=== PATIENT | female | born 1950 | race Caucasian/White ===

== ENCOUNTER 2016-03-09 13:44 | Inpatient (IN) ==
[2016-03-09] MEDS ORDERED: 0.9 % Sodium Chloride 1,000 ML IVC ONE (14:07)
[2016-03-09 14:22] LABS: Basophils # 0.1 K/mcL (0.0-0.2); Basophils % 0.3 %; Eosinophils # 0.2 K/mcL (0.0-0.6); Eosinophils % 1.2 %; Hematocrit 38.4 % (35.3-44.9); Hemoglobin 12.5 g/dL (11.5-15.4); Immature Granulocytes % 0.3 % (0-4); Lymphocytes # 0.8 K/mcL (0.6-4.6); Lymphocytes % 5.7 %; Mean Corpuscular HGB Conc 32.6 g/dL (31.6-35.5); Mean Corpuscular Hemoglobin 29.4 pg (28.0-33.3); Mean Corpuscular Volume 90.4 fL (83.0-100.0); Mean Platelet Volume 9.5 fL (9.4-12.4); Monocytes # 1.1 K/mcL (0.0-1.3); Monocytes % 7.5 %; Neutrophils # 12.3 K/mcL (1.6-8.9); Platelet Count 292 K/mcL (140-400); Red Blood Count 4.25 M/mcL (3.82-4.97); Red Cell Distribution Width 13.5 % (11.5-14.5)
[2016-03-09 14:39] LABS: Alanine Aminotransferase 10 Units/L (0-55); Albumin 3.5 g/dL (3.5-5.0); Alkaline Phosphatase 102 Units/L (38-126); Aspartate Amino Transferase 17 Units/L (5-34); BUN/Creatinine Ratio 7 (6-26); Bilirubin,Direct 0.2 mg/dL (0.0-0.5); Bilirubin,Indirect 0.2 mg/dL (0.0-1.2); Bilirubin,Total 0.4 mg/dL (0.2-1.2); Blood Urea Nitrogen 6 mg/dL (7-20); Carbon Dioxide 25 mEq/L (19-29); Chloride 101 mEq/L (98-109); Globulin 3.6 g/dL (2.4-3.5); Glucose 141 mg/dL (70-99); Osmolality,Calculated 284 (280-300); Potassium 3.7 mEq/L (3.5-4.5); Sodium 137 mEq/L (136-145); Total Protein 7.1 g/dL (6.0-8.3); eGFR For African Americans > 60 (> 60); eGFR For Non-African Americans > 60 (> 60)
[2016-03-09] MEDS ORDERED: Azithromycin 500 MG in D5% in Water 250 ML IVPB STA (15:37)
[2016-03-09] MEDS ORDERED: Cefepime HCl 2,000 MG in D5% in Water (Mini-Bag+) 100 ML IVPB STA (15:37)
[2016-03-09] MEDS ORDERED: Ibuprofen 600 MG TABLET PO ONE (15:38)
[2016-03-09] MEDS ORDERED: Acetaminophen 325 MG TABLET PO ONE (15:38)
--- NOTE | 2016-03-09 15:42 | Emergency Department Note ---
Disposition Clinical Impression: Tachycardia, HCAP (healthcare-associated pneumonia) Disposition: Admitted As Inpatient Condition: Good Time of Disposition: 15:38 SOB HPI - General Chief Complaint: ED Shortness of Breath/Dyspnea Stated Complaint: SOB Time Seen by Provider: 03/09/16 14:07 Source: patient Mode of arrival: EMS Limitations: no limitations Nursing Notes Reviewed: Yes Vital Signs Reviewed: Yes - History of Present Illness 65-year-old female brought in by EMS for concerns of shortness of breath and possible pneumonia. Patient states she has a history of multidrug resistant pneumonia which has been followed by her gaming department head with multiple courses of antibiotics. Patient states that she feels short of breath and fatigued and weak. She is febrile upon arrival to the emergency department. - Related Data Home Medications Medication Instructions Recorded Confirmed Albuterol Sulfate [Proair Hfa] 2 puff IH Q4H PRN 07/14/15 02/01/16 Allopurinol [Zyloprim 300 MG] 300 mg PO DAILY 07/14/15 02/01/16 Atenolol 100 mg PO DAILY 07/14/15 02/01/16 Celecoxib [Celebrex] 200 mg PO BID 07/14/15 02/01/16 Citalopram Hydrobromide [Celexa] 40 mg PO DAILY 07/14/15 02/01/16 Cyclobenzaprine [Flexeril] 10 mg PO TID 07/14/15 02/01/16 Hydroxychloroquine [Plaquenuil] 400 mg PO DAILY 07/14/15 02/01/16 Levothyroxine [Synthroid] 50 mcg PO DAILY 07/14/15 02/01/16 Lidocaine Patch [Lidoderm 5% patch] 1 patch TP DAILY 07/14/15 02/01/16 Metaxalone [Skelaxin] 800 mg PO BID 07/14/15 02/01/16 NIFEdipine XL (24 HR) [Procardia 30 mg PO DAILY 07/14/15 02/01/16 XL] Oxycodone HCl 10 mg PO Q6H PRN 07/14/15 02/01/16 Pregabalin [Lyrica] 100 mg PO TID PRN 07/14/15 02/01/16 Aspirin 325 mg PO DAILY 11/04/15 02/01/16 Furosemide [Lasix] 20 mg PO DAILY 01/05/16 02/01/16 Multivitamin [Multi-Day Vitamins] 1 tab PO DAILY 01/05/16 02/01/16 Oxygen 2 l .ROUTE AD 01/05/16 02/01/16 Allergies Allergy/AdvReac Type Severity Reaction Status Date / Time No Known Allergies Allergy Verified 08/23/15 12:05 All systems ED: reviewed and negative except as stated. Constitutional: Reports: fever, chills, weakness Cardiovascular: Reports: chest pain, dyspnea on exertion. Denies: palpitations Respiratory: Reports: cough, dyspnea. Denies: wheezes, hemoptysis Gastrointestinal: Denies: abdominal pain, nausea, vomiting, diarrhea Genitourinary: Denies: urgency, dysuria, frequency Musculoskeletal: Denies: back pain, neck pain, joint swelling Past Medical History - Past Medical History Attestation: Yes The following information was validated with the patient. Source: patient Medical history: Reports: arthritis, asthma, COPD, coronary artery disease, fibromyalgia, GERD, hyperlipidemia, hypertension, kidney stones, osteoporosis, RA, thyroid disease, other Surgical history: Reports: appendectomy, breast surgery, cholecystectomy, herniorrhaphy, hip replacement, hysterectomy, other Psychiatric history: Reports: anxiety, depression, panic disorder, other ATOMIC PHYSICS TEACHER history: Reports: no ATOMIC PHYSICS TEACHER history - Social History Smoking Status: Never smoker Smokeless Tobacco Status: No Alcohol use: Reports: none Drug use: Reports: none Physical Exam General: Alert and in no acute distress Skin: Warm, dry, intact Head: Normocephalic and atraumatic Neck: Supple, trachea midline and no tenderness Cardiovascular: Tachycardia, no murmur, normal perfusion Respiratory: Mild wheezing and posterior lung price bilaterally Musculoskeletal: Normal strength, no tenderness, swelling or deformity GI: Soft, nontender, nondistended. Bowel sounds present Neuro: A&O to person, place, time and situation. No focal deficits noted on exam Psychiatric: cooperative and appropriate mood and affect. - General Limitations: no limitations General appearance: alert Course Vital Signs Temperature 102.9 F H 03/09/16 13:45 Pulse Rate 117 03/09/16 13:45 Respiratory Rate 24 03/09/16 13:45 Blood Pressure 145/91 03/09/16 13:45 O2 Sat by Pulse Oximetry 88 L 03/09/16 13:45 Temperature 98.2 F 03/09/16 23:41 Pulse Rate 80 03/09/16 23:41 Respiratory Rate 16 03/09/16 23:41 Blood Pressure 108/69 03/09/16 23:41 O2 Sat by Pulse Oximetry 98 03/09/16 23:41 Oxygen Delivery Oxygen Delivery Nasal Cannula Shortness of Breath/Dyspnea - Medical Records Medical records reviewed: Yes I reviewed the patient's medical records. - Lab Data Lab results reviewed: Yes I reviewed the patient's lab results. Result diagrams: 03/09/16 14:10 03/09/16 14:10 Lab Results 03/09/16 03/09/16 03/09/16 Range/Units 14:10 14:10 14:10 WBC 14.5 H (4.3-11.1) K/mcL RBC 4.25 (3.82-4.97) M/mcL Hgb 12.5 (11.5-15.4) g/dL Hct 38.4 (35.3-44.9) % MCV 90.4 (83.0-100.0) fL MCH 29.4 (28.0-33.3) pg MCHC 32.6 (31.6-35.5) g/dL RDW 13.5 (11.5-14.5) % Plt Count 292 (140-400) K/mcL MPV 9.5 (9.4-12.4) fL Immature Gran % 0.3 (0-4) % Seg Neutrophils % 85.0 % Lymphocytes % 5.7 % Monocytes % 7.5 % Eosinophils % 1.2 % Basophils % 0.3 % Neutrophils # 12.3 H (1.6-8.9) K/mcL Lymphocytes # 0.8 (0.6-4.6) K/mcL Monocytes # 1.1 (0.0-1.3) K/mcL Eosinophils # 0.2 (0.0-0.6) K/mcL Basophils # 0.1 (0.0-0.2) K/mcL Sodium 137 (136-145) mEq/L Potassium 3.7 (3.5-4.5) mEq/L Chloride 101 (98-109) mEq/L Carbon Dioxide 25 (19-29) mEq/L BUN 6 L (7-20) mg/dL Creatinine 0.86 (0.57-1.11) mg/dL Est GFR ( Amer) > 60 (> 60) Est GFR (Non-Af Amer) > 60 (> 60) BUN/Creatinine Ratio 7 (6-26) Glucose 141 H (70-99) mg/dL Calculated Osmolality 284 (280-300) Lactic Acid 2.7 H (0.5-2.2) mmol/L Calcium 9.0 (8.6-10.8) mg/dL Total Bilirubin 0.4 (0.2-1.2) mg/dL Direct Bilirubin 0.2 (0.0-0.5) mg/dL Indirect Bilirubin 0.2 (0.0-1.2) mg/dL AST 17 (5-34) Units/L ALT 10 (0-55) Units/L Alkaline Phosphatase 102 (38-126) Units/L Troponin I (0-0.03) ng/mL Serum Total Protein 7.1 (6.0-8.3) g/dL Albumin 3.5 (3.5-5.0) g/dL Globulin 3.6 H (2.4-3.5) g/dL Albumin/Globulin Ratio 1.0 L (1.1-2.2) Urine Color (Yellow) Urine Clarity (Clear) Urine pH (5.0-8.0) pH Units Ur Specific [place] (1.010-1.025) Urine Protein (Neg-Trace) mg/dL Urine Glucose (UA) (Normal) mg/dL Urine Ketones (Negative) mg/dL Urine Blood (Negative) Urine Nitrite (Negative) Urine Bilirubin (Negative) Urine Urobilinogen (Normal) mg/dL Ur Leukocyte Esterase (Negative) Urine Microscopic RBC (0-3) per hpf Urine Microscopic WBC (0-3) per hpf Ur Squamous Epith Cells (None-Few) per lpf Urine Bacteria (None-Few) per hpf Hyaline Casts (None-Few) per lpf Ur Culture Indicated? (NO) MRSA Surveillance Scrn (Negative) 03/09/16 03/09/16 03/09/16 Range/Units 14:10 15:51 19:30 WBC (4.3-11.1) K/mcL RBC (3.82-4.97) M/mcL Hgb (11.5-15.4) g/dL Hct (35.3-44.9) % MCV (83.0-100.0) fL MCH (28.0-33.3) pg MCHC (31.6-35.5) g/dL RDW (11.5-14.5) % Plt Count (140-400) K/mcL MPV (9.4-12.4) fL Immature Gran % (0-4) % Seg Neutrophils % % Lymphocytes % % Monocytes % % Eosinophils % % Basophils % % Neutrophils # (1.6-8.9) K/mcL Lymphocytes # (0.6-4.6) K/mcL Monocytes # (0.0-1.3) K/mcL Eosinophils # (0.0-0.6) K/mcL Basophils # (0.0-0.2) K/mcL Sodium (136-145) mEq/L Potassium (3.5-4.5) mEq/L Chloride (98-109) mEq/L Carbon Dioxide (19-29) mEq/L BUN (7-20) mg/dL Creatinine (0.57-1.11) mg/dL Est GFR ( Amer) (> 60) Est GFR (Non-Af Amer) (> 60) BUN/Creatinine Ratio (6-26) Glucose (70-99) mg/dL Calculated Osmolality (280-300) Lactic Acid (0.5-2.2) mmol/L Calcium (8.6-10.8) mg/dL Total Bilirubin (0.2-1.2) mg/dL Direct Bilirubin (0.0-0.5) mg/dL Indirect Bilirubin (0.0-1.2) mg/dL AST (5-34) Units/L ALT (0-55) Units/L Alkaline Phosphatase (38-126) Units/L Troponin I 0.01 (0-0.03) ng/mL Serum Total Protein (6.0-8.3) g/dL Albumin (3.5-5.0) g/dL Globulin (2.4-3.5) g/dL Albumin/Globulin Ratio (1.1-2.2) Urine Color Dark Yellow (Yellow) Urine Clarity Clear (Clear) Urine pH 5.5 (5.0-8.0) pH Units Ur Specific [place] 1.016 (1.010-1.025) Urine Protein Negative (Neg-Trace) mg/dL Urine Glucose (UA) Normal (Normal) mg/dL Urine Ketones Negative (Negative) mg/dL Urine Blood Negative (Negative) Urine Nitrite Positive A (Negative) Urine Bilirubin Negative (Negative) Urine Urobilinogen Normal (Normal) mg/dL Ur Leukocyte Esterase Negative (Negative) Urine Microscopic RBC 0-3 (0-3) per hpf Urine Microscopic WBC 0-3 (0-3) per hpf Ur Squamous Epith Cells Moderate H (None-Few) per lpf Urine Bacteria None Seen (None-Few) per hpf Hyaline Casts None Seen (None-Few) per lpf Ur Culture Indicated? YES A (NO) MRSA Surveillance Scrn Positive A (Negative) - Radiology Data Radiology results reviewed: Yes I reviewed the patient's radiology results. - EKG Data EKG attestation: Yes I reviewed and interpreted this EKG. EKG results narrative: ECG - interpreted by ED physician. Rate 110 sinus tachycardia, no STEMI, IN, QT intervals, and QRS within normal limits
[2016-03-09 15:58] LABS: Bilirubin,Urine Negative (Negative); Blood,Urine Negative (Negative); Clarity,Urine Clear (Clear); Color,Urine Dark Yellow (Yellow); Glucose,Urine (UA) Normal (Normal); Ketones,Urine Negative (Negative); Leukocyte Esterase,Urine Negative (Negative); Nitrite,Urine Positive (Negative); PH,Urine 5.5 pH Units (5.0-8.0); Protein,Urine Negative (Neg-Trace); Specific Gravity,Urine 1.016 (1.010-1.025); Urobilinogen,Urine Normal (Normal)
[2016-03-09 16:00] LABS: Bacteria,Urine None Seen per hpf (None-Few); Hyaline Casts,Urine None Seen per lpf (None-Few); RBC,Urine 0-3 per hpf (0-3); Squamous Epithelial Cell,Urine Moderate per lpf (None-Few); WBC,Urine 0-3 per hpf (0-3)
[2016-03-09] MEDS ORDERED: Vancomycin 1,500 MG in D5% in Water 250 ML IVPB ONE (16:00)
[2016-03-09] MEDS ORDERED: MOM Conc 10 ML UD.LIQ PO PRN (17:19)
[2016-03-09] MEDS ORDERED: Acetaminophen 325 MG TABLET PO PRN (17:19)
[2016-03-09] MEDS ORDERED: Ondansetron 4 MG/2 ML VIAL IVP PRN (17:19)
[2016-03-09] MEDS ORDERED: Naloxone 0.4 MG/ML INJ IVP PRN (17:19)
[2016-03-09] MEDS ORDERED: Ibuprofen 400 MG TABLET PO PRN (17:19)
[2016-03-09] MEDS ORDERED: Pregabalin 50 MG CAPSULE PO PRN (17:25)
[2016-03-09] MEDS ORDERED: *HR* OxyCODONE Immed Rel 5 MG TABLET PO PRN (17:25)
--- NOTE | 2016-03-09 17:36 | Internal Med History&Physical ---
<Jeana Langley - Last Filed: 03/09/16 18:01> Date of Encounter: 03/09/16 Time of Encounter: 16:20 Assessment and Plan (1) Sepsis Current visit: Yes Status: Acute Sepsis from HCAP. Pt has not been hypotensive since arrival. Pulse 91, resps 20 , 133/82, 91% 4L during exam. IVF Monitor for hypotension VS q 4 hours IV ATB as above for HCAP Monitor labs Qualifiers: Sepsis type: sepsis due to unspecified organism Qualified Code(s): A41.9 - Sepsis, unspecified organism (2) Pneumonia Current visit: Yes Status: Acute Pt presents with 2 day history of dry,hacking cough, 1 month history of intermittent fever. Pt admitted with pneumonia approx 1 month ago. Chest xray shows shereen perihilar infiltrates, WBC 14.5. Pt 91% on 4L 02/NC. Pt has been using her home 02 more frequently throughout the day and has increased her use of albuterol nebulizers at home over the last week. Titrate 02 to maintain 02 sat >92% Continuous pulse ox Continuous cardiac monitoring Levaquin 750mg IV daily Zosyn 3.375g IV q8h Vancomycin 15mg/kg IV [id number] to dose Monitor labs HCAP Qualifiers: Pneumonia type: due to unspecified organism Laterality: bilateral Lung location: unspecified part of lung Qualified Code(s): J18.9 - Pneumonia, unspecified organism (3) Acute respiratory failure with hypoxia Current visit: Yes Status: Acute Pt with room air 02 sats 88% on arrival to ED. Pt with history of same in the past. Titrate 02 to maintain sats >92% Continous pulse oximetry Continuous cardiac monitoring Internal Medicine - H&P: HPI Admitted From: Home Plans for Post Hospital Care: Home History of present illness: Ms. Mayes is a 65 year old female with history of hyperglobulinemia, COPD, hypoxic respiratory failure,and recurrent pneumonia. Pt presents today with intermittent fevers for 1 month, dry hacking, non-productive cough x 2 days. Pt wears 02 at night, however has been wearing it througout some of the day and has had increasing use of her nebulizers over the last week. Pt did get a flu shot 7 days ago. Past Med Surg Social Fam HX - Past Medical History Medical history: arthritis, asthma, COPD, coronary artery disease, fibromyalgia , GERD, hyperlipidemia, hypertension, kidney stones, osteoporosis, RA, thyroid disease, other Psychiatric history: anxiety, depression, panic disorder, other - Past Surgical History Surgical History: appendectomy, breast surgery, cholecystectomy, herniorrhaphy, hip replacement, hysterectomy, other - Social History Smoking Status: Never smoker Smokeless Tobacco Status: No Alcohol use: none Drug use: none - Family History Mother Adopted: No Family Member Ethnicity: Non- Living Status: Hx Family Cardiac Disorders: (unknown) Internal Medicine - H&P: Meds Albuterol Sulfate [Proair Hfa] 2 puff IH Q4H PRN 07/14/15 [History] Allopurinol [Zyloprim 300 MG] 300 mg PO DAILY 07/14/15 [History] Atenolol 100 mg PO DAILY 07/14/15 [History] Celecoxib [Celebrex] 200 mg PO BID 07/14/15 [History] Citalopram Hydrobromide [Celexa] 40 mg PO DAILY 07/14/15 [History] Cyclobenzaprine [Flexeril] 10 mg PO TID 07/14/15 [History] Hydroxychloroquine [Plaquenuil] 400 mg PO DAILY 07/14/15 [History] Levothyroxine [Synthroid] 50 mcg PO DAILY 07/14/15 [History] Lidocaine Patch [Lidoderm 5% patch] 1 patch TP DAILY 07/14/15 [History] Metaxalone [Skelaxin] 800 mg PO BID 07/14/15 [History] NIFEdipine XL (24 HR) [Procardia XL] 30 mg PO DAILY 07/14/15 [History] Oxycodone HCl 10 mg PO Q6H PRN 07/14/15 [History] Pregabalin [Lyrica] 100 mg PO TID PRN 07/14/15 [History] Aspirin 325 mg PO DAILY 11/04/15 [History] Furosemide [Lasix] 20 mg PO DAILY 01/05/16 [History] Multivitamin [Multi-Day Vitamins] 1 tab PO DAILY 01/05/16 [History] Oxygen 2 l .ROUTE AD 01/05/16 [History] Allergies No Known Allergies Allergy (Verified 08/23/15 12:05) All Systems PM: A 10-system review of systems was performed and is negative for pertinent findings except as documented above in the HPI. - Constitutional Constitutional: chills, fever(s), no night sweats - EENT Ears: no ear discharge, no ear pain Nose, mouth and throat: no hoarseness, no nasal congestion, no nasal discharge, no post-nasal drip - Cardiovascular Cardiovascular ROS IM: no chest pain, no dyspnea, no edema, no paroxysmal nocturnal dyspnea - Respiratory Respiratory: cough, no wheezing, no pain on inspiration, no chest congestion, no pain with cough - Gastrointestinal Gastrointestinal: no diarrhea, no nausea, no vomiting - Integumentary Integumentary IM: no rash - Hematologic/Lymphatic Hematologic/Lymphatic: as per HPI - Constitutional Vitals: Temp Pulse Resp BP Pulse Ox 102.9 F H 88 20 151/100 95 03/09/16 13:45 03/09/16 15:55 03/09/16 15:55 03/09/16 15:55 03/09/16 15:55 General appearance: Present: A&O X 3, pleasant, no acute distress - Head Head exam: Present: normal inspection - Eye Eye exam: Present: normal appearance, conjuntiva pink - ENT ENT exam: Present: mucous membranes moist, normal external ear exam, normal oropharynx - Neck Neck exam general surgery: Absent: lymphadenopathy - Respiratory Respiratory exam: Present: wheezes. Absent: accessory muscle use, chest wall tenderness, tachypnea - Cardiovascular Cardiovascular exam: Present: RRR, +S1, +S2. Absent: JVD - GI/Abdominal GI/Abdominal exam: Present: hyperactive bowel sounds, soft. Absent: tenderness - Extremities Exam Extremities exam: Present: warm, radial pulses palpable and symetrical. Absent : pedal edema - Neurological Exam Neurological exam: Present: alert, oriented X3, strengths equal and symetr throughout Internal Med - H&P Results - Labs CBC & Chem 7: 03/09/16 14:10 03/09/16 14:10 <Chiki Darby - Last Filed: 03/09/16 18:48> Date of Encounter: 03/09/16 Internal Medicine - H&P: HPI History of present illness: Ms. Mayes is a 65 year old female All Systems PM: A 10-system review of systems was performed and is negative for pertinent findings except as documented above in the HPI. - Constitutional Vitals: Temp Pulse Resp BP Pulse Ox 100.8 F H 94 18 108/64 97 03/09/16 18:10 03/09/16 18:02 03/09/16 18:10 03/09/16 18:10 03/09/16 18:02 Internal Med - H&P Results - Labs CBC & Chem 7: 03/09/16 14:10 03/09/16 14:10 - Attending Attestation I have independently seen and examined this patient. I have reviewed her EMR and discussed plan of care with SWIMMING POOL SERVICER, patient and her . 65 Y/O F with Chronic hypogammaglobulinema with recurrent pneumonias including hx of MRSA pneumonia recently. Additional PMH of COPD, Fibromyalgia, GERD, HLD, HTN, Thyroid Seen at bedside with . Presents with cough productive of sputum, fever and chills associated with SOB. Denies sick contacts, received her flu shot Physical exam in ER significant for fever with T/max of 102.9, tachycardia and hypoxia. Resolved at time of review. Speaks full sentences, not in respiratory distress, coughing occasionally. [place] with right basal rhonchi, diffuse scattered wheezing bilaterally. Heart sounds S1, S2 only, no m/g/r. Abdomen is soft, not tender, no pedal edema. Labs and Imaging reviewed: CXR showed bilateral ander-hilar infiltrates, CBC leukocytosis with left shift, Chem WNL, lactic acidosis. Assessment/Plan: Sepsis with Acute hypoxemic respiratory failure secondary to HCAP. Lactic acidosis. Continue Vancomycin, Zosyn and Levaquin. Follow blood cultures, repeat lactate, check respiratory panel ad sputum culture, supplemental oxygen. IVF hydration. Other chronic conditions are stable, resume home meds Rest of details as in CRISTI Rowe's documentation
[2016-03-09] MEDS: 0.9 % Sodium Chloride 1,000 ML IVC SCH (18:57)
[2016-03-09] MEDS: Levofloxacin 750 MG/150 ML 750 MG/150 ML BAG IVPB SCH (19:22)
[2016-03-09] MEDS ORDERED: Celecoxib 200 MG CAPSULE PO SCH (21:00)
[2016-03-09] MEDS: *HR* OxyCODONE Immed Rel 5 MG TABLET PO PRN (22:23)
[2016-03-10] MEDS ORDERED: Piperacillin/Tazobactam 3.375 GM in D5% in Water (Mini-Bag+) 100 ML IVPB SCH
[2016-03-10 01:50] LABS: Basophils # 0.1 K/mcL (0.0-0.2); Basophils % 0.3 %; Eosinophils # 0.2 K/mcL (0.0-0.6); Eosinophils % 1.2 %; Hematocrit 32.2 % (35.3-44.9); Immature Granulocytes % 0.4 % (0-4); Immature Platelets 2.6 % (1.1-6.1); Lymphocytes # 1.7 K/mcL (0.6-4.6); Lymphocytes % 9.7 %; Mean Corpuscular HGB Conc 32.3 g/dL (31.6-35.5); Mean Corpuscular Hemoglobin 29.5 pg (28.0-33.3); Mean Corpuscular Volume 91.5 fL (83.0-100.0); Mean Platelet Volume 10.1 fL (9.4-12.4); Monocytes # 1.8 K/mcL (0.0-1.3); Monocytes % 10.2 %; Platelet Count 261 K/mcL (140-400); Red Blood Count 3.52 M/mcL (3.82-4.97); Red Cell Distribution Width 13.6 % (11.5-14.5); Segmented Neutrophils % 78.2 %
[2016-03-10 01:55] LABS: Hemoglobin 10.4 g/dL (11.5-15.4)
[2016-03-10 01:57] LABS: INR 1.5; Prothrombin Time 15.8 Seconds (9.4-12.1)
[2016-03-10 01:59] LABS: Activated Partial Thrombo Time 25.8 Seconds (26.0-36.0)
[2016-03-10 02:04] LABS: BUN/Creatinine Ratio 12 (6-26); Blood Urea Nitrogen 8 mg/dL (7-20); Calcium 8.3 mg/dL (8.6-10.8); Carbon Dioxide 24 mEq/L (19-29); Chloride 106 mEq/L (98-109); Glucose 97 mg/dL (70-99); Osmolality,Calculated 284 (280-300); Potassium 3.7 mEq/L (3.5-4.5); Sodium 138 mEq/L (136-145); eGFR For African Americans > 60 (> 60); eGFR For Non-African Americans > 60 (> 60)
[2016-03-10] MEDS ORDERED: Vancomycin (wt based) 1,000 MG VIAL IVPB SCH (04:00)
[2016-03-10] MEDS: *HR* OxyCODONE Immed Rel 5 MG TABLET PO PRN ×3 (07:42→21:35)
[2016-03-10] MEDS: Furosemide 20 MG TABLET PO SCH (09:24)
[2016-03-10] MEDS: Aspirin 325 MG TABLET PO SCH (09:24)
[2016-03-10] MEDS: Multivit/Ca/Min/Fe/FA 1 TAB TABLET PO SCH (09:24)
[2016-03-10] MEDS: Levofloxacin 750 MG/150 ML 750 MG/150 ML BAG IVPB SCH (09:25)
[2016-03-10] MEDS: NIFEdipine XL (24 HR) 30 MG TAB.ER.24 PO SCH (09:25)
[2016-03-10] MEDS: 0.9 % Sodium Chloride 1,000 ML IVC SCH (09:26)
--- NOTE | 2016-03-10 10:57 | Internal Med Progress Note ---
Date of Encounter: 03/10/16 Time of Encounter: 10:54 - Assessment and plan (1) HCAP (healthcare-associated pneumonia) Current Visit: Yes Status: Acute Assessment and plan: Noted to have multiple episodes of recurrent pneumonia likely due to underlying immunosuppression. Improved fever and dyspnea and lactic acidosis but worsening leukocytosis. Continue broad-spectrum IV antibiotics-vancomycin, Zosyn and Levaquin at this time. Noted to have MRSA on BAL on 2 occasions but this could be due to colonization. Follow blood cultures and send sputum culture if possible. Continue to monitor closely. (2) Sepsis Current Visit: Yes Status: Acute Assessment and plan: Due to pneumonia. IV hydration, antibiotics and supportive care as above. Qualifiers: Sepsis type: sepsis due to unspecified organism Qualified Code(s): A41.9 - Sepsis, unspecified organism (3) Acute on chronic respiratory failure with hypoxemia Current Visit: Yes Status: Acute Assessment and plan: Likely related to pneumonia. Continue supplemental oxygen and wean down FiO2 as tolerated. When necessary bronchodilators. (4) Essential hypertension Current Visit: Yes Status: Chronic Assessment and plan: Blood pressure noted to be well controlled. Continue home medications. (5) Coronary artery disease Current Visit: Yes Status: Chronic Assessment and plan: Continue aspirin, beta sivan and statin. Qualifiers: Coronary Disease-Associated Artery/Lesion type: [place] artery [place] vs. transplanted heart: [place] heart Associated angina: without angina Qualified Code(s): I25.10 - Atherosclerotic heart disease of [place] coronary artery without angina pectoris (6) Anxiety Current Visit: Yes Status: Chronic (7) Hypogammaglobulinemia Current Visit: Yes Status: Chronic Assessment and plan: Continue weekly injections of immunoglobulins, subcutaneous per home regimen. (8) Hypothyroidism Current Visit: Yes Status: Chronic Assessment and plan: Resume levothyroxine. Qualifiers: Hypothyroidism type: acquired Qualified Code(s): E03.9 - Hypothyroidism, unspecified (9) Lupus (systemic lupus erythematosus) Current Visit: Yes Status: Chronic Assessment and plan: Continue hydroxychloroquine. Qualifiers: Systemic lupus erythematosus type: unspecified Systemic lupus erythematosus organ involvement: unspecified Qualified Code(s): M32.9 - Systemic lupus erythematosus, unspecified (10) Pain syndrome, chronic Current Visit: Yes Status: Chronic Assessment and plan: Continue home regimen of when necessary Flexeril, lidocaine patch along with pregabalin and when necessary oxycodone. - Subjective Interval history: Reports feeling better. Continues to have persistent cough, intermittently productive but improved shortness of breath and chest discomfort. No nausea, vomiting, fever or chills overnight. She does take weekly subcutaneous injections of immunoglobulins at home. - Constitutional Vitals: Temp Pulse Resp BP Pulse Ox 98 F 87 16 113/85 95 03/10/16 07:29 03/10/16 07:29 03/10/16 07:29 03/10/16 07:29 03/10/16 07:29 General appearance: Present: A&O X 3, answers questions appropriately - Head Head exam: Present: atraumatic, normocephalic - Neck Neck exam general surgery: Present: supple, trachea midline. Absent: lymphadenopathy - Respiratory Respiratory exam: Present: rales (Left basal crackles). Absent: accessory muscle use, rhonchi, wheezes - Cardiovascular Cardiovascular exam: Present: RRR, +S1, +S2. Absent: diastolic murmur, gallop, rubs, systolic murmur - GI/Abdominal GI/Abdominal exam: Present: normal bowel sounds, soft, no peritoneal signs. Absent: distended, tenderness - Extremities Exam Extremities exam: Present: full ROM, warm, radial pulses palpable and symetrical. Absent: calf tenderness, cyanotic, pedal edema - Neurological Exam Neurological exam: Present: CN II-XII intact, oriented X3, no focal deficits. Absent: pronater drift, facial droop, speech deficit - Skin Skin exam: Present: dry, intact Internal Medicine: Result - Labs CBC & Chem 7: 03/10/16 01:13 03/10/16 01:13 Labs: Short CBC 03/10/16 Range/Units 01:13 WBC 17.9 H (4.3-11.1) K/mcL Hgb 10.4 L D (11.5-15.4) g/dL Hct 32.2 L (35.3-44.9) % Plt Count 261 (140-400) K/mcL Neutrophils # 14.0 H (1.6-8.9) K/mcL BMP 03/10/16 01:13 Sodium 138 Potassium 3.7 Chloride 106 Carbon Dioxide 24 BUN 8 Creatinine 0.68 Glucose 97 Calcium 8.3 L - ABG Interpretation ABG results: PT/INR, D-dimer PT 15.8 Seconds (9.4-12.1) H 03/10/16 01:13 - VTE Documentation of Mechanical Device: Graduated compression elastic hosiery Consult Discharge Plan - Plan Referrals: Joseph Johns DO [Primary Care Provider] - 03/16/16 9:30 am ( )
[2016-03-10] MEDS: Vancomycin 1,000 MG in D5% in Water 250 ML IVPB SCH (11:01)
--- NOTE | 2016-03-10 11:57 | Electrocardiograph Report ---
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
[2016-03-10] MEDS: Piperacillin/Tazobactam 3.375 GM in D5% in Water (Mini-Bag+) 100 ML IVPB SCH ×2 (12:40→21:34)
[2016-03-10] MEDS: Pregabalin 50 MG CAPSULE PO SCH ×2 (14:33→21:35)
[2016-03-10] MEDS ORDERED: Vancomycin 1,000 MG in D5% in Water 250 ML IVPB SCH (17:00)
[2016-03-11] MEDS ORDERED: Temazepam 15 MG CAPSULE PO ONE (00:39)
[2016-03-11] MEDS: Vancomycin 1,000 MG in D5% in Water 250 ML IVPB SCH (01:04)
[2016-03-11 06:06] LABS: Basophils # 0.1 K/mcL (0.0-0.2); Basophils % 0.4 %; Eosinophils # 0.3 K/mcL (0.0-0.6); Eosinophils % 2.3 %; Hematocrit 34.3 % (35.3-44.9); Hemoglobin 11.3 g/dL (11.5-15.4); Immature Granulocytes % 0.4 % (0-4); Lymphocytes # 1.9 K/mcL (0.6-4.6); Lymphocytes % 14.3 %; Mean Corpuscular HGB Conc 32.9 g/dL (31.6-35.5); Mean Corpuscular Hemoglobin 29.6 pg (28.0-33.3); Mean Corpuscular Volume 89.8 fL (83.0-100.0); Mean Platelet Volume 9.6 fL (9.4-12.4); Monocytes # 1.3 K/mcL (0.0-1.3); Monocytes % 9.6 %; Neutrophils # 9.6 K/mcL (1.6-8.9); Platelet Count 292 K/mcL (140-400); Red Blood Count 3.82 M/mcL (3.82-4.97); Red Cell Distribution Width 13.9 % (11.5-14.5)
[2016-03-11] MEDS: Piperacillin/Tazobactam 3.375 GM in D5% in Water (Mini-Bag+) 100 ML IVPB SCH (06:50)
[2016-03-11] MEDS: *HR* Enoxaparin 40 MG/0.4 ML SYRINGE SQ SCH (06:52)
[2016-03-11] MEDS: Pregabalin 50 MG CAPSULE PO SCH ×3 (08:50→20:14)
[2016-03-11] MEDS: Aspirin 325 MG TABLET PO SCH (08:51)
[2016-03-11] MEDS: NIFEdipine XL (24 HR) 30 MG TAB.ER.24 PO SCH (08:52)
[2016-03-11] MEDS: Multivit/Ca/Min/Fe/FA 1 TAB TABLET PO SCH (08:52)
[2016-03-11] MEDS: Furosemide 20 MG TABLET PO SCH (08:52)
[2016-03-11] MEDS: *HR* OxyCODONE Immed Rel 5 MG TABLET PO PRN (08:52)
[2016-03-11] MEDS: Levofloxacin 750 MG/150 ML 750 MG/150 ML BAG IVPB SCH (08:53)
[2016-03-11] MEDS ORDERED: IVIG (wt based) 5 GM/50 ML INFUS..BTL IVC ONE (09:00)
[2016-03-11] MEDS ORDERED: IVIG MC SCH (09:00)
[2016-03-11] MEDS: Vancomycin 1,250 MG in D5% in Water 250 ML IVPB SCH (10:57)
[2016-03-11] MEDS: *HR* HYDROmorphone 2 MG/ML SYRINGE IVP PRN ×2 (12:58→20:55)
[2016-03-11] MEDS ORDERED: Benzonatate 100 MG CAPSULE PO PRN (13:00)
--- NOTE | 2016-03-11 16:26 | Internal Med Progress Note ---
Date of Encounter: 03/11/16 Time of Encounter: 11:45 - Assessment and plan (1) HCAP (healthcare-associated pneumonia) Current Visit: Yes Status: Acute Assessment and plan: Noted to have multiple episodes of recurrent pneumonia likely due to underlying immunosuppression. Discontinue IV hydration. When necessary benzonatate for cough. Improving leukocytosis. Continue broad-spectrum IV antibiotics- vancomycin, Levaquin and hold Zosyn at this time. Blood cultures remain negative so far. Sputum culture shows insufficient sample. Urine culture grows 10,000 colonies of MRSA, may not be clinically significant, follow up final report. Continue to monitor closely. (2) Sepsis Current Visit: Yes Status: Acute Assessment and plan: Due to pneumonia. IV antibiotics and supportive care as above. Qualifiers: Sepsis type: sepsis due to unspecified organism Qualified Code(s): A41.9 - Sepsis, unspecified organism (3) Acute on chronic respiratory failure with hypoxemia Current Visit: Yes Status: Acute Assessment and plan: Likely related to pneumonia. Continue supplemental oxygen and wean down FiO2 as tolerated. When necessary bronchodilators. (4) Essential hypertension Current Visit: Yes Status: Chronic Assessment and plan: Blood pressure noted to be well controlled. Continue home medications. (5) Coronary artery disease Current Visit: Yes Status: Chronic Assessment and plan: Continue aspirin, beta sivan and statin. Qualifiers: Coronary Disease-Associated Artery/Lesion type: [place] artery [place] vs. transplanted heart: [place] heart Associated angina: without angina Qualified Code(s): I25.10 - Atherosclerotic heart disease of [place] coronary artery without angina pectoris (6) Anxiety Current Visit: Yes Status: Chronic (7) Hypogammaglobulinemia Current Visit: Yes Status: Chronic (8) Hypothyroidism Current Visit: Yes Status: Chronic Assessment and plan: Resume levothyroxine. Qualifiers: Hypothyroidism type: acquired Qualified Code(s): E03.9 - Hypothyroidism, unspecified (9) Lupus (systemic lupus erythematosus) Current Visit: Yes Status: Chronic Qualifiers: Systemic lupus erythematosus type: unspecified Systemic lupus erythematosus organ involvement: unspecified Qualified Code(s): M32.9 - Systemic lupus erythematosus, unspecified (10) Pain syndrome, chronic Current Visit: Yes Status: Chronic Assessment and plan: Continue home regimen of when necessary Flexeril, lidocaine patch along with pregabalin and when necessary oxycodone. Start low-dose IV Dilaudid when necessary for severe pain including headache. - Subjective Interval history: Feels better today noted to have persistent cough with no shortness of breath, fever, chills, orthopnea. Reports acute on chronic headache that has been going on for about a year and requests for stronger pain medications, preferably intravenous. - Constitutional Vitals: Temp Pulse Resp BP Pulse Ox 98.9 F 73 16 106/69 95 03/11/16 16:08 03/11/16 16:08 03/11/16 16:08 03/11/16 16:08 03/11/16 16:08 General appearance: Present: A&O X 3, answers questions appropriately - Respiratory Respiratory exam: Present: rales (Bibasal crackles). Absent: accessory muscle use, rhonchi, wheezes - Cardiovascular Cardiovascular exam: Present: RRR, +S1, +S2. Absent: diastolic murmur, gallop, rubs, systolic murmur - GI/Abdominal GI/Abdominal exam: Present: normal bowel sounds, soft, no peritoneal signs. Absent: distended, tenderness - Extremities Exam Extremities exam: Present: warm, radial pulses palpable and symetrical. Absent : calf tenderness, cyanotic, pedal edema - Neurological Exam Neurological exam: Present: CN II-XII intact, oriented X3, no focal deficits. Absent: pronater drift, facial droop, speech deficit - Skin Skin exam: Present: dry, intact Internal Medicine: Result - Labs CBC & Chem 7: 03/11/16 05:47 03/10/16 01:13 Labs: Short CBC 03/11/16 Range/Units 05:47 WBC 13.1 H (4.3-11.1) K/mcL Hgb 11.3 L (11.5-15.4) g/dL Hct 34.3 L (35.3-44.9) % Plt Count 292 (140-400) K/mcL Neutrophils # 9.6 H (1.6-8.9) K/mcL - ABG Interpretation ABG results: PT/INR, D-dimer PT 15.8 Seconds (9.4-12.1) H 03/10/16 01:13 - VTE Documentation of Mechanical Device: Graduated compression elastic hosiery Consult Discharge Plan - Plan Referrals: Joseph Johns DO [Primary Care Provider] - 03/16/16 9:30 am ( )
[2016-03-11] MEDS: Acyclovir 200 MG CAPSULE PO SCH ×2 (16:36→20:54)
[2016-03-12] MEDS: Vancomycin 1,250 MG in D5% in Water 250 ML IVPB SCH ×2 (00:12→11:07)
[2016-03-12] MEDS: Acyclovir 200 MG CAPSULE PO SCH ×3 (00:21→12:00)
[2016-03-12] MEDS: *HR* OxyCODONE Immed Rel 5 MG TABLET PO PRN ×2 (00:21→11:07)
[2016-03-12] MEDS: *HR* HYDROmorphone 2 MG/ML SYRINGE IVP PRN ×2 (03:12→13:43)
[2016-03-12] MEDS: *HR* Enoxaparin 40 MG/0.4 ML SYRINGE SQ SCH (06:26)
[2016-03-12] MEDS: Multivit/Ca/Min/Fe/FA 1 TAB TABLET PO SCH (09:18)
[2016-03-12] MEDS: NIFEdipine XL (24 HR) 30 MG TAB.ER.24 PO SCH (09:18)
[2016-03-12] MEDS: Pregabalin 50 MG CAPSULE PO SCH (09:18)
[2016-03-12] MEDS: Furosemide 20 MG TABLET PO SCH (09:18)
[2016-03-12] MEDS: Levofloxacin 750 MG/150 ML 750 MG/150 ML BAG IVPB SCH (09:18)
[2016-03-12] MEDS: Aspirin 325 MG TABLET PO SCH (09:18)
[2016-03-12 10:41] VITALS: BP 124/85
--- NOTE | 2016-03-12 12:55 | Discharge Summary ---
Date of Encounter: 03/12/16 Time of Encounter: 12:46 - Discharge Diagnosis (1) HCAP (healthcare-associated pneumonia) Priority: Primary Status: Acute (2) Sepsis Priority: Primary Status: Resolved Qualifiers: Sepsis type: methicillin resistant Staphylococcus aureus Qualified Code(s) : A41.02 - Sepsis due to Methicillin resistant Staphylococcus aureus (3) Acute on chronic respiratory failure with hypoxemia Priority: Primary Status: Resolved (4) Essential hypertension Priority: Secondary Status: Chronic (5) Coronary artery disease Priority: Secondary Status: Chronic Qualifiers: Coronary Disease-Associated Artery/Lesion type: [place] artery [place] vs. transplanted heart: [place] heart Associated angina: without angina Qualified Code(s): I25.10 - Atherosclerotic heart disease of [place] coronary artery without angina pectoris (6) Anxiety Priority: Secondary Status: Chronic (7) Hypogammaglobulinemia Priority: Secondary Status: Chronic (8) Hypothyroidism Priority: Secondary Status: Chronic Qualifiers: Hypothyroidism type: acquired Qualified Code(s): E03.9 - Hypothyroidism, unspecified (9) Lupus (systemic lupus erythematosus) Priority: Secondary Status: Chronic Qualifiers: Systemic lupus erythematosus type: unspecified Systemic lupus erythematosus organ involvement: unspecified Qualified Code(s): M32.9 - Systemic lupus erythematosus, unspecified (10) Pain syndrome, chronic Priority: Secondary Status: Chronic - Discharge Medications Prescriptions: Levofloxacin [Levaquin] 500 mg PO DAILY #11 tablet Sulfamethoxazole/Trimeth DS [Bactrim DS] 1 each PO BID #22 tablet Home Medications: Albuterol Sulfate [Proair Hfa] 2 puff IH Q4H PRN 07/14/15 [History] Allopurinol [Zyloprim 300 MG] 300 mg PO DAILY 07/14/15 [History] Atenolol 100 mg PO DAILY 07/14/15 [History] Celecoxib [Celebrex] 200 mg PO BID 07/14/15 [History] Citalopram Hydrobromide [Celexa] 40 mg PO DAILY 07/14/15 [History] Cyclobenzaprine [Flexeril] 10 mg PO TID PRN 07/14/15 [History] Hydroxychloroquine [Plaquenuil] 400 mg PO DAILY 07/14/15 [History] Levothyroxine [Synthroid] 50 mcg PO DAILY 07/14/15 [History] Lidocaine Patch [Lidoderm 5% patch] 1 patch TP DAILY PRN 07/14/15 [History] Metaxalone [Skelaxin] 800 mg PO BID 07/14/15 [History] NIFEdipine XL (24 HR) [Procardia XL] 30 mg PO DAILY 07/14/15 [History] Oxycodone HCl 10 mg PO Q6H PRN 07/14/15 [History] Pregabalin [Lyrica] 100 mg PO TID 07/14/15 [History] Aspirin 325 mg PO DAILY 11/04/15 [History] Furosemide [Lasix] 20 mg PO DAILY 01/05/16 [History] Multivitamin [Multi-Day Vitamins] 1 tab PO DAILY 01/05/16 [History] Levofloxacin [Levaquin] 500 mg PO DAILY #11 tablet 03/12/16 [Rx] Sulfamethoxazole/Trimeth DS [Bactrim DS] 1 each PO BID #22 tablet 03/12/16 [Rx] Allergies/Adverse Reactions: Allergies No Known Allergies Allergy (Verified 08/23/15 12:05) Date of admission: 03/09/16 17:19 Primary care physician: Joseph Johns, Consults: 03/09/16 18:26 Consult to PICC team [Consult to Invasive Line Access Team] [CONS] Routine Reason for Consult: limited venous access Line Type: PICC PICC line indications: Limited vascular access Time Notified: 18:28 Call Completed: No 03/11/16 14:59 Consult to Invasive Line Access Team [CONS] Routine Reason for Consult: Possible need for penitentiary IV atb Line Type: EPIV 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 Office will call with appointment. ) Additional Instructions: F/up with with [facility] as scheduled - Diet and Activity Activity: resume usual activities as tolerated Diet: low fat, low cholesterol, low salt diet Hospital course: Ms. Mayes is a 65 year old female with the above medical problems who was admitted with worsening cough and shortness of breath. She is noted to have sepsis from pneumonia and was started on broad-spectrum IV antibiotics due to her underlying immunosuppression due to hypogammaglobulinemia. She was started on IV hydration, IV antibiotics and supplemental oxygen. She gradually improved on this regimen and her oxygen requirements came down to her baseline of 2 L/m. Blood cultures remained negative but urine culture grew MRSA, sensitive to Bactrim. She is medically stable for discharge on oral antibiotics. Patient is noted to require multiple pain medications including IV Dilaudid while in hospital, for acute on chronic pain issues including headache, generalized myalgia and body aches along with muscle relaxants and Lyrica. Patient is reluctant to be discharged today as she feels as if she has not gotten over her infection but is unable to voice any specific complaints. It has been explained to her that her vital signs and labs are not suggestive of ongoing infection or sepsis, which has also been discussed with her at bedside, and she is agreeable at this time for discharge. - Time Spent with Patient Total time spent providing and/or coordinating discharge services: Greater than 30 minutes (45 min) - Constitutional Vitals: Temp Pulse Resp BP Pulse Ox 99.1 F 86 18 124/85 95 03/12/16 10:35 03/12/16 10:35 03/12/16 10:35 03/12/16 10:35 03/12/16 10:35 General appearance: Present: A&O X 3, answers questions appropriately - Head Head exam: Present: atraumatic, normocephalic - Neck Neck exam general surgery: Present: supple, trachea midline. Absent: lymphadenopathy - Respiratory Respiratory exam: Present: rales (bibasal inspiratory crackles+). Absent: accessory muscle use, rhonchi, wheezes - VTE Documentation of Mechanical Device: Graduated compression elastic hosiery
--- NOTE | 2016-03-12 13:01 | Physician Discharge Referral ---
Home Health/Hosp Referral Info Transfer to: Home Health Attending Provider: Mary Monroe Provider in Charge Post Discharge: PCP - Diagnosis (1) HCAP (healthcare-associated pneumonia) Priority: Primary Status: Acute (2) Sepsis Priority: Primary Status: Resolved (3) Acute on chronic respiratory failure with hypoxemia Priority: Primary Status: Resolved (4) Essential hypertension Priority: Secondary Status: Chronic (5) Coronary artery disease Priority: Secondary Status: Chronic (6) Anxiety Priority: Secondary Status: Chronic (7) Hypogammaglobulinemia Priority: Secondary Status: Chronic (8) Hypothyroidism Priority: Secondary Status: Chronic (9) Lupus (systemic lupus erythematosus) Priority: Secondary Status: Chronic (10) Pain syndrome, chronic Priority: Secondary Status: Chronic - Respiratory Orders Oxygen / L per min (2L/min via [place]) Smoking Cessation: Smoking cessation has been advised. For more information, call the [place] Tobacco Quit Line at 8-917-YZZL-NOW. - Diet/Nutrition Diet/Nutrition Orders: No Added Salt ([place]), Cardiac - Activity Activity Orders: Ambulate - Services Needed Following services are medically necessary services: Nursing - Transfer Medications Prescriptions: Levofloxacin [Levaquin] 500 mg PO DAILY #11 tablet Sulfamethoxazole/Trimeth DS [Bactrim DS] 1 each PO BID #22 tablet Home Medications: Albuterol Sulfate [Proair Hfa] 2 puff IH Q4H PRN 07/14/15 [History] Allopurinol [Zyloprim 300 MG] 300 mg PO DAILY 07/14/15 [History] Atenolol 100 mg PO DAILY 07/14/15 [History] Celecoxib [Celebrex] 200 mg PO BID 07/14/15 [History] Citalopram Hydrobromide [Celexa] 40 mg PO DAILY 07/14/15 [History] Cyclobenzaprine [Flexeril] 10 mg PO TID PRN 07/14/15 [History] Hydroxychloroquine [Plaquenuil] 400 mg PO DAILY 07/14/15 [History] Levothyroxine [Synthroid] 50 mcg PO DAILY 07/14/15 [History] Lidocaine Patch [Lidoderm 5% patch] 1 patch TP DAILY PRN 07/14/15 [History] Metaxalone [Skelaxin] 800 mg PO BID 07/14/15 [History] NIFEdipine XL (24 HR) [Procardia XL] 30 mg PO DAILY 07/14/15 [History] Oxycodone HCl 10 mg PO Q6H PRN 07/14/15 [History] Pregabalin [Lyrica] 100 mg PO TID 07/14/15 [History] Aspirin 325 mg PO DAILY 11/04/15 [History] Furosemide [Lasix] 20 mg PO DAILY 01/05/16 [History] Multivitamin [Multi-Day Vitamins] 1 tab PO DAILY 01/05/16 [History] Levofloxacin [Levaquin] 500 mg PO DAILY #11 tablet 03/12/16 [Rx] Sulfamethoxazole/Trimeth DS [Bactrim DS] 1 each PO BID #22 tablet 03/12/16 [Rx] Allergies/Adverse Reactions: Allergies No Known Allergies Allergy (Verified 08/23/15 12:05) Certification: Further, I certify that my clinical findings support that this patient is homebound (i.e. absences from home require considerable and taxing effort and are for medical reasons or congregational services or infrequently or short duration when for other reasons) because: Homebound Reason: Patient requires assistance of a person or device to safely leave home, Leaving home requires considerable and taxing effort due to condition Attestation: My signature below is to certify that this patient is under my care and that I, or nurse practitioner, or a physician's admissions assistant working with me, has a face-to -face encounter with this patient.
[2016-03-12 13:41] LABS: BUN/Creatinine Ratio 7 (6-26); Blood Urea Nitrogen 6 mg/dL (7-20); eGFR For African Americans > 60 (> 60); eGFR For Non-African Americans > 60 (> 60)
[2016-03-12] MEDS ORDERED: Aminoglycoside Consult 1 EACH MC ONE (13:55)
== END 2016-03-12 13:56 | disposition home or self-care (01) | DRG 871 ==
LOC: EMEROO 13:44 → 2ANU 13:44
PROVIDERS: ADMIT Internal Medicine; ATTEND Internal Medicine

== ENCOUNTER 2016-12-31 00:08 | Observation (INO) ==
[2016-12-31 00:57] LABS: INR 1.1; Prothrombin Time 11.5 Seconds (9.4-12.1)
[2016-12-31 01:05] LABS: Activated Partial Thrombo Time 19.9 Seconds (26.0-36.0)
[2016-12-31 01:06] LABS: BUN/Creatinine Ratio 12 (6-26); Blood Urea Nitrogen 10 mg/dL (7-20); Calcium 9.3 mg/dL (8.6-10.8); Carbon Dioxide 25 mEq/L (19-29); Chloride 100 mEq/L (98-109); Glucose 97 mg/dL (70-99); Osmolality,Calculated 289 (280-300); Sodium 140 mEq/L (136-145); eGFR For African Americans > 60 (> 60); eGFR For Non-African Americans > 60 (> 60)
[2016-12-31 01:11] LABS: Basophils % 0.5 %; Eosinophils # 0.2 K/mcL (0.0-0.6); Eosinophils % 2.3 %; Hematocrit 43.1 % (35.3-44.9); Hemoglobin 14.3 g/dL (11.5-15.4); Immature Granulocytes % 0.4 % (0-4); Lymphocytes # 2.7 K/mcL (0.6-4.6); Lymphocytes % 36.6 %; Mean Corpuscular HGB Conc 33.2 g/dL (31.6-35.5); Mean Corpuscular Hemoglobin 29.9 pg (28.0-33.3); Mean Platelet Volume 9.9 fL (9.4-12.4); Monocytes % 13.2 %; Neutrophils # 3.5 K/mcL (1.6-8.9); Platelet Count 353 K/mcL (140-400); Red Blood Count 4.79 M/mcL (3.82-4.97); Red Cell Distribution Width 14.5 % (11.5-14.5)
--- NOTE | 2016-12-31 01:33 | Emergency Department Note ---
Disposition Clinical Impression: Transient cerebral ischemia Qualifiers: Transient cerebral ischemia type: unspecified Qualified Code(s): G45.9 - Transient cerebral ischemic attack, unspecified Disposition: Admitted As Inpatient Condition: Fair Time of Disposition: 03:12 Neuro HPI - General Chief Complaint: ED Neuro Symptoms/Deficit Stated Complaint: R side weakness,high bp Time Seen by Provider: 12/31/16 00:15 Source: patient, family Limitations: no limitations Nursing Notes Reviewed: Yes Vital Signs Reviewed: Yes - History of Present Illness HPI Narrative: Patient is a 66-year-old female who presents to [facility] ED with a chief complaint of right-sided facial droop and slurred speech. States her symptoms started around 11:30 at night. She noticed some when she went upstairs and then mentioned it to her and he noticed as well. Denies any extremity weakness. Patient has been on antibiotics for MRSA pneumonia. Patient was recently discharged from another hospital and is still being treated with IV antibiotics through PICC line. Onset of Symptoms Date: 12/30/16 Onset of Symptoms Time: 23:30 Symptom Onset Unknown: Yes Timing confirmed by: spouse Location: right face, dysarthria History of same: No Severity: mild Symptoms Improving: Yes Improves with: none Worsens with: none - Related Data Home Medications: Home Medications Medication Instructions Recorded Confirmed Albuterol Sulfate [Proair Hfa] 2 puff IH Q4H PRN 07/14/15 12/31/16 Allopurinol [Zyloprim 300 MG] 300 mg PO DAILY 07/14/15 12/31/16 Citalopram Hydrobromide [Celexa] 40 mg PO DAILY 07/14/15 12/31/16 Cyclobenzaprine [Flexeril] 10 mg PO TID PRN 07/14/15 12/31/16 Hydroxychloroquine [Plaquenuil] 400 mg PO DAILY 07/14/15 12/31/16 Levothyroxine [Synthroid] 50 mcg PO DAILY 07/14/15 12/31/16 Lidocaine Patch [Lidoderm 5% patch] 1 patch TP DAILY PRN 07/14/15 12/31/16 Metaxalone [Skelaxin] 800 mg PO BID 07/14/15 12/31/16 Oxycodone HCl 10 mg PO Q6H PRN 07/14/15 12/31/16 Pregabalin [Lyrica] 100 mg PO TID 07/14/15 12/31/16 Aspirin 325 mg PO DAILY 11/04/15 12/31/16 Multivitamin [Multi-Day Vitamins] 1 tab PO DAILY 01/05/16 12/31/16 Metoprolol Tartrate [Lopressor] 100 mg PO DAILY 11/15/16 12/31/16 NIFEdipine [Nifedipine] 10 mg PO DAILY 11/15/16 12/31/16 Sertraline [Zoloft] 50 mg PO DAILY 11/15/16 12/31/16 Allergies/Adverse Reactions: Allergies Allergy/AdvReac Type Severity Reaction Status Date / Time No Known Allergies Allergy Verified 11/15/16 08:55 All systems ED: reviewed and negative except as stated. Past Medical History - Past Medical History Attestation: Yes The following information was validated with the patient. Source: patient Medical history: Reports: arthritis, asthma, COPD, coronary artery disease, fibromyalgia, GERD, hyperlipidemia, hypertension, kidney stones, osteoporosis, RA, thyroid disease, other Surgical history: Reports: appendectomy, breast surgery, cholecystectomy, herniorrhaphy, hip replacement, hysterectomy, other Psychiatric history: Reports: anxiety, depression, panic disorder, other DRAMATIC READER history: Reports: no DRAMATIC READER history - Social History Smoking Status: Never smoker Smokeless Tobacco Status: No Alcohol use: Reports: none Drug use: Reports: none Physical Exam CONSTITUTIONAL: Alert and oriented X3, well-nourished, well appearing, in no apparent distress HEAD: Normocephalic; atraumatic. EYES: EOMI, no scleral icterus. NOSE: The nose is normal in appearance without rhinorrhea RESP: Normal chest excursion with respiration; breath sounds clear and equal bilaterally; no wheezes, rhonchi, or rales CARD: Regular rhythm, without murmurs, rub or gallop ABD: Non-distended; non-tender, soft,without rigidity, rebound or guarding SKIN: Normal for age and race; warm and dry; no apparent lesions NEUROLOGICAL: Patient is alert and oriented times three. Cranial nerves III- XII are intact. motor functions are intact. Strength is 5/5 for flexion and extension in all 4 extremities. Patient has mild ataxia with the left upper extremity finger to nose. Mildly decreased sensation in the right lower extremity. NIH score of 2. However, when she first arrived, she did have a prominent right-sided facial droop in which her NIH score would be 3. - General Limitations: no limitations General appearance: alert Course Course Narrative: Patient seen and examined. NIH score of 2 upon my exam. 3 when she first came in. Complaining of right-sided facial droop as well as slurred speech. These seemed to be rapidly improving. Stroke alert was called by the attending physician when patient first came into the room. When patient returned from CT scan, evaluated the patient. I spoke with the radiologist who states there are no acute findings on the CAT scan. Patient also mentions history of intracranial neoplasm on the brainstem which is not appreciated on the CT today. I discussed with [facility] neurologist who states patient does not meet criteria for TPA. Recommends admission for TIA workup. Stroke alert was canceled at 1:10 AM. - Reevaluation(s) Reevaluation #1: Discussed with hospitalist Dr. Gutierrez who has accepted patient for admission. Time: 03:11 Vital Signs Temperature 99.6 F 12/31/16 00:18 Pulse Rate 103 12/31/16 00:18 Respiratory Rate 18 12/31/16 00:18 Blood Pressure 149/98 12/31/16 00:18 O2 Sat by Pulse Oximetry 95 12/31/16 00:18 Temperature 98.1 F 12/31/16 03:54 Pulse Rate 80 12/31/16 03:54 Respiratory Rate 14 12/31/16 03:54 Blood Pressure 127/78 12/31/16 03:54 O2 Sat by Pulse Oximetry 94 12/31/16 03:54 Oxygen Delivery Oxygen Delivery Nasal Cannula Neuro Symptoms/Deficit - Medical Records Medical records reviewed: Yes I reviewed the patient's medical records. - Lab Data Lab results reviewed: Yes I reviewed the patient's lab results. Result diagrams: 12/31/16 01:02 12/31/16 00:48 Lab Results 12/31/16 12/31/16 12/31/16 Range/Units 00:48 00:48 00:48 WBC (4.3-11.1) K/mcL RBC (3.82-4.97) M/mcL Hgb (11.5-15.4) g/dL Hct (35.3-44.9) % MCV (83.0-100.0) fL MCH (28.0-33.3) pg MCHC (31.6-35.5) g/dL RDW (11.5-14.5) % Plt Count (140-400) K/mcL MPV (9.4-12.4) fL Immature Gran % (0-4) % Seg Neutrophils % % Lymphocytes % % Monocytes % % Eosinophils % % Basophils % % Neutrophils # (1.6-8.9) K/mcL Lymphocytes # (0.6-4.6) K/mcL Monocytes # (0.0-1.3) K/mcL Eosinophils # (0.0-0.6) K/mcL Basophils # (0.0-0.2) K/mcL PT 11.5 (9.4-12.1) Seconds INR 1.1 APTT 19.9 L (26.0-36.0) Seconds Sodium 140 (136-145) mEq/L Potassium 3.0 L (3.5-4.5) mEq/L Chloride 100 (98-109) mEq/L Carbon Dioxide 25 (19-29) mEq/L BUN 10 (7-20) mg/dL Creatinine 0.84 (0.57-1.11) mg/dL Est GFR ( Amer) > 60 (> 60) Est GFR (Non-Af Amer) > 60 (> 60) BUN/Creatinine Ratio 12 (6-26) Glucose 97 (70-99) mg/dL Calculated Osmolality 289 (280-300) Calcium 9.3 (8.6-10.8) mg/dL Troponin I 0.01 (0-0.03) ng/mL 12/31/16 Range/Units 01:02 WBC 7.4 (4.3-11.1) K/mcL RBC 4.79 (3.82-4.97) M/mcL Hgb 14.3 (11.5-15.4) g/dL Hct 43.1 (35.3-44.9) % MCV 90.0 (83.0-100.0) fL MCH 29.9 (28.0-33.3) pg MCHC 33.2 (31.6-35.5) g/dL RDW 14.5 (11.5-14.5) % Plt Count 353 (140-400) K/mcL MPV 9.9 (9.4-12.4) fL Immature Gran % 0.4 (0-4) % Seg Neutrophils % 47.0 % Lymphocytes % 36.6 % Monocytes % 13.2 % Eosinophils % 2.3 % Basophils % 0.5 % Neutrophils # 3.5 (1.6-8.9) K/mcL Lymphocytes # 2.7 (0.6-4.6) K/mcL Monocytes # 1.0 (0.0-1.3) K/mcL Eosinophils # 0.2 (0.0-0.6) K/mcL Basophils # 0.0 (0.0-0.2) K/mcL PT (9.4-12.1) Seconds INR APTT (26.0-36.0) Seconds Sodium (136-145) mEq/L Potassium (3.5-4.5) mEq/L Chloride (98-109) mEq/L Carbon Dioxide (19-29) mEq/L BUN (7-20) mg/dL Creatinine (0.57-1.11) mg/dL Est GFR ( Amer) (> 60) Est GFR (Non-Af Amer) (> 60) BUN/Creatinine Ratio (6-26) Glucose (70-99) mg/dL Calculated Osmolality (280-300) Calcium (8.6-10.8) mg/dL Troponin I (0-0.03) ng/mL - Radiology Data Radiology results reviewed: Yes I reviewed the patient's radiology results. Head CT 12/31/16 00:25 IMPRESSION: No acute intracranial abnormality. Findings were discussed with Diandra Kearney at 12:51 am on 12/31/2016. D/ / Arturo Gutierres MD / Arturo Gutierres MD Interpreting Provider: Arturo Gutierres MD NIH Stroke Scale - Level of Consciousness LOC: Alert - LOC Questions LOC Questions: Answers both correctly - LOC Commands LOC Commands: Performs both correctly - Best Gaze Best Gaze: Normal - Visual Visual: No visual loss - Facial Palsy Facial Palsy: Minor asymmetry on smiling, flattened nasolabial fold - Motor Arms Motor Arm-Left: No drift for 10 seconds Motor Arm-Right: No drift for 10 seconds - Motor Legs Motor Leg-Left: No drift for 5 seconds Motor Leg-Right: No drift for 5 seconds - Limb Ataxia Limb Ataxia: Present in ONE limb - Sensory Sensory: Mild to moderate loss, "not as sharp" - Best Language Best Language: No aphasia - Dysarthria Dysarthria: Normal - Extinction and Inattention Extinction and Inattention: Normal - NIHSS Total Score NIHSS Total Score: 3 Critical Care Time Critical Care Time: Yes Total Critical Care Time: 35 Attestation: Critical care performed: Time is exclusive of separately billable procedures. Time includes: direct patient care, patient reassessment, coordination of patient care, interpretation of data (laboratory data, radiology data, and respiratory data), review of patient's medical records, medical consultation and documentation of patient care. Procedures included in critical care time: Procedures excluded from critical care time: Attestation Statement - Attestation Attestation: I, Jero Sargent MD, personally evaluated this patient and discussed their management with the resident physician. I reviewed the resident's note and agree with the documented findings, medical decision making, and plan of care. 66-year-old female presents to the emergency department with a complaint of right sided facial drooping and some slurred speech which started approximately 11:30 PM this evening. The slurred speech has resolved but on arrival she still has some mild right facial drooping. She denies headache. She does state that her blood pressure has been running high for the last several days. She states her right side feels a little weak and numb. No dizziness or syncope. No blurred vision or double vision. No chest pain or shortness of breath. On examination patient is a well-developed well-nourished female in no acute distress. She is alert and oriented 3. There is no cyanosis or diaphoresis. Speech is clear. There is mild right facial drooping. There is good peat shredder tender strength bilaterally. Normal motor strength in upper and lower extremities bilaterally. EOMs intact. Neck is supple and nontender with no meningismus. Chest is nontender to palpation. Breath sounds are clear and equal bilaterally. Heart regular rate and rhythm. Abdomen soft and nontender with normal bowel sounds. Labs reviewed. Head CT negative. No acute changes on EKG. A stroke alert was called. Dr. Kearney discussed the case with the [facility] neurologist who felt the patient was not a candidate for TPA and the stroke alert was canceled. The hospitalist, Dr. Gutierrez, was consulted and accepted admission of the patient.
--- NOTE | 2016-12-31 09:33 | Internal Med History&Physical ---
Date of Encounter: 12/31/16 Time of Encounter: 09:32 Assessment and Plan (1) Transient cerebral ischemia Current visit: Yes Status: Acute 66/female As a multiple medical problems. Admitted with right-sided drooping of angle of mouth/slurred speech. CT head in the emergency room was negative Admitted for observation of TIA/CVA. plan: Admitted as an observation Nothing by mouth Physical therapy/occupational therapy/speech therapy evaluation. Aspirin/Lipitor MRI brain. Ultrasound carotid. Patient had a echo done less than a year ago and that shows ejection fraction more than 50% and no valvular abnormality. If any of the TIA workup is positive then please call neurology for further evaluation Qualifiers: Transient cerebral ischemia type: unspecified Qualified Code(s): G45.9 - Transient cerebral ischemic attack, unspecified (2) Meningioma Current visit: No Status: Acute Patient has a meningioma which is slightly increasing over a period of couple of years. . An MRI of the brain for this admission. (3) Essential hypertension Current visit: No Status: Chronic Stable hypertension. We will resume home medication (4) Recurrent pneumonia Current visit: No Status: Acute Known to have a MRSA pneumonia. Patient is on vancomycin. We need to get more information regarding vancomycin dosing and according to that we need to place the vancomycin (5) Coronary artery disease Current visit: No Status: Chronic Stable Qualifiers: Coronary Disease-Associated Artery/Lesion type: zuni artery [place] vs. transplanted heart: zuni heart Associated angina: without angina Qualified Code(s): I25.10 - Atherosclerotic heart disease of zuni coronary artery without angina pectoris (6) Hypothyroidism Current visit: No Status: Chronic Stable Qualifiers: Hypothyroidism type: acquired Qualified Code(s): E03.9 - Hypothyroidism, unspecified (7) Lupus (systemic lupus erythematosus) Current visit: No Status: Chronic On Plaquenil Qualifiers: Systemic lupus erythematosus type: unspecified Systemic lupus erythematosus organ involvement: unspecified Qualified Code(s): M32.9 - Systemic lupus erythematosus, unspecified (8) DVT prophylaxis Current visit: No Status: Acute SCDs Medical decision making: This patient is in moderate to severe risk of worsening in spite of presently on appropriate medication to underlying multiple comorbid conditions. Internal Medicine - H&P: HPI History of present illness: PCP: Dr. [facility] ( [facility]) Pulmonology: Dr Guevara. ID : From [facility] Brief PMH: Hypertension, hyperlipidemia, osteoporosis, rheumatoid arthritis, coronary artery disease, COPD, had a previous MRSA pneumonia and she is still on medication for the same. Patient also has hypogammaglobulinemia and she takes intravenous immunoglobulin. Patient has a thyroid disease. History of present illness: Patient was getting evaluated in the pain medicine yesterday morning. She was rejected from the pain medicine as she has a underlying MRSA. Patient was very upset and frustrated and she went home along with her . She threatened her that she is going to get rid of all her medication and she is not willing to see anymore any physicians at all. Patient and her had a long argument and in that her realized that she had slurring of speech and deviation of the right side of the angle of her mouth. Patient says that she is going to pass out. Patient's was concerned about this episode and he called squad and they were in the hospital for further evaluation. Patient denies chest pain, shortness of breath, nausea , vomiting, abdominal pain dizziness and diarrhea. Workup in the emergency room: Patient was evaluated in the emergency room. A basic labs were drawn. CT scan of the head was done. CT scan of the head did not show any acute event. Reason for admission: TIA to rule out CVA Family history: Noncontributory Past Med Surg Social Fam HX - Past Medical History Medical history: arthritis, asthma, COPD, coronary artery disease, fibromyalgia , GERD, hyperlipidemia, hypertension, kidney stones, osteoporosis, RA, thyroid disease, other Psychiatric history: anxiety, depression, panic disorder, other - Past Surgical History Surgical History: appendectomy, breast surgery, cholecystectomy, herniorrhaphy, hip replacement, hysterectomy, other - Social History Smoking Status: Never smoker Smokeless Tobacco Status: No Alcohol use: none Drug use: none - Family History Mother Adopted: No Family Member Ethnicity: Non- Living Status: Hx Family Cardiac Disorders: (unknown) Internal Medicine - H&P: Meds Albuterol Sulfate [Proair Hfa] 2 puff IH Q4H PRN 07/14/15 [History] Allopurinol [Zyloprim 300 MG] 300 mg PO DAILY 07/14/15 [History] Citalopram Hydrobromide [Celexa] 40 mg PO DAILY 07/14/15 [History] Cyclobenzaprine [Flexeril] 10 mg PO TID PRN 07/14/15 [History] Hydroxychloroquine [Plaquenuil] 400 mg PO DAILY 07/14/15 [History] Levothyroxine [Synthroid] 50 mcg PO DAILY 07/14/15 [History] Lidocaine Patch [Lidoderm 5% patch] 1 patch TP DAILY PRN 07/14/15 [History] Metaxalone [Skelaxin] 800 mg PO BID 07/14/15 [History] Oxycodone HCl 10 mg PO Q6H PRN 07/14/15 [History] Pregabalin [Lyrica] 100 mg PO TID 07/14/15 [History] Aspirin 325 mg PO DAILY 11/04/15 [History] Multivitamin [Multi-Day Vitamins] 1 tab PO DAILY 01/05/16 [History] Metoprolol Tartrate [Lopressor] 100 mg PO DAILY 11/15/16 [History] NIFEdipine [Nifedipine] 10 mg PO DAILY 11/15/16 [History] Sertraline [Zoloft] 50 mg PO DAILY 11/15/16 [History] 3 Allergy/AdvReac Type Severity Reaction Status Date / Time No Known Allergies Allergy Verified 11/15/16 08:55 All Systems PM: A 10-system review of systems was performed and is negative for pertinent findings except as documented above in the HPI. - Constitutional Constitutional: no chills, no fever(s), no night sweats - EENT Eyes: no change in vision, no discharge, no pain, no photophobia Ears: no ear discharge, no ear pain, no tinnitus Nose, mouth and throat: no dysphagia, no nasal discharge, no neck pain, no sore throat - Cardiovascular Cardiovascular ROS IM: no chest pain, no diaphoresis, no dyspnea, no lightheadedness, no palpitations, no syncope - Respiratory Respiratory: no cough, no dyspnea, no wheezing, no excessive phlegm production - Gastrointestinal Gastrointestinal: no abdominal pain, no diarrhea, no hematemesis, no hematochezia, no melena, no nausea, no vomiting - Genitourinary Genitourinary: no change in urinary stream, no dysuria, no flank pain, no hematuria - Musculoskeletal Musculoskeletal ROS IM: no numbness, no tingling - Integumentary Integumentary IM: no rash, no unusual bruising - Neurological Neurological ROS: no confusion, no convulsions, no focal weakness, no numbness, no tingling, no tremor(s) - Hematologic/Lymphatic Hematologic/Lymphatic: no easy bruising - Constitutional Vitals: Temp Pulse Resp BP Pulse Ox 97.9 F 98 16 134/83 97 12/31/16 07:05 12/31/16 07:05 12/31/16 07:05 12/31/16 07:05 12/31/16 07:05 General appearance: Present: A&O X 3, pleasant, no acute distress, answers questions appropriately - Head Head exam: Present: atraumatic, normocephalic - Eye Eye exam: Present: PERRL, conjuntiva pink, sclera anicteric Pupils: Present: PERRL - Neck Neck exam general surgery: Present: supple, trachea midline. Absent: lymphadenopathy - Respiratory Respiratory exam: Present: CTAB. Absent: accessory muscle use, rales, rhonchi, wheezes - Cardiovascular Cardiovascular exam: Present: RRR, +S1, +S2. Absent: diastolic murmur, gallop, rubs, systolic murmur - GI/Abdominal GI/Abdominal exam: Present: normal bowel sounds, soft, no peritoneal signs. Absent: distended, tenderness - Extremities Exam Extremities exam: Present: warm, radial pulses palpable and symmetrical. Absent : calf tenderness, cyanotic, pedal edema - Neurological Exam Neurological exam: Present: CN II-XII intact, oriented X3, no focal deficits. Absent: pronater drift, facial droop, speech deficit - Skin Skin exam: Present: dry, intact Internal Med - H&P Results - Labs CBC & Chem 7: 12/31/16 01:02 12/31/16 00:48
[2016-12-31] MEDS ORDERED: Naloxone 0.4 MG/ML INJ IVP PRN (09:49)
[2016-12-31] MEDS: 0.9 % Sodium Chloride 1,000 ML IVC SCH (11:06)
[2016-12-31] MEDS: *HR* OxyCODONE Immed Rel 5 MG TABLET PO PRN ×2 (11:06→18:27)
[2016-12-31] MEDS: Pregabalin 50 MG CAPSULE PO SCH ×2 (16:02→21:04)
[2016-12-31] MEDS ORDERED: Vancomycin 1,000 MG in D5% in Water 250 ML IVPB SCH (18:00)
[2017-01-01] MEDS: *HR* OxyCODONE Immed Rel 5 MG TABLET PO PRN ×4 (02:26→21:17)
[2017-01-01 04:11] LABS: Basophils # 0.1 K/mcL (0.0-0.2); Basophils % 0.8 %; Eosinophils # 0.2 K/mcL (0.0-0.6); Hematocrit 38.2 % (35.3-44.9); Immature Granulocytes % 0.2 % (0-4); Lymphocytes # 2.3 K/mcL (0.6-4.6); Lymphocytes % 37.2 %; Mean Corpuscular HGB Conc 33.2 g/dL (31.6-35.5); Mean Corpuscular Volume 90.3 fL (83.0-100.0); Mean Platelet Volume 10.3 fL (9.4-12.4); Monocytes # 0.7 K/mcL (0.0-1.3); Monocytes % 11.1 %; Platelet Count 315 K/mcL (140-400); Red Blood Count 4.23 M/mcL (3.82-4.97); Red Cell Distribution Width 14.6 % (11.5-14.5); Segmented Neutrophils % 47.7 %
[2017-01-01 04:14] LABS: Hemoglobin 12.7 g/dL (11.5-15.4)
[2017-01-01 04:20] LABS: INR 1.2; Prothrombin Time 12.5 Seconds (9.4-12.1)
[2017-01-01 04:22] LABS: Activated Partial Thrombo Time 26.4 Seconds (26.0-36.0)
[2017-01-01 04:30] LABS: Alanine Aminotransferase 8 Units/L (0-55); Albumin 3.3 g/dL (3.5-5.0); Alkaline Phosphatase 93 Units/L (38-126); Aspartate Amino Transferase 24 Units/L (5-34); BUN/Creatinine Ratio 7 (6-26); Bilirubin,Total 0.6 mg/dL (0.2-1.2); Calcium 9.2 mg/dL (8.6-10.8); Carbon Dioxide 31 mEq/L (19-29); Chloride 102 mEq/L (98-109); Chol/HDL Ratio 4.3 (0-4.9); Cholesterol 164 mg/dL (< 200); Globulin 3.4 g/dL (2.4-3.5); Glucose 124 mg/dL (70-99); HDL Cholesterol 38 mg/dL (40-59); LDL Cholesterol,Calculated 108 mg/dL (0-99); Magnesium 1.8 mg/dL (1.6-2.6); Osmolality,Calculated 291 (280-300); Phosphorous 3.1 mg/dL (2.3-4.7); Sodium 141 mEq/L (136-145); Total Protein 6.7 g/dL (6.0-8.3); Triglycerides 88 mg/dL (< 150); eGFR For African Americans > 60 (> 60); eGFR For Non-African Americans > 60 (> 60)
[2017-01-01 04:40] LABS: Blood Urea Nitrogen 5 mg/dL (7-20)
[2017-01-01 04:42] LABS: Potassium 2.4 mEq/L (3.5-4.5)
[2017-01-01] MEDS ORDERED: Potassium Chloride 40 MEQ, Lidocaine 1% 2 ML in D5% in Water 500 ML IVPB ONE (05:49)
[2017-01-01] MEDS ORDERED: Magnesium Sulfate 1 GM in 0.9 % Sodium Chloride 50 ML IVPB ONE (05:50)
[2017-01-01] MEDS ORDERED: Vancomycin 2,000 MG in D5% in Water 500 ML IVPB SCH ×2 (09:00→13:00)
[2017-01-01] MEDS: 0.9 % Sodium Chloride 1,000 ML IVC SCH ×3 (09:23→21:23)
[2017-01-01] MEDS: Pregabalin 50 MG CAPSULE PO SCH ×3 (09:23→21:17)
[2017-01-01] MEDS: Aspirin 325 MG TABLET PO SCH (09:23)
[2017-01-01] MEDS: NIFEdipine 10 MG CAPSULE PO SCH (09:23)
[2017-01-01] MEDS ORDERED: Aminoglycoside Consult 1 EACH MC ONE (11:15)
[2017-01-01 12:31] LABS: Magnesium 2.2 mg/dL (1.6-2.6); Potassium 3.5 mEq/L (3.5-4.5)
--- NOTE | 2017-01-01 13:24 | Internal Med Progress Note ---
Date of Encounter: 01/01/17 Time of Encounter: 11:00 - Assessment and plan (1) MRSA pneumonia Current Visit: Yes Status: Acute Assessment and plan: She had been receiving treatment with vancomycin at home. Yesterday's random level was 21, currently [place] 11. Continue with vancomycin 2 g IV daily for 2 more doses. Qualifiers: Laterality: unspecified laterality Lung location: unspecified part of lung Qualified Code(s): J15.212 - Pneumonia due to Methicillin resistant Staphylococcus aureus (2) Meningioma Current Visit: No Status: Acute Assessment and plan: MRI reveals no acute changes. (3) Generalized anxiety disorder Current Visit: No Status: Chronic Assessment and plan: Continue with Zoloft and Celexa. (4) Essential hypertension Current Visit: No Status: Chronic (5) Transient cerebral ischemia Current Visit: Yes Status: Acute Assessment and plan: Slings[place] H and facial droop have resolved. MR negative for acute infarct. Carotid Dopplers pending. Recent echocardiogram with normal ejection fraction no evidence of embolic source. Continue to monitor neurological status 4 hours. Qualifiers: Transient cerebral ischemia type: unspecified Qualified Code(s): G45.9 - Transient cerebral ischemic attack, unspecified (6) Hypokalemia Current Visit: Yes Status: Acute Assessment and plan: This is severe and worsening with potassium dropping from 3.1-2.4. We will treat this with IV potassium chloride. Replete magnesium as well. - Subjective Interval history: She presented to the hospital yesterday for aphasia and facial droop. Currently she reports that her symptoms have completely resolved and denies any associated focal weakness headache or vision changes - Constitutional Vitals: Temp Pulse Resp BP Pulse Ox 98.3 F 89 16 102/67 94 01/01/17 07:00 01/01/17 07:00 01/01/17 07:00 01/01/17 07:00 01/01/17 07:00 General appearance: Present: A&O X 3, pleasant, no acute distress, answers questions appropriately - Respiratory Respiratory exam: Present: CTAB. Absent: accessory muscle use, rales, rhonchi, wheezes - Cardiovascular Cardiovascular exam: Present: RRR, +S1, +S2. Absent: diastolic murmur, gallop, rubs, systolic murmur - GI/Abdominal GI/Abdominal exam: Present: normal bowel sounds, soft, no peritoneal signs. Absent: distended, tenderness - Extremities Exam Extremities exam: Present: warm, radial pulses palpable and symmetrical. Absent : calf tenderness, cyanotic, pedal edema - Skin Skin exam: Present: dry, intact Internal Medicine: Result - Labs CBC & Chem 7: 01/01/17 03:12 01/01/17 12:04 Labs: Short CBC 01/01/17 Range/Units 03:12 WBC 6.2 (4.3-11.1) K/mcL Hgb 12.7 D (11.5-15.4) g/dL Hct 38.2 (35.3-44.9) % Plt Count 315 (140-400) K/mcL Neutrophils # 3.0 (1.6-8.9) K/mcL BMP 01/01/17 01/01/17 03:12 12:04 Sodium 141 Potassium 2.4 L* 3.5 D Chloride 102 Carbon Dioxide 31 H BUN 5 L Creatinine 0.73 Glucose 124 H Calcium 9.2 Cardiac Enzymes 12/31/16 12/31/16 Range/Units 15:59 21:38 Troponin I 0.00 0.00 (0-0.03) ng/mL Liver Function 01/01/17 Range/Units 03:12 Total Bilirubin 0.6 (0.2-1.2) mg/dL AST 24 (5-34) Units/L ALT 8 (0-55) Units/L Alkaline Phosphatase 93 (38-126) Units/L Albumin 3.3 L (3.5-5.0) g/dL - ABG Interpretation ABG results: PT/INR, D-dimer PT 12.5 Seconds (9.4-12.1) H 01/01/17 03:12 - Impressions Impressions Brain MRI 12/31/16 09:56 IMPRESSION: No acute intracranial abnormality. Mild cerebral atrophy. Minimal chronic small vessel ischemic changes. Stable planum sphenoid meningioma. D/ /31/2016 13:59:25 Rachael Montoya MD / geovany Interpreting Provider: Rachael Montoya MD - VTE Documentation of Mechanical Device: Intermittent pneumatic compression device Consult Discharge Plan - Plan Referrals: Joseph Johns DO [Primary Care Provider] -
[2017-01-02] MEDS: *HR* OxyCODONE Immed Rel 5 MG TABLET PO PRN (04:26)
[2017-01-02 06:40] LABS: Basophils # 0.1 K/mcL (0.0-0.2); Basophils % 0.9 %; Eosinophils # 0.2 K/mcL (0.0-0.6); Eosinophils % 3.9 %; Hematocrit 37.8 % (35.3-44.9); Hemoglobin 12.2 g/dL (11.5-15.4); Immature Granulocytes % 0.2 % (0-4); Lymphocytes # 2.3 K/mcL (0.6-4.6); Lymphocytes % 42.8 %; Mean Corpuscular HGB Conc 32.3 g/dL (31.6-35.5); Mean Corpuscular Hemoglobin 29.6 pg (28.0-33.3); Mean Corpuscular Volume 91.7 fL (83.0-100.0); Mean Platelet Volume 10.8 fL (9.4-12.4); Monocytes # 0.6 K/mcL (0.0-1.3); Monocytes % 11.5 %; Neutrophils # 2.2 K/mcL (1.6-8.9); Platelet Count 266 K/mcL (140-400); Red Blood Count 4.12 M/mcL (3.82-4.97); Red Cell Distribution Width 14.5 % (11.5-14.5); Segmented Neutrophils % 40.7 %
[2017-01-02 06:46] LABS: BUN/Creatinine Ratio 9 (6-26); Blood Urea Nitrogen 7 mg/dL (7-20); Calcium 8.9 mg/dL (8.6-10.8); Carbon Dioxide 29 mEq/L (19-29); Chloride 104 mEq/L (98-109); Glucose 94 mg/dL (70-99); Osmolality,Calculated 288 (280-300); Potassium 3.8 mEq/L (3.5-4.5); Sodium 140 mEq/L (136-145); eGFR For African Americans > 60 (> 60); eGFR For Non-African Americans > 60 (> 60)
[2017-01-02 07:43] VITALS: BP 120/81
[2017-01-02] MEDS ORDERED: 0.9 % Sodium Chloride 500 ML IVC ONE (08:26)
[2017-01-02] MEDS: Pregabalin 50 MG CAPSULE PO SCH (09:28)
[2017-01-02] MEDS: Aspirin 325 MG TABLET PO SCH (09:28)
[2017-01-02] MEDS: NIFEdipine 10 MG CAPSULE PO SCH (09:28)
--- NOTE | 2017-01-02 10:37 | Discharge Summary ---
Date of Encounter: 01/02/17 Time of Encounter: 10:34 - Discharge Diagnosis (1) MRSA pneumonia Priority: Secondary Status: Acute Qualifiers: Laterality: unspecified laterality Lung location: unspecified part of lung Qualified Code(s): J15.212 - Pneumonia due to Methicillin resistant Staphylococcus aureus (2) Meningioma Priority: Secondary Status: Acute (3) Generalized anxiety disorder Priority: Secondary Status: Chronic (4) Essential hypertension Priority: Secondary Status: Chronic (5) Transient cerebral ischemia Priority: Primary Status: Acute Qualifiers: Transient cerebral ischemia type: unspecified Qualified Code(s): G45.9 - Transient cerebral ischemic attack, unspecified (6) Hypokalemia Priority: Secondary Status: Acute - Discharge Medications Home Medications: Albuterol Sulfate [Proair Hfa] 2 puff IH Q4H PRN 07/14/15 [History] Allopurinol [Zyloprim 300 MG] 300 mg PO DAILY 07/14/15 [History] Cyclobenzaprine [Flexeril] 10 mg PO TID PRN 07/14/15 [History] Hydroxychloroquine [Plaquenuil] 400 mg PO DAILY 07/14/15 [History] Levothyroxine [Synthroid] 50 mcg PO DAILY 07/14/15 [History] Lidocaine Patch [Lidoderm 5% patch] 1 patch TP DAILY PRN 07/14/15 [History] Metaxalone [Skelaxin] 800 mg PO BID 07/14/15 [History] Oxycodone HCl 10 mg PO Q6H PRN 07/14/15 [History] Aspirin 325 mg PO DAILY 11/04/15 [History] Multivitamin [Multi-Day Vitamins] 1 tab PO DAILY 01/05/16 [History] Metoprolol Tartrate [Lopressor] 100 mg PO DAILY 11/15/16 [History] Furosemide [Lasix] 20 mg PO DAILY 12/31/16 [History] Venlafaxine XR (24 HR) [Effexor Xr] 37.5 mg PO DAILY 12/31/16 [History] Allergies/Adverse Reactions: 3 Allergy/AdvReac Type Severity Reaction Status Date / Time No Known Allergies Allergy Verified 11/15/16 08:55 Procedures/tests Complete & Pending: Procedures Performed prior 72 hours Category Date Time Status MR head/brain wo con [MR] Routine MRI 12/31/16 09:56 Draft EV carotid duplex imaging BI Routine Y 01/01/17 09:58 Completed Date of admission: 12/31/16 01:37 Primary care physician: Joseph Johns, Consults: 12/31/16 10:00 Consult to Occupational Therapy [CONS] Routine Comment: Evaluate, develop and implement POC Reason for Consult: TIA/CVA Consult to Physical Therapy [CONS] Routine Comment: Evaluate, develop and implement POC Reason for Consult: TIA/CVA Consult to Speech Therapy [CONS] Routine Comment: Evaluate, develop and implement POC Reason for Consult: TIA/CVA Call Completed: No - Patient Status Disposition: Home Health Service Condition: Fair Functional capacity at discharge: independent ambulation Overall status at discharge: patient is back to baseline - Discharge Instructions Follow Up With: Joseph Johns DO [Primary Care Provider] - Additional Instructions: Follow-up with primary care physician within one week of discharge. - Diet and Activity Activity: increase activity as tolerated Diet: low salt diet Hospital course: Ms. Mayes is a 66 year old female with past medical history significant for hypertension, hyperlipidemia, osteoporosis, rheumatoid arthritis, coronary artery disease, COPD, had a previous MRSA pneumonia currently undergoing treatment with IV vancomycin at home who presented to the hospital for evaluation of sudden onset of slurred speech and deviation of the right side of her mouth. Upon initial evaluation a CT scan of the head was negative. Her symptoms resolved while in the emergency department. She was admitted to the medical service for workup of transient cerebral ischemia. She remained neurologically intact throughout this hospitalization. An MRI of the brain was done and showed the presence of a known meningioma in no acute findings. Carotid Dopplers were done and found bilateral non-obstructive plaques, report is currently preliminary, final report is pending. Of note her potassium dropped to 2.4 on day 2 of hospitalization and she required IV potassium supplementation. Currently her potassium is 3.8 and magnesium is within normal range. She is back to baseline and will be discharged home. She is to complete 2 more days of IV vancomycin per home dose. - Time Spent with Patient Total time spent providing and/or coordinating discharge services: - Constitutional Vitals: Temp Pulse Resp BP Pulse Ox 99.0 F 89 16 120/81 92 01/02/17 07:43 01/02/17 07:43 01/02/17 07:43 01/02/17 07:43 01/02/17 07:43 General appearance: Present: A&O X 3, pleasant, no acute distress, answers questions appropriately - Respiratory Respiratory exam: Present: CTAB. Absent: accessory muscle use, rales, rhonchi, wheezes - Cardiovascular Cardiovascular exam: Present: RRR, +S1, +S2. Absent: diastolic murmur, gallop, rubs, systolic murmur - Extremities Exam Extremities exam: Present: warm, radial pulses palpable and symmetrical. Absent : calf tenderness, cyanotic, pedal edema - VTE Documentation of Mechanical Device: Intermittent pneumatic compression device
--- NOTE | 2017-01-02 10:42 | Physician Discharge Referral ---
Home Health/Hosp Referral Info Transfer to: Home Health Provider in Charge Post Discharge: PCP - Diagnosis (1) MRSA pneumonia Status: Acute (2) Meningioma Status: Acute (3) Generalized anxiety disorder Status: Chronic (4) Essential hypertension Status: Chronic (5) Transient cerebral ischemia Status: Acute (6) Hypokalemia Status: Acute - Respiratory Orders Smoking Cessation: Smoking cessation has been advised. For more information, call the [place] Tobacco Quit Line at 4-574-DNOT-NOW. - Diet/Nutrition Diet/Nutrition Orders: Cardiac - Activity Activity Orders: Ambulate - Services Needed Following services are medically necessary services: Nursing (For IV antibiotic therapy.), Home Health Aide - Transfer Medications Home Medications: Albuterol Sulfate [Proair Hfa] 2 puff IH Q4H PRN 07/14/15 [History] Allopurinol [Zyloprim 300 MG] 300 mg PO DAILY 07/14/15 [History] Cyclobenzaprine [Flexeril] 10 mg PO TID PRN 07/14/15 [History] Hydroxychloroquine [Plaquenuil] 400 mg PO DAILY 07/14/15 [History] Levothyroxine [Synthroid] 50 mcg PO DAILY 07/14/15 [History] Lidocaine Patch [Lidoderm 5% patch] 1 patch TP DAILY PRN 07/14/15 [History] Metaxalone [Skelaxin] 800 mg PO BID 07/14/15 [History] Oxycodone HCl 10 mg PO Q6H PRN 07/14/15 [History] Aspirin 325 mg PO DAILY 11/04/15 [History] Multivitamin [Multi-Day Vitamins] 1 tab PO DAILY 01/05/16 [History] Metoprolol Tartrate [Lopressor] 100 mg PO DAILY 11/15/16 [History] Furosemide [Lasix] 20 mg PO DAILY 12/31/16 [History] Venlafaxine XR (24 HR) [Effexor Xr] 37.5 mg PO DAILY 12/31/16 [History] Allergies/Adverse Reactions: 3 Allergy/AdvReac Type Severity Reaction Status Date / Time No Known Allergies Allergy Verified 11/15/16 08:55 Certification: Further, I certify that my clinical findings support that this patient is homebound (i.e. absences from home require considerable and taxing effort and are for medical reasons or congregation services or infrequently or short duration when for other reasons) because: Homebound Reason: Patient requires assistance of a person or device to safely leave home, Leaving home requires considerable and taxing effort due to condition Attestation: My signature below is to certify that this patient is under my care and that I, or nurse practitioner, or a physician's assistant director of public works working with me, has a face-to -face encounter with this patient.
== END 2017-01-02 11:16 | disposition home health service (06) ==
LOC: 3BNU 00:08 → EMEROO 00:08 → SUATTDRO 01:37 → 3BNU 02:20
PROVIDERS: ADMIT Internal Medicine; ATTEND Internal Medicine

== ENCOUNTER 2017-05-09 18:40 | Inpatient (IN) ==
--- NOTE | 2017-05-09 19:07 | Emergency Department Note ---
Disposition Clinical Impression: Cellulitis of right breast, Breast mass, right, Tachycardia Disposition: Admitted As Inpatient Condition: Good Referrals: Joseph Johns DO [Primary Care Provider] - Forms: ED Satisfaction Letter Time of Disposition: 22:07 General Adult HPI - General Chief complaint: ED Shortness of Breath/Dyspnea Stated complaint: Infection in R Breast,MRSA Time Seen by Provider: 05/09/17 19:04 Source: patient, family Mode of arrival: ambulatory Limitations: no limitations Nursing Notes Reviewed: Yes Vital Signs Reviewed: Yes - History of Present Illness HPI Narrative: Patient is a 66-year-old female with past medical history of chronic MRSA pneumonia, multiple reported episodes of sepsis secondary to MRSA pneumonia one of which required home IV antibiotics. She also has COPD. She chronically wears 3 L nasal cannula at home. She presents today due to right breast pain. She states that in the past, she has had a lump removed in her left breast in the past and it reportedly came back benign. Over the past 3 days, she has developed redness, mass, and pain just superior and surrounding the right nipple. She also noticed some discharge from the right nipple. Denies any other lymphadenopathy, known fevers. She does admit to some nausea and vomiting over the past 3 days. Denies any abdominal pain, diarrhea, any other chest pain or shortness of breath. She does note that her pulse ox has been lower recently at home. Pain Scale: 8 - Related Data Home Medications Medication Instructions Recorded Confirmed Albuterol Sulfate [Proair Hfa] 2 puff IH Q4H PRN 07/14/15 12/31/16 Allopurinol [Zyloprim 300 MG] 300 mg PO DAILY 07/14/15 12/31/16 Cyclobenzaprine [Flexeril] 10 mg PO TID PRN 07/14/15 12/31/16 Hydroxychloroquine [Plaquenuil] 400 mg PO DAILY 07/14/15 12/31/16 Levothyroxine [Synthroid] 50 mcg PO DAILY 07/14/15 12/31/16 Lidocaine Patch [Lidoderm 5% patch] 1 patch TP DAILY PRN 07/14/15 12/31/16 Metaxalone [Skelaxin] 800 mg PO BID 07/14/15 12/31/16 OxyCODONE Immed Rel [Roxicodone 10 10 mg PO Q6H PRN 07/14/15 12/31/16 MG] Aspirin 325 mg PO DAILY 11/04/15 12/31/16 Multivitamin [Multi-Day Vitamins] 1 tab PO DAILY 01/05/16 12/31/16 Metoprolol Tartrate [Lopressor] 100 mg PO DAILY 11/15/16 12/31/16 Furosemide [Lasix] 20 mg PO DAILY 12/31/16 12/31/16 Venlafaxine XR (24 HR) [Effexor Xr] 37.5 mg PO DAILY 12/31/16 12/31/16 Allergies Allergy/AdvReac Type Severity Reaction Status Date / Time No Known Allergies Allergy Verified 05/09/17 18:48 All systems ED: reviewed and negative except as stated. Constitutional: Denies: fever Cardiovascular: Denies: chest pain, palpitations Respiratory: Denies: cough, dyspnea, wheezes Gastrointestinal: Reports: nausea, vomiting. Denies: abdominal pain, diarrhea, constipation, hematemesis Genitourinary: Denies: urgency, dysuria Integumentary: Reports: breast mass, nipple discharge, other Neurological: Denies: headache, weakness, numbness Past Medical History - Past Medical History Attestation: Yes The following information was validated with the patient. Source: patient Medical history: Reports: arthritis, asthma, COPD, coronary artery disease, fibromyalgia, GERD, hyperlipidemia, hypertension, kidney stones, osteoporosis, RA, thyroid disease, TIA, other Surgical history: Reports: appendectomy, breast surgery, cholecystectomy, herniorrhaphy, hip replacement, hysterectomy, other Psychiatric history: Reports: anxiety, bipolar, depression, panic disorder, other MANAGER PEDIATRIC history: Reports: no MANAGER PEDIATRIC history - Social History Smoking Status: Never smoker Smokeless Tobacco Status: No Alcohol use: Reports: none Drug use: Reports: none Physical Exam - General Limitations: no limitations General appearance: alert, in no apparent distress - Head Head exam: atraumatic, normocephalic, normal inspection - Eye Eye exam: Present: normal appearance, PERRL, EOMI - ENT ENT exam: normal exam, normal oropharynx, mucous membranes moist - Neck Neck exam: Present: normal inspection, full ROM, trachea midline - Chest Chest inspection: Present: symmetric chest wall rise, other (Right breast exam shows a 2 cm x 1 cm dense firm mass just superior to the nipple, overlying erythema measuring approximately 3 x 5 cm. No pus drainage or discharge from the nipple at this time. No other noted axillary or supraclavicular lymphadenopathy.) - Respiratory Respiratory exam: Present: normal lung sounds bilaterally - Cardiovascular Cardiovascular exam: Present: normal rhythm, tachycardia, normal heart sounds - Abdominal Exam Abdominal exam: Present: soft, Non-Tender. Absent: tenderness, distention, guarding, rebound, rigidity - Extremities Exam Extremities exam: Present: normal inspection, full ROM. Absent: tenderness, pedal edema - Neurological Exam Neurological exam: Present: alert, oriented X3 - Psychiatric Psychiatric exam: Present: normal affect, normal mood - Skin Skin exam: Present: warm, dry, intact, normal color Course Course Narrative: Patient is tachycardic, she was also 88% on room air. Placed her on 3 liter nasal cannula oxygen and she is now at 91%. The rest of her vitals are within normal limits at this time. Physical exam shows: Right breast exam shows a 2 cm x 1 cm dense firm mass just superior to the nipple, overlying erythema measuring approximately 3 x 5 cm. No pus drainage or discharge from the nipple at this time. No other noted axillary or supraclavicular lymphadenopathy. She does have some mildly coarse breath sounds throughout. Otherwise, the rest of the physical exam was fairly benign. Bedside ultrasound was performed and showed dense area of tissue with some small pockets of possible pus flush fluid. There is no large collection that can be drained with needle or incision. There is concern that this could be abscess versus fibrocystic change versus breast cancer. This was discussed with the patient. Patient is also tachycardic, history of MRSA pneumonia. Chest x-ray is pending. There is concern that this could be a sepsis presentation. Also the patient on vancomycin empirically. Blood cultures obtained and drawn. We will draw basic blood work as well including a troponin. EKG shows sinus tachycardia with no acute ST elevation or depression. T-wave inversions in V2, V3. 22:06 Chest x-ray was negative. We will start fluids on the patient, vancomycin is running. Patient has been admitted for right breast cellulitis/ mass and tachycardia. Chest X-Ray 05/09/17 19:34 IMPRESSION: No acute process. D/ / Gucci Alcala MD / Gucci Alcala MD Interpreting Provider: Gucci Alcala MD Vital Signs Temperature 98.9 F 05/09/17 18:43 Pulse Rate 119 05/09/17 18:43 Respiratory Rate 20 05/09/17 18:43 Blood Pressure 125/84 05/09/17 18:43 O2 Sat by Pulse Oximetry 97 05/09/17 18:43 Temperature 98.9 F 05/09/17 18:43 Pulse Rate 91 05/09/17 21:49 Respiratory Rate 18 05/09/17 21:49 Blood Pressure 114/83 05/09/17 21:49 O2 Sat by Pulse Oximetry 98 05/09/17 21:49 Oxygen Delivery Oxygen Delivery Nasal Cannula Medical Decision Making - MDM Narrative Medical decision making narrative: Patient is tachycardic, she was also 88% on room air. Placed her on 3 liter nasal cannula oxygen and she is now at 91%. The rest of her vitals are within normal limits at this time. Physical exam shows: Right breast exam shows a 2 cm x 1 cm dense firm mass just superior to the nipple, overlying erythema measuring approximately 3 x 5 cm. No pus drainage or discharge from the nipple at this time. No other noted axillary or supraclavicular lymphadenopathy. She does have some mildly coarse breath sounds throughout. Otherwise, the rest of the physical exam was fairly benign. Bedside ultrasound was performed and showed dense area of tissue with some small pockets of possible pus flush fluid. There is no large collection that can be drained with needle or incision. There is concern that this could be abscess versus fibrocystic change versus breast cancer. This was discussed with the patient. Patient is also tachycardic, history of MRSA pneumonia. Chest x-ray is pending. There is concern that this could be a sepsis presentation. Also the patient on vancomycin empirically. Blood cultures obtained and drawn. We will draw basic blood work as well including a troponin. EKG shows sinus tachycardia with no acute ST elevation or depression. T-wave inversions in V2, V3. 22:06 Chest x-ray was negative. We will start fluids on the patient, vancomycin is running. Patient has been admitted for right breast cellulitis/ mass and tachycardia. This documentation is done with the assistance of Dragon dictation. Despite efforts made to ensure accuracy, there may be inaccuracies in climatology teacher or spelling and typographical errors. I examined this patient and my medical decision-making was reviewed with the Resident Physician. I agree with the documented findings, disposition and treatment plan as described except to the extent set forth below. Patient seen and evaluated by Dr. Horton and myself, I agree with his evaluation management plan, supervise care the patient's stay. Patient's a history of pneumonia. She has been concerned because her last 48 hours said redness to the right breast no drainage. No lymph node involvement. Is tender to touch. Physical might be a small mass in the breast itself no history of breast cancer on the right side but she has had multiple benign lumps in the left. Anna bedside ultrasound to see if this is cystic or solid. Laboratory work most likely IV antibiotics and probable admission. She is in agreement with this plan. Chest X-Ray 05/09/17 19:34 IMPRESSION: No acute process. D/ / Gucci Alcala MD / Gucci Alcala MD Interpreting Provider: Gucci Alcala MD 2130 hrs.: Chest x-rays negative for talk to her about admission for IV antibiotics and then possible assessment of this breast mass by surgery. - Medical Records Medical records reviewed: Yes I reviewed the patient's medical records. - Lab Data Lab results reviewed: Yes I reviewed the patient's lab results. Result diagrams: 05/09/17 20:28 05/09/17 20:28 Lab Results 05/09/17 05/09/17 05/09/17 Range/Units 20:28 20:28 20:28 WBC 8.2 (4.3-11.1) K/mcL RBC 4.81 (3.82-4.97) M/mcL Hgb 14.2 (11.5-15.4) g/dL Hct 42.6 (35.3-44.9) % MCV 88.6 (83.0-100.0) fL MCH 29.5 (28.0-33.3) pg MCHC 33.3 (31.6-35.5) g/dL RDW 14.2 (11.5-14.5) % Plt Count 277 (140-400) K/mcL MPV 10.4 (9.4-12.4) fL Immature Gran % 0.2 (0-4) % Seg Neutrophils % 53.4 % Lymphocytes % 34.5 % Monocytes % 9.7 % Eosinophils % 1.6 % Basophils % 0.6 % Neutrophils # 4.4 (1.6-8.9) K/mcL Lymphocytes # 2.8 (0.6-4.6) K/mcL Monocytes # 0.8 (0.0-1.3) K/mcL Eosinophils # 0.1 (0.0-0.6) K/mcL Basophils # 0.1 (0.0-0.2) K/mcL Sodium 137 (136-145) mEq/L Potassium 3.4 L (3.5-5.1) mEq/L Chloride 98 (98-107) mEq/L Carbon Dioxide 32 H (23-29) mEq/L BUN 10 (8-23) mg/dL Creatinine 0.65 (0.60-1.20) mg/dL Est GFR ( Amer) > 60 (> 60) Est GFR (Non-Af Amer) > 60 (> 60) BUN/Creatinine Ratio 15 (6-26) Glucose 113 H (70-105) mg/dL Calculated Osmolality 284 (280-300) Lactic Acid 0.9 (0.5-2.2) mmol/L Calcium 9.4 (8.6-10.3) mg/dL Troponin I < 0.03 (< 0.04) ng/mL B-Natriuretic Peptide (Less than 100) pg/mL 05/09/17 Range/Units 20:28 WBC (4.3-11.1) K/mcL RBC (3.82-4.97) M/mcL Hgb (11.5-15.4) g/dL Hct (35.3-44.9) % MCV (83.0-100.0) fL MCH (28.0-33.3) pg MCHC (31.6-35.5) g/dL RDW (11.5-14.5) % Plt Count (140-400) K/mcL MPV (9.4-12.4) fL Immature Gran % (0-4) % Seg Neutrophils % % Lymphocytes % % Monocytes % % Eosinophils % % Basophils % % Neutrophils # (1.6-8.9) K/mcL Lymphocytes # (0.6-4.6) K/mcL Monocytes # (0.0-1.3) K/mcL Eosinophils # (0.0-0.6) K/mcL Basophils # (0.0-0.2) K/mcL Sodium (136-145) mEq/L Potassium (3.5-5.1) mEq/L Chloride (98-107) mEq/L Carbon Dioxide (23-29) mEq/L BUN (8-23) mg/dL Creatinine (0.60-1.20) mg/dL Est GFR ( Amer) (> 60) Est GFR (Non-Af Amer) (> 60) BUN/Creatinine Ratio (6-26) Glucose (70-105) mg/dL Calculated Osmolality (280-300) Lactic Acid (0.5-2.2) mmol/L Calcium (8.6-10.3) mg/dL Troponin I (< 0.04) ng/mL B-Natriuretic Peptide 10 (Less than 100) pg/mL - Radiology Data Radiology results reviewed: Yes I reviewed the patient's radiology results. Chest X-Ray 05/09/17 19:34 IMPRESSION: No acute process. D/ / Gucci Alcala MD / Gucci Alcala MD Interpreting Provider: Gucci Alcala MD - EKG Data EKG #1 EKG attestation: Yes I reviewed and interpreted this EKG. EKG results narrative: 05/09/2017 18:53. Sinus tachycardia. Rate 118. TX 108. QRS 95. QTC 398. Left axis deviation. No acute ST elevation or depression. There are T-wave inversions in V1, V2, V3. S.B.A.R. - S.B.A.R. Situation: Demographics, MOA Background: Presenting Complaint, Relevant PMH, Meds, & Allergies Assessment: Vital Signs, Course and respsone to treatment, Exam Concerns, Patient/Family Expectation, Pertinant Lab Results, Outstanding Labs Recommendation: Barrier(s) to disposition, Recommendation based on pending studies, treatments, or consults Garry Report Given to: Dr. Jerome Castañeda Repor Time: 22:08
[2017-05-09] MEDS ORDERED: *HR* FentaNYL (PF) 100 MCG/2 ML VIAL IVP ONE (19:35)
[2017-05-09] MEDS ORDERED: Ketorolac 15 MG/ML VIAL IM ONE (19:35)
[2017-05-09] MEDS ORDERED: *HR* HYDROmorphone 2 MG TABLET PO ONE ×2 (20:05→21:53)
[2017-05-09 20:41] LABS: Basophils # 0.1 K/mcL (0.0-0.2); Basophils % 0.6 %; Eosinophils # 0.1 K/mcL (0.0-0.6); Eosinophils % 1.6 %; Hematocrit 42.6 % (35.3-44.9); Hemoglobin 14.2 g/dL (11.5-15.4); Immature Granulocytes % 0.2 % (0-4); Lymphocytes # 2.8 K/mcL (0.6-4.6); Lymphocytes % 34.5 %; Mean Corpuscular HGB Conc 33.3 g/dL (31.6-35.5); Mean Corpuscular Hemoglobin 29.5 pg (28.0-33.3); Mean Corpuscular Volume 88.6 fL (83.0-100.0); Mean Platelet Volume 10.4 fL (9.4-12.4); Monocytes # 0.8 K/mcL (0.0-1.3); Monocytes % 9.7 %; Neutrophils # 4.4 K/mcL (1.6-8.9); Platelet Count 277 K/mcL (140-400); Red Blood Count 4.81 M/mcL (3.82-4.97); Red Cell Distribution Width 14.2 % (11.5-14.5); Segmented Neutrophils % 53.4 %
[2017-05-09 21:01] LABS: BUN/Creatinine Ratio 15 (6-26); Blood Urea Nitrogen 10 mg/dL (8-23); Calcium 9.4 mg/dL (8.6-10.3); Carbon Dioxide 32 mEq/L (23-29); Chloride 98 mEq/L (98-107); Glucose 113 mg/dL (70-105); Osmolality,Calculated 284 (280-300); Potassium 3.4 mEq/L (3.5-5.1); Sodium 137 mEq/L (136-145); eGFR For African Americans > 60 (> 60); eGFR For Non-African Americans > 60 (> 60)
[2017-05-09 21:02] LABS: Troponin I < 0.03 ng/mL (< 0.04)
[2017-05-09] MEDS ORDERED: Ipratropium/Albuterol Neb 3 ML IH PRN (22:50)
[2017-05-09] MEDS ORDERED: Pregabalin 50 MG CAPSULE PO PRN (22:50)
[2017-05-09] MEDS ORDERED: *HR* OxyCODONE Immed Rel 5 MG TABLET PO PRN (22:50)
[2017-05-09] MEDS ORDERED: Naloxone 0.4 MG/ML INJ IVP PRN (22:51)
--- NOTE | 2017-05-09 22:57 | Internal Med History&Physical ---
Date of Encounter: 05/09/17 Time of Encounter: 22:56 Assessment and Plan (1) Breast mass, right Current visit: Yes Status: Acute Possible mass versus pocket of collection underlying cellulitis - as confirmed by bedside ultrasound point of care in the ER Continue IV antibiotics Consult surgery in the morning for further evaluation (2) Cellulitis of right breast Current visit: Yes Status: Acute IV clindamycin (3) H/O Prinzmetal angina Current visit: No Status: Chronic Takes when necessary Procardia (4) Hypogammaglobulinemia Current visit: No Status: Chronic On subcutaneous IVIG managed by kitchenwhere maker Dr. fernandez (5) Hypothyroidism Current visit: No Status: Chronic Continue Synthroid Qualifiers: Hypothyroidism type: acquired Qualified Code(s): E03.9 - Hypothyroidism, unspecified (6) Lupus (systemic lupus erythematosus) Current visit: No Status: Chronic On plaquenuil Qualifiers: Systemic lupus erythematosus type: unspecified Systemic lupus erythematosus organ involvement: other Qualified Code(s): M32.19 - Other organ or system involvement in systemic lupus erythematosus (7) Chronic pain Current visit: Yes Status: Acute Into chronic pain medicine. Requested for strong IV pain medicine - we will try fentanyl IV for now Qualifiers: Chronic pain type: chronic pain syndrome Qualified Code(s): G89.4 - Chronic pain syndrome (8) COPD (chronic obstructive pulmonary disease) Current visit: Yes Status: Acute Chronic uses oxygen baseline Qualifiers: COPD type: chronic bronchitis Chronic bronchitis type: simple Qualified Code(s): J41.0 - Simple chronic bronchitis Internal Medicine - H&P: HPI Chief complaint: Right breast pain, swelling History of present illness: Ms. Mayes is a 66 year old female who is admitted for right breast pain and swelling found to have overlying cellulitis, possible underlying collection versus mass. She has a history of COPD on chronic oxygen, history of Prinzmetal angina and uses Procardia as per needed, MRSA pneumonia with multiple sepsis syndrome prior , hysterectomy at age 25 for endometriosis, multiple ovarian cysts needing oophorectomy, history of multiple peritoneal cyst, lupus on subcutaneous IVIG maintenance. She also had a left-sided breast lump almost 10 years ago status post lumpectomy. She presents for painful right nipple area since Monday, rate 10 out of 10, severe with no improvement. In the last 24 hours developed low-grade temperature of 99 Fahrenheit. She presented to her PCP today was evaluated and was advised to present to the ER for treatment. On review she reports a milky nipple discharge on Monday XR/XR chest 1V portable IMPRESSION: No acute process. Past Med Surg Social Fam HX - Past Medical History Medical history: arthritis, asthma, COPD, coronary artery disease, fibromyalgia , GERD, hyperlipidemia, hypertension, kidney stones, osteoporosis, RA, thyroid disease, TIA, other Psychiatric history: anxiety, bipolar, depression, panic disorder, other - Past Surgical History Surgical History: appendectomy, breast surgery, cholecystectomy, herniorrhaphy, hip replacement, hysterectomy, other - Social History Smoking Status: Never smoker Smokeless Tobacco Status: No Alcohol use: none Drug use: none - Family History Mother Adopted: No Family Member Ethnicity: Non- Living Status: Hx Family Cardiac Disorders: (unknown) Internal Medicine - H&P: Meds Albuterol Sulfate [Proair Hfa] 2 puff IH Q4H PRN 07/14/15 [History] Allopurinol [Zyloprim 300 MG] 300 mg PO DAILY 07/14/15 [History] Cyclobenzaprine [Flexeril] 10 mg PO TID 07/14/15 [History] Hydroxychloroquine [Plaquenuil] 400 mg PO DAILY 07/14/15 [History] Levothyroxine [Synthroid] 50 mcg PO QAM 07/14/15 [History] Lidocaine Patch [Lidoderm 5% patch] 1 patch TP DAILY PRN 07/14/15 [History] Metaxalone [Skelaxin] 800 mg PO BID 07/14/15 [History] OxyCODONE Immed Rel [Roxicodone 10 MG] 10 mg PO Q6H PRN 07/14/15 [History] Aspirin 325 mg PO DAILY 11/04/15 [History] Multivitamin [Multi-Day Vitamins] 1 tab PO DAILY 01/05/16 [History] Furosemide [Lasix] 20 mg PO DAILY PRN 12/31/16 [History] Immune Globulin, Gamma(IGG) [Gammagard 10% 10 GM/100 mL] 0 gm IVC WE 05/09/17 [ History] Ipratropium/Albuterol Neb [Duoneb] 3 ml IH Q6H PRN 05/09/17 [History] Metoprolol Tartrate [Metoprolol Tartrate] 100 mg PO DAILY 05/09/17 [History] NIFEdipine [Procardia] 10 mg PO DAILY PRN 05/09/17 [History] Pregabalin [Lyrica] 100 mg PO TID PRN 05/09/17 [History] 3 Allergy/AdvReac Type Severity Reaction Status Date / Time No Known Allergies Allergy Verified 05/09/17 18:48 All Systems PM: A 10-system review of systems was performed and is negative for pertinent findings except as documented above in the HPI. Review of systems: ROS 14 point review of systems reviewed as best as possible given presentation. Pertinent positive or negative as per HPI or otherwise reviewed as negative - Constitutional Vitals: Temp Pulse Resp BP Pulse Ox 98.9 F 102 18 129/93 94 05/09/17 18:43 05/09/17 22:34 05/09/17 22:34 05/09/17 22:34 05/09/17 22:34 Exam: General - AAO x 3 Psych - Appropriate affect/speech. No agitation Eyes - ZULLY. Eye lids intact. No scleral icterus Neuro - No gross peripheral or central neuro deficits on inspection Heart - Sinus. RRR. S1 and S2 present. No added HS/murmurs appreciated. No elevated JVD appreciated. Lung - Adequate air entry b/l, No crackles/wheezes appreciated GI - Soft, non-tender. No hepatosplenomegaly/ascites. BS+ - No CVA/suprapubic tenderness or palpable bladder distension Skin - right breast erythema, warm, swelling around the nipple area no discharge seen Internal Med - H&P Results - Labs CBC & Chem 7: 05/09/17 20:28 05/09/17 20:28
[2017-05-10] MEDS ORDERED: Melatonin 3 MG TABLET PO PRN (00:33)
[2017-05-10] MEDS ORDERED: Vancomycin 0 MG in 0.9 % Sodium Chloride 250 ML IVPB SCH (01:00)
[2017-05-10] MEDS: *HR* FentaNYL (PF) 100 MCG/2 ML VIAL IVP PRN ×4 (03:33→21:53)
[2017-05-10 04:39] LABS: Basophils # 0.1 K/mcL (0.0-0.2); Basophils % 0.9 %; Eosinophils # 0.2 K/mcL (0.0-0.6); Eosinophils % 2.7 %; Hematocrit 39.2 % (35.3-44.9); Immature Granulocytes % 0.1 % (0-4); Lymphocytes # 2.6 K/mcL (0.6-4.6); Lymphocytes % 37.4 %; Mean Corpuscular HGB Conc 33.2 g/dL (31.6-35.5); Mean Corpuscular Hemoglobin 29.5 pg (28.0-33.3); Mean Corpuscular Volume 88.9 fL (83.0-100.0); Mean Platelet Volume 10.6 fL (9.4-12.4); Monocytes # 0.8 K/mcL (0.0-1.3); Monocytes % 11.1 %; Neutrophils # 3.4 K/mcL (1.6-8.9); Platelet Count 265 K/mcL (140-400); Red Blood Count 4.41 M/mcL (3.82-4.97); Red Cell Distribution Width 14.1 % (11.5-14.5); Segmented Neutrophils % 47.8 %
[2017-05-10 04:42] LABS: INR 1.1; Prothrombin Time 11.9 Seconds (9.4-12.1)
[2017-05-10 04:45] LABS: Activated Partial Thrombo Time 26.6 Seconds (26.0-36.0)
[2017-05-10 04:53] LABS: BUN/Creatinine Ratio 18 (6-26); Blood Urea Nitrogen 11 mg/dL (8-23); Calcium 9.1 mg/dL (8.6-10.3); Carbon Dioxide 29 mEq/L (23-29); Chloride 101 mEq/L (98-107); Glucose 107 mg/dL (70-105); Osmolality,Calculated 286 (280-300); Potassium 3.3 mEq/L (3.5-5.1); Sodium 138 mEq/L (136-145); eGFR For African Americans > 60 (> 60); eGFR For Non-African Americans > 60 (> 60)
[2017-05-10] MEDS: *HR* Enoxaparin 40 MG/0.4 ML SYRINGE SQ SCH (05:20)
[2017-05-10] MEDS ORDERED: Clindamycin 600 MG/50 ML 600 MG/50 ML IV.SOLN IVPB SCH (06:00)
[2017-05-10] MEDS: Metoprolol 100 MG TABLET PO SCH (08:49)
[2017-05-10] MEDS: Aspirin 325 MG TABLET PO SCH (08:49)
[2017-05-10] MEDS: ALPRAZolam 0.25 MG TABLET PO PRN ×2 (10:37→23:40)
[2017-05-10] MEDS ORDERED: *HR* OxyCODONE Immed Rel 5 MG TABLET PO PRN (10:50)
[2017-05-10] MEDS ORDERED: *HR* HYDROmorphone 2 MG TABLET PO PRN (10:50)
--- NOTE | 2017-05-10 10:54 | Internal Med Progress Note ---
Date of Encounter: 05/10/17 Time of Encounter: 10:52 - Assessment and plan (1) Cellulitis of right breast Current Visit: Yes Status: Acute Assessment and plan: Continue vancomycin IV day #2 Has history of MRSA in urine and bacteremia Order an ultrasound of the right breast to distinguish between mass vs possible abscess Surgery has been consulted (2) Breast mass, right Current Visit: Yes Status: Acute (3) COPD (chronic obstructive pulmonary disease) Current Visit: Yes Status: Acute Qualifiers: COPD type: chronic bronchitis Chronic bronchitis type: simple Qualified Code(s): J41.0 - Simple chronic bronchitis (4) Debility Current Visit: No Status: Chronic (5) H/O Prinzmetal angina Current Visit: No Status: Chronic Assessment and plan: Uses Procardia as needed (6) Hypogammaglobulinemia Current Visit: No Status: Chronic Assessment and plan: Regular IVIG (7) Lupus (systemic lupus erythematosus) Current Visit: No Status: Chronic Assessment and plan: On Plaquenil Qualifiers: Systemic lupus erythematosus type: unspecified Systemic lupus erythematosus organ involvement: other Qualified Code(s): M32.19 - Other organ or system involvement in systemic lupus erythematosus (8) Chronic respiratory failure Current Visit: Yes Status: Acute Assessment and plan: On chronic home oxygen Qualifiers: Respiratory failure complication: hypoxia Qualified Code(s): J96.11 - Chronic respiratory failure with hypoxia - Subjective Interval history: Complains of chest pain, right breast tenderness, no fevers overnight, no shortness of breath, feels weak, no abdominal pain, no diarrhea or dysuria, has been constipated - Constitutional Vitals: Temp Pulse Resp BP Pulse Ox 98.5 F 95 16 119/82 96 05/10/17 07:18 05/10/17 07:18 05/10/17 07:18 05/10/17 10:38 05/10/17 09:00 General appearance: Present: A&O X 3 - Head Head exam: Present: atraumatic, normocephalic - Eye Eye exam: Present: PERRL, conjuntiva pink, sclera anicteric Pupils: Present: PERRL - Neck Neck exam general surgery: Present: supple, trachea midline. Absent: lymphadenopathy - Respiratory Respiratory exam: Present: CTAB. Absent: accessory muscle use, rales, rhonchi, wheezes - Cardiovascular Cardiovascular exam: Present: RRR, +S1, +S2. Absent: diastolic murmur, gallop, rubs, systolic murmur Additional comments: Right breast erythema and tenderness around the nipple There is a 2 cm induration/mass underneath the erythema - GI/Abdominal GI/Abdominal exam: Present: normal bowel sounds, soft, no peritoneal signs. Absent: distended, tenderness - Extremities Exam Extremities exam: Present: warm, radial pulses palpable and symmetrical. Absent : calf tenderness, cyanotic, pedal edema - Neurological Exam Neurological exam: Present: CN II-XII intact, oriented X3, no focal deficits. Absent: pronater drift, facial droop, speech deficit - Skin Skin exam: Present: dry, intact Internal Medicine: Result - Labs CBC & Chem 7: 05/10/17 03:53 05/10/17 03:53 Labs: Short CBC 05/10/17 Range/Units 03:53 WBC 7.1 (4.3-11.1) K/mcL Hgb 13.0 (11.5-15.4) g/dL Hct 39.2 (35.3-44.9) % Plt Count 265 (140-400) K/mcL Neutrophils # 3.4 (1.6-8.9) K/mcL BMP 05/10/17 03:53 Sodium 138 Potassium 3.3 L Chloride 101 Carbon Dioxide 29 BUN 11 Creatinine 0.62 Glucose 107 H Calcium 9.1 - ABG Interpretation ABG results: PT/INR, D-dimer PT 11.9 Seconds (9.4-12.1) 05/10/17 03:53 Consult Discharge Plan - Plan Referrals: Joseph Johns DO [Primary Care Provider] -
--- NOTE | 2017-05-10 11:24 | General Surgery Consult Note ---
<Edie Valente A - Last Filed: 05/10/17 11:48> Date of Encounter: 05/10/17 Time of Encounter: 11:20 Assessment and Plan (1) Cellulitis of right breast Current Visit: Yes Status: Acute Await ultrasound results IV antibiotics Supportive care Surgery will continue to follow for recommendations (2) Epigastric abdominal pain Current Visit: Yes Status: Acute Recommend follow-up as outpatient for evaluation and possible EGD History of Present Illness Consult date: 05/10/17 Reason for consult: other (Right breast cellulitis) Requesting physician: Noman Cano History of present illness: Mrs. Mayes is a very pleasant 66-year-old female who states that she has had a lump in her right breast which she noticed approximately 1 month ago. She denies any pain at that time. She states that over the last 4 days she has developed redness to the area around her right nipple and areola. She states that there is significant tenderness associated with this redness. She does report no eat nipple discharge when she first noticed the mass proximally one month ago. She denies any current discharge. She states she has never had anything like this in the past. She does report low-grade fevers. She was seen and evaluated by her home care provider and recommendation was for her to proceed to the emergency department for further workup. Surgery has been asked to see and evaluate the patient for further recommendations. The patient also reports complaints of epigastric discomfort and ongoing constipation. She states that her epigastric pain has progressed over the last few weeks. She states that she sometimes goes 10 days without having a bowel movement. Denies any rectal bleeding. Denies any unexplained weight loss. She did have a colonoscopy complete with Dr. Barron in October 2016 in which she had polyps removed. She was recommended to have a repeat colonoscopy in 5 years. She states that her last upper endoscopy was completed by Dr. Drew Lala several years ago and she cannot recall what he found at that time. Past Med Surg Social Fam HX - Past Medical History Source: patient, old records reviewed Medical history: arthritis, asthma, COPD, coronary artery disease, fibromyalgia , GERD, hyperlipidemia, hypertension, kidney stones, osteoporosis, RA, thyroid disease (hypothyroidism), TIA, other (fibromyalgia, TMJ, Gout, Raynaud's disease , Lupus, Recurring MRSA pneumonia, Angina, Pericarditis) Psychiatric history: anxiety, bipolar, depression, panic disorder, other - Past Surgical History Surgical History: appendectomy, breast surgery (Bilateral breast reduction 1996 , left breast excision (benign)), cholecystectomy, herniorrhaphy, hip replacement (right hip replacement and revision in 2013), hysterectomy, JAYSON/BSO , other (osteonomy jaw implant 1983, dental surgery multiple, brochoscopy X 2, EGD (last with Dr. Lala and unsure of date), Colonoscopy last [address] Barron) - Social History Smoking Status: Never smoker Smokeless Tobacco Status: No Alcohol use: none Drug use: none - Family History Father Age at : 90 Cause of : colon ca and bladder/kidney ca Hx Family Cardiac Disorders: No Hx Family Respiratory Disorders: No Hx Family Cancer: Yes (colon, kidney, bladder) Hx Family GI Disorders: No Hx Family Genitourinary Disorders: No Hx Family Endocrine Disorder: No Hx Family Musculoskeletal Disorders: No Hx Family Neuromuscular Disorders: No Hx Family Neurologic Disorders: No Hx Family HEENT Disorders: No Hx Family Autoimmune Disorders: No Hx Family Reproductive Disorders: No Hx Family Psychosocial Disorders: No Hx Family Medical Disorders: No Mother Adopted: No Family Member Ethnicity: Non- Living Status: Age at : 72 Cause of : Ca Hx Family Cardiac Disorders: No Hx Family Respiratory Disorders: No Hx Family Cancer: Yes Hx Family GI Disorders: No Hx Family Genitourinary Disorders: No Hx Family Endocrine Disorder: No Hx Family Musculoskeletal Disorders: No Hx Family Neuromuscular Disorders: No Hx Family Neurologic Disorders: No Hx Family HEENT Disorders: No Hx Family Autoimmune Disorders: Yes (ra) Hx Family Reproductive Disorders: No Hx Family Psychosocial Disorders: No Hx Family Medical Disorders: No Medications and Allergies Albuterol Sulfate [Proair Hfa] 2 puff IH Q4H PRN 07/14/15 [History] Allopurinol [Zyloprim 300 MG] 300 mg PO DAILY 07/14/15 [History] Cyclobenzaprine [Flexeril] 10 mg PO TID 07/14/15 [History] Hydroxychloroquine [Plaquenuil] 400 mg PO DAILY 07/14/15 [History] Levothyroxine [Synthroid] 50 mcg PO QAM 07/14/15 [History] Lidocaine Patch [Lidoderm 5% patch] 1 patch TP DAILY PRN 07/14/15 [History] Metaxalone [Skelaxin] 800 mg PO BID 07/14/15 [History] OxyCODONE Immed Rel [Roxicodone 10 MG] 10 mg PO Q6H PRN 07/14/15 [History] Aspirin 325 mg PO DAILY 11/04/15 [History] Multivitamin [Multi-Day Vitamins] 1 tab PO DAILY 01/05/16 [History] Furosemide [Lasix] 20 mg PO DAILY PRN 12/31/16 [History] Immune Globulin, Gamma(IGG) [Gammagard 10% 10 GM/100 mL] 0 gm IVC WE 05/09/17 [ History] Ipratropium/Albuterol Neb [Duoneb] 3 ml IH Q6H PRN 05/09/17 [History] Metoprolol Tartrate [Metoprolol Tartrate] 100 mg PO DAILY 05/09/17 [History] NIFEdipine [Procardia] 10 mg PO DAILY PRN 05/09/17 [History] Pregabalin [Lyrica] 100 mg PO TID PRN 05/09/17 [History] 3 Allergy/AdvReac Type Severity Reaction Status Date / Time No Known Allergies Allergy Verified 05/09/17 18:48 Review of Systems All systems PM: reviewed and no additional remarkable complaints except as stated (in the HPI) All systems PM: The remainder of the systems were reviewed and are negative General Surgery Exam Initial Vital Signs Temp Pulse Resp BP Pulse Ox 98.9 F 119 20 125/84 97 05/09/17 18:43 05/09/17 18:43 05/09/17 18:43 05/09/17 18:43 05/09/17 18:43 - General physical appearance well developed, well nourished, moderate pain - Eyes normal ocular movement - ENT normal mucosa, atraumatic, normocephalic - Neck trachea midline - Respiratory normal respiratory effort, clear to auscultation - Cardiovascular Cardiovascular exam: Present: RRR - Abdomen Abdomen general surgery: Present: bowel sounds present, soft, non tender - Integumentary Integumentary general surgery: Present: warm and dry, other (right breast with erythema noted around superior and lateral portion of areola complex, no fluctuance appreciated on exam, tenderness to examination, minimal induration appreciated) - Neurologic Present: CN 2-12 grossly intact - Psychiatric Psychiatric general surgery: Present: appropriate, oriented to person, oriented to place, oriented to time, speech is normal, memory intact Exam Initial Vital Signs Temp Pulse Resp BP Pulse Ox 98.9 F 119 20 125/84 97 05/09/17 18:43 05/09/17 18:43 05/09/17 18:43 05/09/17 18:43 05/09/17 18:43 Results - Labs 05/10/17 03:53 05/10/17 03:53 Abnormal lab results Potassium 3.3 mEq/L (3.5-5.1) L 05/10/17 03:53 Glucose 107 mg/dL (70-105) H 05/10/17 03:53 POC Glucose 141 (58-89) H 05/10/17 00:10 Diabetes panel 05/10/17 Range/Units 03:53 Sodium 138 (136-145) mEq/L Potassium 3.3 L (3.5-5.1) mEq/L Chloride 101 (98-107) mEq/L Carbon Dioxide 29 (23-29) mEq/L BUN 11 (8-23) mg/dL Creatinine 0.62 (0.60-1.20) mg/dL Glucose 107 H (70-105) mg/dL Calcium 9.1 (8.6-10.3) mg/dL Calcium panel 05/10/17 Range/Units 03:53 Calcium 9.1 (8.6-10.3) mg/dL Pituitary panel 05/10/17 Range/Units 03:53 Sodium 138 (136-145) mEq/L Potassium 3.3 L (3.5-5.1) mEq/L Chloride 101 (98-107) mEq/L Carbon Dioxide 29 (23-29) mEq/L BUN 11 (8-23) mg/dL Creatinine 0.62 (0.60-1.20) mg/dL Glucose 107 H (70-105) mg/dL Calcium 9.1 (8.6-10.3) mg/dL Adrenal panel 05/10/17 Range/Units 03:53 Sodium 138 (136-145) mEq/L Potassium 3.3 L (3.5-5.1) mEq/L Chloride 101 (98-107) mEq/L Carbon Dioxide 29 (23-29) mEq/L BUN 11 (8-23) mg/dL Creatinine 0.62 (0.60-1.20) mg/dL Glucose 107 H (70-105) mg/dL Calcium 9.1 (8.6-10.3) mg/dL All other labs normal. - Imaging Additional studies: Chest X-Ray 05/09/17 19:34 IMPRESSION: No acute process. D/ / Gucci Alcala MD / Gucci Alcala MD Interpreting Provider: Gucci Alcala MD Consult Discharge Plan - Plan Referrals: Joseph Johns DO [Primary Care Provider] - - Attending Attestation For this encounter, I have reviewed the JINGLE WRITER or PA documentation, treatment plan, and medical decision making; and I have had face to face time with this patient. <MajoGino T - Last Filed: 05/12/17 08:43> Date of Encounter: 05/10/17 Review of Systems All systems PM: The remainder of the systems were reviewed and are negative General Surgery Exam Initial Vital Signs Temp Pulse Resp BP Pulse Ox 98.9 F 119 20 125/84 97 05/09/17 18:43 05/09/17 18:43 05/09/17 18:43 05/09/17 18:43 05/09/17 18:43 Exam Initial Vital Signs Temp Pulse Resp BP Pulse Ox 98.9 F 119 20 125/84 97 05/09/17 18:43 05/09/17 18:43 05/09/17 18:43 05/09/17 18:43 05/09/17 18:43 Results - Labs 05/10/17 03:53 05/11/17 10:28 Abnormal lab results Potassium 3.3 mEq/L (3.5-5.1) L 05/10/17 03:53 Glucose 107 mg/dL (70-105) H 05/10/17 03:53 POC Glucose 141 (58-89) H 05/10/17 00:10 Diabetes panel 05/10/17 Range/Units 03:53 Sodium 138 (136-145) mEq/L Potassium 3.3 L (3.5-5.1) mEq/L Chloride 101 (98-107) mEq/L Carbon Dioxide 29 (23-29) mEq/L BUN 11 (8-23) mg/dL Creatinine 0.62 (0.60-1.20) mg/dL Glucose 107 H (70-105) mg/dL Calcium 9.1 (8.6-10.3) mg/dL Calcium panel 05/10/17 Range/Units 03:53 Calcium 9.1 (8.6-10.3) mg/dL Pituitary panel 05/10/17 Range/Units 03:53 Sodium 138 (136-145) mEq/L Potassium 3.3 L (3.5-5.1) mEq/L Chloride 101 (98-107) mEq/L Carbon Dioxide 29 (23-29) mEq/L BUN 11 (8-23) mg/dL Creatinine 0.62 (0.60-1.20) mg/dL Glucose 107 H (70-105) mg/dL Calcium 9.1 (8.6-10.3) mg/dL Adrenal panel 05/10/17 Range/Units 03:53 Sodium 138 (136-145) mEq/L Potassium 3.3 L (3.5-5.1) mEq/L Chloride 101 (98-107) mEq/L Carbon Dioxide 29 (23-29) mEq/L BUN 11 (8-23) mg/dL Creatinine 0.62 (0.60-1.20) mg/dL Glucose 107 H (70-105) mg/dL Calcium 9.1 (8.6-10.3) mg/dL All other labs normal. - Attending Attestation The patient is seen and evaluated. She has a very tender breast. We have ordered ultrasound of the breast to rule out abscess. We are awaiting radiologic evaluation for further operative planning and management. Continue antibiotics. We will follow with you. Gino Kasper MD FACS
--- NOTE | 2017-05-10 20:03 | Electrocardiograph Report ---
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
[2017-05-10] MEDS: NIFEdipine 10 MG CAPSULE PO PRN (23:40)
[2017-05-11] MEDS: *HR* Enoxaparin 40 MG/0.4 ML SYRINGE SQ SCH (05:45)
[2017-05-11] MEDS ORDERED: Aminoglycoside Consult 1 EACH MC ONE (08:41)
[2017-05-11] MEDS: Aspirin 325 MG TABLET PO SCH (09:14)
[2017-05-11] MEDS: Metoprolol 100 MG TABLET PO SCH (09:14)
[2017-05-11] MEDS: *HR* FentaNYL (PF) 100 MCG/2 ML VIAL IVP PRN ×3 (09:15→20:13)
--- NOTE | 2017-05-11 10:45 | General Surgery Progress Note ---
<Johanna Mccord-Annette - Last Filed: 05/11/17 10:36> Date of Encounter: 05/11/17 Time of Encounter: 08:15 - Assessment and Plan (1) Cellulitis of right breast Current Visit: Yes Status: Acute Breast ultrasound on 05/10/2017 report shows a 1 cm fluid collection which could represent a dilated sinus or possible abscess in the immediate subareolar region. Radiologist attempted right subareolar hypoechoic aspiration with inability to aspirate fluid on 05/10/2017. Plan: -continue antibiotics per primary team. -No surgical intervention at this time. -Radiologist recommends a follow-up right breast ultrasound in approximately 1- 2 months to re-evaluate the area of interest. -Surgery will sign off at this time. Thank you for allowing surgery to participate in this patient's care. (2) Epigastric abdominal pain Current Visit: Yes Status: Acute Recommend follow-up as outpatient for evaluation and possible EGD. Subjective Patient reports: no bowel movement, afebrile Narrative: The patient was seen and evaluated at bedside this morning. The patient was awake, alert, afebrile, and appears in no acute distress. Patient states that she does not feel well since 1 hour ago. She states "I just started feeling pain in my right breast. The nurses can't get any blood from me and they keep sticking me." The patient states she is frustrated and then later apologize to me stating "I am sorry I am dumping all of this on you. I know you're not my main doctor." The patient describes her right breast pain as intermittent, sharp, and radiating across her chest. She denies any nipple discharge at this time. She states the makes it better or nothing makes it worse. She states that she has a history of MRSA, and does not understand why the staff has taken down the precautions. The patient also complains of epigastric discomfort and ongoing constipation. She states that she has not had a bowel movement for over 10 days. She denies any fever, headaches, vision changes, near syncope, chest pain, shortness of breath, difficulty breathing, diarrhea, blood in her stool, urinary symptoms, nausea vomiting, and any weaknesses. The patient has no other concerns at this time. Objective Vital Signs - Last 8 Hours Temp Pulse Resp BP Pulse Ox 05/11/17 07:40 97.9 F 89 15 116/80 93 05/11/17 04:22 98.7 F 51 16 135/82 98 05/11/17 04:18 98.4 F 122 18 117/80 93 Intake and Output 05/10/17 05/11/17 05/11/17 23:59 07:59 15:59 Intake Total 0 / 0 Output Total 0 / 0 0 / 0 Balance 0 / 0 0 / 0 Intake: Oral 0 / 0 Output: Urine 0 / 0 0 / 0 Other: Blood Glucose* 87 - General physical appearance well developed, well nourished, no distress - Eyes PERRL, normal ocular movement - ENT normal mucosa - Neck Neck exam: trachea midline - Respiratory normal expansion, normal respiratory effort, clear to auscultation, other ( Right breast with mild erythema noted around superior and lateral portion of areola complex. No fluctuance appreciated on exam, tenderness to palpation, minimal induration appreciated) - Cardiovascular Cardiovascular exam: Present: RRR, no murmurs/rubs/gallops - Abdomen Abdomen: Present: bowel sounds present, soft, non tender. Absent: distended, guarding, rebound, rigid - Neurologic CN 2-12 grossly intact - Psychiatric oriented to time, oriented to person, oriented to place - Labs 05/10/17 03:53 05/10/17 03:53 Consult Discharge Plan - Plan Referrals: Joseph Johns DO [Primary Care Provider] - <Gino Kasper - Last Filed: 05/12/17 08:53> Date of Encounter: 05/11/17 Objective Vital Signs - Last 8 Hours Temp Pulse Resp BP Pulse Ox 05/12/17 07:45 98.3 F 78 16 143/92 93 05/12/17 03:47 98.5 F 75 16 124/83 94 Intake and Output 05/11/17 05/12/17 05/12/17 23:59 07:59 15:59 Intake Total 100 / 100 240 / 240 Output Total 400 / 400 Balance 100 / 100 -160 / -160 Intake: IV Fluids 100 / 100 Doxycycline 100 MG In 0.9 % 100 / 100 Sodium Chloride (Mini-Bag +) 100 ML @ 100 mls/hr IVPB Q12H [facility] Rx#:[id number] Oral 240 / 240 Output: Urine 400 / 400 Other: # Voids 1 1 # Bowel Movements 1 1 Weight 69.4 kg Blood Glucose* 104 Patient Weight 05/12/17 23:59 Weight 69.4 kg - Labs 05/10/17 03:53 05/11/17 10:28 Diabetes panel 05/11/17 Range/Units 10:28 Sodium 140 (136-145) mEq/L Potassium 3.6 (3.5-5.1) mEq/L Chloride 105 (98-107) mEq/L Carbon Dioxide 26 (23-29) mEq/L BUN 8 (8-23) mg/dL Creatinine 0.66 (0.60-1.20) mg/dL Glucose 130 H (70-105) mg/dL Calcium 9.2 (8.6-10.3) mg/dL AST 20 (13-39) Units/L ALT 11 (7-52) Units/L Alkaline Phosphatase 82 (34-104) Units/L Albumin 4.0 (3.5-5.7) g/dL Calcium panel 05/11/17 Range/Units 10:28 Calcium 9.2 (8.6-10.3) mg/dL Albumin 4.0 (3.5-5.7) g/dL Pituitary panel 05/11/17 Range/Units 10:28 Sodium 140 (136-145) mEq/L Potassium 3.6 (3.5-5.1) mEq/L Chloride 105 (98-107) mEq/L Carbon Dioxide 26 (23-29) mEq/L BUN 8 (8-23) mg/dL Creatinine 0.66 (0.60-1.20) mg/dL Glucose 130 H (70-105) mg/dL Calcium 9.2 (8.6-10.3) mg/dL Adrenal panel 05/11/17 Range/Units 10:28 Sodium 140 (136-145) mEq/L Potassium 3.6 (3.5-5.1) mEq/L Chloride 105 (98-107) mEq/L Carbon Dioxide 26 (23-29) mEq/L BUN 8 (8-23) mg/dL Creatinine 0.66 (0.60-1.20) mg/dL Glucose 130 H (70-105) mg/dL Calcium 9.2 (8.6-10.3) mg/dL Total Bilirubin 0.4 (0.3-1.0) mg/dL AST 20 (13-39) Units/L ALT 11 (7-52) Units/L Alkaline Phosphatase 82 (34-104) Units/L Albumin 4.0 (3.5-5.7) g/dL - Attending Attestation I examined this patient and my medical decision-making was reviewed with the Resident Physician. I agree with the documented findings, disposition and treatment plan as described except to the extent set forth below. The patient is seen and evaluated with rest on morning rounds. I personally discussed her case and reviewed images with the radiologist Dr. Garcia. He performed a needle aspiration and failed to find any evidence of abscess. Our plan is to follow her with ultrasound and mammogram in 4 weeks. We do need to avoid retroareolar duct excision because of her previous breast reduction surgery. This could result in areolar ischemia. We will be glad to follow her as an outpatient. Gino Kasper MD FACS
[2017-05-11 11:23] LABS: Alanine Aminotransferase 11 Units/L (7-52); Albumin/Globulin Ratio 1.5 (1.1-2.2); Alkaline Phosphatase 82 Units/L (34-104); Aspartate Amino Transferase 20 Units/L (13-39); BUN/Creatinine Ratio 12 (6-26); Bilirubin,Total 0.4 mg/dL (0.3-1.0); Blood Urea Nitrogen 8 mg/dL (8-23); Calcium 9.2 mg/dL (8.6-10.3); Carbon Dioxide 26 mEq/L (23-29); Chloride 105 mEq/L (98-107); Globulin 2.6 g/dL (2.4-3.5); Glucose 130 mg/dL (70-105); Osmolality,Calculated 290 (280-300); Potassium 3.6 mEq/L (3.5-5.1); Sodium 140 mEq/L (136-145); Total Protein 6.6 g/dL (6.4-8.9); eGFR For African Americans > 60 (> 60); eGFR For Non-African Americans > 60 (> 60)
[2017-05-11] MEDS: ALPRAZolam 0.25 MG TABLET PO PRN (11:36)
[2017-05-11] MEDS ORDERED: Lactulose Oral Soln 20 GM/30 ML UDC PO ONE (14:16)
--- NOTE | 2017-05-11 14:19 | Internal Med Progress Note ---
Date of Encounter: 05/11/17 Time of Encounter: 14:16 - Assessment and plan (1) Cellulitis of right breast Current Visit: Yes Status: Acute Assessment and plan: Stop vancomycin IV day #3 Start IV doxycyline Has history of MRSA in urine and bacteremia ultrasound of the right breast demonstrated a possible small collection that was unsuccessfully attempted to be drained by IR A follow-up right breast ultrasound was recommended in approximately 1-2 months to re-evaluate the area of interest. Surgery following the case (2) COPD (chronic obstructive pulmonary disease) Current Visit: Yes Status: Acute Qualifiers: COPD type: chronic bronchitis Chronic bronchitis type: simple Qualified Code(s): J41.0 - Simple chronic bronchitis (3) Debility Current Visit: No Status: Chronic (4) H/O Prinzmetal angina Current Visit: No Status: Chronic Assessment and plan: Uses Procardia as needed (5) Hypogammaglobulinemia Current Visit: No Status: Chronic Assessment and plan: Regular IVIG (6) Lupus (systemic lupus erythematosus) Current Visit: No Status: Chronic Assessment and plan: On Plaquenil Qualifiers: Systemic lupus erythematosus type: unspecified Systemic lupus erythematosus organ involvement: other Qualified Code(s): M32.19 - Other organ or system involvement in systemic lupus erythematosus (7) Chronic respiratory failure Current Visit: Yes Status: Acute Assessment and plan: On chronic home oxygen Qualifiers: Respiratory failure complication: hypoxia Qualified Code(s): J96.11 - Chronic respiratory failure with hypoxia - Subjective Interval history: Complains of a chronic cough. Right breast tenderness has improved, no fevers overnight, no shortness of breath, feels weak, no abdominal pain, no diarrhea or dysuria, has been constipated - Constitutional Vitals: Temp Pulse Resp BP Pulse Ox 98.5 F 77 16 123/85 95 05/11/17 10:56 05/11/17 10:56 05/11/17 10:56 05/11/17 10:56 05/11/17 10:56 General appearance: Present: A&O X 3 Exam: - Head Head exam: Present: atraumatic, normocephalic - Eye Eye exam: Present: PERRL, conjuntiva pink, sclera anicteric Pupils: Present: PERRL - Neck Neck exam general surgery: Present: supple, trachea midline. Absent: lymphadenopathy - Respiratory Respiratory exam: Present: CTAB. Absent: accessory muscle use, rales, rhonchi, wheezes - Cardiovascular Cardiovascular exam: Present: RRR, +S1, +S2. Absent: diastolic murmur, gallop, rubs, systolic murmur Additional comments: Right breast erythema and tenderness around the nipple have improved induration underneath the erythema - GI/Abdominal GI/Abdominal exam: Present: normal bowel sounds, soft, no peritoneal signs. Absent: distended, tenderness - Extremities Exam Extremities exam: Present: warm, radial pulses palpable and symmetrical. Absent : calf tenderness, cyanotic, pedal edema - Neurological Exam Neurological exam: Present: CN II-XII intact, oriented X3, no focal deficits. Absent: pronater drift, facial droop, speech deficit - Skin Skin exam: Present: dry, intact Internal Medicine: Result - Labs CBC & Chem 7: 05/10/17 03:53 05/11/17 10:28 Labs: BMP 05/11/17 10:28 Sodium 140 Potassium 3.6 Chloride 105 Carbon Dioxide 26 BUN 8 Creatinine 0.66 Glucose 130 H Calcium 9.2 Liver Function 05/11/17 Range/Units 10:28 Total Bilirubin 0.4 (0.3-1.0) mg/dL AST 20 (13-39) Units/L ALT 11 (7-52) Units/L Alkaline Phosphatase 82 (34-104) Units/L Albumin 4.0 (3.5-5.7) g/dL - ABG Interpretation ABG results: PT/INR, D-dimer PT 11.9 Seconds (9.4-12.1) 05/10/17 03:53 - Impressions Impressions Breast Ultrasound 05/10/17 10:51 IMPRESSION: In the immediate subareolar region there is a 1 cm fluid collection which could represent a dilated sinus or possible abscess. Mild subareolar ductal ectasia. The findings were discussed with Dr. Kasper and attempted ultrasound-guided aspiration of fluid for possible culture will be performed. BIRADS: BIRADS - CATEGORY 3 Findings are probably benign. A short interval follow-up is recommended in 6 months. OVERALL ASSESSMENT - PROBABLY BENIGN. A letter of notification will be sent to the patient regarding the results. D/ / 05/10/2017 15:23:37 Angus Garcia MD / mae Interpreting Provider: Angus Garcia MD Needle Aspiration US 05/10/17 15:24 IMPRESSION: Attempted right subareolar hypoechoic aspiration with inability to aspirate fluid. The area of interest appears to represent subareolar phlegmon. The patient states that the right periareolar erythema and pain have significantly improved since the prior Monday. A follow-up right breast ultrasound is recommended in approximately 1-2 months to re-evaluate the area of interest. BIRADS: BIRADS - CATEGORY 3 Findings are probably benign. A short interval follow-up is recommended in 1-2 months. OVERALL ASSESSMENT - PROBABLY BENIGN. A letter of notification will be sent to the patient regarding the results. D/ / 05/10/2017 16:38:30 Angus Garcia MD / bob Interpreting Provider: Angus Garcia MD Consult Discharge Plan - Plan Referrals: Joseph Johns DO [Primary Care Provider] -
[2017-05-11] MEDS: Doxycycline 100 MG in 0.9 % Sodium Chloride Mini Bag 100 ML IVPB SCH (15:13)
[2017-05-12] MEDS: *HR* FentaNYL (PF) 100 MCG/2 ML VIAL IVP PRN (00:11)
[2017-05-12] MEDS: ALPRAZolam 0.25 MG TABLET PO PRN ×2 (00:18→11:25)
[2017-05-12] MEDS: *HR* Enoxaparin 40 MG/0.4 ML SYRINGE SQ SCH (04:28)
[2017-05-12] MEDS: Doxycycline 100 MG in 0.9 % Sodium Chloride Mini Bag 100 ML IVPB SCH (04:28)
[2017-05-12 07:46] VITALS: BP 143/92
[2017-05-12] MEDS: Aspirin 325 MG TABLET PO SCH (09:12)
[2017-05-12] MEDS: Metoprolol 100 MG TABLET PO SCH (09:13)
--- NOTE | 2017-05-12 09:19 | Discharge Summary ---
- NOTES TO OUTPATIENT PROVIDER Notes to Outpatient Provider: COmplete 7 days of doxycycline Orders not resulted at time of discharge: Pending orders 05/10/17 16:09 Culture,Anaerobic [RM] Routine 05/10/17 16:14 Culture,Wound [RM] Routine Date of Encounter: 05/12/17 Time of Encounter: 09:18 - Discharge Diagnosis (1) Cellulitis of right breast Priority: Primary Status: Acute (2) COPD (chronic obstructive pulmonary disease) Priority: Secondary Status: Acute Qualifiers: COPD type: chronic bronchitis Chronic bronchitis type: simple Qualified Code(s): J41.0 - Simple chronic bronchitis (3) Debility Priority: Secondary Status: Chronic (4) H/O Prinzmetal angina Priority: Secondary Status: Chronic Comments: Uses Procardia as needed (5) Hypogammaglobulinemia Priority: Secondary Status: Chronic Comments: Regular IVIG (6) Lupus (systemic lupus erythematosus) Priority: Secondary Status: Chronic Qualifiers: Systemic lupus erythematosus type: unspecified Systemic lupus erythematosus organ involvement: other Qualified Code(s): M32.19 - Other organ or system involvement in systemic lupus erythematosus (7) Chronic respiratory failure Priority: Secondary Status: Acute Qualifiers: Respiratory failure complication: hypoxia Qualified Code(s): J96.11 - Chronic respiratory failure with hypoxia Hospital course: Ms. Mayes is a 66 year old female with a past medical history of arthritis, asthma, COPD on home oxygen,, coronary artery disease, fibromyalgia, GERD, hyperlipidemia, hypertension, kidney stones, osteoporosis, RA, thyroid disease, TIA, history of Prinzmetal angina and uses Procardia as per needed, MRSA pneumonia with multiple sepsis syndrome prior, hysterectomy at age 25 for endometriosis, Has history of MRSA in urine and bacteremia, multiple ovarian cysts needing oophorectomy, history of multiple peritoneal cyst, lupus on subcutaneous IVIG maintenance due to hypogammaglobulinemia. She also had a left -sided breast lump almost 10 years ago status post lumpectomy. She presented for painful right nipple area since Monday, rate 10 out of 10, severe with no improvement. In the last 24 hours developed low-grade temperature of 99 Fahrenheit. She presented to her PCP today was evaluated and was advised to go to the ER for treatment. On review she reported a milky nipple discharge on Monday Was started on IV vancomycin. Was evaluated by the surgical service, and ultrasound of the right breast was ordered. IR Attempted right subareolar hypoechoic aspiration with inability to aspirate fluid. The area of interest appears to represent subareolar phlegmon. NO masses were evidenced. Stopped vancomycin IV at day #3, Was started on IV doxycyline, continued to improve. ultrasound of the right breast demonstrated a possible small collection that was unsuccessfully attempted to be drained. A follow-up right breast ultrasound was recommended in approximately 1-2 months to re-evaluate the area of interest. - Time Spent with Patient Total time spent providing and/or coordinating discharge services: Greater than 30 minutes (40 min) - Discharge Medications Prescriptions: ALPRAZolam [Xanax 0.25 MG Tablet] 0.25 mg PO TID PRN 5 Days #15 tablet PRN Reason: Anxiety Doxycycline 100 mg PO BID #14 capsule Home Medications: Albuterol Sulfate [Proair Hfa] 2 puff IH Q4H PRN 07/14/15 [History] Allopurinol [Zyloprim 300 MG] 300 mg PO DAILY 07/14/15 [History] Cyclobenzaprine [Flexeril] 10 mg PO TID 07/14/15 [History] Hydroxychloroquine [Plaquenuil] 400 mg PO DAILY 07/14/15 [History] Levothyroxine [Synthroid] 50 mcg PO QAM 07/14/15 [History] Lidocaine Patch [Lidoderm 5% patch] 1 patch TP DAILY PRN 07/14/15 [History] Metaxalone [Skelaxin] 800 mg PO BID 07/14/15 [History] OxyCODONE Immed Rel [Roxicodone 10 MG] 10 mg PO Q6H PRN 07/14/15 [History] Aspirin 325 mg PO DAILY 11/04/15 [History] Multivitamin [Multi-Day Vitamins] 1 tab PO DAILY 01/05/16 [History] Furosemide [Lasix] 20 mg PO DAILY PRN 12/31/16 [History] Immune Globulin, Gamma(IGG) [Gammagard 10% 10 GM/100 mL] 0 gm IVC WE 05/09/17 [ History] Ipratropium/Albuterol Neb [Duoneb] 3 ml IH Q6H PRN 05/09/17 [History] Metoprolol Tartrate 100 mg PO DAILY 05/09/17 [History] NIFEdipine [Procardia] 10 mg PO DAILY PRN 05/09/17 [History] Pregabalin [Lyrica] 100 mg PO TID PRN 05/09/17 [History] ALPRAZolam [Xanax 0.25 MG Tablet] 0.25 mg PO TID PRN 5 Days #15 tablet 05/12/17 [Rx] Doxycycline 100 mg PO BID #14 capsule 05/12/17 [Rx] Allergies/Adverse Reactions: 3 Allergy/AdvReac Type Severity Reaction Status Date / Time No Known Allergies Allergy Verified 05/09/17 18:48 Date of admission: 05/09/17 22:51 Primary care physician: Joseph Johns, Consults: 05/09/17 22:53 Consult to Surgery [CONS] Routine Consulting Provider: [facility] Reason for Consult: right breast cellulitis, discharge, concern for mass ? Call Completed: No - Constitutional Vitals: Temp Pulse Resp BP Pulse Ox 98.3 F 78 16 143/92 93 05/12/17 07:45 05/12/17 07:45 05/12/17 07:45 05/12/17 07:45 05/12/17 07:45 General appearance: Present: A&O X 3 Exam: - Head Head exam: Present: atraumatic, normocephalic - Eye Eye exam: Present: PERRL, conjuntiva pink, sclera anicteric Pupils: Present: PERRL - Neck Neck exam general surgery: Present: supple, trachea midline. Absent: lymphadenopathy - Respiratory Respiratory exam: Present: CTAB. Absent: accessory muscle use, rales, rhonchi, wheezes - Cardiovascular Cardiovascular exam: Present: RRR, +S1, +S2. Absent: diastolic murmur, gallop, rubs, systolic murmur Additional comments: Right breast erythema and tenderness around the nipple have improved less induration underneath the erythema - GI/Abdominal GI/Abdominal exam: Present: normal bowel sounds, soft, no peritoneal signs. Absent: distended, tenderness - Extremities Exam Extremities exam: Present: warm, radial pulses palpable and symmetrical. Absent : calf tenderness, cyanotic, pedal edema - Neurological Exam Neurological exam: Present: CN II-XII intact, oriented X3, no focal deficits. Absent: pronater drift, facial droop, speech deficit - Skin Skin exam: Present: dry, intact - Patient Status Disposition: Home, Self-Care Condition: Good Overall status at discharge: patient is progressing back to baseline - Discharge Instructions Follow Up With: Joseph Johns DO [Primary Care Provider] - Additional Instructions: FOllow up with primary care physician in 7 days. Continue doxycyline for 7 days. - Diet and Activity Activity: increase activity as tolerated Diet: low fat, low cholesterol
[2017-05-12] MEDS: NIFEdipine 10 MG CAPSULE PO PRN (09:25)
== END 2017-05-12 11:30 | disposition home or self-care (01) | DRG 600 ==
LOC: EMEROO 18:40 → 3BNU 18:40
PROVIDERS: ADMIT Internal Medicine; ATTEND Registered Nurse

== ENCOUNTER 2017-06-23 10:40 | Inpatient (IN) ==
[2017-06-23 11:30] LABS: Basophils # 0.1 K/mcL (0.0-0.2); Basophils % 1.2 %; Eosinophils # 0.3 K/mcL (0.0-0.6); Eosinophils % 4.3 %; Hematocrit 41.9 % (35.3-44.9); Hemoglobin 13.8 g/dL (11.5-15.4); Immature Granulocytes % 0.3 % (0-4); Lymphocytes # 2.7 K/mcL (0.6-4.6); Lymphocytes % 44.2 %; Mean Corpuscular HGB Conc 32.9 g/dL (31.6-35.5); Mean Corpuscular Hemoglobin 29.7 pg (28.0-33.3); Mean Corpuscular Volume 90.1 fL (83.0-100.0); Mean Platelet Volume 9.9 fL (9.4-12.4); Monocytes # 0.7 K/mcL (0.0-1.3); Monocytes % 12.1 %; Neutrophils # 2.3 K/mcL (1.6-8.9); Platelet Count 356 K/mcL (140-400); Red Blood Count 4.65 M/mcL (3.82-4.97); Red Cell Distribution Width 14.6 % (11.5-14.5); Segmented Neutrophils % 37.9 %
[2017-06-23 11:31] LABS: INR 1.1; Prothrombin Time 12.2 Seconds (9.4-12.1)
[2017-06-23 11:34] LABS: Activated Partial Thrombo Time 28.4 Seconds (26.0-36.0)
--- NOTE | 2017-06-23 11:49 | Emergency Department Note ---
Disposition Clinical Impression: HCAP (healthcare-associated pneumonia) Dyspnea Qualifiers: Dyspnea type: unspecified Qualified Code(s): R06.00 - Dyspnea, unspecified Disposition: Admitted As Inpatient Condition: Fair General Adult HPI - General Chief complaint: ED Chest Pain Stated complaint: CP Time Seen by Provider: 06/23/17 10:54 Source: patient, family Limitations: no limitations - History of Present Illness Pain Scale: 9 - Related Data Home Medications Medication Instructions Recorded Confirmed Albuterol Sulfate [Proair Hfa] 2 puff IH Q4H PRN 07/14/15 06/23/17 Allopurinol [Zyloprim 300 MG] 300 mg PO DAILY 07/14/15 06/23/17 Cyclobenzaprine [Flexeril] 10 mg PO TID 07/14/15 06/23/17 Hydroxychloroquine [Plaquenuil] 400 mg PO DAILY 07/14/15 06/23/17 Levothyroxine [Synthroid] 50 mcg PO QAM 07/14/15 06/23/17 Metaxalone [Skelaxin] 800 mg PO BID 07/14/15 06/23/17 OxyCODONE Immed Rel [Roxicodone 10 10 mg PO Q6H PRN 07/14/15 06/23/17 MG] Multivitamin [Multi-Day Vitamins] 1 tab PO DAILY 01/05/16 06/23/17 Furosemide [Lasix] 20 mg PO DAILY PRN 12/31/16 06/23/17 Immune Globulin, Gamma(IGG) 0 gm IVC KNOTT 05/09/17 06/23/17 [Gammagard 10% 10 GM/100 mL] Ipratropium/Albuterol Neb [Duoneb] 3 ml IH Q6H PRN 05/09/17 06/23/17 Metoprolol Tartrate 100 mg PO DAILY 05/09/17 06/23/17 NIFEdipine [Procardia] 10 mg PO DAILY PRN 05/09/17 06/23/17 Pregabalin [Lyrica] 100 mg PO TID PRN 05/09/17 06/23/17 Albuterol Sulfate [Proair Hfa] 1 puff IH 06/23/17 06/23/17 Lactobacillus Acidophilus 1 mg PO DAILY 06/23/17 06/23/17 [Acidophilus Probiotic] Silver Hydosol 1 spr NS QID 06/23/17 Silver Hydrsol 1 spr MC QID 06/23/17 Allergies Allergy/AdvReac Type Severity Reaction Status Date / Time No Known Allergies Allergy Verified 06/23/17 14:24 Past Medical History - Past Medical History Medical history: Reports: arthritis, asthma, COPD, coronary artery disease, fibromyalgia, GERD, hyperlipidemia, hypertension, kidney stones, osteoporosis, RA, thyroid disease, TIA, other Surgical history: Reports: appendectomy, breast surgery (Bilateral breast reduction 1996, left breast excision (benign)), cholecystectomy, herniorrhaphy, hip replacement (right hip replacement and revision in 2013), hysterectomy, JAYSON/ BSO, other (osteonomy jaw implant 1983, dental surgery multiple, brochoscopy X 2 , EGD (last with Dr. Lala and unsure of date), Colonoscopy last [address] Barron) Psychiatric history: Reports: anxiety, bipolar, depression, panic disorder, other LEARNING DISABILITIES SPECIALIST history: Reports: no LEARNING DISABILITIES SPECIALIST history - Social History Smoking Status: Never smoker Smokeless Tobacco Status: No Alcohol use: Reports: none Drug use: Reports: none Physical Exam - General Limitations: no limitations General appearance: alert, in no apparent distress Course Vital Signs Temperature 98.2 F 06/23/17 10:42 Pulse Rate 93 06/23/17 10:42 Respiratory Rate 18 06/23/17 10:42 Blood Pressure 123/90 06/23/17 10:42 O2 Sat by Pulse Oximetry 94 06/23/17 10:42 Temperature 98.5 F 06/23/17 15:33 Pulse Rate 88 06/23/17 15:33 Respiratory Rate 14 06/23/17 15:33 Blood Pressure 136/92 06/23/17 15:33 O2 Sat by Pulse Oximetry 95 06/23/17 15:33 Oxygen Delivery Oxygen Delivery Room Air Medical Decision Making - Lab Data Result diagrams: 06/23/17 10:54 06/23/17 10:54 Lab Results 06/23/17 06/23/17 06/23/17 Range/Units 10:54 10:54 10:54 WBC 6.0 (4.3-11.1) K/mcL RBC 4.65 (3.82-4.97) M/mcL Hgb 13.8 (11.5-15.4) g/dL Hct 41.9 (35.3-44.9) % MCV 90.1 (83.0-100.0) fL MCH 29.7 (28.0-33.3) pg MCHC 32.9 (31.6-35.5) g/dL RDW 14.6 H (11.5-14.5) % Plt Count 356 (140-400) K/mcL MPV 9.9 (9.4-12.4) fL Immature Gran % 0.3 (0-4) % Seg Neutrophils % 37.9 % Lymphocytes % 44.2 % Monocytes % 12.1 % Eosinophils % 4.3 % Basophils % 1.2 % Neutrophils # 2.3 (1.6-8.9) K/mcL Lymphocytes # 2.7 (0.6-4.6) K/mcL Monocytes # 0.7 (0.0-1.3) K/mcL Eosinophils # 0.3 (0.0-0.6) K/mcL Basophils # 0.1 (0.0-0.2) K/mcL PT 12.2 H (9.4-12.1) Seconds INR 1.1 APTT 28.4 (26.0-36.0) Seconds Sodium 140 (136-145) mEq/L Potassium 3.2 L (3.5-5.1) mEq/L Chloride 100 (98-107) mEq/L Carbon Dioxide 30 H (23-29) mEq/L BUN 10 (8-23) mg/dL Creatinine 0.88 (0.60-1.20) mg/dL Est GFR ( Amer) > 60 (> 60) Est GFR (Non-Af Amer) > 60 (> 60) BUN/Creatinine Ratio 11 (6-26) Glucose 106 H (70-105) mg/dL Calculated Osmolality 289 (280-300) Lactic Acid (0.5-2.2) mmol/L Calcium 9.5 (8.6-10.3) mg/dL Troponin I < 0.03 (< 0.04) ng/mL Urine Color (Yellow) Urine Clarity (Clear) Urine pH (5.0-8.0) pH Units Ur Specific [place] (1.010-1.025) Urine Protein (Neg-Trace) mg/dL Urine Glucose (UA) (Normal) mg/dL Urine Ketones (Negative) mg/dL Urine Blood (Negative) Urine Nitrite (Negative) Urine Bilirubin (Negative) Urine Urobilinogen (Normal) mg/dL Ur Leukocyte Esterase (Negative) Urine Microscopic WBC (0-3) per hpf Ur Squamous Epith Cells (None-Few) per lpf Ur Renal Epithelial Cell (None-Few) per hpf Calcium Oxalate Crystal Urine Bacteria (None-Few) per hpf Ur Culture Indicated? (NO) 06/23/17 06/23/17 Range/Units 11:24 11:55 WBC (4.3-11.1) K/mcL RBC (3.82-4.97) M/mcL Hgb (11.5-15.4) g/dL Hct (35.3-44.9) % MCV (83.0-100.0) fL MCH (28.0-33.3) pg MCHC (31.6-35.5) g/dL RDW (11.5-14.5) % Plt Count (140-400) K/mcL MPV (9.4-12.4) fL Immature Gran % (0-4) % Seg Neutrophils % % Lymphocytes % % Monocytes % % Eosinophils % % Basophils % % Neutrophils # (1.6-8.9) K/mcL Lymphocytes # (0.6-4.6) K/mcL Monocytes # (0.0-1.3) K/mcL Eosinophils # (0.0-0.6) K/mcL Basophils # (0.0-0.2) K/mcL PT (9.4-12.1) Seconds INR APTT (26.0-36.0) Seconds Sodium (136-145) mEq/L Potassium (3.5-5.1) mEq/L Chloride (98-107) mEq/L Carbon Dioxide (23-29) mEq/L BUN (8-23) mg/dL Creatinine (0.60-1.20) mg/dL Est GFR ( Amer) (> 60) Est GFR (Non-Af Amer) (> 60) BUN/Creatinine Ratio (6-26) Glucose (70-105) mg/dL Calculated Osmolality (280-300) Lactic Acid 1.6 (0.5-2.2) mmol/L Calcium (8.6-10.3) mg/dL Troponin I (< 0.04) ng/mL Urine Color Yellow (Yellow) Urine Clarity Cloudy A (Clear) Urine pH 5.0 (5.0-8.0) pH Units Ur Specific Wendel > 1.030 H (1.010-1.025) Urine Protein Trace (Neg-Trace) mg/dL Urine Glucose (UA) Normal (Normal) mg/dL Urine Ketones Negative (Negative) mg/dL Urine Blood Negative (Negative) Urine Nitrite Negative (Negative) Urine Bilirubin Negative (Negative) Urine Urobilinogen Normal (Normal) mg/dL Ur Leukocyte Esterase Negative (Negative) Urine Microscopic WBC 3-5 H (0-3) per hpf Ur Squamous Epith Cells Many H (None-Few) per lpf Ur Renal Epithelial Cell Few (None-Few) per hpf Calcium Oxalate Crystal Present Urine Bacteria None Seen (None-Few) per hpf Ur Culture Indicated? NO (NO) Attestation Statement - Attestation Attestation: I examined this patient and my medical decision-making was reviewed with the REGULATED PROGRAM MANAGER/PA/Advanced Practice Nurse/Resident Physician. I agree with the documented findings, disposition and treatment plan as described except to the extent set forth below. Patient presents with infectious symptoms including a cough, temperature up to 102 and 103 degrees earlier in the week she did just complete a 5 day course of Levaquin from her primary care physician. 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 She also has what she describes as lung pain. I did review her EKG which shows normal sinus rhythm with a rate of 84 and without acute ischemic change. I did compare this to previous EKG which was done in April. Patient does have a workup in progress including lactate level and blood cultures. Results pending. Initial chest x- rays negative 1149 CT scan does show that the patient does have a new infiltrate in the patient does have a history of MRSA pneumonia will be started on Zosyn and vancomycin and this will be communicated to the nurse on the floor as well as the hospitalist physician [id number]
[2017-06-23 11:53] LABS: Troponin I < 0.03 ng/mL (< 0.04)
[2017-06-23 12:03] LABS: BUN/Creatinine Ratio 11 (6-26); Blood Urea Nitrogen 10 mg/dL (8-23); Calcium 9.5 mg/dL (8.6-10.3); Carbon Dioxide 30 mEq/L (23-29); Chloride 100 mEq/L (98-107); Glucose 106 mg/dL (70-105); Osmolality,Calculated 289 (280-300); Potassium 3.2 mEq/L (3.5-5.1); Sodium 140 mEq/L (136-145); eGFR For African Americans > 60 (> 60); eGFR For Non-African Americans > 60 (> 60)
--- NOTE | 2017-06-23 12:19 | Emergency Department Note ---
Disposition Clinical Impression: HCAP (healthcare-associated pneumonia) Dyspnea Qualifiers: Dyspnea type: unspecified Qualified Code(s): R06.00 - Dyspnea, unspecified Disposition: Admitted As Inpatient Condition: Fair Time of Disposition: 14:24 General Adult HPI - General Chief complaint: ED Chest Pain Stated complaint: CP Time Seen by Provider: 06/23/17 10:54 Source: patient, family Limitations: no limitations Nursing Notes Reviewed: Yes Vital Signs Reviewed: Yes - History of Present Illness HPI Narrative: Mrs. Mayes, 66-year-old female, presents from home for evaluation of chest pain with dyspnea and cough. Chest pain described as dull, midsternal, radiating to the back. Worse with cough and with by mouth intake. Associated with, "lung pain." She also notes a temperature 102-103F earlier this week, for Tylenol. She has completed a course of Levaquin from her primary care physician for reasons unknown to her. She does have a history of MRSA pneumonia throughout the last 5 years which she completed IV vancomycin 1 month ago. PMH: Lupus, hypogammaglobulinemia on IgG. History of MRSA pneumonia. Prinzmetal angina, hiatal hernia. Pain Scale: 9 - Related Data Home Medications Medication Instructions Recorded Confirmed Albuterol Sulfate [Proair Hfa] 2 puff IH Q4H PRN 07/14/15 06/23/17 Allopurinol [Zyloprim 300 MG] 300 mg PO DAILY 07/14/15 06/23/17 Cyclobenzaprine [Flexeril] 10 mg PO TID 07/14/15 06/23/17 Hydroxychloroquine [Plaquenuil] 400 mg PO DAILY 07/14/15 06/23/17 Levothyroxine [Synthroid] 50 mcg PO QAM 07/14/15 06/23/17 Metaxalone [Skelaxin] 800 mg PO BID 07/14/15 06/23/17 OxyCODONE Immed Rel [Roxicodone 10 10 mg PO Q6H PRN 07/14/15 06/23/17 MG] Multivitamin [Multi-Day Vitamins] 1 tab PO DAILY 01/05/16 06/23/17 Furosemide [Lasix] 20 mg PO DAILY PRN 12/31/16 06/23/17 Immune Globulin, Gamma(IGG) 0 gm IVC KNOTT 05/09/17 06/23/17 [Gammagard 10% 10 GM/100 mL] Ipratropium/Albuterol Neb [Duoneb] 3 ml IH Q6H PRN 05/09/17 06/23/17 Metoprolol Tartrate 100 mg PO DAILY 05/09/17 06/23/17 NIFEdipine [Procardia] 10 mg PO DAILY PRN 05/09/17 06/23/17 Pregabalin [Lyrica] 100 mg PO TID PRN 05/09/17 06/23/17 Albuterol Sulfate [Proair Hfa] 1 puff IH 06/23/17 06/23/17 Lactobacillus Acidophilus 1 mg PO DAILY 06/23/17 06/23/17 [Acidophilus Probiotic] Silver Hydosol 1 spr NS QID 06/23/17 Silver Hydrsol 1 spr MC QID 06/23/17 Allergies Allergy/AdvReac Type Severity Reaction Status Date / Time No Known Allergies Allergy Verified 06/23/17 14:24 All systems ED: reviewed and negative except as stated. Review of Systems: As Per HPI Past Medical History - Past Medical History Medical history: Reports: arthritis, asthma, COPD, coronary artery disease, fibromyalgia, GERD, hyperlipidemia, hypertension, kidney stones, osteoporosis, RA, thyroid disease, TIA, other Surgical history: Reports: appendectomy, breast surgery (Bilateral breast reduction 1996, left breast excision (benign)), cholecystectomy, herniorrhaphy, hip replacement (right hip replacement and revision in 2013), hysterectomy, JAYSON/ BSO, other (osteonomy jaw implant 1983, dental surgery multiple, brochoscopy X 2 , EGD (last with Dr. Lala and unsure of date), Colonoscopy last [address] Barron) Psychiatric history: Reports: anxiety, bipolar, depression, panic disorder, other PAPER PRODUCTS INSPECTOR history: Reports: no PAPER PRODUCTS INSPECTOR history - Social History Smoking Status: Never smoker Smokeless Tobacco Status: No Alcohol use: Reports: none Drug use: Reports: none Physical Exam Vital Signs Reviewed General: Patient is alert, oriented. She appears frail, older than stated age, with a wet sounding cough. Head: atraumatic, normocephalic Eye: normal appearance, no scleral icterus, no conjunctival injection ENT: mucous membranes moist, normal external ear exam Neck: normal inspection, trachea midline, full ROM Chest: normal inspection, symmetric chest rise Respiratory: Poor respiratory effort. Prolonged expiratory phase. Bilateral breath sounds have diffuse crackles with scattered wheeze. Cardiovascular: Regular rate and rhythm. No clicks, rubs, gallops, or murmors. Normal heart sounds. Abdomen: Bowel sounds present normoactive x-4 quadrants. Abdomen is soft, nondistended, and nontender. No guarding or rebound. No organomegaly noted. Musculoskeletal: Spontaneously moving all extremities. Skin: warm, dry, intact. Neuro: Alert and oriented x4. Sensation light touch intact. Psych: Patient's affect is appropriate for situation. - General Limitations: no limitations General appearance: alert, in no apparent distress Course Course Narrative: She appears ill and frail. The chest x-ray did not show any acute pulmonary process, physical exam is concerning for pneumonia. CT chest without contrast is concerning for left lower lobe pneumonia. I deferred CT with contrast given her age and desire to protect his knees as well as low clinical suspicion for PE. Will begin empiric vancomycin and Zosyn against HCAP as patient was discharged from this facility in the last 90 days. Serum hematology is unremarkable; specifically no leukocytosis or leukocytopenia. Serum chemistry unremarkable; specifically troponin less than 0.03, no elevation lactic acid. Urinalysis is not concerning for UTI. Blood cultures collected and pending. EKG dated 23 Jun 2017 at 10:54 troponin as sinus rhythm with rate of 84. Normal intervals. Left axis. Nonspecific ST-T changes. Compared to previous dated 05/09/2017 showing no acute ischemic changes or comparison. Chest X-Ray 06/23/17 10:45 IMPRESSION: No acute cardiopulmonary process. D/ / 06/23/2017 11:10:51 Tico Palma MD / [facility] Interpreting Provider: Tico Palma MD Chest CT 06/23/17 12:56 IMPRESSION: There is an area of mild consolidation noted posteromedially to the left lower lobe. This is in the same region as an area of consolidation on prior remote exam 01/21/2016 but appears improved from that exam. This same region appeared relatively clear on a prior CT of the abdomen and pelvis 10/04/2016. Findings are concerning for redevelopment of pneumonia in this region. Suggest continued follow-up. Trace pericardial effusion, new from prior exam. D/ / 06/23/2017 14:14:42 [facility] MD / [facility] Interpreting Provider: Viktor Colbert MD Vital Signs Temperature 98.2 F 06/23/17 10:42 Pulse Rate 93 06/23/17 10:42 Respiratory Rate 18 06/23/17 10:42 Blood Pressure 123/90 06/23/17 10:42 O2 Sat by Pulse Oximetry 94 06/23/17 10:42 Temperature 98.4 F 06/23/17 18:47 Pulse Rate 94 06/23/17 18:47 Respiratory Rate 16 06/23/17 18:47 Blood Pressure 118/75 06/23/17 18:47 O2 Sat by Pulse Oximetry 90 06/23/17 18:47 Oxygen Delivery Oxygen Delivery Room Air Medical Decision Making - Lab Data Result diagrams: 06/23/17 10:54 06/23/17 10:54 Lab Results 06/23/17 06/23/17 06/23/17 Range/Units 10:54 10:54 10:54 WBC 6.0 (4.3-11.1) K/mcL RBC 4.65 (3.82-4.97) M/mcL Hgb 13.8 (11.5-15.4) g/dL Hct 41.9 (35.3-44.9) % MCV 90.1 (83.0-100.0) fL MCH 29.7 (28.0-33.3) pg MCHC 32.9 (31.6-35.5) g/dL RDW 14.6 H (11.5-14.5) % Plt Count 356 (140-400) K/mcL MPV 9.9 (9.4-12.4) fL Immature Gran % 0.3 (0-4) % Seg Neutrophils % 37.9 % Lymphocytes % 44.2 % Monocytes % 12.1 % Eosinophils % 4.3 % Basophils % 1.2 % Neutrophils # 2.3 (1.6-8.9) K/mcL Lymphocytes # 2.7 (0.6-4.6) K/mcL Monocytes # 0.7 (0.0-1.3) K/mcL Eosinophils # 0.3 (0.0-0.6) K/mcL Basophils # 0.1 (0.0-0.2) K/mcL PT 12.2 H (9.4-12.1) Seconds INR 1.1 APTT 28.4 (26.0-36.0) Seconds Sodium 140 (136-145) mEq/L Potassium 3.2 L (3.5-5.1) mEq/L Chloride 100 (98-107) mEq/L Carbon Dioxide 30 H (23-29) mEq/L BUN 10 (8-23) mg/dL Creatinine 0.88 (0.60-1.20) mg/dL Est GFR ( Amer) > 60 (> 60) Est GFR (Non-Af Amer) > 60 (> 60) BUN/Creatinine Ratio 11 (6-26) Glucose 106 H (70-105) mg/dL Calculated Osmolality 289 (280-300) Lactic Acid (0.5-2.2) mmol/L Calcium 9.5 (8.6-10.3) mg/dL Troponin I < 0.03 (< 0.04) ng/mL Urine Color (Yellow) Urine Clarity (Clear) Urine pH (5.0-8.0) pH Units Ur Specific [place] (1.010-1.025) Urine Protein (Neg-Trace) mg/dL Urine Glucose (UA) (Normal) mg/dL Urine Ketones (Negative) mg/dL Urine Blood (Negative) Urine Nitrite (Negative) Urine Bilirubin (Negative) Urine Urobilinogen (Normal) mg/dL Ur Leukocyte Esterase (Negative) Urine Microscopic WBC (0-3) per hpf Ur Squamous Epith Cells (None-Few) per lpf Ur Renal Epithelial Cell (None-Few) per hpf Calcium Oxalate Crystal Urine Bacteria (None-Few) per hpf Ur Culture Indicated? (NO) 06/23/17 06/23/17 Range/Units 11:24 11:55 WBC (4.3-11.1) K/mcL RBC (3.82-4.97) M/mcL Hgb (11.5-15.4) g/dL Hct (35.3-44.9) % MCV (83.0-100.0) fL MCH (28.0-33.3) pg MCHC (31.6-35.5) g/dL RDW (11.5-14.5) % Plt Count (140-400) K/mcL MPV (9.4-12.4) fL Immature Gran % (0-4) % Seg Neutrophils % % Lymphocytes % % Monocytes % % Eosinophils % % Basophils % % Neutrophils # (1.6-8.9) K/mcL Lymphocytes # (0.6-4.6) K/mcL Monocytes # (0.0-1.3) K/mcL Eosinophils # (0.0-0.6) K/mcL Basophils # (0.0-0.2) K/mcL PT (9.4-12.1) Seconds INR APTT (26.0-36.0) Seconds Sodium (136-145) mEq/L Potassium (3.5-5.1) mEq/L Chloride (98-107) mEq/L Carbon Dioxide (23-29) mEq/L BUN (8-23) mg/dL Creatinine (0.60-1.20) mg/dL Est GFR ( Amer) (> 60) Est GFR (Non-Af Amer) (> 60) BUN/Creatinine Ratio (6-26) Glucose (70-105) mg/dL Calculated Osmolality (280-300) Lactic Acid 1.6 (0.5-2.2) mmol/L Calcium (8.6-10.3) mg/dL Troponin I (< 0.04) ng/mL Urine Color Yellow (Yellow) Urine Clarity Cloudy A (Clear) Urine pH 5.0 (5.0-8.0) pH Units Ur Specific [place]ett > 1.030 H (1.010-1.025) Urine Protein Trace (Neg-Trace) mg/dL Urine Glucose (UA) Normal (Normal) mg/dL Urine Ketones Negative (Negative) mg/dL Urine Blood Negative (Negative) Urine Nitrite Negative (Negative) Urine Bilirubin Negative (Negative) Urine Urobilinogen Normal (Normal) mg/dL Ur Leukocyte Esterase Negative (Negative) Urine Microscopic WBC 3-5 H (0-3) per hpf Ur Squamous Epith Cells Many H (None-Few) per lpf Ur Renal Epithelial Cell Few (None-Few) per hpf Calcium Oxalate Crystal Present Urine Bacteria None Seen (None-Few) per hpf Ur Culture Indicated? NO (NO)
[2017-06-23] MEDS ORDERED: *HR* FentaNYL (PF) 100 MCG/2 ML VIAL IVP ONE (12:20)
[2017-06-23] MEDS ORDERED: Naloxone 0.4 MG/ML INJ IVP PRN (12:51)
[2017-06-23 12:53] LABS: Bilirubin,Urine Negative (Negative); Blood,Urine Negative (Negative); Clarity,Urine Cloudy (Clear); Color,Urine Yellow (Yellow); Glucose,Urine (UA) Normal (Normal); Ketones,Urine Negative (Negative); Leukocyte Esterase,Urine Negative (Negative); Nitrite,Urine Negative (Negative); Protein,Urine Trace mg/dL (Neg-Trace); Specific Gravity,Urine > 1.030 (1.010-1.025); Urobilinogen,Urine Normal (Normal)
[2017-06-23 12:57] LABS: Bacteria,Urine None Seen per hpf (None-Few); Squamous Epithelial Cell,Urine Many per lpf (None-Few)
--- NOTE | 2017-06-23 13:07 | Internal Med History&Physical ---
<Lanie Naranjo - Last Filed: 06/23/17 13:04> Date of Encounter: 06/23/17 Time of Encounter: 13:04 Internal Medicine - H&P: HPI Chief complaint: Chest pain Admitted From: Home Plans for Post Hospital Care: Home History of present illness: Ms. Mayes is a 66 year old female who presented with worsening chest and lung pain. She indicated that she saw her PCP on Monday and was placed on Levaquin for 5 days for lung pain, cough, fever and congestion. 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 . She indicated that she receives IVIG weekly, at which she administers it herself. The patient reports that when she was having the chest pain today she was unsure if it was heart related so she decided to come in. The trop was <0.04, CXR showed no acute pulmonary disease. A UA is pending. Subjective fevers up to 103 @ home. Lactatic was 1.6 today, elevated CRP. She also reported pain to her right breast. When assessed the area was noted to be wnl, no erythema, bruising and it was intact. She indicated it had been erythematous in the past. Hypokalemia present, was replaced in the ED. Cardiac monitoring was placed. 12 lead EKG indicated SR with a rate of 84. Left axis deviation was noted. She continued to express breast pain during my assessment. Fentanyl was given in the ED with relief. Will continue IVF, Ct of the chest to performed, blood cultures sent, serial cardiac trops, cardiac monitoring, and pain control. Patient also has a plethora of other past medical history, including COPD, CAD, asthma, GERD, htn, hld, and Arthritis. The patient indicate she has hx of gout, will continue home allupurinol Past Med Surg Social Fam HX - Past Medical History Medical history: arthritis, asthma, COPD, coronary artery disease, fibromyalgia , GERD, hyperlipidemia, hypertension, kidney stones, osteoporosis, RA, thyroid disease, TIA, other Psychiatric history: anxiety, bipolar, depression, panic disorder, other - Past Surgical History Surgical History: appendectomy, breast surgery (Bilateral breast reduction 1996 , left breast excision (benign)), cholecystectomy, herniorrhaphy, hip replacement (right hip replacement and revision in 2013), hysterectomy, JAYSON/BSO , other (osteonomy jaw implant 1983, dental surgery multiple, brochoscopy X 2, EGD (last with Dr. Lala and unsure of date), Colonoscopy last [address] Barron) - Social History Smoking Status: Never smoker Smokeless Tobacco Status: No Alcohol use: none Drug use: none - Family History Father Hx Family Cardiac Disorders: No Hx Family Respiratory Disorders: No Hx Family Cancer: Yes (colon, kidney, bladder) Hx Family GI Disorders: No Hx Family Endocrine Disorder: No Hx Family Neuromuscular Disorders: No Hx Family Neurologic Disorders: No Hx Family HEENT Disorders: No Hx Family Autoimmune Disorders: No Mother Adopted: No Family Member Ethnicity: Non- Living Status: Hx Family Cardiac Disorders: No Hx Family Respiratory Disorders: No Hx Family Cancer: Yes Hx Family GI Disorders: No Hx Family Endocrine Disorder: No Hx Family Neuromuscular Disorders: No Hx Family Neurologic Disorders: No Hx Family HEENT Disorders: No Hx Family Autoimmune Disorders: Yes (ra) Internal Medicine - H&P: Meds Albuterol Sulfate [Proair Hfa] 2 puff IH Q4H PRN 07/14/15 [History] Allopurinol [Zyloprim 300 MG] 300 mg PO DAILY 07/14/15 [History] Cyclobenzaprine [Flexeril] 10 mg PO TID 07/14/15 [History] Hydroxychloroquine [Plaquenuil] 400 mg PO DAILY 07/14/15 [History] Levothyroxine [Synthroid] 50 mcg PO QAM 07/14/15 [History] Metaxalone [Skelaxin] 800 mg PO BID 07/14/15 [History] OxyCODONE Immed Rel [Roxicodone 10 MG] 10 mg PO Q6H PRN 07/14/15 [History] Multivitamin [Multi-Day Vitamins] 1 tab PO DAILY 01/05/16 [History] Furosemide [Lasix] 20 mg PO DAILY PRN 12/31/16 [History] Immune Globulin, Gamma(IGG) [Gammagard 10% 10 GM/100 mL] 0 gm IVC KNOTT 05/09/17 [ History] Ipratropium/Albuterol Neb [Duoneb] 3 ml IH Q6H PRN 05/09/17 [History] Metoprolol Tartrate 100 mg PO DAILY 05/09/17 [History] NIFEdipine [Procardia] 10 mg PO DAILY PRN 05/09/17 [History] Pregabalin [Lyrica] 100 mg PO TID PRN 05/09/17 [History] Albuterol Sulfate [Proair Hfa] 1 puff IH 06/23/17 [History] Lactobacillus Acidophilus [Acidophilus Probiotic] 1 mg PO DAILY 06/23/17 [ History] Silver Hydosol 1 spr NS QID 06/23/17 [History] Silver Hydrsol 1 spr MC QID 06/23/17 [History] 3 Allergy/AdvReac Type Severity Reaction Status Date / Time No Known Allergies Allergy Verified 06/23/17 14:24 All Systems PM: A 10-system review of systems was performed and is negative for pertinent findings except as documented above in the HPI. - Constitutional Constitutional: fever(s), no chills, no night sweats - EENT Eyes: no change in vision, no discharge, no pain, no photophobia Ears: no ear discharge, no ear pain, no tinnitus Nose, mouth and throat: no dysphagia, no nasal discharge, no neck pain, no sore throat - Breasts Breasts: pain (right breast), no change in shape, no nipple discharge, no skin changes, no swelling - Cardiovascular Cardiovascular ROS IM: chest pain, dyspnea, no diaphoresis, no lightheadedness, no palpitations, no syncope - Respiratory Respiratory: cough, dyspnea, chest congestion, no wheezing, no excessive phlegm production - Gastrointestinal Gastrointestinal: no abdominal pain, no diarrhea, no hematemesis, no hematochezia, no melena, no nausea, no vomiting - Genitourinary Genitourinary: no change in urinary stream, no dysuria, no flank pain, no hematuria - Musculoskeletal Musculoskeletal ROS IM: no numbness, no tingling - Integumentary Integumentary IM: no rash, no unusual bruising - Neurological Neurological ROS: no confusion, no convulsions, no focal weakness, no numbness, no tingling, no tremor(s) - Hematologic/Lymphatic Hematologic/Lymphatic: no easy bruising - Constitutional Vitals: Temp Pulse Resp BP Pulse Ox 98.2 F 84 16 131/94 96 06/23/17 10:42 06/23/17 12:42 06/23/17 12:42 06/23/17 12:42 06/23/17 12:42 General appearance: Present: A&O X 3, no acute distress, answers questions appropriately - Head Head exam: Present: atraumatic, normocephalic - Eye Eye exam: Present: PERRL, conjuntiva pink, sclera anicteric Pupils: Present: PERRL - Neck Neck exam general surgery: Present: supple, trachea midline. Absent: lymphadenopathy - Respiratory Respiratory exam: Present: CTAB (However she has tracheal congestion with cough) . Absent: accessory muscle use, rales, rhonchi, wheezes - Cardiovascular Cardiovascular exam: Present: RRR, +S1, +S2. Absent: diastolic murmur, gallop, rubs, systolic murmur - GI/Abdominal GI/Abdominal exam: Present: normal bowel sounds, soft, no peritoneal signs. Absent: distended, tenderness - Extremities Exam Extremities exam: Present: warm, radial pulses palpable and symmetrical. Absent : calf tenderness, cyanotic, pedal edema - Neurological Exam Neurological exam: Present: CN II-XII intact, oriented X3, no focal deficits. Absent: pronater drift, facial droop, speech deficit - Skin Skin exam: Present: dry, intact Internal Med - H&P Results - Labs CBC & Chem 7: 06/23/17 10:54 06/23/17 10:54 Labs: Short CBC 06/23/17 Range/Units 10:54 WBC 6.0 (4.3-11.1) K/mcL Hgb 13.8 (11.5-15.4) g/dL Hct 41.9 (35.3-44.9) % Plt Count 356 (140-400) K/mcL Neutrophils # 2.3 (1.6-8.9) K/mcL BMP 06/23/17 10:54 Sodium 140 Potassium 3.2 L Chloride 100 Carbon Dioxide 30 H BUN 10 Creatinine 0.88 Glucose 106 H Calcium 9.5 Cardiac Enzymes 06/23/17 Range/Units 10:54 Troponin I < 0.03 (< 0.04) ng/mL Urine 06/23/17 Range/Units 11:24 Urine Color Yellow (Yellow) Urine Clarity Cloudy A (Clear) Urine pH 5.0 (5.0-8.0) pH Units Ur Specific Ashby > 1.030 H (1.010-1.025) Urine Protein Trace (Neg-Trace) mg/dL Urine Glucose (UA) Normal (Normal) mg/dL - Impressions ITS Impressions Chest X-Ray 06/23/17 10:45 IMPRESSION: No acute cardiopulmonary process. D/ / 06/23/2017 11:10:51 Tico Palma MD / earnold Interpreting Provider: Tico Palma MD - Assessment and plan (1) Chest pain Current Visit: Yes Status: Acute Assessment and plan: The patient reports a sudden onset of chest pain at her right breast. She indicated that she has lung pain and she was unsure if the pain was related to that. She reports pain 10/30. Fentanyl was given in the ED with reports of effectiveness. 12 lead EKG showed SR rate 84. Left axis deviation. Serial cardiac troponins to ensure no cardiac events. Trop was 0.04. Cardiac monitoring. Qualifiers: Chest pain type: chest pain on breathing Qualified Code(s): R07.1 - Chest pain on breathing; R07.81 - Pleurodynia (2) Cellulitis of right breast Current Visit: No Status: Acute Assessment and plan: Recent cellulitis of right breast which has improved. She indicated that she still continues to have some pain in that area and at times is severe. Will continue pain control. CT of chest to be performed. Breast currently without erythema and drainage. (3) COPD (chronic obstructive pulmonary disease) Current Visit: No Status: Acute Assessment and plan: The patient does present with cough, chest congestion and fever over past 5 days. CXR showed no acute disease. She was treated with levaquin for past 5 days but still has some complaints. This could be relaed to her COPD vs Lung MRSA infection.Blood cultures pending, lactacte was 1.6. Will resume COPD home medications Qualifiers: COPD type: chronic bronchitis Chronic bronchitis type: simple Qualified Code(s): J41.0 - Simple chronic bronchitis (4) Hypokalemia Current Visit: No Status: Acute Assessment and plan: Potassium replaced in ED, serum k recheck in the morning. The patient is on cardiac monitoring (5) Essential hypertension Current Visit: No Status: Chronic Assessment and plan: Bp uncontrolled. James resume home cardiac medications. Will add prn hyralazine if bp still elevated above 160 systolic, after pain is controlled. - Time Spent With Patient Total time spent is greater than 50% in coordination of care (as documented) at patient's floor/unit and/or counseling patient: <Liset Bush - Last Filed: 06/23/17 18:34> Date of Encounter: 06/23/17 Internal Medicine - H&P: HPI History of present illness: Ms. Mayes is a 66 year old female All Systems PM: A 10-system review of systems was performed and is negative for pertinent findings except as documented above in the HPI. - Constitutional Vitals: Temp Pulse Resp BP Pulse Ox 98.5 F 88 14 136/92 95 06/23/17 15:33 06/23/17 15:33 06/23/17 15:33 06/23/17 15:33 06/23/17 15:33 Internal Med - H&P Results - Labs CBC & Chem 7: 06/23/17 10:54 06/23/17 10:54 Labs: Cardiac Enzymes 06/23/17 Range/Units 16:54 Troponin I < 0.03 (< 0.04) ng/mL - Attending Attestation I examined this patient and my medical decision-making was reviewed with the Resident Physician. I agree with the documented findings, disposition and treatment plan as described except to the extent set forth below. - Time Spent With Patient Total time spent is greater than 50% in coordination of care (as documented) at patient's floor/unit and/or counseling patient:
[2017-06-23 13:09] LABS: Calcium Oxalate Crystals,Urine Present
[2017-06-23 13:10] LABS: Renal Epithelial Cells,Urine Few per hpf (None-Few)
[2017-06-23] MEDS ORDERED: Furosemide 20 MG TABLET PO PRN (13:59)
[2017-06-23] MEDS ORDERED: Ipratropium/Albuterol Neb 3 ML IH PRN (13:59)
[2017-06-23] MEDS ORDERED: Piperacillin/Tazobactam 3.375 GM in 0.9 % Sodium Chloride Mini Bag 100 ML IVPB ONE (14:23)
[2017-06-23] MEDS: *HR* OxyCODONE Immed Rel 5 MG TABLET PO PRN (16:48)
[2017-06-23] MEDS: 0.9 % Sodium Chloride 1,000 ML IVC SCH (16:50)
[2017-06-23] MEDS: ALPRAZolam 0.25 MG TABLET PO PRN (17:01)
[2017-06-23] MEDS: Doxycycline 100 MG CAPSULE PO SCH (20:39)
[2017-06-24] MEDS: ALPRAZolam 0.25 MG TABLET PO PRN ×3 (03:34→21:59)
[2017-06-24] MEDS: 0.9 % Sodium Chloride 1,000 ML IVC SCH (03:36)
[2017-06-24 04:13] LABS: BUN/Creatinine Ratio 11 (6-26); Blood Urea Nitrogen 8 mg/dL (8-23); Calcium 8.7 mg/dL (8.6-10.3); Carbon Dioxide 27 mEq/L (23-29); Chloride 104 mEq/L (98-107); Glucose 114 mg/dL (70-105); Osmolality,Calculated 289 (280-300); Potassium 3.1 mEq/L (3.5-5.1); Sodium 140 mEq/L (136-145); eGFR For African Americans > 60 (> 60); eGFR For Non-African Americans > 60 (> 60)
--- NOTE | 2017-06-24 06:41 | Electrocardiograph Report ---
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
[2017-06-24] MEDS: Metoprolol 100 MG TABLET PO SCH (08:06)
[2017-06-24] MEDS: Multivit/Ca/Min/Fe/FA 1 TAB TABLET PO SCH (08:08)
[2017-06-24] MEDS: *HR* OxyCODONE Immed Rel 5 MG TABLET PO PRN ×3 (08:08→20:34)
[2017-06-24] MEDS: Aspirin 325 MG TABLET PO SCH (08:08)
[2017-06-24] MEDS: Doxycycline 100 MG CAPSULE PO SCH ×2 (08:09→20:11)
[2017-06-24] MEDS: Pregabalin 50 MG CAPSULE PO PRN ×2 (09:12→20:13)
[2017-06-24] MEDS ORDERED: Potassium Chloride 40 MEQ, Lidocaine 1% 2 ML in D5% in Water 500 ML IVPB ONE (09:48)
[2017-06-24 10:05] LABS: Magnesium 1.9 mg/dL (1.6-2.6)
--- NOTE | 2017-06-24 10:50 | Internal Med Progress Note ---
Date of Encounter: 06/24/17 Time of Encounter: 10:48 - Assessment and plan (1) Chest pain Current Visit: Yes Status: Acute Assessment and plan: atypical non cardiac troponins negative Qualifiers: Chest pain type: unspecified Qualified Code(s): R07.9 - Chest pain, unspecified (2) Pneumonia Current Visit: No Status: Acute Assessment and plan: recuirrent pneumonia will continue on zosyn Qualifiers: Pneumonia type: due to unspecified organism Laterality: bilateral Lung location: unspecified part of lung Qualified Code(s): J18.9 - Pneumonia, unspecified organism (3) Acute respiratory failure with hypoxia Current Visit: No Status: Acute Assessment and plan: clinically better (4) COPD with exacerbation Current Visit: No Status: Acute (5) Obesity (BMI 30.0-34.9) Current Visit: No Status: Chronic - Time Spent With Patient Total time spent is greater than 50% in coordination of care (as documented) at patient's floor/unit and/or counseling patient: - Subjective Interval history: Patient bseen and examined request hospice care and being evaluated at presents chest pain better sob better - Constitutional Vitals: Temp Pulse Resp BP Pulse Ox 98.5 F 89 17 157/93 93 06/24/17 07:00 06/24/17 07:00 06/24/17 07:00 06/24/17 07:00 06/24/17 07:00 General appearance: Present: A&O X 3, no acute distress, answers questions appropriately - Head Head exam: Present: atraumatic, normocephalic - Neck Neck exam general surgery: Present: supple, trachea midline. Absent: lymphadenopathy - Respiratory Respiratory exam: Present: prolonged expiratory phase, rhonchi - Cardiovascular Cardiovascular exam: Present: RRR, +S1, +S2. Absent: diastolic murmur, gallop, rubs, systolic murmur - GI/Abdominal GI/Abdominal exam: Present: normal bowel sounds, soft, no peritoneal signs. Absent: distended, tenderness Internal Medicine: Result - Labs CBC & Chem 7: 06/23/17 10:54 06/24/17 03:00 Labs: BMP 06/24/17 03:00 Sodium 140 Potassium 3.1 L Chloride 104 Carbon Dioxide 27 BUN 8 Creatinine 0.74 Glucose 114 H Calcium 8.7 Cardiac Enzymes 06/23/17 06/23/1718 Range/Units 16:54 22:47 03:00 Troponin I < 0.03 < 0.03 < 0.03 (< 0.04) ng/mL - ABG Interpretation ABG results: PT/INR, D-dimer PT 12.2 Seconds (9.4-12.1) H 06/23/17 10:54 Consult Discharge Plan - Plan Referrals: Joseph Johns DO [Primary Care Provider] -
--- NOTE | 2017-06-24 12:13 | Palliative - Consult Note ---
Date of Encounter: 06/24/17 Time of Encounter: 09:45 - Assessment and Plan (1) Goals of care, counseling/discussion Current Visit: Yes Status: Acute Assessment and plan: Very long discussion with patient and family about CODE STATUS and goals of care. Patient wishes to be did DO NOT RESUSCITATE comfort care is DO NOT INTUBATE change this to her. Goals of care patient ultimately would like to return home, however she is at the point of getting sick and tired of being sick and tired. We did discuss at length hospice care and usually good understanding of hospice care I do not recommend hospice care at this time as she is still favoring aggressive treatment, however a change in insurance that may require stopping the aggressive treatment at which time she will might want to her address hospice then. At this time I do not hospice is appropriate, I do feel that consultation which the patient has requested an Lorne already in is very appropriate. I suggested to the patient that may be starting a medication such as mirtazapine may be helpful for both the depression as well as appetite, however the patient's depression is so multifactorial defer this to psychiatry. The patient is not suicidal or homicidal in my opinion. (2) Pneumonia Current Visit: No Status: Acute Assessment and plan: Pneumonia is apparent on the CT scan plan per hospitalist team they are treating this aggressively. Patient was already on antibiotics when she came in. Qualifiers: Pneumonia type: due to unspecified organism Laterality: bilateral Lung location: unspecified part of lung Qualified Code(s): J18.9 - Pneumonia, unspecified organism (3) Anxiety Current Visit: No Status: Chronic Assessment and plan: Patient is on medication for anxiety, I think it probably needs to be increased , however at this time since psychiatry will be coming by to see the patient I think they should be the ones to increase the medication or at least make the recommendations known were people that are changing medications with regard to anxiety depression or pain it would be best if only one or 2 physicians are handling this. We will therefore defer this to the hospitalist and/or the psychiatrist and make my recommendations. (4) Recurrent pneumonia Current Visit: No Status: Acute Assessment and plan: The patient seems to have problems with autoimmunity and lack of truly functional immune system and that she has recurrent infections well as autoimmune processes. Pick this is probably very multifactorial in nature, now the medications seem to be working for her and she wishes to remain aggressive with them. (5) Chronic constipation Current Visit: No Status: Chronic Assessment and plan: I will start the patient on a bowel regimen and see how it does for her. (6) Chronic pain Current Visit: No Status: Acute Assessment and plan: Palliative care is not able to handle chronic pain problems. I believe that this patient's pain is extremely multifactorial in nature and we will not followed as an outpatient as there is no outpatient palliative presence. However at this time I would recommend leaving her pain medications were they are in the anxiety and depression which psychiatry has been consulted to do. If needed it would not be unreasonable to decrease the dosing intervals for her oxycodone I would not increase the dose at this time. We will continue to follow we will continue to make recommendations. I do not feel it would be inappropriate to make her meds every 4 hours as needed , ever I will note that there will be no one to follow up on her except her primary care doctor who may not be willing to follow at that level. He will be unreasonable however to go ahead and go to 4 hours if the hospitalist agrees I will let him make a change. Unable we will continue to follow and make recommendations. Qualifiers: Chronic pain type: chronic pain syndrome Qualified Code(s): G89.4 - Chronic pain syndrome Palliative-CN HPI - Data of Consult Patient: new to practice Requesting Physician: Paul Lester MD Primary Care Provider: Joseph Johns, - Consult Narrative Palliative Care/Comfort Measures: Palliative care History of present illness: Ms. Mayes is a 66 year old female Patient has a lengthy history of repeated infections as well as autoimmune disorders including rheumatoid arthritis fibromyalgia possibly thyroid disease in addition to multiple hospitalizations for various infections all of the very serious nature. 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 However for the last week she has been feeling more poor and over the last week she has noticed that she was feeling weaker had a cough that developed with clears up clear sputum going to green increasing problems with chest pain is both a stabbing and deep ache to a 9/10's with movement and better with rest and this also gets better with Procardia. She states she takes Procardia for Prinzmetal's angina and this does seem to help great deal. He saw her primary care provider on Monday this week and was placed on Levaquin she started taking it actually doubled up and this did seem to help. Discomfort got worse and she came into the hospital. She was found to have chest pain which does not appear to be cardiac. Cellulitis of the right breast which apparently has gotten better COPD hypokalemia and what is felt to be pneumonia. She also has chronic pain for which she takes oxycodone and has for some time. Primarily in her back and neck been evaluated for possible pain procedures but these have been optimal due to the fact that she has such bad trouble with her lungs and the MRSA. The patient's chronic pain history is very complex with a number of different accidents being involved, but also all the various infections that she has had. She also states she does feel depressed but does not feel suicidal he did request a consult with psychiatry. CC: Paul Lester MD sob Past Med Surg Social Fam HX - Past Medical History Medical history: arthritis, asthma, COPD, coronary artery disease, fibromyalgia , GERD, hyperlipidemia, hypertension, kidney stones, osteoporosis, RA, thyroid disease, TIA, other Psychiatric history: anxiety, bipolar, depression, panic disorder, other - Past Surgical History Surgical History: appendectomy, breast surgery (Bilateral breast reduction 1996 , left breast excision (benign)), cholecystectomy, herniorrhaphy, hip replacement (right hip replacement and revision in 2013), hysterectomy, JAYSON/BSO , other (osteonomy jaw implant 1983, dental surgery multiple, brochoscopy X 2, EGD (last with Dr. Lala and unsure of date), Colonoscopy last [address] Barron) - Social History Smoking Status: Never smoker Smokeless Tobacco Status: No Alcohol use: none Drug use: none - Family History Father Hx Family Cardiac Disorders: No Hx Family Respiratory Disorders: No Hx Family Cancer: Yes (colon, kidney, bladder) Hx Family GI Disorders: No Hx Family Endocrine Disorder: No Hx Family Neuromuscular Disorders: No Hx Family Neurologic Disorders: No Hx Family HEENT Disorders: No Hx Family Autoimmune Disorders: No Mother Adopted: No Family Member Ethnicity: Non- Living Status: Hx Family Cardiac Disorders: No Hx Family Respiratory Disorders: No Hx Family Cancer: Yes Hx Family GI Disorders: No Hx Family Endocrine Disorder: No Hx Family Neuromuscular Disorders: No Hx Family Neurologic Disorders: No Hx Family HEENT Disorders: No Hx Family Autoimmune Disorders: Yes (ra) Medications and Allergies Albuterol Sulfate [Proair Hfa] 2 puff IH Q4H PRN 07/14/15 [History] Allopurinol [Zyloprim 300 MG] 300 mg PO DAILY 07/14/15 [History] Cyclobenzaprine [Flexeril] 10 mg PO TID 07/14/15 [History] Hydroxychloroquine [Plaquenuil] 400 mg PO DAILY 07/14/15 [History] Levothyroxine [Synthroid] 50 mcg PO QAM 07/14/15 [History] Metaxalone [Skelaxin] 800 mg PO BID 07/14/15 [History] OxyCODONE Immed Rel [Roxicodone 10 MG] 10 mg PO Q6H PRN 07/14/15 [History] Multivitamin [Multi-Day Vitamins] 1 tab PO DAILY 01/05/16 [History] Furosemide [Lasix] 20 mg PO DAILY PRN 12/31/16 [History] Immune Globulin, Gamma(IGG) [Gammagard 10% 10 GM/100 mL] 0 gm IVC KNOTT 05/09/17 [ History] Ipratropium/Albuterol Neb [Duoneb] 3 ml IH Q6H PRN 05/09/17 [History] Metoprolol Tartrate 100 mg PO DAILY 05/09/17 [History] NIFEdipine [Procardia] 10 mg PO DAILY PRN 05/09/17 [History] Pregabalin [Lyrica] 100 mg PO TID PRN 05/09/17 [History] Albuterol Sulfate [Proair Hfa] 1 puff IH 06/23/17 [History] Lactobacillus Acidophilus [Acidophilus Probiotic] 1 mg PO DAILY 06/23/17 [ History] Silver Hydosol 1 spr NS QID 06/23/17 [History] Silver Hydrsol 1 spr MC QID 06/23/17 [History] 3 Allergy/AdvReac Type Severity Reaction Status Date / Time No Known Allergies Allergy Verified 06/23/17 14:24 - Constitutional Constitutional ROS PAL: decreased appetite, anorexia, chills - EENT Eyes: no loss of vision, no pain Ears, nose, mouth, throat: no hoarseness, no lip swelling, no mouth pain, no nasal congestion - Cardiovascular Cardiovascular ROS: chest pain, chest pain at rest, chest pain with activity, dyspnea on exertion - Respiratory Respiratory: cough, dyspnea, dyspnea on exertion, wheezing, excessive phlegm production, change in phlegm color - Gastrointestinal Gastrointestinal: constipation, cramping, heartburn, vomiting (Post tussive), no diarrhea - Genitourinary Palliative ROS female: no urinary frequency, no urinary hesitancy, no urinary incontinence - Musculoskeletal Musculoskeletal ROS IM: arthralgias, back pain, muscle weakness, myalgias - Integumentary ROS Integumentary: no skin pain, no sores - Neurological Neurological ROS: memory loss (Subjective family disputes this), no confusion ( Subjective family tenseness. This), no headache(s), no lack of coordination - Psychiatric Psychiatric general PM: change in appetite, depression, hopelessness, irritability, no homicidal ideation, no suicidal ideation - Endocrine Endocrine IM: as per HPI (Thyroid) Palliative Care-Exam - Constitutional Vitals: Temp Pulse Resp BP Pulse Ox 98.5 F 72 17 156/93 95 06/24/17 12:07 06/24/17 12:07 06/24/17 12:07 06/24/17 12:07 06/24/17 12:07 General appearance: Present: no acute distress - Head Head Exam: Absent: atraumatic, normal inspection - Eye Eye exam: Present: normal appearance - Respiratory Respiratory exam: Present: decreased breath sounds, rhonchi, wheezes - Cardiovascular Cardiovascular exam: Present: RRR - GI/Abdominal Exam GI/Abdominal exam: Present: normal bowel sounds, soft. Absent: tenderness - Neurological Exam Neurological exam: Present: alert, oriented X3 - Psychiatric Psychiatric exam: Absent: agitated, anxious - Skin Skin exam: Present: dry, warm Internal Medicine - CN: Reslt - Labs CBC & Chem 7: 06/23/17 10:54 06/24/17 03:00 Labs: BMP 06/24/17 03:00 Sodium 140 Potassium 3.1 L Chloride 104 Carbon Dioxide 27 BUN 8 Creatinine 0.74 Glucose 114 H Calcium 8.7 Cardiac Enzymes 06/23/17 06/23/17 06/24/17 Range/Units 16:54 22:47 03:00 Troponin I < 0.03 < 0.03 < 0.03 (< 0.04) ng/mL - ABG Interpretation ABG results: PT/INR, D-dimer PT 12.2 Seconds (9.4-12.1) H 06/23/17 10:54 Consult Discharge Plan - Plan Referrals: Joseph Johns DO [Primary Care Provider] - Palliative Quality Palliative Quality: Screen for Code Status: Yes, Screen for Goals of Care: Yes, Screen for Pain: Yes, If Pain Regimen Started, Initiate Bowel Regimen: Yes, Screen for Nausea/Vomitting: Yes
--- NOTE | 2017-06-24 14:03 | Consult Note ---
Date of Encounter: 06/24/17 Time of Encounter: 13:00 Assessment & Recommendation (1) Suicidal ideation Current visit: Yes Status: Acute Assessment & Recommendation: start 1:1 and close monitoring. (2) Bipolar 1 disorder, depressed Current visit: Yes Status: Acute Assessment & Recommendation: will start cymbalta 30 mg and abilify 2 mg pm (3) Anxiety Current visit: No Status: Chronic Assessment & Recommendation: continue low dose alprazolam History of Present Illness Patient: new to practice Requesting Physician: Paul Lester MD Reason for consult: suicidal ideation History of present illness: Ms. Mayes is a 66 year old female was consulted today for suicidal ideation . Patient seen at her bedside along with her daughter Shreya with her permission. pATIENT COOPERATIVE , pleasant and gave history in detail . CC : I want to go , i am in pain for so long, I am nothing but burden to my kids. HPI : Patient seen today she has h/o bipolar , depression and had been in treatment for more than 20 years , and has had inpatient psych. hospitalization for suicidal ideation. She is has no psych treatment in 5 years as she has been very sick physically and unable to go for appointment, she is depress, has circumstantial thought process, irritable and mood swings , she was upset as the doctor told her they have shortage of pain injections and she can not bear the pain. she states i am in bed for most part and i am unhappy, i can stop all medications and treatment and then . Past psych significant for bipolar and depression , and suicidal ideation and inpatient hospitalization. Famil;y significant for Bipolar and brother committed suicide. Social : for 45 years , 2 children , very supportive family. A/P h/o Bipolar AFFECTIVE Disorder Depressed. REC Start 1:1 for safety please start Cymbalta 30 mg po am Start abilify 2 mg po hs will follow up patient daughter states she is with her mom and inpatient psych will throw her off the edge, she and her mother wants medication restarted. Thank you for consult and involving us in her care. CC: Paul Lester MD Past Med Surg Social Fam HX - Past Medical History Medical history: arthritis, asthma, COPD, coronary artery disease, fibromyalgia , GERD, hyperlipidemia, hypertension, kidney stones, osteoporosis, RA, thyroid disease, TIA, other - Past Psychiatric History Psychiatric history: Reports: bipolar, depression, previous psychiatric hospitalization Family psychiatric history: Yes Family History of Suicide: Completed (brother commited suicide) - Past Surgical History Surgical History: appendectomy, breast surgery (Bilateral breast reduction 1996 , left breast excision (benign)), cholecystectomy, herniorrhaphy, hip replacement (right hip replacement and revision in 2013), hysterectomy, JAYSON/BSO , other (osteonomy jaw implant 1983, dental surgery multiple, brochoscopy X 2, EGD (last with Dr. Lala and unsure of date), Colonoscopy last [address] Barron) - Social History Smoking Status: Never smoker Smokeless Tobacco Status: No Alcohol use: none Drug use: none - Family History Father Hx Family Cardiac Disorders: No Hx Family Respiratory Disorders: No Hx Family Cancer: Yes (colon, kidney, bladder) Hx Family GI Disorders: No Hx Family Endocrine Disorder: No Hx Family Neuromuscular Disorders: No Hx Family Neurologic Disorders: No Hx Family HEENT Disorders: No Hx Family Autoimmune Disorders: No Mother Adopted: No Family Member Ethnicity: Non- Living Status: Hx Family Cardiac Disorders: No Hx Family Respiratory Disorders: No Hx Family Cancer: Yes Hx Family GI Disorders: No Hx Family Endocrine Disorder: No Hx Family Neuromuscular Disorders: No Hx Family Neurologic Disorders: No Hx Family HEENT Disorders: No Hx Family Autoimmune Disorders: Yes (ra) Medications & Allergies Albuterol Sulfate [Proair Hfa] 2 puff IH Q4H PRN 07/14/15 [History] Allopurinol [Zyloprim 300 MG] 300 mg PO DAILY 07/14/15 [History] Cyclobenzaprine [Flexeril] 10 mg PO TID 07/14/15 [History] Hydroxychloroquine [Plaquenuil] 400 mg PO DAILY 07/14/15 [History] Levothyroxine [Synthroid] 50 mcg PO QAM 07/14/15 [History] Metaxalone [Skelaxin] 800 mg PO BID 07/14/15 [History] OxyCODONE Immed Rel [Roxicodone 10 MG] 10 mg PO Q6H PRN 07/14/15 [History] Multivitamin [Multi-Day Vitamins] 1 tab PO DAILY 01/05/16 [History] Furosemide [Lasix] 20 mg PO DAILY PRN 12/31/16 [History] Immune Globulin, Gamma(IGG) [Gammagard 10% 10 GM/100 mL] 0 gm IVC KNOTT 05/09/17 [ History] Ipratropium/Albuterol Neb [Duoneb] 3 ml IH Q6H PRN 05/09/17 [History] Metoprolol Tartrate 100 mg PO DAILY 05/09/17 [History] NIFEdipine [Procardia] 10 mg PO DAILY PRN 05/09/17 [History] Pregabalin [Lyrica] 100 mg PO TID PRN 05/09/17 [History] Albuterol Sulfate [Proair Hfa] 1 puff IH 06/23/17 [History] Lactobacillus Acidophilus [Acidophilus Probiotic] 1 mg PO DAILY 06/23/17 [ History] Silver Hydosol 1 spr NS QID 06/23/17 [History] Silver Hydrsol 1 spr MC QID 06/23/17 [History] 3 Allergy/AdvReac Type Severity Reaction Status Date / Time No Known Allergies Allergy Verified 06/23/17 14:24 Review of Systems Psychiatric: Reports: depression, anxiety, suicidal ideation, irritability, mood swings Psychiatry Exam - Constitutional Vitals: Temp Pulse Resp BP Pulse Ox 98.5 F 72 17 156/93 95 06/24/17 12:07 06/24/17 12:07 06/24/17 12:07 06/24/17 12:07 06/24/17 12:07 General appearance: age & developmentally appropriate - Psychiatric Patient Orientation: Yes Person, Yes Time, Yes Place Level of alertness: Alert Behavior: cooperative, anxious Eye Contact: Maintains Eye Contact Mood Description: Depressed, Anxious Affect description: congruent with mood Speech Volume: Normal Speech pattern: coherent Language & Vocabulary: consistent with education Thought Process: Logical Thought Content: Yes Suicidal ideation, Yes Guilt Attention Span Ability: Capable of Focused Attention Memory Description: Grossly Intact Patient Reliability: Reliable Historian Fund of knowledge: Yes abstraction ability, Yes aware of current events Intelligence Estimate: Average Judgment: Limited Insight: Partial Results - Labs Labs: Laboratory Last Values WBC 6.0 K/mcL (4.3-11.1) 06/23/17 10:54 RBC 4.65 M/mcL (3.82-4.97) 06/23/17 10:54 Hgb 13.8 g/dL (11.5-15.4) 06/23/17 10:54 Hct 41.9 % (35.3-44.9) 06/23/17 10:54 MCV 90.1 fL (83.0-100.0) 06/23/17 10:54 MCH 29.7 pg (28.0-33.3) 06/23/17 10:54 MCHC 32.9 g/dL (31.6-35.5) 06/23/17 10:54 RDW 14.6 % (11.5-14.5) H 06/23/17 10:54 Plt Count 356 K/mcL (140-400) 06/23/17 10:54 MPV 9.9 fL (9.4-12.4) 06/23/17 10:54 Immature Gran % 0.3 % (0-4) 06/23/17 10:54 Seg Neutrophils % 37.9 % 06/23/17 10:54 Lymphocytes % 44.2 % 06/23/17 10:54 Monocytes % 12.1 % 06/23/17 10:54 Eosinophils % 4.3 % 06/23/17 10:54 Basophils % 1.2 % 06/23/17 10:54 Neutrophils # 2.3 K/mcL (1.6-8.9) 06/23/17 10:54 Lymphocytes # 2.7 K/mcL (0.6-4.6) 06/23/17 10:54 Monocytes # 0.7 K/mcL (0.0-1.3) 06/23/17 10:54 Eosinophils # 0.3 K/mcL (0.0-0.6) 06/23/17 10:54 Basophils # 0.1 K/mcL (0.0-0.2) 06/23/17 10:54 PT 12.2 Seconds (9.4-12.1) H 06/23/17 10:54 INR 1.1 06/23/17 10:54 APTT 28.4 Seconds (26.0-36.0) 06/23/17 10:54 Sodium 140 mEq/L (136-145) 06/24/17 03:00 Potassium 3.1 mEq/L (3.5-5.1) L 06/24/17 03:00 Chloride 104 mEq/L (98-107) 06/24/17 03:00 Carbon Dioxide 27 mEq/L (23-29) 06/24/17 03:00 BUN 8 mg/dL (8-23) 06/24/17 03:00 Creatinine 0.74 mg/dL (0.60-1.20) 06/24/17 03:00 Est GFR ( Amer) > 60 (> 60) 06/24/17 03:00 Est GFR (Non-Af Amer) > 60 (> 60) 06/24/17 03:00 BUN/Creatinine Ratio 11 (6-26) 06/24/17 03:00 Glucose 114 mg/dL (70-105) H 06/24/17 03:00 Calculated Osmolality 289 (280-300) 06/24/17 03:00 Lactic Acid 1.6 mmol/L (0.5-2.2) 06/23/17 11:55 Uric Acid 3.1 mg/dL (2.3-7.6) 06/24/17 03:00 Calcium 8.7 mg/dL (8.6-10.3) 06/24/17 03:00 Magnesium 1.9 mg/dL (1.6-2.6) 06/24/17 03:00 Troponin I < 0.03 ng/mL (< 0.04) 06/24/17 03:00 B-Natriuretic Peptide 20 pg/mL (Less than 100) 06/24/17 03:00 Urine Color Yellow (Yellow) 06/23/17 11:24 Urine Clarity Cloudy (Clear) A 06/23/17 11:24 Urine pH 5.0 pH Units (5.0-8.0) 06/23/17 11:24 Ur Specific [place] > 1.030 (1.010-1.025) H 06/23/17 11:24 Urine Protein Trace mg/dL (Neg-Trace) 06/23/17 11:24 Urine Glucose (UA) Normal mg/dL (Normal) 06/23/17 11:24 Urine Ketones Negative mg/dL (Negative) 06/23/17 11:24 Urine Blood Negative (Negative) 06/23/17 11:24 Urine Nitrite Negative (Negative) 06/23/17 11:24 Urine Bilirubin Negative (Negative) 06/23/17 11:24 Urine Urobilinogen Normal mg/dL (Normal) 06/23/17 11:24 Ur Leukocyte Esterase Negative (Negative) 06/23/17 11:24 Urine Microscopic WBC 3-5 per hpf (0-3) H 06/23/17 11:24 Ur Squamous Epith Cells Many per lpf (None-Few) H 06/23/17 11:24 Ur Renal Epithelial Cell Few per hpf (None-Few) 06/23/17 11:24 Calcium Oxalate Crystal Present 06/23/17 11:24 Urine Bacteria None Seen per hpf (None-Few) 06/23/17 11:24 Ur Culture Indicated? NO (NO) 06/23/17 11:24 Consult Discharge Plan - Plan Referrals: Joseph Johns DO [Primary Care Provider] -
[2017-06-24] MEDS ORDERED: *HR* HYDROmorphone (PF) 1 MG/ML SYRINGE IVP ONE (14:22)
[2017-06-24] MEDS: Piperacillin/Tazobactam 3.375 GM in 0.9 % Sodium Chloride Mini Bag 100 ML IVPB SCH (17:25)
[2017-06-24] MEDS: ARIPiprazole 2 MG TABLET PO SCH (20:09)
[2017-06-24] MEDS: Sennosides/Docusate Sodium TABLET PO SCH (20:11)
[2017-06-25] MEDS: Piperacillin/Tazobactam 3.375 GM in 0.9 % Sodium Chloride Mini Bag 100 ML IVPB SCH ×3 (00:14→18:02)
[2017-06-25] MEDS: *HR* OxyCODONE Immed Rel 5 MG TABLET PO PRN ×4 (03:18→21:09)
[2017-06-25] MEDS: ALPRAZolam 0.25 MG TABLET PO PRN ×2 (03:42→12:09)
[2017-06-25] MEDS ORDERED: *HR* LORazepam 2 MG/ML VIAL IVP ONE (04:10)
[2017-06-25] MEDS ORDERED: *HR* LORazepam 2 MG/ML VIAL ONE (04:12)
[2017-06-25] MEDS: NIFEdipine 10 MG CAPSULE PO PRN (04:44)
[2017-06-25 07:34] LABS: Hematocrit 37.5 % (35.3-44.9); Hemoglobin 12.2 g/dL (11.5-15.4); Mean Corpuscular HGB Conc 32.5 g/dL (31.6-35.5); Mean Corpuscular Hemoglobin 29.6 pg (28.0-33.3); Mean Platelet Volume 10.1 fL (9.4-12.4); Platelet Count 276 K/mcL (140-400); Red Blood Count 4.12 M/mcL (3.82-4.97); Red Cell Distribution Width 14.6 % (11.5-14.5)
--- NOTE | 2017-06-25 08:02 | Palliative Progress Note ---
Date of Encounter: 06/25/17 Time of Encounter: 07:30 - Assessment and plan (1) Goals of care, counseling/discussion Current Visit: Yes Status: Acute Assessment and plan: Status is established is DNR CCA DNI. Goals of care for the patient to return home. She continues to want to have aggressive care, however the day yesterday she made numerous comments about give up get better pain relief. At this time I still feel that hospice is inappropriate for her as the IVIG continues to be useful to her, she stops doing that and stops doing all antibiotics it would be appropriate for her to be in hospice, however she is now pink slipped and I do not believe able to really make those at this time. (2) Pneumonia Current Visit: No Status: Acute Assessment and plan: Continue current antibiotics Qualifiers: Pneumonia type: due to unspecified organism Laterality: bilateral Lung location: unspecified part of lung Qualified Code(s): J18.9 - Pneumonia, unspecified organism (3) Anxiety Current Visit: No Status: Chronic Assessment and plan: Continue current medications, recommendations were made by psych. I do not dispute these. (4) Recurrent pneumonia Current Visit: No Status: Acute Assessment and plan: Continue current plan of care per hospitalist team (5) Chronic constipation Current Visit: No Status: Chronic Assessment and plan: BMs appear to be starting, continue current medications continue to watch (6) Chronic pain Current Visit: No Status: Acute Assessment and plan: Palliative does not do chronic pain, however leave that her pain is extremely multifactorial and probably opioid distant. I do not truly believe that raising opioids as good a make a tremendous amount of difference to her pain, however it may be of some use to have her on some chronic pain medication getting [id number]. Such as a fentanyl patch and the fact the patient is having an number of elements of what appears to be drug seeking behavior but may actually be pseudo-addiction believe the only one person should be managing her pain and that should be the hospitalist in charge of her care. I will therefore make the recommendation that we add in a 12 g patch provide round-the -clock medication and keep the oxycodone where it is. Of note the patient's orders report is exactly what she says it is, I checked it this morning primary care doc will be following up on her when she gets out of the hospital do not know what he would or would not be comfortable prescribing her. I have discussed this with the on [place] hospitalist he will write for what he feels is appropriate with those nations as above. Qualifiers: Chronic pain type: chronic pain syndrome Qualified Code(s): G89.4 - Chronic pain syndrome - Time Spent With Patient Total time spent is greater than 50% in coordination of care (as documented) at patient's floor/unit and/or counseling patient: - Subjective Interval history: She had a very rough night per nursing notes and nurse nursing staff. A number of psychiatric type issues regarding their head. LS complaining about chronic pain. Does appear however that the increased frequency of the oxycodone may have helped but she continues to complain about everything at a very high level of perception - Constitutional Vitals: Abnormal lab results RDW 14.6 % (11.5-14.5) H 06/25/17 05:28 PT 12.2 Seconds (9.4-12.1) H 06/23/17 10:54 Potassium 3.1 mEq/L (3.5-5.1) L 06/24/17 03:00 Glucose 114 mg/dL (70-105) H 06/24/17 03:00 Urine Clarity Cloudy (Clear) A 06/23/17 11:24 Ur Specific [place] > 1.030 (1.010-1.025) H 06/23/17 11:24 Urine Microscopic WBC 3-5 per hpf (0-3) H 06/23/17 11:24 Ur Squamous Epith Cells Many per lpf (None-Few) H 06/23/17 11:24 General appearance: Present: no acute distress - Respiratory Respiratory exam: Present: decreased breath sounds - Cardiovascular Cardiovascular exam: Present: RRR - GI/Abdominal GI/Abdominal exam: Present: normal bowel sounds, soft. Absent: tenderness - Extremities Exam Extremities exam: Absent: tenderness - Neurological Exam Neurological exam: Present: altered (The patient is sleeping soundly, does not awaken for the exam to soft verbal stimulation has been recently medicated I will not try to awaken her. Nursing is present and agrees.) - Psychiatric Psychiatric exam: Present: agitated, anxious (During the night last night) - Skin Skin exam: Present: dry, warm Palliative Quality Palliative Quality: Screen for Code Status: Yes, Screen for Goals of Care: Yes, Screen for Pain: Yes, If Pain Regimen Started, Initiate Bowel Regimen: Yes, Screen for Nausea/Vomitting: Yes Code Status: 06/23/17 12:51 Resuscitation Status: Active [RES] Routine Comment: Resuscitation Status: [id number] - Labs CBC & Chem 7: 06/25/17 05:28 06/24/17 03:00 Labs: Laboratory Results - last 24 hr 06/24/17 06/25/17 03:00 05:28 WBC 5.3 RBC 4.12 Hgb 12.2 D Hct 37.5 MCV 91.0 MCH 29.6 MCHC 32.5 RDW 14.6 H Plt Count 276 MPV 10.1 Sodium 140 Potassium 3.1 L Chloride 104 Carbon Dioxide 27 BUN 8 Creatinine 0.74 Est GFR ( Amer) > 60 Est GFR (Non-Af Amer) > 60 BUN/Creatinine Ratio 11 Glucose 114 H Calculated Osmolality 289 Calcium 8.7 Magnesium 1.9 - ABG Interpretation ABG results: PT/INR, D-dimer PT 12.2 Seconds (9.4-12.1) H 06/23/17 10:54 Consult Discharge Plan - Plan Referrals: Joseph Johns DO [Primary Care Provider] -
[2017-06-25 08:24] LABS: BUN/Creatinine Ratio 13 (6-26); Blood Urea Nitrogen 9 mg/dL (8-23); Calcium 8.6 mg/dL (8.6-10.3); Carbon Dioxide 28 mEq/L (23-29); Chloride 105 mEq/L (98-107); Glucose 99 mg/dL (70-105); Osmolality,Calculated 289 (280-300); Potassium 3.4 mEq/L (3.5-5.1); Sodium 140 mEq/L (136-145); eGFR For African Americans > 60 (> 60); eGFR For Non-African Americans > 60 (> 60)
[2017-06-25] MEDS: Lactobacillus 1 EACH CAP.SPRINK PO SCH (10:03)
[2017-06-25] MEDS: Sennosides/Docusate Sodium TABLET PO SCH ×2 (10:04→20:02)
[2017-06-25] MEDS: Aspirin 325 MG TABLET PO SCH (10:04)
[2017-06-25] MEDS: Doxycycline 100 MG CAPSULE PO SCH ×2 (10:04→20:02)
[2017-06-25] MEDS: Multivit/Ca/Min/Fe/FA 1 TAB TABLET PO SCH (10:04)
[2017-06-25] MEDS: Metoprolol 100 MG TABLET PO SCH (10:04)
[2017-06-25] MEDS: *HR* FentaNYL PATCH 12 MCG PATCH TD SCH (10:05)
--- NOTE | 2017-06-25 12:51 | Consult Note ---
Date of Encounter: 06/25/17 Time of Encounter: 12:10 Assessment & Recommendation (1) Suicidal ideation Current visit: Yes Status: Acute Assessment & Recommendation: CONTINUE SITTER FOR SAFETY. (2) Bipolar 1 disorder, depressed Current visit: Yes Status: Acute Assessment & Recommendation: MEDICATIONS STARTED CYMBALTA 30 MG AND ABILIFY 2 MG (3) Anxiety Current visit: No Status: Chronic History of Present Illness Requesting Physician: Paul Lester MD Reason for consult: follow up History of present illness: Ms. Mayes is a 66 year old female seen today at her bed side for follow up . She was placed on pink slip as having suicidal thoughts and wants to stop everything to and does not want to be burden to her family. today she was agitated with her and her daughter and upon asking why she said , i do not want to burden them they have their lives and i want them not to be burden, states she slept better,moods still same and in pain. she is not medically stable and is not good candidate for inpatient psych.,but because of her suicidal thoughts and poor judgement and needed to restart medications for her bipolar and depression she was pink slipped. 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 She at present remains same. tried to get old records as has been admitted to . Continue same rx plan . Thank you for consult and involving in her care. CC: Paul Lester MD Past Med Surg Social Fam HX - Past Medical History Medical history: arthritis, asthma, COPD, coronary artery disease, fibromyalgia , GERD, hyperlipidemia, hypertension, kidney stones, osteoporosis, RA, thyroid disease, TIA, other - Past Surgical History Surgical History: appendectomy, breast surgery (Bilateral breast reduction 1996 , left breast excision (benign)), cholecystectomy, herniorrhaphy, hip replacement (right hip replacement and revision in 2013), hysterectomy, JAYSON/BSO , other (osteonomy jaw implant 1983, dental surgery multiple, brochoscopy X 2, EGD (last with Dr. Lala and unsure of date), Colonoscopy last [address] Barron) - Social History Smoking Status: Never smoker Smokeless Tobacco Status: No Alcohol use: none Drug use: none - Family History Father Hx Family Cardiac Disorders: No Hx Family Respiratory Disorders: No Hx Family Cancer: Yes (colon, kidney, bladder) Hx Family GI Disorders: No Hx Family Endocrine Disorder: No Hx Family Neuromuscular Disorders: No Hx Family Neurologic Disorders: No Hx Family HEENT Disorders: No Hx Family Autoimmune Disorders: No Mother Adopted: No Family Member Ethnicity: Non- Living Status: Hx Family Cardiac Disorders: No Hx Family Respiratory Disorders: No Hx Family Cancer: Yes Hx Family GI Disorders: No Hx Family Endocrine Disorder: No Hx Family Neuromuscular Disorders: No Hx Family Neurologic Disorders: No Hx Family HEENT Disorders: No Hx Family Autoimmune Disorders: Yes (ra) Medications & Allergies Albuterol Sulfate [Proair Hfa] 2 puff IH Q4H PRN 07/14/15 [History] Allopurinol [Zyloprim 300 MG] 300 mg PO DAILY 07/14/15 [History] Cyclobenzaprine [Flexeril] 10 mg PO TID 07/14/15 [History] Hydroxychloroquine [Plaquenuil] 400 mg PO DAILY 07/14/15 [History] Levothyroxine [Synthroid] 50 mcg PO QAM 07/14/15 [History] Metaxalone [Skelaxin] 800 mg PO BID 07/14/15 [History] OxyCODONE Immed Rel [Roxicodone 10 MG] 10 mg PO Q6H PRN 07/14/15 [History] Multivitamin [Multi-Day Vitamins] 1 tab PO DAILY 01/05/16 [History] Furosemide [Lasix] 20 mg PO DAILY PRN 12/31/16 [History] Immune Globulin, Gamma(IGG) [Gammagard 10% 10 GM/100 mL] 0 gm IVC KNOTT 05/09/17 [ History] Ipratropium/Albuterol Neb [Duoneb] 3 ml IH Q6H PRN 05/09/17 [History] Metoprolol Tartrate 100 mg PO DAILY 05/09/17 [History] NIFEdipine [Procardia] 10 mg PO DAILY PRN 05/09/17 [History] Pregabalin [Lyrica] 100 mg PO TID PRN 05/09/17 [History] Albuterol Sulfate [Proair Hfa] 1 puff IH 06/23/17 [History] Lactobacillus Acidophilus [Acidophilus Probiotic] 1 mg PO DAILY 06/23/17 [ History] Silver Hydosol 1 spr NS QID 06/23/17 [History] Silver Hydrsol 1 spr MC QID 06/23/17 [History] 3 Allergy/AdvReac Type Severity Reaction Status Date / Time No Known Allergies Allergy Verified 06/23/17 14:24 Review of Systems Psychiatric: Reports: depression, anxiety, suicidal ideation, irritability, mood swings Psychiatry Exam - Constitutional Vitals: Temp Pulse Resp BP Pulse Ox 97.9 F 112 20 151/91 100 06/25/17 09:58 06/25/17 09:58 06/25/17 09:58 06/25/17 09:58 06/25/17 10:19 General appearance: age & developmentally appropriate - Psychiatric Patient Orientation: Yes Person, Yes Time, Yes Place Level of alertness: Alert Behavior: cooperative, talkative Eye Contact: Maintains Eye Contact Mood Description: Depressed, Anxious Affect description: congruent with mood Speech Volume: Normal Speech pattern: clear, coherent Language & Vocabulary: consistent with education Thought Process: Racing Thought Content: Yes Suicidal ideation Perceptual Disturbances: No Auditory hallucinations, No Visual hallucinations Attention Span Ability: Unable to Sustain Attention Memory Description: Grossly Intact Patient Reliability: Reliable Historian Fund of knowledge: Yes abstraction ability, Yes aware of current events Intelligence Estimate: Average Judgment: Limited Insight: Partial Results - Labs Labs: Laboratory Last Values WBC 5.3 K/mcL (4.3-11.1) 06/25/17 05:28 RBC 4.12 M/mcL (3.82-4.97) 06/25/17 05:28 Hgb 12.2 g/dL (11.5-15.4) D 06/25/17 05:28 Hct 37.5 % (35.3-44.9) 06/25/17 05:28 MCV 91.0 fL (83.0-100.0) 06/25/17 05:28 MCH 29.6 pg (28.0-33.3) 06/25/17 05:28 MCHC 32.5 g/dL (31.6-35.5) 06/25/17 05:28 RDW 14.6 % (11.5-14.5) H 06/25/17 05:28 Plt Count 276 K/mcL (140-400) 06/25/17 05:28 MPV 10.1 fL (9.4-12.4) 06/25/17 05:28 Immature Gran % 0.3 % (0-4) 06/23/17 10:54 Seg Neutrophils % 37.9 % 06/23/17 10:54 Lymphocytes % 44.2 % 06/23/17 10:54 Monocytes % 12.1 % 06/23/17 10:54 Eosinophils % 4.3 % 06/23/17 10:54 Basophils % 1.2 % 06/23/17 10:54 Neutrophils # 2.3 K/mcL (1.6-8.9) 06/23/17 10:54 Lymphocytes # 2.7 K/mcL (0.6-4.6) 06/23/17 10:54 Monocytes # 0.7 K/mcL (0.0-1.3) 06/23/17 10:54 Eosinophils # 0.3 K/mcL (0.0-0.6) 06/23/17 10:54 Basophils # 0.1 K/mcL (0.0-0.2) 06/23/17 10:54 PT 12.2 Seconds (9.4-12.1) H 06/23/17 10:54 INR 1.1 06/23/17 10:54 APTT 28.4 Seconds (26.0-36.0) 06/23/17 10:54 Sodium 140 mEq/L (136-145) 06/25/17 05:28 Potassium 3.4 mEq/L (3.5-5.1) L 06/25/17 05:28 Chloride 105 mEq/L (98-107) 06/25/17 05:28 Carbon Dioxide 28 mEq/L (23-29) 06/25/17 05:28 BUN 9 mg/dL (8-23) 06/25/17 05:28 Creatinine 0.67 mg/dL (0.60-1.20) 06/25/17 05:28 Est GFR ( Amer) > 60 (> 60) 06/25/17 05:28 Est GFR (Non-Af Amer) > 60 (> 60) 06/25/17 05:28 BUN/Creatinine Ratio 13 (6-26) 06/25/17 05:28 Glucose 99 mg/dL (70-105) 06/25/17 05:28 Calculated Osmolality 289 (280-300) 06/25/17 05:28 Lactic Acid 1.6 mmol/L (0.5-2.2) 06/23/17 11:55 Uric Acid 3.1 mg/dL (2.3-7.6) 06/24/17 03:00 Calcium 8.6 mg/dL (8.6-10.3) 06/25/17 05:28 Magnesium 1.9 mg/dL (1.6-2.6) 06/24/17 03:00 Troponin I < 0.03 ng/mL (< 0.04) 06/24/17 03:00 B-Natriuretic Peptide 112 pg/mL (Less than 100) H 06/25/17 05:28 Urine Color Yellow (Yellow) 06/23/17 11:24 Urine Clarity Cloudy (Clear) A 06/23/17 11:24 Urine pH 5.0 pH Units (5.0-8.0) 06/23/17 11:24 Ur Specific [place] > 1.030 (1.010-1.025) H 06/23/17 11:24 Urine Protein Trace mg/dL (Neg-Trace) 06/23/17 11:24 Urine Glucose (UA) Normal mg/dL (Normal) 06/23/17 11:24 Urine Ketones Negative mg/dL (Negative) 06/23/17 11:24 Urine Blood Negative (Negative) 06/23/17 11:24 Urine Nitrite Negative (Negative) 06/23/17 11:24 Urine Bilirubin Negative (Negative) 06/23/17 11:24 Urine Urobilinogen Normal mg/dL (Normal) 06/23/17 11:24 Ur Leukocyte Esterase Negative (Negative) 06/23/17 11:24 Urine Microscopic WBC 3-5 per hpf (0-3) H 06/23/17 11:24 Ur Squamous Epith Cells Many per lpf (None-Few) H 06/23/17 11:24 Ur Renal Epithelial Cell Few per hpf (None-Few) 06/23/17 11:24 Calcium Oxalate Crystal Present 06/23/17 11:24 Urine Bacteria None Seen per hpf (None-Few) 06/23/17 11:24 Ur Culture Indicated? NO (NO) 06/23/17 11:24 Consult Discharge Plan - Plan Referrals: Joseph Johns DO [Primary Care Provider] -
--- NOTE | 2017-06-25 17:26 | Internal Med Progress Note ---
Date of Encounter: 06/25/17 Time of Encounter: 17:24 - Assessment and plan (1) MRSA pneumonia Current Visit: No Status: Acute Assessment and plan: - History of MRSA and MRSA pneumonia. - CT chest revealed possible pneumonia, started patient on Zosyn and vancomycin. Qualifiers: Laterality: unspecified laterality Lung location: unspecified part of lung Qualified Code(s): J15.212 - Pneumonia due to Methicillin resistant Staphylococcus aureus (2) Suicidal ideation Current Visit: Yes Status: Acute Assessment and plan: - Continue sitter, Haldol when necessary, psych following. (3) Bipolar 1 disorder, depressed Current Visit: Yes Status: Acute Assessment and plan: - Continue Cymbalta and Abilify, continue Xanax when necessary. (4) Hypogammaglobulinemia Current Visit: No Status: Chronic Assessment and plan: - Patient currently receives IVIG every week. (5) Essential hypertension Current Visit: No Status: Chronic Assessment and plan: - Continue home medication, monitor BP. - Time Spent With Patient Total time spent is greater than 50% in coordination of care (as documented) at patient's floor/unit and/or counseling patient: Greater than 35 minutes - Subjective Interval history: She resting, she has no complaints at this time. - Constitutional Vitals: Temp Pulse Resp BP Pulse Ox 97.9 F 112 20 151/91 100 06/25/17 09:58 06/25/17 09:58 06/25/17 09:58 06/25/17 09:58 06/25/17 10:19 General appearance: Present: A&O X 3, no acute distress, answers questions appropriately Exam: PHYSICAL EXAMINATION: GENERAL APPEARANCE: The patient is alert, oriented and in no acute distress. HEENT: Head is normocephalic. The sinuses are nontender. Pupils are equal and reactive. The nares are patent. Oropharynx clear without lesions. NECK: Supple without lymphadenopathy. HEART: Regular rate and rhythm. LUNGS: No crackles or wheezes are heard. ABDOMEN: Soft, nontender, nondistended with good bowel sounds heard. Inguinal area is normal. EXTREMITIES: Without cyanosis, clubbing or edema. NEUROLOGICAL: Gross nonfocal. SKIN: Warm and dry without any rash. Internal Medicine: Result - Labs CBC & Chem 7: 06/25/17 05:28 06/25/17 05:28 Labs: Short CBC 06/25/17 Range/Units 05:28 WBC 5.3 (4.3-11.1) K/mcL Hgb 12.2 D (11.5-15.4) g/dL Hct 37.5 (35.3-44.9) % Plt Count 276 (140-400) K/mcL BMP 06/25/17 05:28 Sodium 140 Potassium 3.4 L Chloride 105 Carbon Dioxide 28 BUN 9 Creatinine 0.67 Glucose 99 Calcium 8.6 - ABG Interpretation ABG results: PT/INR, D-dimer PT 12.2 Seconds (9.4-12.1) H 06/23/17 10:54 Consult Discharge Plan - Plan Referrals: Joseph Johns DO [Primary Care Provider] -
[2017-06-25] MEDS: Haloperidol Lactate 5 MG/ML VIAL IVP PRN (18:45)
[2017-06-25] MEDS: ARIPiprazole 2 MG TABLET PO SCH (20:01)
[2017-06-26] MEDS: Piperacillin/Tazobactam 3.375 GM in 0.9 % Sodium Chloride Mini Bag 100 ML IVPB SCH ×3 (00:06→15:14)
[2017-06-26] MEDS: *HR* OxyCODONE Immed Rel 5 MG TABLET PO PRN ×5 (03:37→20:05)
[2017-06-26] MEDS: ALPRAZolam 0.25 MG TABLET PO PRN ×3 (03:46→20:05)
[2017-06-26 05:25] LABS: Basophils # 0.1 K/mcL (0.0-0.2); Basophils % 0.9 %; Eosinophils # 0.3 K/mcL (0.0-0.6); Hematocrit 36.9 % (35.3-44.9); Hemoglobin 12.4 g/dL (11.5-15.4); Immature Granulocytes % 0.2 % (0-4); Lymphocytes # 2.2 K/mcL (0.6-4.6); Lymphocytes % 38.4 %; Mean Corpuscular HGB Conc 33.6 g/dL (31.6-35.5); Mean Corpuscular Hemoglobin 29.9 pg (28.0-33.3); Mean Corpuscular Volume 88.9 fL (83.0-100.0); Mean Platelet Volume 10.4 fL (9.4-12.4); Monocytes # 0.5 K/mcL (0.0-1.3); Monocytes % 8.9 %; Neutrophils # 2.7 K/mcL (1.6-8.9); Platelet Count 282 K/mcL (140-400); Red Blood Count 4.15 M/mcL (3.82-4.97); Red Cell Distribution Width 14.5 % (11.5-14.5); Segmented Neutrophils % 46.6 %
[2017-06-26 05:51] LABS: BUN/Creatinine Ratio 13 (6-26); Blood Urea Nitrogen 9 mg/dL (8-23); Calcium 8.8 mg/dL (8.6-10.3); Carbon Dioxide 25 mEq/L (23-29); Chloride 105 mEq/L (98-107); Glucose 118 mg/dL (70-105); Osmolality,Calculated 286 (280-300); Potassium 3.6 mEq/L (3.5-5.1); Sodium 138 mEq/L (136-145); eGFR For African Americans > 60 (> 60); eGFR For Non-African Americans > 60 (> 60)
[2017-06-26] MEDS: Haloperidol Lactate 5 MG/ML VIAL IVP PRN (09:32)
[2017-06-26] MEDS ORDERED: Haloperidol Lactate 5 MG/ML VIAL IVP ONE (09:37)
[2017-06-26] MEDS: Multivit/Ca/Min/Fe/FA 1 TAB TABLET PO SCH (09:44)
[2017-06-26] MEDS: Aspirin 325 MG TABLET PO SCH (09:44)
[2017-06-26] MEDS: Sennosides/Docusate Sodium TABLET PO SCH ×2 (09:44→20:05)
[2017-06-26] MEDS: Metoprolol 100 MG TABLET PO SCH (09:44)
[2017-06-26] MEDS: Doxycycline 100 MG CAPSULE PO SCH ×2 (09:44→20:05)
[2017-06-26] MEDS: Lactobacillus 1 EACH CAP.SPRINK PO SCH (09:44)
--- NOTE | 2017-06-26 13:11 | Event Note ---
Date of Encounter: 06/26/17 Time of Encounter: 13:00 Patient up on side of bed, just came from bathroom. Sitter present. She is pleasant and cooperative at this time. Patient telling me she thinks she has breast cancer and asking me to order mammogram. Daughter Shreya also at bedside. Patient states that Fentanyl patch has been very helpful, states she is tolerating it well, and she is able to move around much better. Daughter at bedside confirms that this is working well, and they are pleased with it. Will continue and assess again tomorrow. No changes for today.
--- NOTE | 2017-06-26 13:56 | Internal Med Progress Note ---
Date of Encounter: 06/26/17 Time of Encounter: 11:30 - Assessment and plan (1) MRSA pneumonia Current Visit: Yes Status: Acute Assessment and plan: CT of chest suspicious for pneumonia, mild consolidation noted posterior medially to the left lower lobe. Recently had failed outpatient treatment for pneumonia History of MRSA and MRSA pneumonia Continue Zosyn, vancomycin and doxycycline Qualifiers: Laterality: unspecified laterality Lung location: unspecified part of lung Qualified Code(s): J15.212 - Pneumonia due to Methicillin resistant Staphylococcus aureus (2) Suicidal ideation Current Visit: Yes Status: Acute Assessment and plan: Sitter discontinued per psychiatry Patient denying any SI Continue Abilify and fluoxetine at recommendations of psychology Patient to see outpatient psych upon discharge (3) Hypogammaglobulinemia Current Visit: Yes Status: Chronic Assessment and plan: Self administers IVIG weekly at home Resume (4) Essential hypertension Current Visit: Yes Status: Chronic Assessment and plan: Continue home anti-HTN medications, monitor BP. (5) Bipolar 1 disorder, depressed Current Visit: Yes Status: Acute Assessment and plan: Continue Cymbalta and Abilify, continue Xanax when necessary. - Time Spent With Patient Total time spent is greater than 50% in coordination of care (as documented) at patient's floor/unit and/or counseling patient: 25 - 35 minutes - Subjective Interval history: Patient resting comfortably, noted earlier this morning that she had some right- sided chest discomfort which subsided with her Procardia. No further complaints at this time - Constitutional Vitals: Temp Pulse Resp BP Pulse Ox 98.6 F 101 20 138/82 93 06/26/17 06:11 06/26/17 06:11 06/26/17 06:11 06/26/17 06:11 06/26/17 06:11 General appearance: Present: A&O X 3, no acute distress, answers questions appropriately - Head Head exam: Present: atraumatic, normocephalic - Eye Eye exam: Present: PERRL, conjuntiva pink, sclera anicteric Pupils: Present: PERRL - Neck Neck exam general surgery: Present: supple, trachea midline. Absent: lymphadenopathy - Respiratory Respiratory exam: Present: CTAB. Absent: accessory muscle use, rales, rhonchi, wheezes - Cardiovascular Cardiovascular exam: Present: RRR, +S1, +S2. Absent: diastolic murmur, gallop, rubs, systolic murmur - GI/Abdominal GI/Abdominal exam: Present: normal bowel sounds, soft, no peritoneal signs. Absent: distended, tenderness - Extremities Exam Extremities exam: Present: warm, radial pulses palpable and symmetrical. Absent : calf tenderness, cyanotic, pedal edema - Neurological Exam Neurological exam: Present: CN II-XII intact, oriented X3, no focal deficits. Absent: pronater drift, facial droop, speech deficit - Psychiatric Psychiatric exam: Present: agitated. Absent: normal affect, normal mood - Skin Skin exam: Present: dry, intact Internal Medicine: Result - Labs CBC & Chem 7: 06/26/17 04:40 06/26/17 04:40 Labs: Short CBC 06/26/17 Range/Units 04:40 WBC 5.8 (4.3-11.1) K/mcL Hgb 12.4 (11.5-15.4) g/dL Hct 36.9 (35.3-44.9) % Plt Count 282 (140-400) K/mcL Neutrophils # 2.7 (1.6-8.9) K/mcL BMP 06/26/17 04:40 Sodium 138 Potassium 3.6 Chloride 105 Carbon Dioxide 25 BUN 9 Creatinine 0.67 Glucose 118 H Calcium 8.8 - ABG Interpretation ABG results: PT/INR, D-dimer PT 12.2 Seconds (9.4-12.1) H 06/23/17 10:54 Consult Discharge Plan - Plan Referrals: Joseph Johns DO [Primary Care Provider] - 07/06/17 1:45 pm
--- NOTE | 2017-06-26 16:24 | Psychiatry Progress Note ---
Date of Encounter: 06/26/17 Time of Encounter: 11:45 Subjective Interval history: Josie is seen today for follow-up of her depression and anxiety symptoms. Patient was initially evaluated by previous psychiatrist and was reporting depression. She is seen today with her daughter. Patient states that she does still feel depressed but she denies any active suicidal ideations. She does occasionally think that the world would be better off without her and has passive wish to no longer be here. This is partially because of her medical issues and her inability to do the things that she was once able to. She is willing to try therapy and medications as prescribed by the previous psychiatrist. She is aware that the medications may taking for 6 weeks to begin to work. She is comfortable taking the Abilify and Cymbalta. We also discussed the possibility of a therapist and patient is willing to try this on an outpatient basis. At this time patient denies any active thoughts of wanting to harm herself or others. Review of Systems Constitutional: Denies: fever, chills, weakness, weight change Eyes: Denies: eye pain, vision change Ears, Nose, Throat: Denies: ear pain, throat pain, dental pain, hearing loss, congestion Cardiovascular: Denies: chest pain, palpitations, dyspnea on exertion Respiratory: Denies: cough, dyspnea, wheezes Gastrointestinal: Denies: abdominal pain, nausea, vomiting, diarrhea, constipation Musculoskeletal: Denies: joint swelling, joint pain Neurological: Reports: vertigo Psychiatric: Reports: depression, anxiety, anhedonia, irritability, mood swings , panic attacks. Denies: suicidal ideation Results - Vital Signs Vital Signs: Temp Pulse Resp BP Pulse Ox 98.6 F 101 20 138/82 93 06/26/17 06:11 06/26/17 06:11 06/26/17 06:11 06/26/17 06:11 06/26/17 06:11 - Labs Labs: Laboratory Results - last 24 hr 06/26/17 06/26/17 06/26/17 04:40 04:40 04:40 WBC 5.8 RBC 4.15 Hgb 12.4 Hct 36.9 MCV 88.9 MCH 29.9 MCHC 33.6 RDW 14.5 Plt Count 282 MPV 10.4 Immature Gran % 0.2 Seg Neutrophils % 46.6 Lymphocytes % 38.4 Monocytes % 8.9 Eosinophils % 5.0 Basophils % 0.9 Neutrophils # 2.7 Lymphocytes # 2.2 Monocytes # 0.5 Eosinophils # 0.3 Basophils # 0.1 Sodium 138 Potassium 3.6 Chloride 105 Carbon Dioxide 25 BUN 9 Creatinine 0.67 Est GFR ( Amer) > 60 Est GFR (Non-Af Amer) > 60 BUN/Creatinine Ratio 13 Glucose 118 H Calculated Osmolality 286 Calcium 8.8 B-Natriuretic Peptide 40 Assessment and Plan (1) Bipolar 1 disorder, depressed Current visit: Yes Status: Acute Plan: Continue hospitalization, Close observation, Suicide Precautions per unit protocol, Encourage participation in unit milieu, Group Therapy, Monitor sleep, Monitor appetite Additional Plan: Continue Abilify and duloxetine combination. Patient does not meet admission criteria at this time and feels that the medications will be helpful to her. We can DC sitter. Family is supportive. Patient would like to start therapy again at [facility] and I recommend making her appointment prior to discharge. At this time, she will not benefit from psychiatric hospitalization but can be managed on an outpatient basis. She is willing to return to the hospital or call crisis Hotline if her depression symptoms worsen. Risks, benefits, side effects, alternatives discussed w/pt: Yes Patient agreeable to treatment: Yes Consult Discharge Plan - Plan Referrals: Joseph Johns DO [Primary Care Provider] - 07/06/17 1:45 pm Psychiatry Exam - Constitutional Vitals: Temp Pulse Resp BP Pulse Ox 98.6 F 101 20 138/82 93 06/26/17 06:11 06/26/17 06:11 06/26/17 06:11 06/26/17 06:11 06/26/17 06:11 General appearance: age & developmentally appropriate, well-groomed - Musculoskeletal Gait: other (Patient sitting in bed.) Station: relaxed Strength & Tone: normal for patient - Psychiatric Patient Orientation: Yes Person, Yes Time, Yes Place, Yes Circumstance Level of alertness: Alert Behavior: calm, cooperative Psychomotor activity: Normal Eye Contact: Maintains Eye Contact Mood Description: Depressed Affect description: dysphoric Speech Volume: Normal Speech pattern: normal rate, normal rhythm, normal tone, fluent, spontaneous Language & Vocabulary: consistent with education Thought Process: Linear, Goal Oriented Thought Content: Yes Suicidal ideation (Occasional passive ideation without intent or plan.) Perceptual Disturbances: No Auditory hallucinations, No Visual hallucinations Attention Span Ability: Capable of Focused Attention Memory Description: Grossly Intact Patient Reliability: Reliable Historian Fund of knowledge: Yes abstraction ability, Yes average, Yes aware of current events Intelligence Estimate: Average Judgment: Fair Insight: Partial
[2017-06-26] MEDS: ARIPiprazole 2 MG TABLET PO SCH (20:05)
[2017-06-27] MEDS: Piperacillin/Tazobactam 3.375 GM in 0.9 % Sodium Chloride Mini Bag 100 ML IVPB SCH ×4 (00:27→23:17)
[2017-06-27] MEDS: ALPRAZolam 0.25 MG TABLET PO PRN ×3 (02:10→20:43)
[2017-06-27] MEDS: *HR* OxyCODONE Immed Rel 5 MG TABLET PO PRN ×4 (02:10→23:16)
[2017-06-27] MEDS: Sennosides/Docusate Sodium TABLET PO SCH ×2 (09:31→20:42)
[2017-06-27] MEDS: Aspirin 325 MG TABLET PO SCH (09:31)
[2017-06-27] MEDS: Metoprolol 100 MG TABLET PO SCH (09:31)
[2017-06-27] MEDS: Multivit/Ca/Min/Fe/FA 1 TAB TABLET PO SCH (09:32)
[2017-06-27] MEDS: Doxycycline 100 MG CAPSULE PO SCH (09:32)
[2017-06-27] MEDS: Lactobacillus 1 EACH CAP.SPRINK PO SCH (09:32)
--- NOTE | 2017-06-27 09:46 | Internal Med Progress Note ---
Date of Encounter: 06/27/17 Time of Encounter: 09:43 - Assessment and plan (1) MRSA pneumonia Current Visit: Yes Status: Acute Assessment and plan: CT of chest suspicious for pneumonia, mild consolidation noted posterior medially to the left lower lobe. Recently had failed outpatient treatment for pneumonia History of MRSA/ MRSA pneumonia -blood cultures are negative we will de- escalate antibiotics Continue Zosyn, Oxygen as needed- has home oxygen Bronco dilators as needed Qualifiers: Laterality: unspecified laterality Lung location: unspecified part of lung Qualified Code(s): J15.212 - Pneumonia due to Methicillin resistant Staphylococcus aureus (2) Hypogammaglobulinemia Current Visit: Yes Status: Chronic Assessment and plan: Self administers IVIG weekly at home Resume (3) Essential hypertension Current Visit: Yes Status: Chronic Assessment and plan: Stable at this time Continue home anti-HTN medications, monitor BP. (4) Bipolar 1 disorder, depressed Current Visit: Yes Status: Acute Assessment and plan: Continue Cymbalta and Abilify, continue Xanax when necessary. Stable at this time (5) Suicidal ideation Current Visit: Yes Status: Acute Assessment and plan: Patient denying any SI Continue Abilify and fluoxetine at recommendations of psychology Patient to see outpatient psych upon discharge-outpatient appointment has been set up per vp digital marketing social media and crm (6) DVT prophylaxis Current Visit: Yes Status: Acute (7) DVT prophylaxis Current Visit: Yes Status: Acute Assessment and plan: SCDs - Time Spent With Patient Total time spent is greater than 50% in coordination of care (as documented) at patient's floor/unit and/or counseling patient: - Subjective Interval history: The patient is new to me I reviewed medical records. She presently denies any SI or HI. Discussed the case with pallative, concerning pain control. Presently pain is controlled on 12mcg Fentanyl patch. Rates 5/10 and states the best it has been in a long time. Has non productive cough denies any CP or SOB I reviewed treatment plan with patient who verbalized understanding. - Constitutional Vitals: Temp Pulse Resp BP Pulse Ox 98.7 F 79 16 135/76 92 06/27/17 06:44 06/27/17 06:44 06/27/17 06:44 06/27/17 06:44 06/27/17 06:44 General appearance: Present: A&O X 3, no acute distress, answers questions appropriately - Head Head exam: Present: atraumatic, normocephalic - Eye Eye exam: Present: PERRL, conjuntiva pink, sclera anicteric Pupils: Present: PERRL - Neck Neck exam general surgery: Present: supple, trachea midline. Absent: lymphadenopathy - Respiratory Respiratory exam: Present: CTAB. Absent: accessory muscle use, rales, rhonchi, wheezes - Cardiovascular Cardiovascular exam: Present: RRR, +S1, +S2. Absent: diastolic murmur, gallop, rubs, systolic murmur - GI/Abdominal GI/Abdominal exam: Present: normal bowel sounds, soft, no peritoneal signs. Absent: distended, tenderness - Extremities Exam Extremities exam: Present: warm, radial pulses palpable and symmetrical. Absent : calf tenderness, cyanotic, pedal edema - Neurological Exam Neurological exam: Present: CN II-XII intact, oriented X3, no focal deficits. Absent: pronater drift, facial droop, speech deficit - Skin Skin exam: Present: dry, intact Internal Medicine: Result - Labs CBC & Chem 7: 06/27/17 09:25 06/27/17 09:25 - ABG Interpretation ABG results: PT/INR, D-dimer PT 12.2 Seconds (9.4-12.1) H 06/23/17 10:54 Consult Discharge Plan - Plan Referrals: Joseph Johns DO [Primary Care Provider] - 07/06/17 1:45 pm Dot Hughes [Registered Pharmacist] - 07/13/17 10:00 am
[2017-06-27 09:51] LABS: Basophils # 0.1 K/mcL (0.0-0.2); Basophils % 1.2 %; Eosinophils # 0.3 K/mcL (0.0-0.6); Eosinophils % 4.4 %; Hematocrit 37.4 % (35.3-44.9); Hemoglobin 12.6 g/dL (11.5-15.4); Immature Granulocytes % 1.2 % (0-4); Lymphocytes # 2.8 K/mcL (0.6-4.6); Lymphocytes % 46.4 %; Mean Corpuscular HGB Conc 33.7 g/dL (31.6-35.5); Mean Corpuscular Hemoglobin 30.4 pg (28.0-33.3); Mean Corpuscular Volume 90.1 fL (83.0-100.0); Mean Platelet Volume 10.1 fL (9.4-12.4); Monocytes # 0.6 K/mcL (0.0-1.3); Monocytes % 9.6 %; Neutrophils # 2.2 K/mcL (1.6-8.9); Platelet Count 258 K/mcL (140-400); Red Blood Count 4.15 M/mcL (3.82-4.97); Red Cell Distribution Width 14.6 % (11.5-14.5); Segmented Neutrophils % 37.2 %
[2017-06-27 09:53] LABS: BUN/Creatinine Ratio 15 (6-26); Blood Urea Nitrogen 9 mg/dL (8-23); Calcium 8.6 mg/dL (8.6-10.3); Carbon Dioxide 24 mEq/L (23-29); Chloride 110 mEq/L (98-107); Glucose 91 mg/dL (70-105); Osmolality,Calculated 294 (280-300); Potassium 4.6 mEq/L (3.5-5.1); Sodium 143 mEq/L (136-145); eGFR For African Americans > 60 (> 60); eGFR For Non-African Americans > 60 (> 60)
[2017-06-27] MEDS: Pregabalin 50 MG CAPSULE PO PRN (10:17)
[2017-06-27] MEDS: NIFEdipine 10 MG CAPSULE PO PRN (10:17)
--- NOTE | 2017-06-27 10:23 | Palliative Progress Note ---
Date of Encounter: 06/27/17 Time of Encounter: 09:30 - Assessment and plan (1) Goals of care, counseling/discussion Current Visit: Yes Status: Acute Assessment and plan: Status is established is DNR CCA DNI. This CODE STATUS was established with both the patient and her medical power of corporate associate attorney. Mckayla to be valid. Since goal is to continue to return home. She still wants to get aggressive care. If the patient declines to get any further aggressive care and has another infection which she would not be treated for, he would certainly be hospice eligible. The patient's precarious psychological state (that she was just pink slipped and now is not) I would believe that any hospice discussion would have to involve her as well as he is the medical power of corporate associate attorney. (2) Pneumonia Current Visit: No Status: Acute Assessment and plan: Continue current antibiotics Plan per hospitalist team Qualifiers: Pneumonia type: due to unspecified organism Laterality: bilateral Lung location: unspecified part of lung Qualified Code(s): J18.9 - Pneumonia, unspecified organism (3) Anxiety Current Visit: No Status: Chronic Assessment and plan: Continue current medications, recommendations were made by psych. I do not dispute these. Plan per psych and hospitalist team (4) Recurrent pneumonia Current Visit: No Status: Acute Assessment and plan: Continue current plan of care per hospitalist team (5) Chronic constipation Current Visit: No Status: Chronic Assessment and plan: BMs appear to be starting, continue current medications continue to watch Continues to have bowel movements continue to watch (6) Chronic pain Current Visit: No Status: Acute Assessment and plan: Palliative does not do chronic pain, we have been making recommendations to the hospitalist team area is doing very well with the fentanyl patch although she continues to use her when necessary is on a very regular basis. I doubt that this will change very much regardless of how much fentanyl the patient is on. Believe that if a pain clinic were available to the patient this would be extremely useful, however there is not one in this area that I am aware of. Norman with the hospitalist team. His primary care doctor will be the one following up on this and do not know what he will or will not be comfortable prescribing for her for follow-up. I would not make any further edges and her meds as we have found a pain, around a 5, she seems to be able to tolerate. Continue current medications is the palliative recommendation at this time. Qualifiers: Chronic pain type: chronic pain syndrome Qualified Code(s): G89.4 - Chronic pain syndrome - Time Spent With Patient Total time spent is greater than 50% in coordination of care (as documented) at patient's floor/unit and/or counseling patient: - Subjective Interval history: Per nursing reports and per the patient she has been doing quite well since she started on her fentanyl patch. Her family according to the nurse's notes patient's been able to get up and get around more than she has in quite a while. She reports today that her taste is even better. - Constitutional Vitals: Abnormal lab results RDW 14.6 % (11.5-14.5) H 06/27/17 09:25 PT 12.2 Seconds (9.4-12.1) H 06/23/17 10:54 Chloride 110 mEq/L (98-107) H 06/27/17 09:25 Urine Clarity Cloudy (Clear) A 06/23/17 11:24 Ur Specific [place] > 1.030 (1.010-1.025) H 06/23/17 11:24 Urine Microscopic WBC 3-5 per hpf (0-3) H 06/23/17 11:24 Ur Squamous Epith Cells Many per lpf (None-Few) H 06/23/17 11:24 General appearance: Present: no acute distress - Head Head exam: Present: atraumatic, normal inspection - Respiratory Respiratory exam: Present: decreased breath sounds - Cardiovascular Cardiovascular exam: Present: RRR - GI/Abdominal GI/Abdominal exam: Present: normal bowel sounds, soft. Absent: tenderness - Extremities Exam Extremities exam: Absent: tenderness - Neurological Exam Neurological exam: Present: alert - Psychiatric Psychiatric exam: Absent: agitated, anxious - Skin Skin exam: Present: dry, warm Palliative Quality Palliative Quality: Screen for Code Status: Yes, Screen for Goals of Care: Yes, Screen for Pain: Yes, If Pain Regimen Started, Initiate Bowel Regimen: Yes, Screen for Nausea/Vomitting: Yes Code Status: 06/23/17 12:51 Resuscitation Status: Active [RES] Routine Comment: Resuscitation Status: [id number] - Labs CBC & Chem 7: 06/27/17 09:25 06/27/17 09:25 Labs: Laboratory Results - last 24 hr 06/26/17 06/27/17 06/27/17 21:04 09:25 09:25 WBC 6.0 RBC 4.15 Hgb 12.6 Hct 37.4 MCV 90.1 MCH 30.4 MCHC 33.7 RDW 14.6 H Plt Count 258 MPV 10.1 Immature Gran % 1.2 Seg Neutrophils % 37.2 Lymphocytes % 46.4 Monocytes % 9.6 Eosinophils % 4.4 Basophils % 1.2 Neutrophils # 2.2 Lymphocytes # 2.8 Monocytes # 0.6 Eosinophils # 0.3 Basophils # 0.1 Sodium 143 Potassium 4.6 Chloride 110 H Carbon Dioxide 24 BUN 9 Creatinine 0.60 Est GFR ( Amer) > 60 Est GFR (Non-Af Amer) > 60 BUN/Creatinine Ratio 15 Glucose 91 Calculated Osmolality 294 Calcium 8.6 Vancomycin Trough 10 - ABG Interpretation ABG results: PT/INR, D-dimer PT 12.2 Seconds (9.4-12.1) H 06/23/17 10:54 Consult Discharge Plan - Plan Referrals: Joseph Johns DO [Primary Care Provider] - 07/06/17 1:45 pm
[2017-06-27] MEDS: Haloperidol Lactate 5 MG/ML VIAL IVP PRN (15:08)
[2017-06-27] MEDS: ARIPiprazole 2 MG TABLET PO SCH (20:42)
[2017-06-28] MEDS: ALPRAZolam 0.25 MG TABLET PO PRN ×2 (03:30→12:39)
[2017-06-28] MEDS: *HR* OxyCODONE Immed Rel 5 MG TABLET PO PRN ×3 (03:30→12:20)
--- NOTE | 2017-06-28 07:14 | Palliative Progress Note ---
Date of Encounter: 06/28/17 Time of Encounter: 07:00 - Assessment and plan (1) Goals of care, counseling/discussion Current Visit: Yes Status: Acute Assessment and plan: Status is established is DNR CCA DNI. This CODE STATUS was established with both the patient and her medical power of contracts attorney. I believe it to be valid. Since goal is to continue to return home. She still wants to get aggressive care. If the patient declines to get any further aggressive care and has another infection which she would not be treated for, he would certainly be hospice eligible. The patient's precarious psychological state ( that she was just pink slipped and now is not) I would believe that any hospice discussion would have to involve her as well as he is the medical power of contracts attorney. Monday as above (2) Pneumonia Current Visit: No Status: Acute Assessment and plan: Continue current antibiotics Plan per hospitalist team Qualifiers: Pneumonia type: due to unspecified organism Laterality: bilateral Lung location: unspecified part of lung Qualified Code(s): J18.9 - Pneumonia, unspecified organism (3) Anxiety Current Visit: No Status: Chronic Assessment and plan: Continue current medications, recommendations were made by psych. I do not dispute these. Plan per psych and hospitalist team This seems to be working quite well I recommend no changes (4) Recurrent pneumonia Current Visit: No Status: Acute Assessment and plan: Continue current plan of care per hospitalist team (5) Chronic constipation Current Visit: No Status: Chronic Assessment and plan: BMs appear to be starting, continue current medications continue to watch Continues to have bowel movements continue to watch Last bowel movement recorded is stable for yesterday, do not believe we need to make changes today. Continue to watch (6) Chronic pain Current Visit: No Status: Acute Assessment and plan: Palliative does not do chronic pain, we have been making recommendations to the hospitalist team area is doing very well with the fentanyl patch although she continues to use her when necessary is on a very regular basis. I doubt that this will change very much regardless of how much fentanyl the patient is on. Believe that if a pain clinic were available to the patient this would be extremely useful, however there is not one in this area that I am aware of. Discussed with the hospitalist team. His primary care doctor will be the one following up on this and do not know what he will or will not be comfortable prescribing for her for follow-up. I would not make any further edges and her meds as we have found a pain, around a 5, she seems to be able to tolerate. Continue current medications is the palliative recommendation at this time. The patient is doing extremely well with the fentanyl patch. Have renewed it as I believe this is the intent of the hospitalist group. We will adjust if they feel it is appropriate. 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 Her pain medications have not been adjusted in quite a while, and she is certainly build up tolerance. Think having a new medication on board is helpful one at the level and its at certainly not causing her any harm. It will be incumbent on the patient's primary care physician however to continue these medications. I do believe the patient would benefit from a pain clinic, however there is no pain clinic in the area. I have gone ahead and renewed the fentanyl patch I will discuss further with the hospitalist group. Qualifiers: Chronic pain type: chronic pain syndrome Qualified Code(s): G89.4 - Chronic pain syndrome - Time Spent With Patient Total time spent is greater than 50% in coordination of care (as documented) at patient's floor/unit and/or counseling patient: - Subjective Interval history: per the patient she has been doing quite well since she started on her fentanyl patch. He is able to get up and get around, she even reports improved appetite. Told me yesterday that her taste was better. - Constitutional Vitals: Abnormal lab results RDW 14.6 % (11.5-14.5) H 06/27/17 09:25 PT 12.2 Seconds (9.4-12.1) H 06/23/17 10:54 Chloride 110 mEq/L (98-107) H 06/27/17 09:25 Urine Clarity Cloudy (Clear) A 06/23/17 11:24 Ur Specific [place] > 1.030 (1.010-1.025) H 06/23/17 11:24 Urine Microscopic WBC 3-5 per hpf (0-3) H 06/23/17 11:24 Ur Squamous Epith Cells Many per lpf (None-Few) H 06/23/17 11:24 General appearance: Present: no acute distress - Respiratory Respiratory exam: Present: decreased breath sounds - Cardiovascular Cardiovascular exam: Present: RRR - GI/Abdominal GI/Abdominal exam: Present: normal bowel sounds, soft. Absent: tenderness Palliative Quality Palliative Quality: Screen for Code Status: Yes, Screen for Goals of Care: Yes, Screen for Pain: Yes, If Pain Regimen Started, Initiate Bowel Regimen: Yes, Screen for Nausea/Vomitting: Yes Code Status: 06/23/17 12:51 Resuscitation Status: Active [RES] Routine Comment: Resuscitation Status: [id number] - Labs CBC & Chem 7: 06/27/17 09:25 06/27/17 09:25 Labs: Laboratory Results - last 24 hr 06/27/17 06/27/17 09:25 09:25 WBC 6.0 RBC 4.15 Hgb 12.6 Hct 37.4 MCV 90.1 MCH 30.4 MCHC 33.7 RDW 14.6 H Plt Count 258 MPV 10.1 Immature Gran % 1.2 Seg Neutrophils % 37.2 Lymphocytes % 46.4 Monocytes % 9.6 Eosinophils % 4.4 Basophils % 1.2 Neutrophils # 2.2 Lymphocytes # 2.8 Monocytes # 0.6 Eosinophils # 0.3 Basophils # 0.1 Sodium 143 Potassium 4.6 Chloride 110 H Carbon Dioxide 24 BUN 9 Creatinine 0.60 Est GFR ( Amer) > 60 Est GFR (Non-Af Amer) > 60 BUN/Creatinine Ratio 15 Glucose 91 Calculated Osmolality 294 Calcium 8.6 - ABG Interpretation ABG results: PT/INR, D-dimer PT 12.2 Seconds (9.4-12.1) H 06/23/17 10:54 Consult Discharge Plan - Plan Referrals: Joseph Johns DO [Primary Care Provider] - 07/06/17 1:45 pm Dot Hughes [Registered Pharmacist] - 07/13/17 10:00 am
[2017-06-28] MEDS: Pregabalin 50 MG CAPSULE PO PRN (07:29)
[2017-06-28] MEDS: Lactobacillus 1 EACH CAP.SPRINK PO SCH (07:29)
[2017-06-28] MEDS: Aspirin 325 MG TABLET PO SCH (07:29)
[2017-06-28] MEDS: Sennosides/Docusate Sodium TABLET PO SCH (07:29)
[2017-06-28] MEDS: Piperacillin/Tazobactam 3.375 GM in 0.9 % Sodium Chloride Mini Bag 100 ML IVPB SCH (07:30)
[2017-06-28] MEDS: Multivit/Ca/Min/Fe/FA 1 TAB TABLET PO SCH (07:30)
[2017-06-28] MEDS: Metoprolol 100 MG TABLET PO SCH (07:30)
[2017-06-28] MEDS: *HR* FentaNYL PATCH 12 MCG PATCH TD SCH (07:33)
[2017-06-28 07:48] LABS: BUN/Creatinine Ratio 14 (6-26); Blood Urea Nitrogen 10 mg/dL (8-23); Calcium 9.1 mg/dL (8.6-10.3); Carbon Dioxide 25 mEq/L (23-29); Chloride 105 mEq/L (98-107); Glucose 82 mg/dL (70-105); Osmolality,Calculated 286 (280-300); Potassium 3.8 mEq/L (3.5-5.1); Sodium 139 mEq/L (136-145); eGFR For African Americans > 60 (> 60); eGFR For Non-African Americans > 60 (> 60)
[2017-06-28] MEDS: Haloperidol Lactate 5 MG/ML VIAL IVP PRN (08:08)
[2017-06-28 08:19] LABS: Basophils # 0.1 K/mcL (0.0-0.2); Basophils % 0.9 %; Eosinophils # 0.3 K/mcL (0.0-0.6); Eosinophils % 3.8 %; Hematocrit 39.6 % (35.3-44.9); Hemoglobin 13.2 g/dL (11.5-15.4); Immature Granulocytes % 0.3 % (0-4); Lymphocytes # 3.1 K/mcL (0.6-4.6); Lymphocytes % 40.3 %; Mean Corpuscular HGB Conc 33.3 g/dL (31.6-35.5); Mean Corpuscular Hemoglobin 30.3 pg (28.0-33.3); Mean Corpuscular Volume 90.8 fL (83.0-100.0); Monocytes # 0.7 K/mcL (0.0-1.3); Monocytes % 8.8 %; Neutrophils # 3.5 K/mcL (1.6-8.9); Platelet Count 291 K/mcL (140-400); Red Blood Count 4.36 M/mcL (3.82-4.97); Red Cell Distribution Width 14.6 % (11.5-14.5); Segmented Neutrophils % 45.9 %
--- NOTE | 2017-06-28 09:03 | Discharge Summary ---
- NOTES TO OUTPATIENT PROVIDER Notes to Outpatient Provider: Patient was seen by ashley for pain- she was doing well with fentanyl patches - she would benfit from pain clinic- unsure if she would travel for this need - she is to follow up as outpatient with [facility] Date of Encounter: 06/28/17 Time of Encounter: 08:59 - Discharge Diagnosis (1) MRSA pneumonia Priority: Primary Status: Acute Assessment and Plan: CT of chest suspicious for pneumonia, mild consolidation noted posterior medially to the left lower lobe. Recently had failed outpatient treatment for pneumonia History of MRSA/ MRSA pneumonia -blood cultures are negative- de-escalate antibiotics- she has received 5day treatment of IV ATB and 5 days of oral levaquin Oxygen as needed- has home oxygen Bronco dilators as needed follow up with PCP Qualifiers: Laterality: unspecified laterality Lung location: unspecified part of lung Qualified Code(s): J15.212 - Pneumonia due to Methicillin resistant Staphylococcus aureus (2) Hypogammaglobulinemia Priority: Secondary Status: Chronic Assessment and Plan: Self administers IVIG weekly at home Resume (3) Essential hypertension Priority: Secondary Status: Chronic Assessment and Plan: Stable at this time Continue home anti-HTN medications, monitor BP. (4) Bipolar 1 disorder, depressed Priority: Secondary Status: Acute Assessment and Plan: Continue Cymbalta and Abilify, continue Xanax when necessary. Stable at this time Follow up with out patient [facility] (5) Suicidal ideation Priority: Secondary Status: Acute Assessment and Plan: Patient denying any SI Continue Abilify and fluoxetine at recommendations of psychology Patient to see outpatient counseling upon discharge-outpatient appointment has been set up per social organization professor Hospital course: Ms. Mayes is a 66 year old female past medical history of COPD CAD asthma GERD hypertension hyperlipidemia and arthritis. Patient presented to the emergency room after she was experiencing chest and lung pain. She had previously been at her primary care physician and was placed on Levaquin for 5 days for cough fever and congestion. Patient does report past history of MRSA of the lungs she does receive IVIG weekly which she administers herself. EKG with no ST-T wave abnormalities troponin was negative CT of chest was suspicious for pneumonia she was initiated on Zosyn and vancomycin and doxycycline since she had a history of MRSA. Blood cultures were negative and antibiotics were de- escalate it. Patient did have some suicidal ideations and she was seen by psychiatry she was cleared by psychiatry and advised to continue with Abilify and fluoxetine patient is to follow-up as outpatient with [facility]. Respiratory status stable afebrile no white count she has received 5 days of IV antibiotics. Patient will be discharged home and to follow-up with primary care physician as well as psychiatric counseling center. She will be discharged home with prescriptions for her Abilify and fluoxetine. I reviewed follow-up appointment as well as medications with the patient who verbalized understanding. She is hemodynamically stable this time ready for discharge. Discharge discussed with: patient - Time Spent with Patient Total time spent providing and/or coordinating discharge services: - Discharge Medications Prescriptions: ARIPiprazole [Abilify] 2 mg PO HS #30 tablet DULoxetine [Cymbalta] 30 mg PO DAILY #30 capsule.dr Kwan Medications: Albuterol Sulfate [Proair Hfa] 2 puff IH Q4H PRN 07/14/15 [History] Allopurinol [Zyloprim 300 MG] 300 mg PO DAILY 07/14/15 [History] Cyclobenzaprine [Flexeril] 10 mg PO TID 07/14/15 [History] Hydroxychloroquine [Plaquenuil] 400 mg PO DAILY 07/14/15 [History] Levothyroxine [Synthroid] 50 mcg PO QAM 07/14/15 [History] Metaxalone [Skelaxin] 800 mg PO BID 07/14/15 [History] OxyCODONE Immed Rel [Roxicodone 10 MG] 10 mg PO Q6H PRN 07/14/15 [History] Multivitamin [Multi-Day Vitamins] 1 tab PO DAILY 01/05/16 [History] Furosemide [Lasix] 20 mg PO DAILY PRN 12/31/16 [History] Immune Globulin, Gamma(IGG) [Gammagard 10% 10 GM/100 mL] 0 gm IVC KNOTT 05/09/17 [ History] Ipratropium/Albuterol Neb [Duoneb] 3 ml IH Q6H PRN 05/09/17 [History] Metoprolol Tartrate 100 mg PO DAILY 05/09/17 [History] NIFEdipine [Procardia] 10 mg PO DAILY PRN 05/09/17 [History] Pregabalin [Lyrica] 100 mg PO TID PRN 05/09/17 [History] Albuterol Sulfate [Proair Hfa] 1 puff IH 06/23/17 [History] Lactobacillus Acidophilus [Acidophilus Probiotic] 1 mg PO DAILY 06/23/17 [ History] Silver Hydosol 1 spr NS QID 06/23/17 [History] Silver Hydrsol 1 spr MC QID 06/23/17 [History] ARIPiprazole [Abilify] 2 mg PO HS #30 tablet 06/28/17 [Rx] DULoxetine [Cymbalta] 30 mg PO DAILY #30 capsule. 06/28/17 [Rx] Allergies/Adverse Reactions: 3 Allergy/AdvReac Type Severity Reaction Status Date / Time No Known Allergies Allergy Verified 06/23/17 14:24 Date of admission: 06/23/17 13:49 Primary care physician: Joseph Johns, Consults: 06/24/17 09:45 Consult to Psychiatry [CONS] Routine Consulting Provider: Psychiatry Susan Reason for Consult: suicidal ideation Call Completed: No 06/24/17 09:46 Consult to Palliative Care [CONS] Routine Comment: Consulting Provider: Palliative Care Lucile Reason for Consult: pain controal and hospice evaluation Call Completed: No Discharging clinician: Ayse Avina Anticipated date of discharge: 06/28/17 - Constitutional Vitals: Temp Pulse Resp BP Pulse Ox 98.0 F 78 15 168/89 92 06/28/17 06:38 06/28/17 06:38 06/28/17 06:38 06/28/17 06:38 06/28/17 06:38 General appearance: Present: A&O X 3, no acute distress, answers questions appropriately - Head Head exam: Present: atraumatic, normocephalic - Eye Eye exam: Present: PERRL, conjuntiva pink, sclera anicteric Pupils: Present: PERRL - Neck Neck exam general surgery: Present: supple, trachea midline. Absent: lymphadenopathy - Respiratory Respiratory exam: Present: CTAB. Absent: accessory muscle use, rales, rhonchi, wheezes - Cardiovascular Cardiovascular exam: Present: RRR, +S1, +S2. Absent: diastolic murmur, gallop, rubs, systolic murmur - GI/Abdominal GI/Abdominal exam: Present: normal bowel sounds, soft, no peritoneal signs. Absent: distended, tenderness - Extremities Exam Extremities exam: Present: warm, radial pulses palpable and symmetrical. Absent : calf tenderness, cyanotic, pedal edema - Neurological Exam Neurological exam: Present: CN II-XII intact, oriented X3, no focal deficits. Absent: pronater drift, facial droop, speech deficit - Skin Skin exam: Present: dry, intact - Patient Status Disposition: Home, Self-Care Condition: Fair Overall status at discharge: patient is back to baseline - Discharge Instructions Instructions: Chest Pain (DC), Chronic Hypertension (DC), Pneumonia (DC) Follow Up With: Joseph Johns DO [Primary Care Provider] - 07/06/17 1:45 pm Dot Hughes [Registered Pharmacist] - 07/13/17 10:00 am - Diet and Activity Activity: increase activity as tolerated Diet: advance to your usual diet
[2017-06-28 11:01] VITALS: BP 128/83
[2017-06-28] MEDS ORDERED: Aminoglycoside Consult 1 EACH MC ONE (12:53)
== END 2017-06-28 12:54 | disposition home or self-care (01) | DRG 177 ==
LOC: EMEROO 10:40 → 3BNU 13:49
PROVIDERS: ADMIT Internal Medicine; ATTEND Internal Medicine

== ENCOUNTER 2017-08-11 15:37 | Inpatient (IN) ==
[2017-08-11] MEDS ORDERED: 0.9 % Sodium Chloride 1,000 ML IVC ONE (15:45)
[2017-08-11] MEDS ORDERED: cefTRIAXone 1,000 MG in Water for inj. (sterile) 20 ML 10 ML IVP ONE (15:45)
[2017-08-11 16:21] LABS: Basophils # 0.1 K/mcL (0.0-0.2); Basophils % 0.5 %; Eosinophils # 0.3 K/mcL (0.0-0.6); Eosinophils % 2.5 %; Hematocrit 38.6 % (35.3-44.9); Immature Granulocytes % 0.3 % (0-4); Lymphocytes # 2.1 K/mcL (0.6-4.6); Lymphocytes % 15.6 %; Mean Corpuscular HGB Conc 33.7 g/dL (31.6-35.5); Mean Corpuscular Volume 92.1 fL (83.0-100.0); Mean Platelet Volume 10.6 fL (9.4-12.4); Monocytes # 1.1 K/mcL (0.0-1.3); Monocytes % 8.1 %; Neutrophils # 9.8 K/mcL (1.6-8.9); Platelet Count 246 K/mcL (140-400); Red Blood Count 4.19 M/mcL (3.82-4.97); Red Cell Distribution Width 13.8 % (11.5-14.5)
--- NOTE | 2017-08-11 16:25 | Emergency Department Note ---
Disposition Clinical Impression: Chest pain Qualifiers: Chest pain type: unspecified Qualified Code(s): R07.9 - Chest pain, unspecified Pneumonia Qualifiers: Pneumonia type: due to unspecified organism Laterality: left Lung location: lower lobe of lung Qualified Code(s): J18.1 - Lobar pneumonia, unspecified organism Fever Qualifiers: Fever type: unspecified Qualified Code(s): R50.9 - Fever, unspecified Disposition: Admitted As Inpatient Condition: Fair Time of Disposition: 18:17 General Adult HPI - General Chief complaint: ED Abdominal Pain Stated complaint: Possible Kidney stones Time Seen by Provider: 08/11/17 15:42 Source: patient Mode of arrival: ambulatory Limitations: no limitations Nursing Notes Reviewed: Yes Vital Signs Reviewed: Yes - History of Present Illness HPI Narrative: Patient presents emergency room complaining of right-sided flank pain and abdominal discomfort along with a fever up to 102 home. She denies any trauma or injury. She does have a complex medical history including a small angina, pericarditis, myocardial infarction, fibromyalgia renal stones and urinary tract infections. Patient denies fever chills nausea vomiting diarrhea headaches or vision change at this time. She does have a right-sided flank pain but denies shortness of breath. She has had intermittent chest discomfort and pain similar to her history of the proximal angina. Otherwise patient denies any other complaints or symptoms. Onset (ago): day(s) Location: chest, abdomen Radiation: non-radiation Pain Severity: moderate Pain Scale: 7 Quality: aching Consistency: intermittent Improves with: nothing Worsens with: nothing Associated symptoms: Reports: chest pain, fever/chills, loss of appetite, malaise Treatments Prior to Arrival: none - Related Data Home Medications Medication Instructions Recorded Confirmed Albuterol Sulfate [Proair Hfa] 2 puff IH Q4H PRN 07/14/15 06/23/17 Allopurinol [Zyloprim 300 MG] 300 mg PO DAILY 07/14/15 06/23/17 Cyclobenzaprine [Flexeril] 10 mg PO TID 07/14/15 06/23/17 Hydroxychloroquine [Plaquenuil] 400 mg PO DAILY 07/14/15 06/23/17 Levothyroxine [Synthroid] 50 mcg PO QAM 07/14/15 06/23/17 Metaxalone [Skelaxin] 800 mg PO BID 07/14/15 06/23/17 OxyCODONE Immed Rel [Roxicodone 10 10 mg PO Q6H PRN 07/14/15 06/23/17 MG] Multivitamin [Multi-Day Vitamins] 1 tab PO DAILY 01/05/16 06/23/17 Furosemide [Lasix] 20 mg PO DAILY PRN 12/31/16 06/23/17 Immune Globulin, Gamma(IGG) 0 gm IVC KNOTT 05/09/17 06/23/17 [Gammagard 10% 10 GM/100 mL] Ipratropium/Albuterol Neb [Duoneb] 3 ml IH Q6H PRN 05/09/17 06/23/17 Metoprolol Tartrate 100 mg PO DAILY 05/09/17 06/23/17 NIFEdipine [Procardia] 10 mg PO DAILY PRN 05/09/17 06/23/17 Pregabalin [Lyrica] 100 mg PO TID PRN 05/09/17 06/23/17 Albuterol Sulfate [Proair Hfa] 1 puff IH 06/23/17 06/23/17 Lactobacillus Acidophilus 1 mg PO DAILY 06/23/17 06/23/17 [Acidophilus Probiotic] Silver Hydosol 1 spr NS QID 06/23/17 Silver Hydrsol 1 spr MC QID 06/23/17 Previous Rx's Medication Instructions Recorded ARIPiprazole [Abilify] 2 mg PO HS #30 tablet 06/28/17 DULoxetine [Cymbalta] 30 mg PO DAILY #30 capsule. 06/28/17 Nitrofurantoin Monohyd/M-Cryst 100 mg PO BID #14 capsule 07/03/17 [Macrobid 100 mg Capsule] Allergies Allergy/AdvReac Type Severity Reaction Status Date / Time No Known Allergies Allergy Verified 06/23/17 14:24 All systems ED: reviewed and negative except as stated. Review of Systems: As Per HPI Constitutional: Denies: fever, chills ENT ED: Denies: ear pain Cardiovascular: Reports: chest pain, palpitations. Denies: dyspnea on exertion , orthopnea, edema Respiratory: Denies: cough, dyspnea, wheezes Gastrointestinal: Reports: abdominal pain. Denies: nausea, vomiting, diarrhea, constipation Genitourinary: Denies: urgency, dysuria, frequency Musculoskeletal: Reports: back pain. Denies: neck pain Integumentary: Denies: rash Neurological: Denies: headache Past Medical History - Past Medical History Attestation: Yes The following information was validated with the patient. Source: patient Medical history: Reports: arthritis, COPD, coronary artery disease, fibromyalgia , GERD, hyperlipidemia, hypertension, kidney stones, osteoporosis, RA, thyroid disease, TIA, other Surgical history: Reports: appendectomy, breast surgery (Bilateral breast reduction 1996, left breast excision (benign)), cholecystectomy, herniorrhaphy, hip replacement (right hip replacement and revision in 2013), hysterectomy, JAYSON/ BSO, other (osteonomy jaw implant 1983, dental surgery multiple, brochoscopy X 2 , EGD (last with Dr. Lala and unsure of date), Colonoscopy last [address] 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 - Social History Smoking Status: Never smoker Smokeless Tobacco Status: No Alcohol use: Reports: none Drug use: Reports: none Physical Exam - General General appearance: alert, in no apparent distress - Head Head exam: atraumatic, normocephalic, normal inspection - Eye Eye exam: Present: normal appearance, PERRL, EOMI - ENT ENT exam: normal exam, normal oropharynx, mucous membranes moist - Neck Neck exam: Present: normal inspection, full ROM, trachea midline - Chest Chest inspection: Present: normal inspection, symmetric chest wall rise - Respiratory Respiratory exam: Present: normal lung sounds bilaterally. Absent: respiratory distress, accessory muscle use - Cardiovascular Cardiovascular exam: Present: regular rate, normal rhythm, normal heart sounds - Abdominal Exam Abdominal exam: Present: soft, Non-Tender, normal bowel sounds. Absent: tenderness, distention, guarding, rebound, rigidity, diminished bowel sounds, Lindsay's sign, Rovsing's sign, tenderness at McBurney's Point - Extremities Exam Extremities exam: Present: normal inspection, full ROM, normal capillary refill. Absent: tenderness, pedal edema - Back Exam Back exam: Present: normal inspection, full ROM. Absent: tenderness, CVA tenderness (R), CVA tenderness (L) - Neurological Exam Neurological exam: Present: alert, oriented X3, CN II-XII intact, normal gait - Skin Skin exam: Present: warm, dry, intact, normal color Course Course Narrative: Patient seen and examined the time of arrival. See history of present illness. 66-year-old female presents emergency room multiple complaints here today. She said several days with a right-sided flank pain and pain going into her right groin. She describes it as similar to when she gets renal stones and colic. She has had to have her stones removed every time in the past. She denies any trauma or injuries. She also has some chest discomfort and pain for which she takes Procardia for pritzmetal angina. She feels that that is what going on at this time. Patient says that she typically takes his medication when she gets that feeling. She will take her home medications time. Vital signs reviewed and patient is tachycardic and febrile. Otherwise her blood pressure is stable. Patient is alert she is oriented she speaks in full sentences. Head is atraumatic pupils are round reactive mucous membranes are moist oropharynx is patent trachea is midline she has full range of motion of the neck with no meningeal symptoms and no lymphadenopathy. Heart is regular lungs are clear abdomen is soft she does have tenderness in the right side with no point tenderness guarding rigidity or peritoneal-like symptoms. She does have normal bowel sounds. She has no CVA tenderness or guarding at this time. Patient denies any foul-colored urine or discharge vaginally. She does move her 4 extremities without any difficulty. Patient has no specific signs of pitting edema or swelling. Patient will be treated for her known anginal presentation and an EKG CBC chemistry labs including troponin and BNP electrolytes and blood cultures will be ordered at this time. First dose of antibiotics after reviewing her previous urine cultures will be given including the nasal lid and a second antibiotic will be ordered once the evaluation has been started. Suspicion is for urinary tract infection and possible renal stone. CT from previous was reviewed she did have a 1-2 mm nonobstructing stone in the right kidney. She does have a history of obstructing stones in the past. Disposition will be determined once a full workup and treatment course are established. Symptomatic control be completed. Patient does meet SIRS criteria but is not showing any acute signs of septic-like presentation this point. Fluid resuscitation will be started and evaluation to be completed. Disposition pending the treatment course. - Reevaluation(s) Reevaluation #1: Patient symptoms are still present with intermittent chest discomfort. She has had these identical symptoms for 3 years but they have been persistently getting worse over the last 3-5 weeks. Patient denies any significant cardiac issues at this time. Her troponin is negative and her EKG is normal. Patient did have leukoesterase and possible blood in her urine since CT the abdomen was ordered. There is no other acute issues noted in the abdominal cavity. Patient does have what appears to be new left-sided pneumonia. This could account for the elevated white blood cell count in the emergency room as well as a fever and tachycardia. Patient is asymptomatic at this point. Patient does not show any acute signs of septic shock. She does have what appears to be sepsis secondary to pneumonia. Blood cell count initial tachycardia and fever. Patient will be admitted for evaluation of chest discomfort as well as a pneumonia and symptomatically control. Levaquin was given here in the emergency room along with the linezolid. Hospitals patient admission at this time. Patient is found to be septic at this time but does not meet any criteria for septic shock and does not require fluid resuscitation. Time: 18:16 Reevaluation #2: Patient was discussed with the hospitalist Dr. Du. We reviewed the patient's presentation symptoms at length. He asked about the patient's initial pulse ox of 85%. Went in to review this with the patient here she is currently 94% on 3 L. Patient typically uses 2-3 L at home intermittently as needed. This could be an acute sign of her pneumonia at this point. Information was passed on the hospitals. Repeat blood pressure was collected the bedside is 110/86. Patient is otherwise in no distress resting comfortably in the bed with antibiotic regimen started this time. No aggressive fluid resuscitation will be started this point. Admission process to be completed for symptomatically control pneumonia reading related issues as well as the chest pain. Time: 18:23 Vital Signs Temperature 100.3 F H 08/11/17 15:39 Pulse Rate 105 08/11/17 15:39 Respiratory Rate 18 08/11/17 15:39 Blood Pressure 132/69 08/11/17 15:39 O2 Sat by Pulse Oximetry 85 08/11/17 15:39 Temperature 100.3 F H 08/11/17 15:46 Pulse Rate 105 08/11/17 15:46 Respiratory Rate 18 08/11/17 15:46 Blood Pressure 132/69 08/11/17 15:46 O2 Sat by Pulse Oximetry 85 08/11/17 15:46 Oxygen Delivery Oxygen Delivery Room Air Medical Decision Making - MDM Narrative Medical decision making narrative: Right-sided flank pain, chest pain, fever, tachycardia, pneumonia - Medical Records Medical records reviewed: Yes I reviewed the patient's medical records. - Lab Data Lab results reviewed: Yes I reviewed the patient's lab results. Result diagrams: 08/11/17 16:07 Lab Results 08/11/17 Range/Units 16:07 WBC 13.4 H (4.3-11.1) K/mcL RBC 4.19 (3.82-4.97) M/mcL Hgb 13.0 (11.5-15.4) g/dL Hct 38.6 (35.3-44.9) % MCV 92.1 (83.0-100.0) fL MCH 31.0 (28.0-33.3) pg MCHC 33.7 (31.6-35.5) g/dL RDW 13.8 (11.5-14.5) % Plt Count 246 (140-400) K/mcL MPV 10.6 (9.4-12.4) fL Immature Gran % 0.3 (0-4) % Seg Neutrophils % 73.0 % Lymphocytes % 15.6 % Monocytes % 8.1 % Eosinophils % 2.5 % Basophils % 0.5 % Neutrophils # 9.8 H (1.6-8.9) K/mcL Lymphocytes # 2.1 (0.6-4.6) K/mcL Monocytes # 1.1 (0.0-1.3) K/mcL Eosinophils # 0.3 (0.0-0.6) K/mcL Basophils # 0.1 (0.0-0.2) K/mcL - Radiology Data Radiology results reviewed: Yes I reviewed the patient's radiology results. Chest x-ray does not show any acute pathology but a CT of the abdomen is concerning for left lower lobe pneumonia. Patient will be symptomatically treated considering she is immunosuppressed. - EKG Data EKG #1 EKG attestation: Yes I reviewed and interpreted this EKG. EKG results narrative: EKG shows sinus rhythm. EKG does not show any acute signs of ST segment elevation or abnormality. There is T wave inversions in V1 and V2 and V3 as well as V4. There is no depressions or ST segment elevation. Ventricular rate of 93. TX interval 146. QRS duration of 87. QTC of 406. [place] appears to be normal. The inferior myocardial infarction secondary to Q waves. Will compare previous EKG
[2017-08-11 16:28] LABS: INR 1.1; Prothrombin Time 11.7 Seconds (9.4-12.1)
[2017-08-11 16:31] LABS: Activated Partial Thrombo Time 28.2 Seconds (26.0-36.0)
[2017-08-11 16:43] LABS: Troponin I < 0.03 ng/mL (< 0.04)
[2017-08-11 16:46] LABS: Bilirubin,Urine Negative (Negative); Blood,Urine Negative (Negative); Clarity,Urine Clear (Clear); Color,Urine Yellow (Yellow); Glucose,Urine (UA) Normal (Normal); Ketones,Urine Negative (Negative); Leukocyte Esterase,Urine Moderate (Negative); Nitrite,Urine Negative (Negative); Protein,Urine Negative (Neg-Trace); Specific Gravity,Urine 1.014 (1.010-1.025); Urobilinogen,Urine Normal (Normal)
[2017-08-11 16:47] LABS: Bacteria,Urine None Seen per hpf (None-Few); Hyaline Casts,Urine None Seen per lpf (None-Few); RBC,Urine 0-3 per hpf (0-3); Squamous Epithelial Cell,Urine Many per lpf (None-Few); WBC,Urine 15-30 per hpf (0-3)
[2017-08-11 16:49] LABS: Alanine Aminotransferase 8 Units/L (7-52); Albumin 3.9 g/dL (3.5-5.7); Albumin/Globulin Ratio 1.5 (1.1-2.2); Alkaline Phosphatase 85 Units/L (34-104); Aspartate Amino Transferase 17 Units/L (13-39); BUN/Creatinine Ratio 7 (6-26); Bilirubin,Direct 0.1 mg/dL (0.0-0.2); Bilirubin,Indirect 0.3 mg/dL (0.0-1.2); Bilirubin,Total 0.4 mg/dL (0.3-1.0); Blood Urea Nitrogen 5 mg/dL (8-23); Calcium 8.8 mg/dL (8.6-10.3); Carbon Dioxide 23 mEq/L (23-29); Chloride 101 mEq/L (98-107); Globulin 2.6 g/dL (2.4-3.5); Glucose 117 mg/dL (70-105); Magnesium 1.7 mg/dL (1.6-2.6); Osmolality,Calculated 280 (280-300); Potassium 3.4 mEq/L (3.5-5.1); Sodium 136 mEq/L (136-145); Total Protein 6.5 g/dL (6.4-8.9); eGFR For African Americans > 60 (> 60); eGFR For Non-African Americans > 60 (> 60)
[2017-08-11] MEDS ORDERED: Levofloxacin 750 MG/150 ML 750 MG/150 ML BAG IVPB ONE (18:06)
[2017-08-11] MEDS ORDERED: Aspirin 81 MG TAB.CHEW PO STA (18:23)
[2017-08-11] MEDS ORDERED: Acetaminophen 325 MG TABLET PO PRN (19:06)
[2017-08-11] MEDS ORDERED: Naloxone 0.4 MG/ML INJ IVP PRN (19:06)
[2017-08-11] MEDS ORDERED: Ipratropium/Albuterol Neb 3 ML IH PRN (19:11)
[2017-08-11] MEDS ORDERED: Pregabalin 50 MG CAPSULE PO PRN (19:11)
[2017-08-11] MEDS ORDERED: NIFEdipine 10 MG CAPSULE PO PRN (19:11)
[2017-08-11] MEDS ORDERED: 0.9 % Sodium Chloride 1,000 ML IVC SCH (19:15)
[2017-08-11] MEDS ORDERED: methylPREDNISolone 125 MG/2 ML VIAL IVP ONE (19:19)
--- NOTE | 2017-08-11 19:22 | Internal Med History&Physical ---
Date of Encounter: 08/11/17 Time of Encounter: 19:35 Internal Medicine - H&P: HPI Chief complaint: Shortness of breath Admitted From: Home Plans for Post Hospital Care: Home History of present illness: Ms. Mayes is a 66 year old female with multiple comorbidities who presented to the emergency department with shortness of breath and chest pain. Patient has a history of Prinzmetal angina she used to take her medication whenever she have chest pain and her pain improved but did not this morning. Her pain was substernal and on the right side of her chest. Patient also complained of right sided flank pain and had abdominal discomfort and had fever up to 102 at home. She also states that she had worsening shortness of breath. Patient had CT abdomen done that was negative. Her workup was positive for left lower quadrant pneumonia, patient is taking IVIG and she is immunocompromise. She has a history of VRE in the urine. On my interviewing the patient she was feeling somewhat better. She denied any nausea or vomiting no changes in bowel movement no headache no blurry vision or double vision. Past Med Surg Social Fam HX - Past Medical History Medical history: arthritis, COPD, coronary artery disease, fibromyalgia, GERD, hyperlipidemia, hypertension, kidney stones, osteoporosis, RA, thyroid disease, TIA, other Additional medical history: DDD. Hypogammaglobulinanemia Psychiatric history: bipolar, depression, previous psychiatric hospitalization - Past Surgical History Surgical History: appendectomy, breast surgery (Bilateral breast reduction 1996 , left breast excision (benign)), cholecystectomy, herniorrhaphy, hip replacement (right hip replacement and revision in 2013), hysterectomy, JAYSON/BSO , other (osteonomy jaw implant 1983, dental surgery multiple, brochoscopy X 2, EGD (last with Dr. Lala and unsure of date), Colonoscopy last [address] Barron) Additional surgical history: jaw implant, dental surgery, perineal cyst - Social History Smoking Status: Never smoker Smokeless Tobacco Status: No Alcohol use: none Drug use: none - Family History Father Hx Family Cardiac Disorders: No Hx Family Respiratory Disorders: No Hx Family Cancer: Yes (colon, kidney, bladder) Hx Family GI Disorders: No Hx Family Endocrine Disorder: No Hx Family Neuromuscular Disorders: No Hx Family Neurologic Disorders: No Hx Family HEENT Disorders: No Hx Family Autoimmune Disorders: No Mother Adopted: No Family Member Ethnicity: Non- Living Status: Hx Family Cardiac Disorders: No Hx Family Respiratory Disorders: No Hx Family Cancer: Yes Hx Family GI Disorders: No Hx Family Endocrine Disorder: No Hx Family Neuromuscular Disorders: No Hx Family Neurologic Disorders: No Hx Family HEENT Disorders: No Hx Family Autoimmune Disorders: Yes (ra) Internal Medicine - H&P: Meds Albuterol Sulfate [Proair Hfa] 2 puff IH Q4H PRN 07/14/15 [History] Allopurinol [Zyloprim 300 MG] 300 mg PO DAILY 07/14/15 [History] Cyclobenzaprine [Flexeril] 10 mg PO TID 07/14/15 [History] Hydroxychloroquine [Plaquenuil] 400 mg PO DAILY 07/14/15 [History] Levothyroxine [Synthroid] 50 mcg PO QAM 07/14/15 [History] Metaxalone [Skelaxin] 800 mg PO BID 07/14/15 [History] OxyCODONE Immed Rel [Roxicodone 10 MG] 10 mg PO Q6H PRN 07/14/15 [History] Multivitamin [Multi-Day Vitamins] 1 tab PO DAILY 01/05/16 [History] Furosemide [Lasix] 20 mg PO DAILY PRN 12/31/16 [History] Immune Globulin, Gamma(IGG) [Gammagard 10% 10 GM/100 mL] 0 gm IVC KNOTT 05/09/17 [ History] Ipratropium/Albuterol Neb [Duoneb] 3 ml IH Q6H PRN 05/09/17 [History] Metoprolol Tartrate 100 mg PO DAILY 05/09/17 [History] NIFEdipine [Procardia] 10 mg PO DAILY PRN 05/09/17 [History] Pregabalin [Lyrica] 100 mg PO TID PRN 05/09/17 [History] Albuterol Sulfate [Proair Hfa] 1 puff IH 06/23/17 [History] Lactobacillus Acidophilus [Acidophilus Probiotic] 1 mg PO DAILY 06/23/17 [ History] Silver Hydosol 1 spr NS QID 06/23/17 [History] Silver Hydrsol 1 spr MC QID 06/23/17 [History] ARIPiprazole [Abilify] 2 mg PO HS #30 tablet 06/28/17 [Rx] DULoxetine [Cymbalta] 30 mg PO DAILY #30 capsule. 06/28/17 [Rx] Nitrofurantoin Monohyd/M-Cryst [Macrobid 100 mg Capsule] 100 mg PO BID #14 capsule 07/03/17 [Rx] 3 Allergy/AdvReac Type Severity Reaction Status Date / Time No Known Allergies Allergy Verified 06/23/17 14:24 All Systems PM: A 10-system review of systems was performed and is negative for pertinent findings except as documented above in the HPI. - Constitutional Vitals: Temp Pulse Resp BP Pulse Ox 99.6 F 88 18 103/79 97 08/11/17 18:51 08/11/17 18:51 08/11/17 18:51 08/11/17 18:51 08/11/17 18:51 - Head Head exam: Present: atraumatic, normocephalic - Eye Eye exam: Present: PERRL, conjuntiva pink, sclera anicteric Pupils: Present: PERRL - Neck Neck exam general surgery: Present: supple, trachea midline. Absent: lymphadenopathy - Respiratory Additional comments: Diminished breath sounds bibasilarly - Cardiovascular Cardiovascular exam: Present: RRR, +S1, +S2. Absent: diastolic murmur, gallop, rubs, systolic murmur - GI/Abdominal GI/Abdominal exam: Present: normal bowel sounds, soft, no peritoneal signs. Absent: distended, tenderness - Extremities Exam Extremities exam: Present: warm, radial pulses palpable and symmetrical. Absent : calf tenderness, cyanotic, pedal edema - Neurological Exam Neurological exam: Present: CN II-XII intact, oriented X3, no focal deficits. Absent: pronater drift, facial droop, speech deficit Internal Med - H&P Results - Labs CBC & Chem 7: 08/11/17 16:07 08/11/17 16:07 - Assessment and plan (1) Chest pain Current Visit: Yes Status: Acute Assessment and plan: To rule out acute coronary syndrome Telemetry monitoring Aspirin, Metoprolol, statin,Nitrate when necessary Check fasting lipid profile Serial troponin every 6 hours for 3 sets Check an echocardiogram performed for evaluation of the heart structure and function Will get cardiac stress test in the morning Qualifiers: Qualified Code(s): R07.9 - Chest pain, unspecified (2) Pneumonia Current Visit: Yes Status: Acute Assessment and plan: 2 as charted that the patient oxygen was 85% but that was not accurate. We will recheck pulse ox Oxygen as per protocol to keep O2 saturation above 92% Start the patient on broad-spectrum antibiotics with vancomycin and Zosyn.Patient is immunocompromise Blood culture, urine culture, sputum culture DuoNeb scheduled and when necessary Antipyretics when necessary Qualifiers: Pneumonia type: due to unspecified organism Laterality: left Lung location: lower lobe of lung Qualified Code(s): J18.1 - Lobar pneumonia, unspecified organism (3) History of fibromyalgia Current Visit: Yes Status: Acute (4) Abdominal pain Current Visit: Yes Status: Acute Assessment and plan: Improving CT abdomen did not show any acute abdominal pathology Qualifiers: Qualified Code(s): R10.9 - Unspecified abdominal pain (5) On esomeprazole prophylaxis Current Visit: Yes Status: Acute (6) On esomeprazole prophylaxis Current Visit: Yes Status: Acute (7) DVT prophylaxis Current Visit: Yes Status: Acute Assessment and plan: With Lovenox subcutaneous - Time Spent With Patient Total time spent is greater than 50% in coordination of care (as documented) at patient's floor/unit and/or counseling patient:
[2017-08-11] MEDS ORDERED: Vancomycin (wt based) 1,000 MG VIAL IVPB SCH (20:00)
[2017-08-11] MEDS: ARIPiprazole 2 MG TABLET PO SCH (21:01)
[2017-08-11] MEDS: *HR* OxyCODONE Immed Rel 5 MG TABLET PO PRN (21:01)
[2017-08-11] MEDS: Piperacillin/Tazobactam 3.375 GM in 0.9 % Sodium Chloride Mini Bag 100 ML IVPB SCH (23:33)
[2017-08-12] MEDS ORDERED: *HR* FentaNYL PATCH 12 MCG PATCH TD SCH (01:00)
[2017-08-12 01:55] LABS: Basophils % 0.3 %; Hematocrit 37.6 % (35.3-44.9); Hemoglobin 12.4 g/dL (11.5-15.4); Immature Granulocytes % 0.5 % (0-4); Lymphocytes # 0.7 K/mcL (0.6-4.6); Lymphocytes % 8.7 %; Mean Corpuscular Hemoglobin 30.8 pg (28.0-33.3); Mean Corpuscular Volume 93.3 fL (83.0-100.0); Mean Platelet Volume 10.8 fL (9.4-12.4); Monocytes % 0.5 %; Platelet Count 215 K/mcL (140-400); Red Blood Count 4.03 M/mcL (3.82-4.97); Red Cell Distribution Width 13.8 % (11.5-14.5)
[2017-08-12 02:13] LABS: BUN/Creatinine Ratio 7 (6-26); Blood Urea Nitrogen 5 mg/dL (8-23); Calcium 8.6 mg/dL (8.6-10.3); Carbon Dioxide 21 mEq/L (23-29); Chloride 106 mEq/L (98-107); Cholesterol 133 mg/dL (< 200); Glucose 192 mg/dL (70-105); HDL Cholesterol 44 mg/dL (40-59); LDL Cholesterol,Calculated 74 mg/dL (0-99); Magnesium 1.7 mg/dL (1.6-2.6); Osmolality,Calculated 288 (280-300); Phosphorous 2.4 mg/dL (2.7-4.5); Potassium 3.4 mEq/L (3.5-5.1); Sodium 138 mEq/L (136-145); Triglycerides 76 mg/dL (< 150); eGFR For African Americans > 60 (> 60); eGFR For Non-African Americans > 60 (> 60)
[2017-08-12] MEDS ORDERED: Melatonin 3 MG TABLET PO ONE (03:15)
[2017-08-12] MEDS: *HR* OxyCODONE Immed Rel 5 MG TABLET PO PRN ×4 (04:33→20:29)
[2017-08-12] MEDS ORDERED: Regadenoson 0.4 MG/5 ML SYRINGE IVP ONE (10:22)
[2017-08-12] MEDS: Lactobacillus 1 EACH CAP.SPRINK PO SCH (11:13)
[2017-08-12] MEDS: Multivit/Ca/Min/Fe/FA 1 TAB TABLET PO SCH (11:13)
[2017-08-12] MEDS: Piperacillin/Tazobactam 3.375 GM in 0.9 % Sodium Chloride Mini Bag 100 ML IVPB SCH ×3 (11:14→23:31)
[2017-08-12] MEDS: Metoprolol 100 MG TABLET PO SCH (11:14)
[2017-08-12] MEDS: ARIPiprazole 2 MG TABLET PO SCH (20:25)
--- NOTE | 2017-08-12 23:02 | Internal Med Progress Note ---
Date of Encounter: 08/12/17 Time of Encounter: 22:57 - Assessment and plan (1) Pneumonia Current Visit: Yes Status: Acute Qualifiers: Pneumonia type: due to unspecified organism Laterality: left Lung location: lower lobe of lung Qualified Code(s): J18.1 - Lobar pneumonia, unspecified organism (2) Acute respiratory failure with hypoxia Current Visit: Yes Status: Acute (3) Chest pain Current Visit: Yes Status: Acute Qualifiers: Chest pain type: unspecified Qualified Code(s): R07.9 - Chest pain, unspecified (4) HTN (hypertension) Current Visit: Yes Status: Chronic Qualifiers: Hypertension type: essential hypertension Qualified Code(s): I10 - Essential (primary) hypertension (5) Hypothyroidism Current Visit: No Status: Chronic Qualifiers: Hypothyroidism type: acquired Qualified Code(s): E03.9 - Hypothyroidism, unspecified - Time Spent With Patient Total time spent is greater than 50% in coordination of care (as documented) at patient's floor/unit and/or counseling patient: 25 - 35 minutes - Subjective Interval history: .. The patient feels better. Her breathing is easier.She is using supplemental oxygen at 4.5 L/min. She does have some cough but not wheezing. Her right- sided chest pain/right flank pain is relatively mild today. Denies abdominal pain, nausea and vomiting. She has normal urination. OBJECTIVE: .. See below.. ASSESSMENT AND PLAN: .. Pneumonia with acute hypoxic respiratory failure. We will continue IV vancomycin/IV Zosyn. Will continue nebulizer treatments with DuoNeb and supplemental oxygen. Chest pain/flank pain, on the right side. Her EKG and her troponins are normal. The pain is likely secondary to pneumonia. Hypertension. Under control. Will continue Lopressor. Hypothyroidism. Clinically under control. We will continue Synthroid. We will check CBC, BMP and magnesium in the morning. We ordered MRSA surveillance screen and urine culture, as she has history of MRSA pneumonia and VRE UTI. - Constitutional Vitals: Temp Pulse Resp BP Pulse Ox 98.8 F 76 16 113/75 98 08/12/17 19:43 08/12/17 19:43 08/12/17 19:43 08/12/17 19:43 08/12/17 19:43 Internal Medicine: Result - Labs CBC & Chem 7: 08/12/17 01:39 08/12/17 01:39 Labs: Short CBC 08/12/17 Range/Units 01:39 WBC 7.7 (4.3-11.1) K/mcL Hgb 12.4 (11.5-15.4) g/dL Hct 37.6 (35.3-44.9) % Plt Count 215 (140-400) K/mcL Neutrophils # 7.0 (1.6-8.9) K/mcL BMP 08/12/17 01:39 Sodium 138 Potassium 3.4 L Chloride 106 Carbon Dioxide 21 L BUN 5 L Creatinine 0.67 Glucose 192 H Calcium 8.6 Cardiac Enzymes 08/12/17 08/12/17 Range/Units 01:39 07:55 Troponin I < 0.03 < 0.03 (< 0.04) ng/mL - ABG Interpretation ABG results: PT/INR, D-dimer PT 11.7 Seconds (9.4-12.1) 08/11/17 16:07 Consult Discharge Plan - Plan Referrals: Joseph Johns DO [Primary Care Provider] -
[2017-08-13] MEDS: *HR* OxyCODONE Immed Rel 5 MG TABLET PO PRN ×2 (03:26→18:01)
[2017-08-13 07:48] LABS: BUN/Creatinine Ratio 16 (6-26); Blood Urea Nitrogen 10 mg/dL (8-23); Calcium 8.5 mg/dL (8.6-10.3); Carbon Dioxide 27 mEq/L (23-29); Chloride 107 mEq/L (98-107); Glucose 105 mg/dL (70-105); Osmolality,Calculated 287 (280-300); Potassium 4.3 mEq/L (3.5-5.1); Sodium 139 mEq/L (136-145); eGFR For African Americans > 60 (> 60); eGFR For Non-African Americans > 60 (> 60)
[2017-08-13 08:04] LABS: Basophils % 0.2 %; Eosinophils # 0.1 K/mcL (0.0-0.6); Eosinophils % 1.5 %; Hematocrit 35.6 % (35.3-44.9); Hemoglobin 11.9 g/dL (11.5-15.4); Immature Granulocytes % 0.2 % (0-4); Lymphocytes # 2.2 K/mcL (0.6-4.6); Lymphocytes % 24.1 %; Mean Corpuscular HGB Conc 33.4 g/dL (31.6-35.5); Mean Corpuscular Hemoglobin 31.2 pg (28.0-33.3); Mean Corpuscular Volume 93.4 fL (83.0-100.0); Mean Platelet Volume 11.5 fL (9.4-12.4); Monocytes # 0.7 K/mcL (0.0-1.3); Monocytes % 7.8 %; Neutrophils # 6.1 K/mcL (1.6-8.9); Platelet Count 194 K/mcL (140-400); Red Blood Count 3.81 M/mcL (3.82-4.97); Red Cell Distribution Width 13.9 % (11.5-14.5); Segmented Neutrophils % 66.2 %
[2017-08-13] MEDS: Multivit/Ca/Min/Fe/FA 1 TAB TABLET PO SCH (09:58)
[2017-08-13] MEDS: Metoprolol 100 MG TABLET PO SCH (09:58)
[2017-08-13] MEDS: Piperacillin/Tazobactam 3.375 GM in 0.9 % Sodium Chloride Mini Bag 100 ML IVPB SCH ×2 (09:59→18:01)
[2017-08-13] MEDS: Lactobacillus 1 EACH CAP.SPRINK PO SCH (09:59)
[2017-08-13] MEDS: ARIPiprazole 2 MG TABLET PO SCH (19:54)
--- NOTE | 2017-08-13 23:25 | Internal Med Progress Note ---
Date of Encounter: 08/13/17 Time of Encounter: 23:25 - Assessment and plan (1) Pneumonia Status: Acute Qualifiers: Pneumonia type: due to unspecified organism Laterality: left Lung location: lower lobe of lung Qualified Code(s): J18.1 - Lobar pneumonia, unspecified organism (2) Acute respiratory failure with hypoxia Status: Acute (3) Chest pain Status: Acute Qualifiers: Chest pain type: unspecified Qualified Code(s): R07.9 - Chest pain, unspecified (4) HTN (hypertension) Status: Chronic Qualifiers: Hypertension type: essential hypertension Qualified Code(s): I10 - Essential (primary) hypertension (5) Hypothyroidism Status: Chronic Qualifiers: Hypothyroidism type: acquired Qualified Code(s): E03.9 - Hypothyroidism, unspecified - Time Spent With Patient Total time spent is greater than 50% in coordination of care (as documented) at patient's floor/unit and/or counseling patient: 25 - 35 minutes - Subjective Interval history: .. The patient feels progressively better. Her breathing is easier. She is using supplemental oxygen via nasal cannula. She does have some coughing about not wheezing. Her right-sided chest pain/right flank pain is relatively mild. Denies abdominal pain, nausea and vomiting. She has normal urination. OBJECTIVE: .. Skin: Free of rash and discoloration Respiratory: Normal breath sounds; no crackles or wheezes. CV: Heart is regular; no gallop or murmur. GI: Abdomen is soft and not tender. There is no palpable mass or visceromegaly. Neuro: There is no focal deficits. ASSESSMENT AND PLAN: .. Pneumonia with acute hypoxic respiratory failure. We will continue IV vancomycin/IV Zosyn. Will continue nebulizer treatments with DuoNeb and supplemental oxygen. Chest pain/flank pain, on the right side. Her EKG and her troponins are normal. The pain is likely secondary to pneumonia. Hypertension. Under control. Will continue Lopressor. Hypothyroidism. Clinically under control. We will continue Synthroid. MRSA surveillance is positive. Urine culture is not growing any bacteria. - Constitutional Vitals: Temp Pulse Resp BP Pulse Ox 98.6 F 73 17 133/82 96 08/13/17 18:52 08/13/17 18:52 08/13/17 18:52 08/13/17 18:52 08/13/17 18:52 Internal Medicine: Result - Labs CBC & Chem 7: 08/13/17 07:05 08/13/17 07:05 Labs: Short CBC 08/13/17 Range/Units 07:05 WBC 9.2 (4.3-11.1) K/mcL Hgb 11.9 (11.5-15.4) g/dL Hct 35.6 (35.3-44.9) % Plt Count 194 (140-400) K/mcL Neutrophils # 6.1 (1.6-8.9) K/mcL BMP 08/13/17 07:05 Sodium 139 Potassium 4.3 Chloride 107 Carbon Dioxide 27 BUN 10 Creatinine 0.63 Glucose 105 Calcium 8.5 L - ABG Interpretation ABG results: PT/INR, D-dimer PT 11.7 Seconds (9.4-12.1) 08/11/17 16:07 Consult Discharge Plan - Plan Referrals: Joseph Johns DO [Primary Care Provider] - (web requests sent to PCP. If you do not hear from them by tomorrow morning please call and schedule a hospital follow up in 5-7 days. Thank you!) Prescriptions: Cefdinir [Omnicef] 300 mg PO BID #10 capsule Mupirocin [Bactroban Oint] 1 appl NS BID #1 tube Potassium Chloride 20 meq PO BID #60 tab.er.prt
[2017-08-14] MEDS: Piperacillin/Tazobactam 3.375 GM in 0.9 % Sodium Chloride Mini Bag 100 ML IVPB SCH ×2 (00:12→10:40)
[2017-08-14] MEDS: *HR* OxyCODONE Immed Rel 5 MG TABLET PO PRN (00:12)
[2017-08-14] MEDS ORDERED: Regadenoson 0.4 MG/5 ML SYRINGE IVP ONE (06:10)
[2017-08-14] MEDS ORDERED: Acetaminophen 325 MG TABLET PO PRN (08:56)
[2017-08-14] MEDS ORDERED: *HR* OxyCODONE Immed Rel 5 MG TABLET PO PRN (08:56)
[2017-08-14 10:36] LABS: Mycoplasma pneumoniae IgG 0.1 U/L (<=0.09)
[2017-08-14] MEDS: Lactobacillus 1 EACH CAP.SPRINK PO SCH (10:39)
[2017-08-14] MEDS: Metoprolol 100 MG TABLET PO SCH (10:39)
[2017-08-14] MEDS: Multivit/Ca/Min/Fe/FA 1 TAB TABLET PO SCH (10:39)
[2017-08-14 11:40] VITALS: BP 131/78
--- NOTE | 2017-08-14 14:11 | Discharge Summary ---
- NOTES TO OUTPATIENT PROVIDER Notes to Outpatient Provider: We treated her for pneumonia. Her difficulty breathing subsided; she is not hypoxic anymore. With found Streptococcus pneumoniae antigen in urine. Sputum culture is noncontributory. We treated her with IV vancomycin/IV Zosyn. She needs 5 more days of Omnicef at home. She has history of MRSA pneumonia and VRE UTI. With found MRSA in urine culture. We did not find VRE in her urine culture. She had pharmacological stress test. It showed normal results. Orders not resulted at time of discharge: Pending orders 08/12/17 10:14 NM veda perf SPECT multi [NM] Routine Date of Encounter: 08/14/17 Time of Encounter: 14:07 - Discharge Diagnosis (1) Pneumonia Priority: Primary Status: Acute Qualifiers: Pneumonia type: due to unspecified organism Laterality: left Lung location: lower lobe of lung Qualified Code(s): J18.1 - Lobar pneumonia, unspecified organism (2) Acute respiratory failure with hypoxia Priority: Secondary Status: Acute (3) Chest pain Priority: Secondary Status: Acute Qualifiers: Chest pain type: unspecified Qualified Code(s): R07.9 - Chest pain, unspecified (4) HTN (hypertension) Priority: Secondary Status: Chronic Qualifiers: Hypertension type: essential hypertension Qualified Code(s): I10 - Essential (primary) hypertension (5) Hypothyroidism Priority: Secondary Status: Chronic Qualifiers: Hypothyroidism type: acquired Qualified Code(s): E03.9 - Hypothyroidism, unspecified Hospital course: Ms. Mayes is a 66 year old female. We treated her for pneumonia. Her difficulty breathing subsided; she is not hypoxic anymore. With found Streptococcus pneumoniae antigen in urine. Sputum culture is noncontributory. We treated her with IV vancomycin/IV Zosyn. She needs 5 more days of Omnicef at home. She has history of MRSA pneumonia and VRE UTI. With found MRSA in urine culture. We did not find VRE in her urine culture. She had pharmacological stress test. It showed normal results. Discharge discussed with: patient, family, nurse, case management - Time Spent with Patient Total time spent providing and/or coordinating discharge services: Greater than 30 minutes (40 minutes) - Discharge Medications Prescriptions: Cefdinir [Omnicef] 300 mg PO BID #10 capsule Mupirocin [Bactroban Oint] 1 appl NS BID #1 tube Potassium Chloride 20 meq PO BID #60 tab.er.prt Home Medications: Albuterol Sulfate [Proair Hfa] 2 puff IH Q4H PRN 07/14/15 [History] Allopurinol [Zyloprim 300 MG] 300 mg PO DAILY 07/14/15 [History] Cyclobenzaprine [Flexeril] 10 mg PO TID 07/14/15 [History] Hydroxychloroquine [Plaquenuil] 400 mg PO DAILY 07/14/15 [History] Levothyroxine [Synthroid] 50 mcg PO QAM 07/14/15 [History] Metaxalone [Skelaxin] 800 mg PO BID 07/14/15 [History] OxyCODONE Immed Rel [Roxicodone 10 MG] 10 mg PO Q6H PRN 07/14/15 [History] Furosemide [Lasix] 20 mg PO DAILY PRN 12/31/16 [History] Immune Globulin, Gamma(IGG) [Gammagard 10% 10 GM/100 mL] 10 ml IVC WE 05/09/17 [ History] Ipratropium/Albuterol Neb [Duoneb] 3 ml IH Q6H PRN 05/09/17 [History] Metoprolol Tartrate 100 mg PO DAILY 05/09/17 [History] NIFEdipine [Procardia] 10 mg PO DAILY PRN 05/09/17 [History] Pregabalin [Lyrica] 100 mg PO TID PRN 05/09/17 [History] Lactobacillus Acidophilus [Acidophilus Probiotic] 1 mg PO DAILY 06/23/17 [ History] Silver Hydosol 1 spr NS QID 06/23/17 [History] ARIPiprazole [Abilify] 2 mg PO HS #30 tablet 06/28/17 [Rx] DULoxetine [Cymbalta] 30 mg PO DAILY #30 capsule. 06/28/17 [Rx] Aspirin 325 mg PO DAILY 08/11/17 [History] Atorvastatin Calcium [Lipitor] 20 mg PO HS 08/11/17 [History] FentaNYL PATCH [Duragesic] 12 mcg TD Q72H 08/11/17 [History] Multivitamin [One Daily Multivitamin] 1 tab PO DAILY 08/11/17 [History] Cefdinir [Omnicef] 300 mg PO BID #10 capsule 08/14/17 [Rx] Mupirocin [Bactroban Oint] 1 appl NS BID #1 tube 08/14/17 [Rx] Potassium Chloride 20 meq PO BID #60 tab.er.prt 08/14/17 [Rx] Allergies/Adverse Reactions: 3 Allergy/AdvReac Type Severity Reaction Status Date / Time No Known Allergies Allergy Verified 08/11/17 19:55 Date of admission: 08/11/17 19:49 Primary care physician: Joseph Johns, Discharging clinician: Maynor Tinajero Anticipated date of discharge: 08/14/17 - Constitutional Vitals: Temp Pulse Resp BP Pulse Ox 98.3 F 65 16 131/78 96 08/14/17 11:29 08/14/17 11:29 08/14/17 11:29 08/14/17 11:29 08/14/17 11:29 General appearance: Present: A&O X 3, pleasant, no acute distress - Respiratory Respiratory exam: Present: CTAB. Absent: accessory muscle use, rales, rhonchi, wheezes - Cardiovascular Cardiovascular exam: Present: RRR, +S1, +S2. Absent: diastolic murmur, gallop, rubs, systolic murmur - GI/Abdominal GI/Abdominal exam: Present: normal bowel sounds, soft, no peritoneal signs. Absent: distended, tenderness - Patient Status Disposition: Home, Self-Care Condition: Fair Functional capacity at discharge: independent ambulation Overall status at discharge: patient is progressing back to baseline - Discharge Instructions Follow Up With: Joseph Johns DO [Primary Care Provider] - (web requests sent to PCP. If you do not hear from them by tomorrow morning please call and schedule a hospital follow up in 5-7 days. Thank you!) - Diet and Activity Activity: resume usual activities as tolerated - VTE Reasons for not Prescribing Prophylaxis: Treatment not Indicated - Low risk for VTE Deep Vein Thrombosis/Pulmonary Embolism Present on Admission: No
[2017-08-14] MEDS ORDERED: Aminoglycoside Consult 1 EACH MC ONE (15:11)
--- NOTE | 2017-08-15 16:44 | Electrocardiograph Report ---
[address] [place] [address] Test Date: 2017-08-11 Pat Name: Josie Mayes Department: 104 Room: 2A33 Gender: F Coordinator Of Genetic Services: GOPAL : 1950 Requested By: Rusty Ramirez Order Number: [id number] Reading MD: Marita Mir Measurements Intervals [place] Rate: 93 P: 29 CT: 146 QRS: -38 QRSD: 87 T: 27 QT: 355 QTc: 406 Interpretive Statements SINUS RHYTHM LOW QRS VOLTAGE IN PRECORDIAL LEADS INFERIOR MYOCARDIAL INFARCTION, PROBABLY OLD Electronically Signed On 08-15-2017 16:42:49 EDT by Marita Mir
== END 2017-08-14 15:12 | disposition home or self-care (01) | DRG 193 ==
LOC: 2ANU 15:37 → EMEROO 15:37 → 2ANU 19:36 → SUATTDRO 19:49
PROVIDERS: ADMIT Internal Medicine; ATTEND Internal Medicine

== ENCOUNTER 2017-08-22 17:58 | Inpatient (IN) ==
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
[2017-08-22] MEDS ORDERED: CefTRIAXone 1,000 MG VIAL IM ONE (20:58)
[2017-08-22 21:27] LABS: Basophils # 0.1 K/mcL (0.0-0.2); Basophils % 0.6 %; Eosinophils # 0.4 K/mcL (0.0-0.6); Eosinophils % 3.2 %; Hematocrit 40.1 % (35.3-44.9); Hemoglobin 13.2 g/dL (11.5-15.4); Immature Granulocytes % 0.5 % (0-4); Lymphocytes # 2.1 K/mcL (0.6-4.6); Lymphocytes % 18.9 %; Mean Corpuscular HGB Conc 32.9 g/dL (31.6-35.5); Mean Corpuscular Volume 94.1 fL (83.0-100.0); Mean Platelet Volume 9.8 fL (9.4-12.4); Monocytes # 1.1 K/mcL (0.0-1.3); Monocytes % 9.6 %; Neutrophils # 7.6 K/mcL (1.6-8.9); Platelet Count 278 K/mcL (140-400); Red Blood Count 4.26 M/mcL (3.82-4.97); Red Cell Distribution Width 13.8 % (11.5-14.5); Segmented Neutrophils % 67.2 %
[2017-08-22] MEDS ORDERED: Levofloxacin 750 MG/150 ML 750 MG/150 ML BAG IVPB ONE (21:32)
[2017-08-22] MEDS ORDERED: Piperacillin/Tazobactam 3.375 GM in 0.9 % Sodium Chloride Mini Bag 100 ML IVPB ONE (21:32)
[2017-08-22 21:42] LABS: BUN/Creatinine Ratio 8 (6-26); Blood Urea Nitrogen 6 mg/dL (8-23); Calcium 9.1 mg/dL (8.6-10.3); Carbon Dioxide 29 mEq/L (23-29); Chloride 101 mEq/L (98-107); Glucose 106 mg/dL (70-105); Osmolality,Calculated 282 (280-300); Potassium 3.8 mEq/L (3.5-5.1); Sodium 137 mEq/L (136-145); eGFR For African Americans > 60 (> 60); eGFR For Non-African Americans > 60 (> 60)
[2017-08-22 21:43] LABS: Troponin I < 0.03 ng/mL (< 0.04)
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
[2017-08-22] MEDS ORDERED: Naloxone 0.4 MG/ML INJ IVP PRN (23:54)
[2017-08-22] MEDS ORDERED: Acetaminophen 325 MG TABLET PO PRN (23:58)
[2017-08-23] MEDS ORDERED: Furosemide 20 MG TABLET PO PRN
[2017-08-23] MEDS: Ipratropium/Albuterol Neb 3 ML IH SCH ×4 (03:55→21:40)
[2017-08-23] MEDS ORDERED: *HR* FentaNYL (PF) 100 MCG/2 ML VIAL IVP ONE (04:30)
[2017-08-23 04:40] LABS: Basophils % 0.5 %; Eosinophils # 0.4 K/mcL (0.0-0.6); Eosinophils % 4.3 %; Hematocrit 40.3 % (35.3-44.9); Hemoglobin 13.2 g/dL (11.5-15.4); Immature Granulocytes % 0.6 % (0-4); Lymphocytes # 2.3 K/mcL (0.6-4.6); Lymphocytes % 26.7 %; Mean Corpuscular HGB Conc 32.8 g/dL (31.6-35.5); Mean Corpuscular Hemoglobin 30.8 pg (28.0-33.3); Mean Corpuscular Volume 94.2 fL (83.0-100.0); Mean Platelet Volume 9.9 fL (9.4-12.4); Monocytes # 0.9 K/mcL (0.0-1.3); Monocytes % 10.7 %; Neutrophils # 4.8 K/mcL (1.6-8.9); Platelet Count 283 K/mcL (140-400); Red Blood Count 4.28 M/mcL (3.82-4.97); Red Cell Distribution Width 13.8 % (11.5-14.5); Segmented Neutrophils % 57.2 %
[2017-08-23 05:00] LABS: BUN/Creatinine Ratio 6 (6-26); Blood Urea Nitrogen 4 mg/dL (8-23); Calcium 8.8 mg/dL (8.6-10.3); Carbon Dioxide 31 mEq/L (23-29); Chloride 101 mEq/L (98-107); Glucose 95 mg/dL (70-105); Osmolality,Calculated 285 (280-300); Potassium 3.7 mEq/L (3.5-5.1); Sodium 139 mEq/L (136-145); eGFR For African Americans > 60 (> 60); eGFR For Non-African Americans > 60 (> 60)
[2017-08-23 05:26] LABS: Bilirubin,Urine Negative (Negative); Blood,Urine Negative (Negative); Clarity,Urine Clear (Clear); Color,Urine Yellow (Yellow); Glucose,Urine (UA) Normal (Normal); Ketones,Urine Negative (Negative); Leukocyte Esterase,Urine Negative (Negative); Nitrite,Urine Negative (Negative); Protein,Urine Negative (Neg-Trace); Urobilinogen,Urine Normal (Normal)
[2017-08-23] MEDS: *HR* Heparin 5,000 UNIT/ML VIAL SQ SCH ×3 (06:38→19:30)
[2017-08-23] MEDS: Piperacillin/Tazobactam 3.375 GM in 0.9 % Sodium Chloride Mini Bag 100 ML IVPB SCH ×2 (08:51→15:35)
[2017-08-23] MEDS: Aspirin 325 MG TABLET PO SCH (08:58)
[2017-08-23] MEDS: Metoprolol 100 MG TABLET PO SCH (08:58)
[2017-08-23] MEDS: *HR* FentaNYL PATCH 12 MCG PATCH TD SCH (11:19)
[2017-08-23] MEDS: *HR* OxyCODONE Immed Rel 5 MG TABLET PO PRN ×2 (11:21→18:12)
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
[2017-08-23] MEDS: ARIPiprazole 2 MG TABLET PO SCH (19:29)
[2017-08-23] MEDS ORDERED: Levofloxacin 750 MG/150 ML 750 MG/150 ML BAG IVPB SCH (21:00)
[2017-08-24] MEDS ORDERED: *HR* LORazepam 2 MG/ML VIAL IVP ONE (00:03)
[2017-08-24 00:32] LABS: Basophils # 0.1 K/mcL (0.0-0.2); Eosinophils # 0.4 K/mcL (0.0-0.6); Hematocrit 41.8 % (35.3-44.9); Immature Granulocytes % 0.4 % (0-4); Lymphocytes # 1.6 K/mcL (0.6-4.6); Lymphocytes % 21.7 %; Mean Corpuscular HGB Conc 33.5 g/dL (31.6-35.5); Mean Corpuscular Hemoglobin 30.8 pg (28.0-33.3); Mean Corpuscular Volume 92.1 fL (83.0-100.0); Mean Platelet Volume 9.5 fL (9.4-12.4); Monocytes # 0.9 K/mcL (0.0-1.3); Monocytes % 12.5 %; Neutrophils # 4.3 K/mcL (1.6-8.9); Platelet Count 265 K/mcL (140-400); Red Blood Count 4.54 M/mcL (3.82-4.97); Red Cell Distribution Width 13.5 % (11.5-14.5); Segmented Neutrophils % 59.4 %
[2017-08-24 00:45] LABS: Alanine Aminotransferase 7 Units/L (7-52); Albumin 3.8 g/dL (3.5-5.7); Albumin/Globulin Ratio 1.4 (1.1-2.2); Alkaline Phosphatase 72 Units/L (34-104); Aspartate Amino Transferase 18 Units/L (13-39); BUN/Creatinine Ratio 7 (6-26); Bilirubin,Total 0.3 mg/dL (0.3-1.0); Blood Urea Nitrogen 5 mg/dL (8-23); Calcium 9.3 mg/dL (8.6-10.3); Carbon Dioxide 28 mEq/L (23-29); Chloride 104 mEq/L (98-107); Globulin 2.7 g/dL (2.4-3.5); Glucose 97 mg/dL (70-105); Osmolality,Calculated 283 (280-300); Potassium 4.1 mEq/L (3.5-5.1); Sodium 138 mEq/L (136-145); Total Protein 6.5 g/dL (6.4-8.9); eGFR For African Americans > 60 (> 60); eGFR For Non-African Americans > 60 (> 60)
[2017-08-24] MEDS: Piperacillin/Tazobactam 3.375 GM in 0.9 % Sodium Chloride Mini Bag 100 ML IVPB SCH ×2 (01:44→08:01)
[2017-08-24] MEDS: Ipratropium/Albuterol Neb 3 ML IH SCH ×5 (03:53→22:02)
[2017-08-24] MEDS: *HR* Heparin 5,000 UNIT/ML VIAL SQ SCH ×3 (05:51→21:18)
[2017-08-24] MEDS: *HR* OxyCODONE Immed Rel 5 MG TABLET PO PRN ×3 (08:01→23:00)
[2017-08-24] MEDS: Aspirin 325 MG TABLET PO SCH (08:01)
[2017-08-24] MEDS: Metoprolol 100 MG TABLET PO SCH (08:02)
--- NOTE | 2017-08-24 08:41 | Electrocardiograph Report ---
[address] [place] [address] Test Date: 2017-08-22 Pat Name: Josie Mayes Department: 103 Room: 2A33 Gender: F Pr Internship: : 1950 Requested By: Erlin Sanchez Order Number: [id number] Reading MD: Dieter Alston Measurements Intervals [place] Rate: 104 P: 33 [place]: 143 QRS: -35 QRSD: 86 T: 30 QT: 282 QTc: 342 Interpretive Statements SINUS TACHYCARDIA MARKED LEFT AXIS DEVIATION LOW QRS VOLTAGE IN PRECORDIAL LEADS Poor R wave progression Electronically Signed On 08-24-2017 8:40:23 EDT by Dieter Alston
[2017-08-24] MEDS: Cefepime HCl 2,000 MG in Water for inj. (sterile) 20 ML 20 ML IVP SCH (16:12)
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
[2017-08-24] MEDS ORDERED: levoFLOXacin 750 MG TABLET PO SCH (21:00)
[2017-08-24] MEDS: ARIPiprazole 2 MG TABLET PO SCH (21:18)
[2017-08-24] MEDS: Melatonin 3 MG TABLET PO PRN (23:00)
[2017-08-25] MEDS: Cefepime HCl 2,000 MG in Water for inj. (sterile) 20 ML 20 ML IVP SCH ×2 (03:56→16:12)
[2017-08-25 04:12] LABS: Basophils # 0.1 K/mcL (0.0-0.2); Basophils % 0.7 %; Eosinophils # 0.4 K/mcL (0.0-0.6); Eosinophils % 5.3 %; Hemoglobin 12.5 g/dL (11.5-15.4); Immature Granulocytes % 0.4 % (0-4); Lymphocytes # 1.8 K/mcL (0.6-4.6); Lymphocytes % 25.9 %; Mean Corpuscular HGB Conc 32.9 g/dL (31.6-35.5); Mean Corpuscular Volume 91.1 fL (83.0-100.0); Mean Platelet Volume 9.6 fL (9.4-12.4); Monocytes # 0.7 K/mcL (0.0-1.3); Monocytes % 9.7 %; Neutrophils # 4.1 K/mcL (1.6-8.9); Platelet Count 296 K/mcL (140-400); Red Blood Count 4.17 M/mcL (3.82-4.97); Red Cell Distribution Width 13.8 % (11.5-14.5)
[2017-08-25] MEDS: Ipratropium/Albuterol Neb 3 ML IH SCH (04:12)
[2017-08-25 04:31] LABS: Alanine Aminotransferase 6 Units/L (7-52); Albumin 3.6 g/dL (3.5-5.7); Albumin/Globulin Ratio 1.6 (1.1-2.2); Alkaline Phosphatase 73 Units/L (34-104); Aspartate Amino Transferase 15 Units/L (13-39); BUN/Creatinine Ratio 8 (6-26); Bilirubin,Total 0.3 mg/dL (0.3-1.0); Blood Urea Nitrogen 5 mg/dL (8-23); Calcium 9.4 mg/dL (8.6-10.3); Carbon Dioxide 28 mEq/L (23-29); Chloride 104 mEq/L (98-107); Globulin 2.3 g/dL (2.4-3.5); Glucose 110 mg/dL (70-105); Osmolality,Calculated 284 (280-300); Potassium 4.3 mEq/L (3.5-5.1); Sodium 138 mEq/L (136-145); Total Protein 5.9 g/dL (6.4-8.9); eGFR For African Americans > 60 (> 60); eGFR For Non-African Americans > 60 (> 60)
[2017-08-25] MEDS: *HR* OxyCODONE Immed Rel 5 MG TABLET PO PRN ×4 (04:56→22:17)
[2017-08-25] MEDS: *HR* Heparin 5,000 UNIT/ML VIAL SQ SCH ×3 (04:56→22:17)
[2017-08-25] MEDS: Aspirin 325 MG TABLET PO SCH (09:12)
[2017-08-25] MEDS ORDERED: Ipratropium/Albuterol Neb 3 ML IH PRN (09:41)
--- NOTE | 2017-08-25 10:01 | Electrocardiograph Report ---
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
[2017-08-25] MEDS ORDERED: Fluconazole 100 MG TABLET PO ONE (11:29)
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
[2017-08-25] MEDS: ARIPiprazole 2 MG TABLET PO SCH (20:03)
[2017-08-25] MEDS: Melatonin 3 MG TABLET PO PRN (22:17)
[2017-08-26] MEDS: Cefepime HCl 2,000 MG in Water for inj. (sterile) 20 ML 20 ML IVP SCH ×2 (04:07→16:16)
[2017-08-26] MEDS: *HR* OxyCODONE Immed Rel 5 MG TABLET PO PRN ×3 (04:13→21:26)
[2017-08-26] MEDS: *HR* Heparin 5,000 UNIT/ML VIAL SQ SCH ×3 (05:28→21:27)
[2017-08-26 05:30] LABS: Basophils % 0.7 %; Eosinophils # 0.4 K/mcL (0.0-0.6); Eosinophils % 6.6 %; Hematocrit 39.9 % (35.3-44.9); Hemoglobin 13.5 g/dL (11.5-15.4); Immature Granulocytes % 0.7 % (0-4); Lymphocytes % 34.5 %; Mean Corpuscular HGB Conc 33.8 g/dL (31.6-35.5); Mean Corpuscular Volume 88.7 fL (83.0-100.0); Mean Platelet Volume 9.4 fL (9.4-12.4); Monocytes # 0.6 K/mcL (0.0-1.3); Monocytes % 10.9 %; Neutrophils # 2.7 K/mcL (1.6-8.9); Platelet Count 277 K/mcL (140-400); Red Cell Distribution Width 13.9 % (11.5-14.5); Segmented Neutrophils % 46.6 %
[2017-08-26 05:49] LABS: BUN/Creatinine Ratio 9 (6-26); Blood Urea Nitrogen 6 mg/dL (8-23); Calcium 9.6 mg/dL (8.6-10.3); Carbon Dioxide 26 mEq/L (23-29); Chloride 103 mEq/L (98-107); Glucose 101 mg/dL (70-105); Osmolality,Calculated 282 (280-300); Potassium 4.1 mEq/L (3.5-5.1); Sodium 137 mEq/L (136-145); eGFR For African Americans > 60 (> 60); eGFR For Non-African Americans > 60 (> 60)
[2017-08-26] MEDS: Aspirin 325 MG TABLET PO SCH (09:32)
[2017-08-26] MEDS: Acetaminophen 325 MG TABLET PO PRN (09:33)
[2017-08-26] MEDS: *HR* FentaNYL PATCH 12 MCG PATCH TD SCH (11:42)
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
[2017-08-26] MEDS: Melatonin 3 MG TABLET PO PRN (21:26)
[2017-08-26] MEDS: ARIPiprazole 2 MG TABLET PO SCH (21:27)
[2017-08-27] MEDS ORDERED: 0.9 % Sodium Chloride 250 ML ONE (00:40)
[2017-08-27] MEDS: Cefepime HCl 2,000 MG in Water for inj. (sterile) 20 ML 20 ML IVP SCH ×2 (04:28→16:18)
[2017-08-27] MEDS: *HR* OxyCODONE Immed Rel 5 MG TABLET PO PRN ×3 (06:57→23:40)
[2017-08-27] MEDS: *HR* Heparin 5,000 UNIT/ML VIAL SQ SCH ×3 (06:57→20:24)
[2017-08-27 08:10] LABS: Basophils # 0.1 K/mcL (0.0-0.2); Basophils % 0.9 %; Eosinophils # 0.2 K/mcL (0.0-0.6); Eosinophils % 3.4 %; Hematocrit 48.1 % (35.3-44.9); Immature Granulocytes % 0.6 % (0-4); Lymphocytes # 1.9 K/mcL (0.6-4.6); Lymphocytes % 27.3 %; Mean Corpuscular HGB Conc 34.1 g/dL (31.6-35.5); Mean Corpuscular Hemoglobin 30.8 pg (28.0-33.3); Mean Corpuscular Volume 90.2 fL (83.0-100.0); Mean Platelet Volume 9.7 fL (9.4-12.4); Monocytes # 0.7 K/mcL (0.0-1.3); Monocytes % 9.4 %; Neutrophils # 4.1 K/mcL (1.6-8.9); Platelet Count 306 K/mcL (140-400); Red Blood Count 5.33 M/mcL (3.82-4.97); Red Cell Distribution Width 13.8 % (11.5-14.5); Segmented Neutrophils % 58.4 %
[2017-08-27 08:11] LABS: Hemoglobin 16.4 g/dL (11.5-15.4)
[2017-08-27] MEDS: Aspirin 325 MG TABLET PO SCH (08:30)
[2017-08-27 08:36] LABS: BUN/Creatinine Ratio 12 (6-26); Blood Urea Nitrogen 8 mg/dL (8-23); Calcium 10.1 mg/dL (8.6-10.3); Carbon Dioxide 26 mEq/L (23-29); Chloride 101 mEq/L (98-107); Glucose 91 mg/dL (70-105); Osmolality,Calculated 280 (280-300); Sodium 136 mEq/L (136-145); eGFR For African Americans > 60 (> 60); eGFR For Non-African Americans > 60 (> 60)
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
[2017-08-27] MEDS: Melatonin 3 MG TABLET PO PRN (20:24)
[2017-08-27] MEDS: Acetaminophen 325 MG TABLET PO PRN (20:24)
[2017-08-27] MEDS: ARIPiprazole 2 MG TABLET PO SCH (20:24)
[2017-08-27] MEDS ORDERED: NIFEdipine 10 MG CAPSULE PO ONE (20:42)
[2017-08-28] MEDS: Cefepime HCl 2,000 MG in Water for inj. (sterile) 20 ML 20 ML IVP SCH ×2 (04:44→15:41)
[2017-08-28] MEDS: *HR* Heparin 5,000 UNIT/ML VIAL SQ SCH ×2 (04:46→14:21)
[2017-08-28] MEDS: *HR* OxyCODONE Immed Rel 5 MG TABLET PO PRN ×2 (06:54→15:40)
[2017-08-28] MEDS: Aspirin 325 MG TABLET PO SCH (07:33)
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
--- NOTE | 2017-08-28 13:24 | Event Note ---
Date of Encounter: 08/28/17 Time of Encounter: 15:33 Late entry CODE STROKE ALERT Code called due to pt's stating pt waas unresponsive. Upon my arrival, pt was responsive. Pt states she presents this way when ever she get prinzmetal agina flare. She requested warm blankets and states reaction only lasts a few minutes. She denies difficulty swallowing and denies any visual disturbances. Pt was down graded to CVA r/o and STAT non-contrast head Ct obtained. Pt is slowly improving.
[2017-08-28 13:57] LABS: Hematocrit 49.8 % (35.3-44.9); Hemoglobin 16.3 g/dL (11.5-15.4); Mean Corpuscular HGB Conc 32.7 g/dL (31.6-35.5); Mean Corpuscular Volume 91.7 fL (83.0-100.0); Mean Platelet Volume 10.2 fL (9.4-12.4); Platelet Count 280 K/mcL (140-400); Red Blood Count 5.43 M/mcL (3.82-4.97); Red Cell Distribution Width 14.1 % (11.5-14.5)
[2017-08-28 14:08] LABS: BUN/Creatinine Ratio 15 (6-26); Blood Urea Nitrogen 12 mg/dL (8-23); Calcium 10.3 mg/dL (8.6-10.3); Carbon Dioxide 27 mEq/L (23-29); Chloride 101 mEq/L (98-107); Glucose 87 mg/dL (70-105); Osmolality,Calculated 283 (280-300); Potassium 4.8 mEq/L (3.5-5.1); Sodium 137 mEq/L (136-145); eGFR For African Americans > 60 (> 60); eGFR For Non-African Americans > 60 (> 60)
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
[2017-08-28 15:59] VITALS: BP 123/76
[2017-08-28] MEDS ORDERED: Aminoglycoside Consult 1 EACH MC ONE (17:55)
[2017-08-28 18:30] LABS: Adenovirus Not Detected (Not Detect); Bordetella Pertussis Not Detected (Not Detect); Chlamydophila pneumoniae Not Detected (Not Detect); Coronavirus 229E Not Detected (Not Detect); Coronavirus HKU1 Not Detected (Not Detect); Coronavirus NL63 Not Detected (Not Detect); Coronavirus OC43 Not Detected (Not Detect); Human Metapneumovirus Not Detected (Not Detect); Human Rhinovirus/Enterovirus Not Detected (Not Detect); Influenza A Subtype 2009 H1 Not Detected (Not Detect); Influenza A Untypeable Not Detected (Not Detect); Influenza B Not Detected (Not Detect); Mycoplasma pneumoniae Not Detected (Not Detect); Parainfluenza Virus 1 Not Detected (Not Detect); Parainfluenza Virus 2 Not Detected (Not Detect); Parainfluenza Virus 3 Not Detected (Not Detect); Parainfluenza Virus 4 Not Detected (Not Detect); Respiratory Syncytial Virus Not Detected (Not Detect)
== END 2017-08-28 17:56 | disposition home or self-care (01) | DRG 871 ==
LOC: 2ANU 17:58 → EMEROO 17:58 → 2ANU 23:12 → SUATTDRO 08-23 15:13
PROVIDERS: ADMIT Student in an Organized Health Care Education/Training Program; ATTEND Student in an Organized Health Care Education/Training Program

== ENCOUNTER 2017-09-20 04:47 | Inpatient (IN) ==
[2017-09-20] MEDS ORDERED: Piperacillin/Tazobactam 3.375 GM in 0.9 % Sodium Chloride Mini Bag 100 ML IVPB ONE (04:55)
--- NOTE | 2017-09-20 05:06 | Emergency Department Note ---
Disposition Clinical Impression: Hypogammaglobulinemia, Hypercapnia Community acquired pneumonia Qualifiers: Laterality: right Lung location: unspecified part of lung Qualified Code(s): J18.9 - Pneumonia, unspecified organism Pulmonary edema Qualifiers: Chronicity: acute Qualified Code(s): J81.0 - Acute pulmonary edema Dyspnea Qualifiers: Dyspnea type: unspecified Qualified Code(s): R06.00 - Dyspnea, unspecified Altered mental state Qualifiers: Altered mental status type: disorientation Qualified Code(s): R41.0 - Disorientation, unspecified Disposition: Admitted As Inpatient Condition: Good Time of Disposition: 06:27 General Adult HPI - General Chief complaint: ED Shortness of Breath/Dyspnea Stated complaint: SoB Time Seen by Provider: 09/20/17 04:55 Source: patient Limitations: no limitations Nursing Notes Reviewed: Yes Vital Signs Reviewed: Yes - History of Present Illness HPI Narrative: Patient brought in by EMS. They report initial oxygen saturation in the 70s. She called 911 for shortness of breath. Is always on oxygen. Does have a history of COPD. They gave her breathing treatment her oxygen saturation linda into the 90s. Pain Scale: 5 - Related Data Home Medications Medication Instructions Recorded Confirmed Albuterol Sulfate [Proair Hfa] 2 puff IH Q4H PRN 07/14/15 08/22/17 Allopurinol [Zyloprim 300 MG] 300 mg PO DAILY 07/14/15 08/22/17 Cyclobenzaprine [Flexeril] 10 mg PO TID 07/14/15 08/22/17 Hydroxychloroquine [Plaquenuil] 400 mg PO DAILY 07/14/15 08/22/17 Levothyroxine [Synthroid] 50 mcg PO QAM 07/14/15 08/22/17 Metaxalone [Skelaxin] 800 mg PO BID 07/14/15 08/22/17 OxyCODONE Immed Rel [Roxicodone 10 10 mg PO Q6H PRN 07/14/15 08/22/17 MG] Furosemide [Lasix] 20 mg PO DAILY PRN 12/31/16 08/22/17 Immune Globulin, Gamma(IGG) 10 ml IVC WE 05/09/17 08/22/17 [Gammagard 10% 10 GM/100 mL] Ipratropium/Albuterol Neb [Duoneb] 3 ml IH Q6H PRN 05/09/17 08/22/17 Metoprolol Tartrate 100 mg PO DAILY 05/09/17 08/22/17 NIFEdipine [Procardia] 10 mg PO DAILY PRN 05/09/17 08/22/17 Pregabalin [Lyrica] 100 mg PO TID PRN 05/09/17 08/22/17 Lactobacillus Acidophilus 1 mg PO DAILY 06/23/17 08/22/17 [Acidophilus Probiotic] Silver Hydosol 1 spr NS QID 06/23/17 08/22/17 Aspirin 325 mg PO DAILY 08/11/17 08/22/17 Atorvastatin Calcium [Lipitor] 20 mg PO HS 08/11/17 08/22/17 FentaNYL PATCH [Duragesic] 12 mcg TD Q72H 08/11/17 08/22/17 Multivitamin [One Daily 1 tab PO DAILY 08/11/17 08/22/17 Multivitamin] Estradiol [Estrace] 1 appl TP DAILY 08/22/17 08/22/17 Previous Rx's Medication Instructions Recorded ARIPiprazole [Abilify] 2 mg PO HS #30 tablet 06/28/17 DULoxetine [Cymbalta] 30 mg PO DAILY #30 capsule. 06/28/17 Mupirocin [Bactroban Oint] 1 appl NS BID #1 tube 08/14/17 Potassium Chloride 20 meq PO BID #60 tab.er.prt 08/14/17 Doxycycline 100 mg PO BID #14 capsule 08/28/17 Levofloxacin [Levaquin] 500 mg PO QDPC #10 tablet 08/28/17 Allergies Allergy/AdvReac Type Severity Reaction Status Date / Time No Known Allergies Allergy Verified 08/22/17 18:25 Limitations: ROS unobtainable due to patients medical condition (Patient confused.) Past Medical History - Past Medical History Attestation: Yes The following information was validated with the patient. Source: patient Medical history: Reports: arthritis, COPD, coronary artery disease, fibromyalgia , GERD, hyperlipidemia, hypertension, kidney stones, osteoporosis, RA, thyroid disease, TIA, other Surgical history: Reports: appendectomy, breast surgery, cholecystectomy, herniorrhaphy, hip replacement, hysterectomy, JAYSON/BSO, other Psychiatric history: Reports: bipolar, depression, previous psychiatric hospitalization LOGISTICS/SHIPPER history: Reports: no LOGISTICS/SHIPPER history - Social History Smoking Status: Never smoker Smokeless Tobacco Status: No Alcohol use: Reports: none Drug use: Reports: none Physical Exam - General Limitations: altered mental status General appearance: alert - Head Head exam: atraumatic, normocephalic, normal inspection - Eye Eye exam: Present: normal appearance, PERRL, EOMI - ENT ENT exam: normal exam, normal oropharynx, mucous membranes moist - Neck Neck exam: Present: normal inspection, full ROM, trachea midline - Chest Chest inspection: Present: normal inspection, symmetric chest wall rise - Respiratory Respiratory exam: Present: normal lung sounds bilaterally. Absent: respiratory distress, accessory muscle use - Cardiovascular Cardiovascular exam: Present: normal rhythm, tachycardia, normal heart sounds - Abdominal Exam Abdominal exam: Present: soft, Non-Tender. Absent: tenderness, distention, guarding, rebound, rigidity, Lindsay's sign, Rovsing's sign, tenderness at McBurney's Point - Extremities Exam Extremities exam: Present: normal inspection, full ROM, normal capillary refill. Absent: tenderness, pedal edema - Neurological Exam Neurological exam: Present: alert, other (Continues. Does respond to verbal stimuli however her responses confused.) - Psychiatric Psychiatric exam: Present: normal affect, normal mood - Skin Skin exam: Present: warm, dry, intact, normal color. Absent: rash, cyanosis, diaphoresis Course Course Narrative: Female patient presenting to the emergency department complaining of shortness of breath. She does have her home O2 on. The son does appear at bedside and states that she has been battling pneumonia recently. She is on doxycycline at this time. He states that the fever that she has at this time just started overnight. He was unaware of the fever yesterday. States that she is confused and this is abnormal for her. As have a history of MRSA pneumonia. She is known to this facility. I have seen her before and she did not have the smell sinus. He states that this is new for her. No signs of trauma to her body. Lung sounds are clear but diminished in the lower bases. Abdomen is soft nontender nondistended nonrigid. No edema to her extremities. Patient oxygen saturation is in the low 90s at this time. We will get a basic lab workup on patient inclusive of a lactic acid. We will start patient on IV vancomycin and Zosyn. We will be admitting the patient to the hospital. - Reevaluation(s) Reevaluation #1: Patient's CO2 is elevated. We will place patient on BiPAP at this time. Patient's son is stating that she is supposed to be doing IVIG shots in her abdomen however she has not been able to do them because of the last admission here she had severe bruising from the heparin shots she was getting in her abdomen. Patient does have increased pulmonary edema on chest x-ray however there is still concern for pneumonia. We will only give patient 1 L of fluid. We will hold the second liter. Patient does have a history of hypogammaglobulinemia anemia. Time: 05:49 Reevaluation #2: Pt mental status has improved significantly since she is placed on BiPAP. We will admit patient to hospital. Time: 06:30 - Consultations Consultation #1: Dr Bueno accepted Pt in stable condition. Time: 06:40 Vital Signs Temperature 103.1 F H 09/20/17 04:49 Pulse Rate 115 09/20/17 04:49 Respiratory Rate 20 09/20/17 04:49 Blood Pressure 160/97 09/20/17 04:49 O2 Sat by Pulse Oximetry 87 09/20/17 04:49 Temperature 103.1 F H 09/20/17 04:49 Pulse Rate 115 09/20/17 04:49 Respiratory Rate 24 09/20/17 06:04 Blood Pressure 163/107 09/20/17 06:04 O2 Sat by Pulse Oximetry 94 09/20/17 06:04 Oxygen Delivery Oxygen Delivery Nasal Cannula Medical Decision Making - Medical Records Medical records reviewed: Yes I reviewed the patient's medical records. - Lab Data Lab results reviewed: Yes I reviewed the patient's lab results. Result diagrams: 09/20/17 05:17 09/20/17 05:17 Lab Results 09/20/17 09/20/17 09/20/17 Range/Units 05:17 05:17 05:17 WBC 8.7 (4.3-11.1) K/mcL RBC 4.70 (3.82-4.97) M/mcL Hgb 14.5 (11.5-15.4) g/dL Hct 45.0 H (35.3-44.9) % MCV 95.7 (83.0-100.0) fL MCH 30.9 (28.0-33.3) pg MCHC 32.2 (31.6-35.5) g/dL RDW 13.3 (11.5-14.5) % Plt Count 221 (140-400) K/mcL MPV 10.0 (9.4-12.4) fL Immature Gran % 0.1 (0-4) % Seg Neutrophils % 81.2 % Lymphocytes % 10.0 % Monocytes % 6.6 % Eosinophils % 1.8 % Basophils % 0.3 % Neutrophils # 7.1 (1.6-8.9) K/mcL Lymphocytes # 0.9 (0.6-4.6) K/mcL Monocytes # 0.6 (0.0-1.3) K/mcL Eosinophils # 0.2 (0.0-0.6) K/mcL Basophils # 0.0 (0.0-0.2) K/mcL PT 12.2 H (9.4-12.1) Seconds INR 1.1 APTT 32.0 (26.0-36.0) Seconds VBG pH (7.32-7.42) pH Units VBG pCO2 (41-51) mmHg VBG pO2 (25-50) mmHg VBG HCO3 (21-27) mEq/L Sodium 138 (136-145) mEq/L Potassium 4.3 (3.5-5.1) mEq/L Chloride 98 (98-107) mEq/L Carbon Dioxide 34 H (23-29) mEq/L BUN 7 L (8-23) mg/dL Creatinine 0.76 (0.60-1.20) mg/dL Est GFR ( Amer) > 60 (> 60) Est GFR (Non-Af Amer) > 60 (> 60) BUN/Creatinine Ratio 9 (6-26) Glucose 115 H (70-105) mg/dL Calculated Osmolality 285 (280-300) Lactic Acid (0.5-2.2) mmol/L Calcium 9.2 (8.6-10.3) mg/dL Phosphorus 3.3 (2.7-4.5) mg/dL Magnesium 1.6 (1.6-2.6) mg/dL Total Bilirubin 0.3 (0.3-1.0) mg/dL Direct Bilirubin 0.1 (0.0-0.2) mg/dL Indirect Bilirubin 0.2 (0.0-1.2) mg/dL AST 18 (13-39) Units/L ALT 8 (7-52) Units/L Alkaline Phosphatase 129 H (34-104) Units/L Troponin I < 0.03 (< 0.04) ng/mL Serum Total Protein 7.1 (6.4-8.9) g/dL Albumin 4.2 (3.5-5.7) g/dL Globulin 2.9 (2.4-3.5) g/dL Albumin/Globulin Ratio 1.4 (1.1-2.2) Urine Color (Yellow) Urine Clarity (Clear) Urine pH (5.0-8.0) pH Units Ur Specific [place] (1.010-1.025) Urine Protein (Neg-Trace) mg/dL Urine Glucose (UA) (Normal) mg/dL Urine Ketones (Negative) mg/dL Urine Blood (Negative) Urine Nitrite (Negative) Urine Bilirubin (Negative) Urine Urobilinogen (Normal) mg/dL Ur Leukocyte Esterase (Negative) Urine Microscopic RBC (0-3) per hpf Urine Microscopic WBC (0-3) per hpf Ur Squamous Epith Cells (None-Few) per lpf Urine Bacteria (None-Few) per hpf Hyaline Casts (None-Few) per lpf Ur Culture Indicated? (NO) Person Notif of Crit 09/20/17 09/20/17 09/20/17 Range/Units 05:17 05:39 05:57 WBC (4.3-11.1) K/mcL RBC (3.82-4.97) M/mcL Hgb (11.5-15.4) g/dL Hct (35.3-44.9) % MCV (83.0-100.0) fL MCH (28.0-33.3) pg MCHC (31.6-35.5) g/dL RDW (11.5-14.5) % Plt Count (140-400) K/mcL MPV (9.4-12.4) fL Immature Gran % (0-4) % Seg Neutrophils % % Lymphocytes % % Monocytes % % Eosinophils % % Basophils % % Neutrophils # (1.6-8.9) K/mcL Lymphocytes # (0.6-4.6) K/mcL Monocytes # (0.0-1.3) K/mcL Eosinophils # (0.0-0.6) K/mcL Basophils # (0.0-0.2) K/mcL PT (9.4-12.1) Seconds INR APTT (26.0-36.0) Seconds VBG pH 7.27 L (7.32-7.42) pH Units VBG pCO2 79 H* (41-51) mmHg VBG pO2 30 (25-50) mmHg VBG HCO3 37 H (21-27) mEq/L Sodium (136-145) mEq/L Potassium (3.5-5.1) mEq/L Chloride (98-107) mEq/L Carbon Dioxide (23-29) mEq/L BUN (8-23) mg/dL Creatinine (0.60-1.20) mg/dL Est GFR ( Amer) (> 60) Est GFR (Non-Af Amer) (> 60) BUN/Creatinine Ratio (6-26) Glucose (70-105) mg/dL Calculated Osmolality (280-300) Lactic Acid 1.8 (0.5-2.2) mmol/L Calcium (8.6-10.3) mg/dL Phosphorus (2.7-4.5) mg/dL Magnesium (1.6-2.6) mg/dL Total Bilirubin (0.3-1.0) mg/dL Direct Bilirubin (0.0-0.2) mg/dL Indirect Bilirubin (0.0-1.2) mg/dL AST (13-39) Units/L ALT (7-52) Units/L Alkaline Phosphatase (34-104) Units/L Troponin I (< 0.04) ng/mL Serum Total Protein (6.4-8.9) g/dL Albumin (3.5-5.7) g/dL Globulin (2.4-3.5) g/dL Albumin/Globulin Ratio (1.1-2.2) Urine Color [place] A (Yellow) Urine Clarity Clear (Clear) Urine pH 6.0 (5.0-8.0) pH Units Ur Specific [place] 1.018 (1.010-1.025) Urine Protein Negative (Neg-Trace) mg/dL Urine Glucose (UA) Normal (Normal) mg/dL Urine Ketones Negative (Negative) mg/dL Urine Blood Negative (Negative) Urine Nitrite Positive A (Negative) Urine Bilirubin Negative (Negative) Urine Urobilinogen Normal (Normal) mg/dL Ur Leukocyte Esterase Negative (Negative) Urine Microscopic RBC 0-3 (0-3) per hpf Urine Microscopic WBC 0-3 (0-3) per hpf Ur Squamous Epith Cells None Seen (None-Few) per lpf Urine Bacteria None Seen (None-Few) per hpf Hyaline Casts None Seen (None-Few) per lpf Ur Culture Indicated? YES A (NO) Person Notif of Brit Baumann - Radiology Data Radiology results reviewed: Yes I reviewed the patient's radiology results. Chest X-Ray 09/20/17 04:55 IMPRESSION: Pulmonary vascular congestion. Possible pulmonary edema. D/ / Cristóbal Banda MD / Cristóbal Banda MD Interpreting Provider: Cristóbal Banda MD Head CT 09/20/17 04:59 IMPRESSION: No acute intracranial abnormality. D/ / Cristóbal Banda MD / Cristóbal Banda MD Interpreting Provider: Cristóbal Banda MD - EKG Data EKG #1 EKG attestation: Yes I reviewed and interpreted this EKG. EKG results narrative: Sinus tachycardia at a rate 1:15. NM interval is 145. Castration is 84. QT is 325. QTC is 393. No signs of acute ischemia. No significant change from previous EKG dated 08/24/2017 however there is a large amount of artifact on EKG.
[2017-09-20] MEDS: 0.9 % Sodium Chloride 1,000 ML IVC SCH ×2 (05:12→06:14)
[2017-09-20 05:33] LABS: Basophils % 0.3 %; Eosinophils # 0.2 K/mcL (0.0-0.6); Eosinophils % 1.8 %; Hemoglobin 14.5 g/dL (11.5-15.4); Immature Granulocytes % 0.1 % (0-4); Lymphocytes # 0.9 K/mcL (0.6-4.6); Mean Corpuscular HGB Conc 32.2 g/dL (31.6-35.5); Mean Corpuscular Hemoglobin 30.9 pg (28.0-33.3); Mean Corpuscular Volume 95.7 fL (83.0-100.0); Monocytes # 0.6 K/mcL (0.0-1.3); Monocytes % 6.6 %; Neutrophils # 7.1 K/mcL (1.6-8.9); Platelet Count 221 K/mcL (140-400); Red Cell Distribution Width 13.3 % (11.5-14.5); Segmented Neutrophils % 81.2 %
[2017-09-20] MEDS ORDERED: Acetaminophen 650 MG RECTAL SUPP RC ONE (05:42)
[2017-09-20 05:44] LABS: INR 1.1; Prothrombin Time 12.2 Seconds (9.4-12.1)
[2017-09-20 05:44] LABS: VBG HCO3 37 mEq/L (21-27); VBG PCO2 79 mmHg (41-51); VBG PH 7.27 pH Units (7.32-7.42); VBG PO2 30 mmHg (25-50)
[2017-09-20 05:53] LABS: Troponin I < 0.03 ng/mL (< 0.04)
[2017-09-20 05:54] LABS: Alanine Aminotransferase 8 Units/L (7-52); Albumin 4.2 g/dL (3.5-5.7); Albumin/Globulin Ratio 1.4 (1.1-2.2); Alkaline Phosphatase 129 Units/L (34-104); Aspartate Amino Transferase 18 Units/L (13-39); BUN/Creatinine Ratio 9 (6-26); Bilirubin,Direct 0.1 mg/dL (0.0-0.2); Bilirubin,Indirect 0.2 mg/dL (0.0-1.2); Bilirubin,Total 0.3 mg/dL (0.3-1.0); Blood Urea Nitrogen 7 mg/dL (8-23); Calcium 9.2 mg/dL (8.6-10.3); Carbon Dioxide 34 mEq/L (23-29); Chloride 98 mEq/L (98-107); Globulin 2.9 g/dL (2.4-3.5); Glucose 115 mg/dL (70-105); Magnesium 1.6 mg/dL (1.6-2.6); Osmolality,Calculated 285 (280-300); Phosphorous 3.3 mg/dL (2.7-4.5); Potassium 4.3 mEq/L (3.5-5.1); Sodium 138 mEq/L (136-145); Total Protein 7.1 g/dL (6.4-8.9); eGFR For Non-African Americans > 60 (> 60)
[2017-09-20 06:20] LABS: Bilirubin,Urine Negative (Negative); Blood,Urine Negative (Negative); Clarity,Urine Clear (Clear); Color,Urine Orange (Yellow); Glucose,Urine (UA) Normal (Normal); Ketones,Urine Negative (Negative); Leukocyte Esterase,Urine Negative (Negative); Nitrite,Urine Positive (Negative); Protein,Urine Negative (Neg-Trace); Specific Gravity,Urine 1.018 (1.010-1.025); Urobilinogen,Urine Normal (Normal)
--- NOTE | 2017-09-20 06:21 | Emergency Department Note ---
Disposition Clinical Impression: Hypogammaglobulinemia, Hypercapnia Community acquired pneumonia Qualifiers: Laterality: right Lung location: unspecified part of lung Qualified Code(s): J18.9 - Pneumonia, unspecified organism Pulmonary edema Qualifiers: Chronicity: acute Qualified Code(s): J81.0 - Acute pulmonary edema Dyspnea Qualifiers: Dyspnea type: unspecified Qualified Code(s): R06.00 - Dyspnea, unspecified Altered mental state Qualifiers: Altered mental status type: disorientation Qualified Code(s): R41.0 - Disorientation, unspecified Disposition: Admitted As Inpatient Condition: Good Time of Disposition: 06:27 General Adult HPI - General Chief complaint: ED Shortness of Breath/Dyspnea Stated complaint: ROBSON Time Seen by Provider: 09/20/17 04:55 Source: patient Limitations: altered mental status Nursing Notes Reviewed: Yes Vital Signs Reviewed: Yes - History of Present Illness Pain Scale: 5 - Related Data Home Medications Medication Instructions Recorded Confirmed Albuterol Sulfate [Proair Hfa] 2 puff IH Q4H PRN 07/14/15 08/22/17 Allopurinol [Zyloprim 300 MG] 300 mg PO DAILY 07/14/15 08/22/17 Cyclobenzaprine [Flexeril] 10 mg PO TID 07/14/15 08/22/17 Hydroxychloroquine [Plaquenuil] 400 mg PO DAILY 07/14/15 08/22/17 Levothyroxine [Synthroid] 50 mcg PO QAM 07/14/15 08/22/17 Metaxalone [Skelaxin] 800 mg PO BID 07/14/15 08/22/17 OxyCODONE Immed Rel [Roxicodone 10 10 mg PO Q6H PRN 07/14/15 08/22/17 MG] Furosemide [Lasix] 20 mg PO DAILY PRN 12/31/16 08/22/17 Immune Globulin, Gamma(IGG) 10 ml IVC WE 05/09/17 08/22/17 [Gammagard 10% 10 GM/100 mL] Ipratropium/Albuterol Neb [Duoneb] 3 ml IH Q6H PRN 05/09/17 08/22/17 Metoprolol Tartrate 100 mg PO DAILY 05/09/17 08/22/17 NIFEdipine [Procardia] 10 mg PO DAILY PRN 05/09/17 08/22/17 Pregabalin [Lyrica] 100 mg PO TID PRN 05/09/17 08/22/17 Lactobacillus Acidophilus 1 mg PO DAILY 06/23/17 08/22/17 [Acidophilus Probiotic] Silver Hydosol 1 spr NS QID 06/23/17 08/22/17 Aspirin 325 mg PO DAILY 08/11/17 08/22/17 Atorvastatin Calcium [Lipitor] 20 mg PO HS 08/11/17 08/22/17 FentaNYL PATCH [Duragesic] 12 mcg TD Q72H 08/11/17 08/22/17 Multivitamin [One Daily 1 tab PO DAILY 08/11/17 08/22/17 Multivitamin] Estradiol [Estrace] 1 appl TP DAILY 08/22/17 08/22/17 Previous Rx's Medication Instructions Recorded ARIPiprazole [Abilify] 2 mg PO HS #30 tablet 06/28/17 DULoxetine [Cymbalta] 30 mg PO DAILY #30 capsule. 06/28/17 Mupirocin [Bactroban Oint] 1 appl NS BID #1 tube 08/14/17 Potassium Chloride 20 meq PO BID #60 tab.er.prt 08/14/17 Doxycycline 100 mg PO BID #14 capsule 08/28/17 Levofloxacin [Levaquin] 500 mg PO QDPC #10 tablet 08/28/17 Allergies Allergy/AdvReac Type Severity Reaction Status Date / Time No Known Allergies Allergy Verified 08/22/17 18:25 Past Medical History - Past Medical History Medical history: Reports: arthritis, COPD, coronary artery disease, fibromyalgia , GERD, hyperlipidemia, hypertension, kidney stones, osteoporosis, RA, thyroid disease, TIA, other Surgical history: Reports: appendectomy, breast surgery, cholecystectomy, herniorrhaphy, hip replacement, hysterectomy, JAYSON/BSO, other Psychiatric history: Reports: bipolar, depression, previous psychiatric hospitalization DISTRIBUTOR OPERATOR 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: Reports: no DISTRIBUTOR 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 history - Social History Smoking Status: Never smoker Smokeless Tobacco Status: No Alcohol use: Reports: none Drug use: Reports: none Physical Exam - General Limitations: altered mental status General appearance: alert Course Vital Signs Temperature 103.1 F H 09/20/17 04:49 Pulse Rate 115 09/20/17 04:49 Respiratory Rate 20 09/20/17 04:49 Blood Pressure 160/97 09/20/17 04:49 O2 Sat by Pulse Oximetry 87 09/20/17 04:49 Temperature 103.1 F H 09/20/17 04:49 Pulse Rate 115 09/20/17 04:49 Respiratory Rate 24 09/20/17 06:04 Blood Pressure 163/107 09/20/17 06:04 O2 Sat by Pulse Oximetry 94 09/20/17 06:04 Oxygen Delivery Oxygen Delivery Nasal Cannula Medical Decision Making - Lab Data Lab results reviewed: Yes I reviewed the patient's lab results. Result diagrams: 09/20/17 05:17 09/20/17 05:17 Lab Results 09/20/17 09/20/17 09/20/17 Range/Units 05:17 05:17 05:17 WBC 8.7 (4.3-11.1) K/mcL RBC 4.70 (3.82-4.97) M/mcL Hgb 14.5 (11.5-15.4) g/dL Hct 45.0 H (35.3-44.9) % MCV 95.7 (83.0-100.0) fL MCH 30.9 (28.0-33.3) pg MCHC 32.2 (31.6-35.5) g/dL RDW 13.3 (11.5-14.5) % Plt Count 221 (140-400) K/mcL MPV 10.0 (9.4-12.4) fL Immature Gran % 0.1 (0-4) % Seg Neutrophils % 81.2 % Lymphocytes % 10.0 % Monocytes % 6.6 % Eosinophils % 1.8 % Basophils % 0.3 % Neutrophils # 7.1 (1.6-8.9) K/mcL Lymphocytes # 0.9 (0.6-4.6) K/mcL Monocytes # 0.6 (0.0-1.3) K/mcL Eosinophils # 0.2 (0.0-0.6) K/mcL Basophils # 0.0 (0.0-0.2) K/mcL PT 12.2 H (9.4-12.1) Seconds INR 1.1 APTT 32.0 (26.0-36.0) Seconds VBG pH (7.32-7.42) pH Units VBG pCO2 (41-51) mmHg VBG pO2 (25-50) mmHg VBG HCO3 (21-27) mEq/L Sodium 138 (136-145) mEq/L Potassium 4.3 (3.5-5.1) mEq/L Chloride 98 (98-107) mEq/L Carbon Dioxide 34 H (23-29) mEq/L BUN 7 L (8-23) mg/dL Creatinine 0.76 (0.60-1.20) mg/dL Est GFR ( Amer) > 60 (> 60) Est GFR (Non-Af Amer) > 60 (> 60) BUN/Creatinine Ratio 9 (6-26) Glucose 115 H (70-105) mg/dL Calculated Osmolality 285 (280-300) Lactic Acid (0.5-2.2) mmol/L Calcium 9.2 (8.6-10.3) mg/dL Phosphorus 3.3 (2.7-4.5) mg/dL Magnesium 1.6 (1.6-2.6) mg/dL Total Bilirubin 0.3 (0.3-1.0) mg/dL Direct Bilirubin 0.1 (0.0-0.2) mg/dL Indirect Bilirubin 0.2 (0.0-1.2) mg/dL AST 18 (13-39) Units/L ALT 8 (7-52) Units/L Alkaline Phosphatase 129 H (34-104) Units/L Troponin I < 0.03 (< 0.04) ng/mL Serum Total Protein 7.1 (6.4-8.9) g/dL Albumin 4.2 (3.5-5.7) g/dL Globulin 2.9 (2.4-3.5) g/dL Albumin/Globulin Ratio 1.4 (1.1-2.2) Urine Color (Yellow) Urine Clarity (Clear) Urine pH (5.0-8.0) pH Units Ur Specific [place] (1.010-1.025) Urine Protein (Neg-Trace) mg/dL Urine Glucose (UA) (Normal) mg/dL Urine Ketones (Negative) mg/dL Urine Blood (Negative) Urine Nitrite (Negative) Urine Bilirubin (Negative) Urine Urobilinogen (Normal) mg/dL Ur Leukocyte Esterase (Negative) Urine Microscopic RBC (0-3) per hpf Urine Microscopic WBC (0-3) per hpf Ur Squamous Epith Cells (None-Few) per lpf Urine Bacteria (None-Few) per hpf Hyaline Casts (None-Few) per lpf Ur Culture Indicated? (NO) Person Notif of Crit 09/20/17 09/20/17 09/20/17 Range/Units 05:17 05:39 05:57 WBC (4.3-11.1) K/mcL RBC (3.82-4.97) M/mcL Hgb (11.5-15.4) g/dL Hct (35.3-44.9) % MCV (83.0-100.0) fL MCH (28.0-33.3) pg MCHC (31.6-35.5) g/dL RDW (11.5-14.5) % Plt Count (140-400) K/mcL MPV (9.4-12.4) fL Immature Gran % (0-4) % Seg Neutrophils % % Lymphocytes % % Monocytes % % Eosinophils % % Basophils % % Neutrophils # (1.6-8.9) K/mcL Lymphocytes # (0.6-4.6) K/mcL Monocytes # (0.0-1.3) K/mcL Eosinophils # (0.0-0.6) K/mcL Basophils # (0.0-0.2) K/mcL PT (9.4-12.1) Seconds INR APTT (26.0-36.0) Seconds VBG pH 7.27 L (7.32-7.42) pH Units VBG pCO2 79 H* (41-51) mmHg VBG pO2 30 (25-50) mmHg VBG HCO3 37 H (21-27) mEq/L Sodium (136-145) mEq/L Potassium (3.5-5.1) mEq/L Chloride (98-107) mEq/L Carbon Dioxide (23-29) mEq/L BUN (8-23) mg/dL Creatinine (0.60-1.20) mg/dL Est GFR ( Amer) (> 60) Est GFR (Non-Af Amer) (> 60) BUN/Creatinine Ratio (6-26) Glucose (70-105) mg/dL Calculated Osmolality (280-300) Lactic Acid 1.8 (0.5-2.2) mmol/L Calcium (8.6-10.3) mg/dL Phosphorus (2.7-4.5) mg/dL Magnesium (1.6-2.6) mg/dL Total Bilirubin (0.3-1.0) mg/dL Direct Bilirubin (0.0-0.2) mg/dL Indirect Bilirubin (0.0-1.2) mg/dL AST (13-39) Units/L ALT (7-52) Units/L Alkaline Phosphatase (34-104) Units/L Troponin I (< 0.04) ng/mL Serum Total Protein (6.4-8.9) g/dL Albumin (3.5-5.7) g/dL Globulin (2.4-3.5) g/dL Albumin/Globulin Ratio (1.1-2.2) Urine Color [place] A (Yellow) Urine Clarity Clear (Clear) Urine pH 6.0 (5.0-8.0) pH Units Ur Specific [place] 1.018 (1.010-1.025) Urine Protein Negative (Neg-Trace) mg/dL Urine Glucose (UA) Normal (Normal) mg/dL Urine Ketones Negative (Negative) mg/dL Urine Blood Negative (Negative) Urine Nitrite Positive A (Negative) Urine Bilirubin Negative (Negative) Urine Urobilinogen Normal (Normal) mg/dL Ur Leukocyte Esterase Negative (Negative) Urine Microscopic RBC 0-3 (0-3) per hpf Urine Microscopic WBC 0-3 (0-3) per hpf Ur Squamous Epith Cells None Seen (None-Few) per lpf Urine Bacteria None Seen (None-Few) per hpf Hyaline Casts None Seen (None-Few) per lpf Ur Culture Indicated? YES A (NO) Person Notif of Brit Baumann - Radiology Data Radiology results reviewed: Yes I reviewed the patient's radiology results. Chest X-Ray 09/20/17 04:55 IMPRESSION: Pulmonary vascular congestion. Possible pulmonary edema. D/ / Cristóbal Banda MD / Cristóbal Banda MD Interpreting Provider: Cristóbal Banda MD Head CT 09/20/17 04:59 IMPRESSION: No acute intracranial abnormality. D/ / Cristóbal Banda MD / Cristóbal Banda MD Interpreting Provider: Cristóbal Banda MD - EKG Data EKG #1 EKG attestation: Yes I reviewed and interpreted this EKG. EKG results narrative: EKG shows a sinus tachycardia with ventricular rate of 115. No acute ST segment elevation or depression. Critical Care Time Critical Care Time: Yes Total Critical Care Time: 40 Attestation: Critical care performed: Time is exclusive of separately billable procedures. Time includes: direct patient care, patient reassessment, coordination of patient care, interpretation of data (laboratory data, radiology data, and respiratory data), review of patient's medical records, medical consultation and documentation of patient care. Procedures included in critical care time: Procedures excluded from critical care time: Attestation Statement - Attestation Attestation: I, Jero Sargent MD, personally evaluated this patient and discussed their management with the resident physician. I reviewed the resident's note and agree with the documented findings, medical decision making, and plan of care. 66-year-old female presents to the emergency department for difficulty breathing and altered mental status. Patient has recently been on antibiotics for pneumonia. Over the last one today she has become more short of breath and developed a fever. Tonight she is very confused and disoriented. Patient unable to provide any significant history or review of systems. On examination patient is a well-developed well-nourished elderly female in mild respiratory distress. She is drowsy but responds to verbal stimuli. She knows she is at the hospital but really unable to answer questions. Temperature on arrival here was 103. Breath sounds are decreased bilaterally with some scattered bilateral wheezes and rhonchi. Heart tachycardic and regular. Abdomen soft with present bowel sounds. Labs reviewed. Chest x-ray showed pulmonary vascular congestion with possible pulmonary edema. Head CT negative. EKG shows a sinus tachycardia with ventricular rate of 115. No acute ST segment elevation or depression noted. Patient placed on BiPAP. Antibiotics initiated. The hospitalist, Dr. Bueno, was consulted and accepted admission of the patient.
[2017-09-20 06:31] LABS: Bacteria,Urine None Seen per hpf (None-Few); Hyaline Casts,Urine None Seen per lpf (None-Few); RBC,Urine 0-3 per hpf (0-3); Squamous Epithelial Cell,Urine None Seen per lpf (None-Few); WBC,Urine 0-3 per hpf (0-3)
[2017-09-20] MEDS ORDERED: Ipratropium/Albuterol Neb 3 ML IH PRN (09:40)
[2017-09-20] MEDS ORDERED: PREGABALIN 100 MG PO PRN (09:40)
[2017-09-20] MEDS ORDERED: Naloxone 0.4 MG/ML INJ IVP PRN (09:47)
--- NOTE | 2017-09-20 10:01 | Internal Med History&Physical ---
Date of Encounter: 09/20/17 Time of Encounter: 09:57 Internal Medicine - H&P: HPI Chief complaint: Shortness of breath, fever Admitted From: Home Plans for Post Hospital Care: Home History of present illness: Ms. Mayes is a 66 year old female with a complicated past medical history consisting of COPD and hypogammaglobulinemia with recent admission to the hospital for healthcare acquired pneumonia who was sent with home doxycycline comes back to the hospital with worsening shortness of breath which progressively got worse over the last 2 days he did she also had high-grade fevers which were documented as high as 103 in the ER. She denies any recent sick contacts. She has been coughing progressively over the last 4-5 days but the shortness of breath gradually got worse over the last 48 hours. She has a history of hypogammaglobulinemia and gets weekly subcutaneous immunoglobulin shots under the guidance of outpatient immunology Dr. Smith. She has an been unable to do so due to extensive bruising from subcutaneous heparin for at least last 4 weeks according to the patient and her . The patient states that the shortness of breath is unchanged with position and does get worse when she tries to ambulate. She is supposed to be on as needed home oxygen which she uses at 2-3 L given her COPD history but she figured that she was needing more and more oxygen and more as a continuous basis to maintain her saturations above 92%. She also has been checking her heart rate very closely and was found to be above 110 at home which also got her concerned and she came to the ER There is also a documentation of room air saturation of 70% which improved promptly in the ER once BiPAP was initiated into the low 90s. She has been weaned off from the BiPAP and is now on 5 L of oxygen at the time of my examination. A chest x-ray done in the ER showed evidence of bilateral fluid overload with some atelectasis and early evidence of pneumonia could not be excluded She is now placed onto the internal medicine floor for further management of her hypoxia. Off note, she did get 1 L of fluid in the ER prior to her coming up to the floor. Her lactic acid was 1.8. Upon the review of the EMR there is also a concern of altered mental status for which the patient received a head CT which was normal. During the time of my examination the patient is back to baseline and answering all questions appropriately. Past Med Surg Social Fam HX - Past Medical History Medical history: arthritis, COPD, coronary artery disease, fibromyalgia, GERD, hyperlipidemia, hypertension, kidney stones, osteoporosis, RA, thyroid disease, TIA, other Additional medical history: DDD. Hypogammaglobulinanemia. pericarditis. Printzmetal angina. Lupus. Raynauds Psychiatric history: bipolar, depression, previous psychiatric hospitalization - Past Surgical History Surgical History: appendectomy, breast surgery, cholecystectomy, herniorrhaphy, hip replacement, hysterectomy, JAYSON/BSO, other Additional surgical history: jaw implant, dental surgery, perineal cyst - Social History Smoking Status: Never smoker Smokeless Tobacco Status: No Alcohol use: none Drug use: none - Family History Father Hx Family Cardiac Disorders: No Hx Family Respiratory Disorders: No Hx Family Cancer: Yes (colon, kidney, bladder) Hx Family GI Disorders: No Hx Family Endocrine Disorder: No Hx Family Neuromuscular Disorders: No Hx Family Neurologic Disorders: No Hx Family HEENT Disorders: No Hx Family Autoimmune Disorders: No Mother Adopted: No Family Member Ethnicity: Non- Living Status: Hx Family Cardiac Disorders: No Hx Family Respiratory Disorders: No Hx Family Cancer: Yes Hx Family GI Disorders: No Hx Family Endocrine Disorder: No Hx Family Neuromuscular Disorders: No Hx Family Neurologic Disorders: No Hx Family HEENT Disorders: No Hx Family Autoimmune Disorders: Yes (ra) Internal Medicine - H&P: Meds Albuterol Sulfate [Proair Hfa] 2 puff IH Q4H PRN 07/14/15 [History] Allopurinol [Zyloprim 300 MG] 300 mg PO DAILY 07/14/15 [History] Cyclobenzaprine [Flexeril] 10 mg PO TID 07/14/15 [History] Hydroxychloroquine [Plaquenuil] 400 mg PO DAILY 07/14/15 [History] Levothyroxine [Synthroid] 50 mcg PO QAM 07/14/15 [History] OxyCODONE Immed Rel [Roxicodone 10 MG] 10 mg PO Q6H PRN 07/14/15 [History] Furosemide [Lasix] 20 mg PO DAILY PRN 12/31/16 [History] Immune Globulin, Gamma(IGG) [Gammagard 10% 10 GM/100 mL] 10 ml IVC WE 05/09/17 [ History] Ipratropium/Albuterol Neb [Duoneb] 3 ml IH Q6H PRN 05/09/17 [History] Metoprolol Tartrate 100 mg PO DAILY 05/09/17 [History] NIFEdipine [Procardia] 10 mg PO DAILY PRN 05/09/17 [History] Pregabalin [Lyrica] 100 mg PO TID PRN 05/09/17 [History] Lactobacillus Acidophilus [Acidophilus Probiotic] 1 mg PO DAILY 06/23/17 [ History] ARIPiprazole [Abilify] 2 mg PO HS #30 tablet 06/28/17 [Rx] DULoxetine [Cymbalta] 30 mg PO DAILY #30 capsule. 06/28/17 [Rx] Aspirin 325 mg PO DAILY 08/11/17 [History] Atorvastatin Calcium [Lipitor] 20 mg PO HS 08/11/17 [History] FentaNYL PATCH [Duragesic] 12 mcg TD Q72H 08/11/17 [History] Multivitamin [One Daily Multivitamin] 1 tab PO DAILY 08/11/17 [History] Potassium Chloride 20 meq PO BID #60 tab.er.prt 08/14/17 [Rx] Estradiol [Estrace] 1 appl TP DAILY 08/22/17 [History] Doxycycline 100 mg PO BID #14 capsule 08/28/17 [Rx] 3 Allergy/AdvReac Type Severity Reaction Status Date / Time No Known Allergies Allergy Verified 08/22/17 18:25 All Systems PM: A 10-system review of systems was performed and is negative for pertinent findings except as documented above in the HPI. - Constitutional Vitals: Temp Pulse Resp BP Pulse Ox 101.1 F H 100 17 119/79 90 09/20/17 08:35 09/20/17 08:35 09/20/17 08:35 09/20/17 08:35 09/20/17 08:35 Exam: GENERAL: Alert, moderate distress, cooperative EYES: PERRLA, EOMI EARS: External ears normal, canals clear OROPHARYNX: Lips, mucosa, and tongue normal. Teeth and gums normal. Oropharynx normal. NECK: No jugulovenous distention, No carotid bruits, Carotid pulse normal contour, Supple LUNGS: Scattered crackles at bilateral bases. Good air entry bilaterally. I did not appreciate any significant wheezing. CARDIAC: Tachycardic however; no rubs, murmurs, or gallops ABDOMEN: Abdomen soft, non-tender, BS normal, No masses or organomegaly EXTREMITIES: Extremities normal, no deformities, edema, clubbing or skin discoloration. Good capillary refill., No ulcers NEURO: Gait not tested. Reflexes normal and symmetric. Sensation grossly intact , Cranial nerves II-XII intact PULSES: 2+ radial, 2+ carotid Rest of the exam is non contributory Internal Med - H&P Results - Labs CBC & Chem 7: 09/20/17 05:17 09/20/17 05:17 - ABG Interpretation Interpretation: ABG interpreted by me Interpretation: respiratory acidosis - Assessment and plan (1) Acute on chronic respiratory failure with hypoxia and hypercapnia Current Visit: No Status: Acute Assessment and plan: Multifactorial-patient has a history of baseline COPD with increasing oxygen requirements and her ABG shows hypercapnic respiratory failure he did she was briefly placed on BiPAP and now has been weaned off to nasal cannula which she is requiring at least 4-5 L. At home the patient uses 2-3 L on a when necessary basis and never consistently. Her chest x-ray that shows evidence of fluid overload but atelectasis and early pneumonia cannot be excluded. It is also concerning is the patient has a history of hypogammaglobulinemia and has not been able to take subcutaneous tetanus immunoglobulins for about 4-5 weeks time because of significant bruising on her abdomen from prior administered subcutaneous heparin. As such I will be targeting both a pneumonia which is healthcare acquired pneumonia as well as COPD exacerbation with IV steroids. I will place a consult to pulmonary medicine as well as immunology to tackle both the COPD as well as hyperglobulinemia issue. She has been clearly documented to be febrile in the ER and antibiotics for age Including vancomycin and Zosyn have been initiated. Blood cultures have been sent and are pending I believe her hypogammaglobulinemia and inability to take subcutaneous tetanus immunoglobulins could also be contributing to her recurrent infections. For now we will target titrate her oxygen as needed above 92% She will be placed on continuous telemetry monitoring. I will also continue duo nebs as needed and monitor her respiratory status closely. (2) Hypogammaglobulinemia Current Visit: Yes Status: Chronic Assessment and plan: She does take weekly subcutaneous gammaglobulins but has not been able to do so for the last 4 weeks as mentioned above. I have consulted her outpatient biomedical service engineer Dr. Piper Smith to assist with the case Hypogammaglobinemia does put her at a risk for recurrent infections and potentially a reason why she is admitted this time. (3) Essential hypertension Current Visit: No Status: Chronic Assessment and plan: Continue home medications and monitor vital signs closely. (4) DVT prophylaxis Current Visit: No Status: Acute Assessment and plan: Subcutaneous Lovenox once a day - Time Spent With Patient Total time spent is greater than 50% in coordination of care (as documented) at patient's floor/unit and/or counseling patient: Greater than 35 minutes
[2017-09-20] MEDS ORDERED: MethylPREDNISolone 40 MG/ML VIAL IVP SCH (11:00)
[2017-09-20] MEDS: Furosemide 20 MG/2 ML VIAL IVP SCH (11:02)
[2017-09-20] MEDS: Piperacillin/Tazobactam 3.375 GM in 0.9 % Sodium Chloride Mini Bag 100 ML IVPB SCH ×2 (12:31→21:33)
[2017-09-20] MEDS ORDERED: Perflutren Lipid Microsphere 1.3 ML in 0.9 % Sodium Chloride 8.7 ML IVP ONE (13:54)
--- NOTE | 2017-09-20 14:22 | Pulmonology Consult Note ---
<Gucci Cheek - Last Filed: 09/20/17 14:34> Date of Encounter: 09/20/17 Time of Encounter: 14:18 Assessment and Plan (1) Pneumonia Current Visit: Yes Status: Acute Recurrent pneumonia Patient has had recurrent admissions for pneumonia repeatedly Most recently, the patient has positive cultures for MDRO Klebsiella pneumonia but failed outpatient doxycycline She continues to present with high fevers and evidence of pneumonia on exam Chest x-ray shows increased interstitial markings with right middle to basilar consolidation which appears new Recommendations -At this time we recommend consultation with infectious disease -Possible bronchoscopy if ID feels it would be beneficial -Agree with diuresis as needed -Manage respiratory failure with O2 + noninvasive ventilation PRN -Agree with Duonebs Qualifiers: Pneumonia type: due to Klebsiella pneumoniae Laterality: right Lung location: unspecified part of lung Qualified Code(s): J15.0 - Pneumonia due to Klebsiella pneumoniae History of Present Illness Consult date: 09/20/17 Requesting physician: Jeffrey Marc Reason for consult: pneumonia Chief complaint: Recurrent pneumonia History of present illness: Ms. Mayes is a 66-year-old woman with history of recurrent pneumonia and recent admission for hospital-acquired pneumonia who presented to the hospital with 3-4 day history of high fever, shortness of breath, increased cough. She was most recently admitted and discharged from the hospital on 08/28/17 with a prescription for oral doxycycline for pneumonia. She said that she generally felt like she was improving, however she started to get worse and over the past 3 days has gradually declined to the point that she is no longer able to complete her ADLs due to severe shortness of breath and high fever. This has been a recurrent problem for her, saying that she has had multiple pneumonias over several years and has never truly really recovered. She has had cultures which are demonstrated MDRO Klebsiella pneumonia, MRSA pneumonia, and VRE. Most recently, the patient did have positive sputum cultures for a MDRO Klebsiella. Upon questioning, the patient does admit that she has had 2 bronchoscopies in the past, and at this time she was diagnosed with MRSA pneumonia. She did feel that they were very helpful for symptomatic management. Significantly, the patient does have a history of hypergammaglobulinemia which is treated with subcutaneous gammaglobulins, however she says that while being at the hospital she feels that she has received him the heparin shots and has been unable to give herself injections. She does feel like this is significantly impacted her ability to heal. She also has a history of lupus, rheumatoid arthritis, and pericarditis. Upon presentation and admission, the patient did have an acute on chronic respiratory failure with a respiratory acidosis, MAXIMUM TEMPERATURE of 103.1, tachycardia, tachypnea, hypotension. Chest x-ray did show increased interstitial markings with what looks to be a consolidative process in the right middle to lower lobe. There is also some concern for pulmonary edema. Past Med Surg Social Fam HX - Past Medical History Medical history: arthritis, COPD, coronary artery disease, fibromyalgia, GERD, hyperlipidemia, hypertension, kidney stones, osteoporosis, RA, thyroid disease, TIA, other Additional medical history: DDD. Hypogammaglobulinanemia. pericarditis. Printzmetal angina. Lupus. Raynauds Psychiatric history: bipolar, depression, previous psychiatric hospitalization - Past Surgical History Surgical History: appendectomy, breast surgery, cholecystectomy, herniorrhaphy, hip replacement, hysterectomy, JAYSON/BSO, other Additional surgical history: jaw implant, dental surgery, perineal cyst - Social History Smoking Status: Never smoker Smokeless Tobacco Status: No Alcohol use: none Drug use: none - Family History Father Hx Family Cardiac Disorders: No Hx Family Respiratory Disorders: No Hx Family Cancer: Yes (colon, kidney, bladder) Hx Family GI Disorders: No Hx Family Endocrine Disorder: No Hx Family Neuromuscular Disorders: No Hx Family Neurologic Disorders: No Hx Family HEENT Disorders: No Hx Family Autoimmune Disorders: No Mother Adopted: No Family Member Ethnicity: Non- Living Status: Hx Family Cardiac Disorders: No Hx Family Respiratory Disorders: No Hx Family Cancer: Yes Hx Family GI Disorders: No Hx Family Endocrine Disorder: No Hx Family Neuromuscular Disorders: No Hx Family Neurologic Disorders: No Hx Family HEENT Disorders: No Hx Family Autoimmune Disorders: Yes (ra) Medications and Allergies Albuterol Sulfate [Proair Hfa] 2 puff IH Q4H PRN 07/14/15 [History] Allopurinol [Zyloprim 300 MG] 300 mg PO DAILY 07/14/15 [History] Cyclobenzaprine [Flexeril] 10 mg PO TID 07/14/15 [History] Hydroxychloroquine [Plaquenuil] 400 mg PO DAILY 07/14/15 [History] Levothyroxine [Synthroid] 50 mcg PO QAM 07/14/15 [History] OxyCODONE Immed Rel [Roxicodone 10 MG] 10 mg PO Q6H PRN 07/14/15 [History] Furosemide [Lasix] 20 mg PO DAILY PRN 12/31/16 [History] Immune Globulin, Gamma(IGG) [Gammagard 10% 10 GM/100 mL] 10 ml IVC WE 05/09/17 [ History] Ipratropium/Albuterol Neb [Duoneb] 3 ml IH Q6H PRN 05/09/17 [History] Metoprolol Tartrate 100 mg PO DAILY 05/09/17 [History] NIFEdipine [Procardia] 10 mg PO DAILY PRN 05/09/17 [History] Pregabalin [Lyrica] 100 mg PO TID 05/09/17 [History] Lactobacillus Acidophilus [Acidophilus Probiotic] 1 mg PO DAILY 06/23/17 [ History] ARIPiprazole [Abilify] 2 mg PO HS #30 tablet 06/28/17 [Rx] DULoxetine [Cymbalta] 30 mg PO DAILY #30 capsule. 06/28/17 [Rx] Aspirin 325 mg PO DAILY 08/11/17 [History] Atorvastatin Calcium [Lipitor] 20 mg PO HS 08/11/17 [History] FentaNYL PATCH [Duragesic] 12 mcg TD Q72H 08/11/17 [History] Multivitamin [One Daily Multivitamin] 1 tab PO DAILY 08/11/17 [History] Potassium Chloride 20 meq PO BID #60 tab.er.prt 08/14/17 [Rx] Estradiol [Estrace] 1 appl TP DAILY 08/22/17 [History] Doxycycline 100 mg PO BID #14 capsule 08/28/17 [Rx] 3 Allergy/AdvReac Type Severity Reaction Status Date / Time No Known Allergies Allergy Verified 08/22/17 18:25 All Systems: The remainder of the systems were reviewed and are negative Review of Systems: Constitutional: Admits to high fevers, generalized fatigue Head/Neck: Denies BRONSON, neck stiffness EENT: Denies vision changes/blurriness, rhinorrhea, congestion, sore throat CVS: Admits to chest pain with cough, some dyspnea. Admits to some orthopnea Pulm: Admits to shortness of breath, cough, sputum, denies hemoptysis GI: Denies abdominal pain, nausea, vomiting, diarrhea. Does admit to chronic constipation since she had a colonoscopy about 1 year : Denies dysuria, increased frequency, urgency, hematuria Heme: Admits to increased bruising on the abdomen which is consistent with heparin injection location MSK: Denies joint pain, limited ROM Neuro: Denies BRONSON, paresthesias, focal deficits, ataxia Physical Examination Vital Signs: Vital Signs, Last 4 Hours Temp Pulse Resp BP Pulse Ox 09/20/17 11:22 99.2 F 86 17 102/68 96 Gen: Vitals noted. No acute distress. HEENT: Normocephalic, atraumatic Neck: Supple. No adenopathy. Cardiac: RRR but faint, no murmur, +S1/S2 Pulmonary: There are fine rales noted in the left lung base and right middle lobe posteriorly Abdomen: soft, nontender, no guarding Extremities: no BLE edema, nontender calf, no cyanosis or clubbing Psych: Appropriate mood and behavior Results - Laboratory Findings CBC and BMP: 09/20/17 05:17 09/20/17 05:17 PT/INR, D-dimer PT 12.2 Seconds (9.4-12.1) H 09/20/17 05:17 Abnormal lab findings: Abnormal lab results Hct 45.0 % (35.3-44.9) H 09/20/17 05:17 PT 12.2 Seconds (9.4-12.1) H 09/20/17 05:17 VBG pH 7.27 pH Units (7.32-7.42) L 09/20/17 05:39 VBG pCO2 79 mmHg (41-51) H* 09/20/17 05:39 VBG HCO3 37 mEq/L (21-27) H 09/20/17 05:39 Carbon Dioxide 34 mEq/L (23-29) H 09/20/17 05:17 BUN 7 mg/dL (8-23) L 09/20/17 05:17 Glucose 115 mg/dL (70-105) H 09/20/17 05:17 Alkaline Phosphatase 129 Units/L (34-104) H 09/20/17 05:17 Urine Color [place] (Yellow) A 09/20/17 05:57 Urine Nitrite Positive (Negative) A 09/20/17 05:57 Ur Culture Indicated? YES (NO) A 09/20/17 05:57 - Clinical Findings Intake & Output: Intake & Output 09/19/17 09/20/17 09/20/17 23:59 07:59 15:59 Intake Total 120 / 370 Balance 120 / -330 Consult Discharge Plan - Plan Referrals: Joseph Johns DO [Primary Care Provider] - <Lenny Jiménez - Last Filed: 09/20/17 15:54> Date of Encounter: 09/20/17 All Systems: The remainder of the systems were reviewed and are negative Results - Laboratory Findings CBC and BMP: 09/20/17 05:17 09/20/17 05:17 PT/INR, D-dimer PT 12.2 Seconds (9.4-12.1) H 09/20/17 05:17 Abnormal lab findings: Abnormal lab results Hct 45.0 % (35.3-44.9) H 09/20/17 05:17 PT 12.2 Seconds (9.4-12.1) H 09/20/17 05:17 VBG pH 7.27 pH Units (7.32-7.42) L 09/20/17 05:39 VBG pCO2 79 mmHg (41-51) H* 09/20/17 05:39 VBG HCO3 37 mEq/L (21-27) H 09/20/17 05:39 Carbon Dioxide 34 mEq/L (23-29) H 09/20/17 05:17 BUN 7 mg/dL (8-23) L 09/20/17 05:17 Glucose 115 mg/dL (70-105) H 09/20/17 05:17 Alkaline Phosphatase 129 Units/L (34-104) H 09/20/17 05:17 Urine Color [place] (Yellow) A 09/20/17 05:57 Urine Nitrite Positive (Negative) A 09/20/17 05:57 Ur Culture Indicated? YES (NO) A 09/20/17 05:57 - Clinical Findings Intake & Output: Intake & Output 09/19/17 09/20/17 09/20/17 23:59 07:59 15:59 Intake Total 120 / 370 Balance 120 / -330 - Attending Attestation I examined this patient and my medical decision-making was reviewed with the Resident Physician. I agree with the documented findings, disposition and treatment plan as described except to the extent set forth below. Patient seen and examined. Labs, radiology, chart personally reviewed. Agree with resident's history and physical, assessment, plan with following comments: EVP OPERATIONS: Patient follows commands, Pulmonary: Acceptable oxygenation and ventilation. This is a very complicated case and patient is at risk of pneumonia and also opportunistic infection will recommend infectious disease consultation and if needed will arrange for bronchoscopy for diagnostic reasons. Patient is being covered with broad- spectrum antibiotics at this time. As far as the IVIG, checking the level is recommended. Patient will need incentive spirometry. Thank you for the consultation and we will continue follow-up.
[2017-09-20] MEDS: MethylPREDNISolone 40 MG/ML VIAL IVP SCH (16:36)
[2017-09-20] MEDS: *HR* OxyCODONE Immed Rel 5 MG TABLET PO PRN (18:03)
--- NOTE | 2017-09-20 20:20 | Electrocardiograph Report ---
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
[2017-09-20] MEDS: ARIPiprazole 2 MG TABLET PO SCH (21:32)
[2017-09-21] MEDS: *HR* OxyCODONE Immed Rel 5 MG TABLET PO PRN ×4 (01:11→23:08)
[2017-09-21] MEDS: MethylPREDNISolone 40 MG/ML VIAL IVP SCH ×4 (01:11→23:06)
[2017-09-21] MEDS: *HR* Enoxaparin 40 MG/0.4 ML SYRINGE SQ SCH (05:31)
[2017-09-21] MEDS: Piperacillin/Tazobactam 3.375 GM in 0.9 % Sodium Chloride Mini Bag 100 ML IVPB SCH ×4 (05:31→21:47)
[2017-09-21 06:32] LABS: Basophils % 0.1 %; Hematocrit 34.5 % (35.3-44.9); Immature Granulocytes % 0.5 % (0-4); Lymphocytes # 1.1 K/mcL (0.6-4.6); Lymphocytes % 6.8 %; Mean Corpuscular HGB Conc 33.3 g/dL (31.6-35.5); Mean Corpuscular Hemoglobin 30.5 pg (28.0-33.3); Mean Corpuscular Volume 91.5 fL (83.0-100.0); Mean Platelet Volume 10.5 fL (9.4-12.4); Monocytes # 0.3 K/mcL (0.0-1.3); Monocytes % 2.1 %; Neutrophils # 14.3 K/mcL (1.6-8.9); Platelet Count 227 K/mcL (140-400); Red Blood Count 3.77 M/mcL (3.82-4.97); Red Cell Distribution Width 13.2 % (11.5-14.5); Segmented Neutrophils % 90.5 %
[2017-09-21 06:39] LABS: Hemoglobin 11.5 g/dL (11.5-15.4)
[2017-09-21 06:53] LABS: BUN/Creatinine Ratio 19 (6-26); Blood Urea Nitrogen 10 mg/dL (8-23); Calcium 8.8 mg/dL (8.6-10.3); Carbon Dioxide 28 mEq/L (23-29); Chloride 99 mEq/L (98-107); Glucose 150 mg/dL (70-105); Osmolality,Calculated 282 (280-300); Potassium 3.3 mEq/L (3.5-5.1); Sodium 135 mEq/L (136-145); eGFR For Non-African Americans > 60 (> 60)
[2017-09-21] MEDS: Furosemide 20 MG/2 ML VIAL IVP SCH (08:26)
[2017-09-21] MEDS: Aspirin 325 MG TABLET PO SCH (08:26)
[2017-09-21] MEDS ORDERED: Metoprolol 100 MG TABLET PO SCH (09:00)
[2017-09-21] MEDS ORDERED: GAMMAGARD SQ ONE (10:29)
--- NOTE | 2017-09-21 13:19 | Infectious Disease Consult ---
Date of Encounter: 09/21/17 Time of Encounter: 13:06 Assessment and Plan (1) Sepsis Status: Resolved Assessment and plan: The patient had two SIRS criteria on admission. Likely secondary to PNA. Improved. Tachycardia resolved. Afebrile x 24 hours. WBC elevated this morning, but could be due to steroids. Blood cultures drawn 09/20/17 are pending x 2 sets. Qualifiers: Sepsis type: methicillin resistant Staphylococcus aureus Qualified Code(s) : A41.02 - Sepsis due to Methicillin resistant Staphylococcus aureus (2) Pneumonia Status: Acute Assessment and plan: Causative organism unclear. Recurrent. Patient hospitalized 08/22-08/28 and treated with IV antibiotics for 7 days followed by PO doxycycline and levaquin. Patient reports multiple episodes over the past few years. CXR showed findings consistent with pulmonary vascular congestion, possible pulmonary edema. The patient reports a cough productive of yellow sputum and dyspnea with high O2 requirements. Pulmonology consulted and following. May need to consider bronchoscopy. Check S. pneumo and Legionella UAT. Send sputum for culture if the patient is able to provide an adequate specimen. Get CT chest with IV contrast. Get RIP. Check procalcitonin. Continue Zosyn 3.375 grams IV Q8H. Continue Vancomycin IV. Pharmacy to dose. Goal trough ~15. Start Levaquin 750mg IV daily. Duration of treatment depends on the clinical picture. Monitor renal function and for drug toxicity and dose-adjust antibiotics. Qualifiers: Pneumonia type: due to Klebsiella pneumoniae Laterality: right Lung location: unspecified part of lung Qualified Code(s): J15.0 - Pneumonia due to Klebsiella pneumoniae (3) Hypogammaglobulinemia Status: Chronic Assessment and plan: Follows with Dr. Piper Smith for weekly immunoglobulin injections, but has not had them since the beginning of August due to hospitalizations and lovenox- induced bruising to the abdomen. Could be contributing to the patient's recurrent infections. (4) COPD with exacerbation Status: Acute Assessment and plan: Continue supportive care per the primary and pulmonary teams. (5) Acute on chronic respiratory failure with hypoxia and hypercapnia Status: Acute Assessment and plan: Multifactorial: COPD + PNA + possible pulmonary edema. Resolved. (6) Pulmonary edema Status: Acute Assessment and plan: CXR showed findings consistent with pulmonary edema. TTE showed EF of 60% with mild left ventricular diastolic dysfunction. BNP mildly elevated at 182. Clinically improved. Qualifiers: Chronicity: acute Qualified Code(s): J81.0 - Acute pulmonary edema (7) Coronary artery disease Status: Chronic Qualifiers: Coronary Disease-Associated Artery/Lesion type: [place] artery [place] vs. transplanted heart: [place] heart Associated angina: without angina Qualified Code(s): I25.10 - Atherosclerotic heart disease of [place] coronary artery without angina pectoris Infectious Disease HPI - Data of Consult Patient: known to practice within the last 3 years Consult date: 09/21/17 Requesting Physician: Jennifer Bueno MD Primary Care Provider: Arturo Johns DO - Consult Narrative Reason for consult: Pneumonia History of present illness: Ms. Mayes is a 66 year old female with a past medical history of hypogammaglobulinemia who follows with Dr. Miri Smith for weekly IVIG injections, COPD, CAD, fibromyalgia, HLP, HTN, OP, and RA currently on Plaquenil. The patient was admitted to the hospital 09/20/17 for PNA and acute respiratory failure. We are consulted 09/21/17 for further recommendations for recurrent PNA. Briefly, the patient is a 66 year old female, known to the ID services as we were consulted on her case during her most recent hospitalization. At that time , the patient was admitted for recurrent PNA after she completed the prescribed course of antibiotics. At that time, the patient was discharged on August 28 after 7 days of IV antibiotics to complete an additional 7 days of doxycycline and 10 days of Levaquin. She reports she took all of the medication she was prescribed and started another course of doxycycline when she because dyspneic and had a productive cough on Monday. Her dyspnea worsened, so she called EMS to bring her to the ER yesterday. Upon arrival to the ER, she was febrile, tachycardic, and hypoxic. Labs revealed a normal WBC. ABGs showed hypercarbia, so the patient was placed on BIPAP. CXR showed pulmonary vascular congestion. She was started on empiric IV antibiotics and admitted to the hospital for further evaluation and treatment. Since admission, the patient's WBC has gone up to 15, but she was also started on steroids. Her O2 demand is down and she is currently on O2 via nasal cannula. Pulmonology has been consulted and is following. The patient had a TTE that showed an EF of 55%-60%. Currently, the patient is on IV Vanc and Zosyn. We 've been asked to evaluate and make further recommendations. During my exam today, the patient states that she feels 100% better. She reports fevers with chills and rigors at home prior to admission. She denies headache, congestion, earache, or sore throat. She reports dyspnea, even at rest and worse with exertion, and cough productive of dark yellow sputum. She reported some pain in her chest when she felt like she was unable to catch her breath. She reports chronic intermittent nausea and vomiting and diarrhea, but nothing out of the ordinary. She reports some trouble starting her urine stream at home, but states she was taking pyridium and that seemed to help. She denies dysuria, frequency, or flank pain. She reports chronic low back pain that is at baseline. She denies pain in her other joints or extremities. She denies rashes or open lesions. She denies oral thrush. She reports her last IG injection was at the beginning of August because she has been in the hospital so much. The patient lives at home with her . She is retired. Denies tobacco, alcohol, or illicit drug use. Denies recent travel or known sick contacts. CC: Jennifer Bueno MD Past Med Surg Social Fam HX - Past Medical History Attestation: Yes The following information was validated with the patient. Source: patient, old records reviewed, nursing notes reviewed Medical history: arthritis, COPD, coronary artery disease, fibromyalgia, GERD, hyperlipidemia, hypertension, kidney stones, osteoporosis, RA, thyroid disease, TIA, other Additional medical history: DDD. Hypogammaglobulinanemia. pericarditis. Printzmetal angina. Lupus. Raynauds Psychiatric history: bipolar, depression, previous psychiatric hospitalization - Past Surgical History Surgical History: appendectomy, breast surgery, cholecystectomy, herniorrhaphy, hip replacement, hysterectomy, JAYSON/BSO, other Additional surgical history: jaw implant, dental surgery, perineal cyst - Social History Smoking Status: Never smoker Smokeless Tobacco Status: No Alcohol use: none Drug use: none Occupational status: retired Current living situation: Home, With Family Activity Level: Independent ambulation Recent Out of Country Travel Within the Last 8 Weeks: No Exposure or Possible Exposure to Illness During Travel: No - Family History Father Hx Family Cardiac Disorders: No Hx Family Respiratory Disorders: No Hx Family Cancer: Yes (colon, kidney, bladder) Hx Family GI Disorders: No Hx Family Endocrine Disorder: No Hx Family Neuromuscular Disorders: No Hx Family Neurologic Disorders: No Hx Family HEENT Disorders: No Hx Family Autoimmune Disorders: No Mother Adopted: No Family Member Ethnicity: Non- Living Status: Hx Family Cardiac Disorders: No Hx Family Respiratory Disorders: No Hx Family Cancer: Yes Hx Family GI Disorders: No Hx Family Endocrine Disorder: No Hx Family Neuromuscular Disorders: No Hx Family Neurologic Disorders: No Hx Family HEENT Disorders: No Hx Family Autoimmune Disorders: Yes (ra) Infectious Disease-CN:Meds Albuterol Sulfate [Proair Hfa] 2 puff IH Q4H PRN 07/14/15 [History] Allopurinol [Zyloprim 300 MG] 300 mg PO DAILY 07/14/15 [History] Cyclobenzaprine [Flexeril] 10 mg PO TID 07/14/15 [History] Hydroxychloroquine [Plaquenuil] 400 mg PO DAILY 07/14/15 [History] Levothyroxine [Synthroid] 50 mcg PO QAM 07/14/15 [History] OxyCODONE Immed Rel [Roxicodone 10 MG] 10 mg PO Q6H PRN 07/14/15 [History] Furosemide [Lasix] 20 mg PO DAILY PRN 12/31/16 [History] Immune Globulin, Gamma(IGG) [Gammagard 10% 10 GM/100 mL] 10 ml IVC WE 05/09/17 [ History] Ipratropium/Albuterol Neb [Duoneb] 3 ml IH Q6H PRN 05/09/17 [History] Metoprolol Tartrate 100 mg PO DAILY 05/09/17 [History] NIFEdipine [Procardia] 10 mg PO DAILY PRN 05/09/17 [History] Pregabalin [Lyrica] 100 mg PO TID 05/09/17 [History] Lactobacillus Acidophilus [Acidophilus Probiotic] 1 mg PO DAILY 06/23/17 [ History] ARIPiprazole [Abilify] 2 mg PO HS #30 tablet 06/28/17 [Rx] DULoxetine [Cymbalta] 30 mg PO DAILY #30 capsule. 06/28/17 [Rx] Aspirin 325 mg PO DAILY 08/11/17 [History] Atorvastatin Calcium [Lipitor] 20 mg PO HS 08/11/17 [History] FentaNYL PATCH [Duragesic] 12 mcg TD Q72H 08/11/17 [History] Multivitamin [One Daily Multivitamin] 1 tab PO DAILY 08/11/17 [History] Potassium Chloride 20 meq PO BID #60 tab.er.prt 08/14/17 [Rx] Estradiol [Estrace] 1 appl TP DAILY 08/22/17 [History] Doxycycline 100 mg PO BID #14 capsule 08/28/17 [Rx] 3 Allergy/AdvReac Type Severity Reaction Status Date / Time No Known Allergies Allergy Verified 08/22/17 18:25 All systems: reviewed and no additional remarkable complaints except as stated Exam - Constitutional Vitals: Temp Pulse Resp BP Pulse Ox 98.1 F 85 19 122/79 100 09/21/17 12:09 09/21/17 12:09 09/21/17 12:09 09/21/17 12:09 09/21/17 12:09 General appearance: average body habitus, cooperative, no acute distress - Head Head exam: Present: atraumatic, normal inspection, normocephalic - Eye Eye exam: Present: EOMI, normal appearance, PERRL Pupils: Present: normal accommodation - ENT ENT exam: Present: mucous membranes moist - Neck Neck exam: Present: normal inspection - Respiratory Respiratory exam: Present: CTAB. Absent: rales, respiratory distress, rhonchi, wheezes - Cardiovascular Cardiovascular exam: Present: RRR, +S1, +S2 - GI/Abdominal GI/Abdominal exam: Present: normal bowel sounds, soft. Absent: distended, tenderness Additional comments: IGG injection ports noted to the abdomen x 4. - Extremities Exam Extremities exam: Present: normal inspection. Absent: joint swelling, pedal edema, tenderness - Neurological Exam Neurological exam: Present: alert, oriented X3, no focal deficits - Psychiatric Psychiatric exam: Present: normal affect, normal mood - Skin Skin exam: Present: dry, intact, normal color, warm Infectious Disease CN: Results - Labs CBC & Chem 7: 09/21/17 06:19 09/21/17 06:19 Consult Discharge Plan - Plan Referrals: Joseph Johns DO [Primary Care Provider] - - Attending Attestation I examined this patient and my medical decision-making was reviewed with the Resident Physician. I agree with the documented findings, disposition and treatment plan as described except to the extent set forth below. This is an addendum to original report dictated by Cassie Varghese CNP. Please refer to Cassie's note for full detail. Patient is a 67-year-old woman who is well-known to our service who was recently seen by us for pneumonia with iron identified organism and was discharged on doxycycline and levofloxacin. Patient comes back now with acute respiratory failure. We were consulted for antibiotics recommendation. Patient with past medical history mentioned below including hypogammaglobulinemia, COPD, coronary artery disease, fibromyalgia, hyperlipidemia and rheumatoid arthritis on Plaquenil presented to [facility] with acute shortness of breath. Patient apparently started having dyspnea and productive cough on Monday prior to admission. She denies any hemoptysis. She denied any fevers or chills. When patient arrived to [facility] she was found to be febrile with a MAXIMUM TEMPERATURE of 103.1 tachycardic, tachypneic and with leukocytosis.. Patient WBC today was 15.8 with 91% neutrophils with no bands. Patient also had a PCO2 of 79. The rest of the chemistry was nonrevealing. A urinalysis showed no pyuria, no bacteria, no leukocyte esterase but showed positive nitrites and cultures were obtained. Patient also had x-rays which was nonrevealing showed pulmonary congestion but no pneumonia. Blood cultures were obtained and are so far no growth. 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 Recommendations Check S. pneumo and Legionella UAT. Send sputum for culture if the patient is able to provide an adequate specimen. Get CT chest with IV contrast. Get RIP. Check procalcitonin. Continue Zosyn 3.375 grams IV Q8H. Continue Vancomycin IV. Pharmacy to dose. Goal trough ~15. Start Levaquin 750mg IV daily.
--- NOTE | 2017-09-21 14:07 | Internal Med Progress Note ---
Hospitalist Progress Note - Encounter Date of Encounter: 09/21/17 Time of Encounter: 11:40 - Subjective Interval History: Patient seen and evaluated at the bedside with spouse. 66-year-old female with hypogammaglobulinemia, recurrent pneumonias, COPD who was admitted to the hospital for acute hypoxic respiratory failure secondary to pneumonia as well as suspected CHF exacerbation. At my time of review, the patient is no longer hypoxic and not requiring oxygen. She has also been reviewed by pulmonology who requested ID eval due to prior MDRO kleb PNA Patient is able to complete her sentences and is not in any form of distress She and spouse do end is remarkable improvement in her resp status She denies urinary symptoms even though her UA shows nitrites +, culture is pending - Exam Vitals: Temp Pulse Resp BP Pulse Ox 98.1 F 85 19 122/79 100 09/21/17 12:09 09/21/17 12:09 09/21/17 12:09 09/21/17 12:09/21/17 12:09 Exam: VSS Gen: Not in any form of distress HEENT: Unremarkable, not pale Chest: No wheezing on exam today, no crackles, bronchial sounds on the upper lobes, no distinct rhonchi Heart: S1, S2 only, no m/g/r Abdomen: Soft, not tender Extremities: No pedal edema Neuro: AAOX3. No focal deficits Skin: No rash Psych: Normal affect - Assessment and Plan (1) Pneumonia Current Visit: Yes Status: Acute Assessment and Plan: Recurrent PNA in the setting of hypogammaglobulinemia in patient that has missed doses of her IvIGg We are treating as HCAP Hypoxia has improved and patient not requiring O2 at rest Continue vanco and Zosyn-Day 2 Pulm following ID eval requested as recommended (2) Acute on chronic respiratory failure with hypoxia and hypercapnia Current Visit: Yes Status: Acute Assessment and Plan: Multifactorial-patient has a history of baseline COPD with increasing oxygen requirements and her ABG shows hypercapnic respiratory failure he did she was briefly placed on BiPAP and now has been weaned off At home the patient uses 2-3 L on a when necessary basis and never consistently. Her chest x-ray that shows evidence of fluid overload but atelectasis and early pneumonia cannot be excluded. Continue O2 supplement as needed (3) Bipolar 1 disorder, depressed Current Visit: Yes Status: Chronic Assessment and Plan: continue home meds (4) COPD (chronic obstructive pulmonary disease) Current Visit: Yes Status: Chronic Assessment and Plan: With acute exacerbation Continue Solumedrol, antibiotics, nebs (5) Coronary artery disease Current Visit: Yes Status: Chronic Assessment and Plan: continue home meds (6) DVT prophylaxis Current Visit: Yes Status: Acute Assessment and Plan: SQ heparin (7) Essential hypertension Current Visit: Yes Status: Chronic Assessment and Plan: Continue home medications and monitor vital signs closely. (8) Hypogammaglobulinemia Current Visit: Yes Status: Chronic Assessment and Plan: Seen by Dr. Smith Recommended one time dose of IvIGg this a.m which the patient has administered by herself Continue to monitor (9) CHF (congestive heart failure) Current Visit: Yes Status: Acute Assessment and Plan: Patient who presented with hypoxia SPO2 70s on room air, resp distress, and CXR with fluid overload Improved promptly with BIPAP,, lasix, O2 Continue lasix ECHO done today-noted for EF 60-65%, mild LVDD, no other significant findings Strict intake and output Fluid restriction Daily weights. - Time Spent with Patient Total time spent is greater than 50% in coordination of care (as documented) at patient's floor/unit and/or counseling patient: Plan of Care Discussed with: patient Internal Medicine: Result - Labs CBC & Chem 7: 09/21/17 06:19 09/21/17 06:19 Labs: Short CBC 09/21/17 Range/Units 06:19 WBC 15.8 H D (4.3-11.1) K/mcL Hgb 11.5 D (11.5-15.4) g/dL Hct 34.5 L (35.3-44.9) % Plt Count 227 (140-400) K/mcL Neutrophils # 14.3 H (1.6-8.9) K/mcL BMP 09/21/17 06:19 Sodium 135 L Potassium 3.3 L Chloride 99 Carbon Dioxide 28 BUN 10 Creatinine 0.53 L Glucose 150 H Calcium 8.8 - ABG Interpretation ABG results: PT/INR, D-dimer PT 12.2 Seconds (9.4-12.1) H 09/20/17 05:17 - Impressions Impressions Echocardiogram 09/20/17 10:12 Impressions: LVEF 60-65%. Mild left ventricular diastolic dysfunction. Definity echo contrast was used. Normal right ventricular structure and function. No significant valvular dysfunction. Lack of significant TR signal to estimate RVSP. Left Ventricular Wall Motion: Rest Echo Findings All wall segments showed normal motion. Findings: Study Quality * Technically challenging echocardiographic windows. ECG Findings * Normal sinus rhythm. Left Ventricle * LVEF 60-65%. * Normal appearing LV chamber size and wall thickness. * Mild left ventricular diastolic dysfunction. * There is no LV thrombus. * Definity echo contrast was used. Right Ventricle * Normal right ventricular structure and function. Left Atrium * Normal left atrial size. Right Atrium * Normal right atrial size. Aortic Valve * Aortic valve not well visualized. * No aortic regurgitation. * No aortic stenosis. Mitral Valve * Mitral valve not well visualized. * No mitral regurgitation. * No mitral stenosis. Tricuspid Valve * Tricuspid valve not well visualized. * No tricuspid regurgitation. Pulmonic Valve * Pulmonic valve is not well visualized. * No pulmonic stenosis. * No pulmonic regurgitation. Pulmonary Artery * Pulmonary artery not well visualized. Aorta * Normally sized aortic root. * Not well visualized. Pericardium * There is no pericardial effusion present. Interatrial Septum * No evidence of PFO by color Doppler. IVC * The IVC is not well evaluated. Consult Discharge Plan - Plan Referrals: Joseph Johns DO [Primary Care Provider] - (1) Pneumonia Qualifiers: Pneumonia type: due to Klebsiella pneumoniae Laterality: right Lung location : unspecified part of lung Qualified Code(s): J15.0 - Pneumonia due to Klebsiella pneumoniae (4) COPD (chronic obstructive pulmonary disease) Qualifiers: COPD type: chronic bronchitis Chronic bronchitis type: simple Qualified Code (s): J41.0 - Simple chronic bronchitis (5) Coronary artery disease Qualifiers: Coronary Disease-Associated Artery/Lesion type: [place] artery [place] vs. transplanted heart: [place] heart Associated angina: without angina Qualified Code(s): I25.10 - Atherosclerotic heart disease of [place] coronary artery without angina pectoris (9) CHF (congestive heart failure) Qualifiers: Heart failure type: diastolic Heart failure chronicity: acute Qualified Code (s): I50.31 - Acute diastolic (congestive) heart failure
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
[2017-09-21] MEDS ORDERED: Isovue-370 500 ML INFUS..BTL IV ONE (15:45)
[2017-09-21] MEDS ORDERED: Levofloxacin 750 MG/150 ML 750 MG/150 ML BAG IVPB SCH ×2 (16:00→20:00)
[2017-09-21 19:01] LABS: Adenovirus Not Detected (Not Detect); Bordetella Pertussis Not Detected (Not Detect); Chlamydophila pneumoniae Not Detected (Not Detect); Coronavirus 229E Not Detected (Not Detect); Coronavirus HKU1 Not Detected (Not Detect); Coronavirus NL63 Not Detected (Not Detect); Coronavirus OC43 Not Detected (Not Detect); Human Metapneumovirus Not Detected (Not Detect); Human Rhinovirus/Enterovirus Not Detected (Not Detect); Influenza A Subtype 2009 H1 Not Detected (Not Detect); Influenza A Untypeable Not Detected (Not Detect); Influenza B Not Detected (Not Detect); Mycoplasma pneumoniae Not Detected (Not Detect); Parainfluenza Virus 1 Not Detected (Not Detect); Parainfluenza Virus 2 Not Detected (Not Detect); Parainfluenza Virus 3 Not Detected (Not Detect); Parainfluenza Virus 4 Not Detected (Not Detect); Respiratory Syncytial Virus Not Detected (Not Detect)
[2017-09-21] MEDS: ARIPiprazole 2 MG TABLET PO SCH (21:43)
[2017-09-21] MEDS: NIFEdipine 10 MG CAPSULE PO PRN (23:50)
[2017-09-22] MEDS ORDERED: 0.9 % Sodium Chloride 250 ML ONE (05:31)
[2017-09-22] MEDS: Piperacillin/Tazobactam 3.375 GM in 0.9 % Sodium Chloride Mini Bag 100 ML IVPB SCH ×3 (05:33→22:05)
[2017-09-22] MEDS: *HR* Enoxaparin 40 MG/0.4 ML SYRINGE SQ SCH (05:34)
[2017-09-22] MEDS: MethylPREDNISolone 40 MG/ML VIAL IVP SCH (08:01)
[2017-09-22] MEDS: Aspirin 325 MG TABLET PO SCH (08:02)
[2017-09-22] MEDS: *HR* OxyCODONE Immed Rel 5 MG TABLET PO PRN ×3 (08:02→22:05)
[2017-09-22] MEDS: Furosemide 20 MG/2 ML VIAL IVP SCH (08:02)
[2017-09-22 08:22] LABS: Basophils % 0.1 %; Hematocrit 40.9 % (35.3-44.9); Hemoglobin 13.8 g/dL (11.5-15.4); Immature Granulocytes % 0.5 % (0-4); Lymphocytes # 1.3 K/mcL (0.6-4.6); Lymphocytes % 7.9 %; Mean Corpuscular HGB Conc 33.7 g/dL (31.6-35.5); Mean Corpuscular Hemoglobin 30.7 pg (28.0-33.3); Mean Corpuscular Volume 90.9 fL (83.0-100.0); Mean Platelet Volume 10.5 fL (9.4-12.4); Monocytes # 0.9 K/mcL (0.0-1.3); Monocytes % 5.5 %; Neutrophils # 14.5 K/mcL (1.6-8.9); Platelet Count 291 K/mcL (140-400); Red Cell Distribution Width 13.4 % (11.5-14.5)
[2017-09-22 08:43] LABS: BUN/Creatinine Ratio 27 (6-26); Blood Urea Nitrogen 18 mg/dL (8-23); Calcium 9.2 mg/dL (8.6-10.3); Carbon Dioxide 23 mEq/L (23-29); Chloride 105 mEq/L (98-107); Glucose 144 mg/dL (70-105); Osmolality,Calculated 290 (280-300); Potassium 4.1 mEq/L (3.5-5.1); Sodium 138 mEq/L (136-145); eGFR For Non-African Americans > 60 (> 60)
--- NOTE | 2017-09-22 10:26 | Allergy Progress Note ---
Date of Encounter: 09/22/17 Time of Encounter: 07:00 Subjective Patient reports: other (Patient reports that she is in pain this morning and is still coughing. Her neck and chest hurt last night. She has not had fever overnight. She did her infusion yesterday which went well. She did not take the catheters out after the infusions as she said things got busy. ) Objective Vital Signs - Last 8 Hours Temp Pulse Resp BP Pulse Ox 09/22/17 08:10 98 09/22/17 07:45 99.0 F 85 16 159/85 98 09/22/17 04:25 98.0 F 86 16 143/84 98 Intake and Output 09/21/17 09/22/17 09/22/17 23:59 07:59 15:59 Intake Total 590 / 590 100 / 100 240 / 240 Output Total 100 / 100 100 / 100 800 / 800 Balance 490 / 490 0 / 0 -560 / -560 Intake: IV Fluids 350 / 350 100 / 100 Zosyn 3.375 GM In 0.9 % Sodium 100 / 100 100 / 100 Chloride (Mini-Bag +) 100 ML @ 25 mls/hr IVPB Q8H [facility] Rx#: [id number] Vancocin 1,000 MG In 0.9 % 250 / 250 Sodium Chloride 250 ML @ 167 mls/hr IVPB Q12H [facility] Rx#: [id number] Oral 240 / 240 240 / 240 Output: Urine 100 / 100 100 / 100 800 / 800 Other: Meal Dinner Breakfast Percent of Meal Consumed 50% 45% Stool Size Small Moderate Small Stool Consistency loose loose loose Stool Color Brown Brown Brown # Voids 2 Weight 69.4 kg Patient Weight 09/22/17 23:59 Weight 69.4 kg - General physical appearance no distress - ENT no congestion - Respiratory normal respiratory effort, other Respiratory Exam: Respiratory exam: rales: bilateral (lower) - Abdomen soft - Integumentary other (patient has catheters and tape in place on abdomen from infusion yesterday) - Neurologic confused - Labs 09/22/17 07:59 09/22/17 07:59 Diabetes panel 09/22/17 Range/Units 07:59 Sodium 138 (136-145) mEq/L Potassium 4.1 (3.5-5.1) mEq/L Chloride 105 (98-107) mEq/L Carbon Dioxide 23 (23-29) mEq/L BUN 18 (8-23) mg/dL Creatinine 0.67 (0.60-1.20) mg/dL Glucose 144 H (70-105) mg/dL Calcium 9.2 (8.6-10.3) mg/dL Calcium panel 09/22/17 Range/Units 07:59 Calcium 9.2 (8.6-10.3) mg/dL Pituitary panel 09/22/17 Range/Units 07:59 Sodium 138 (136-145) mEq/L Potassium 4.1 (3.5-5.1) mEq/L Chloride 105 (98-107) mEq/L Carbon Dioxide 23 (23-29) mEq/L BUN 18 (8-23) mg/dL Creatinine 0.67 (0.60-1.20) mg/dL Glucose 144 H (70-105) mg/dL Calcium 9.2 (8.6-10.3) mg/dL Adrenal panel 09/22/17 Range/Units 07:59 Sodium 138 (136-145) mEq/L Potassium 4.1 (3.5-5.1) mEq/L Chloride 105 (98-107) mEq/L Carbon Dioxide 23 (23-29) mEq/L BUN 18 (8-23) mg/dL Creatinine 0.67 (0.60-1.20) mg/dL Glucose 144 H (70-105) mg/dL Calcium 9.2 (8.6-10.3) mg/dL - Assessment and Plan (1) CHF (congestive heart failure) Current Visit: Yes Status: Acute Qualifiers: Heart failure type: diastolic Heart failure chronicity: acute Qualified Code(s): I50.31 - Acute diastolic (congestive) heart failure (2) Community acquired pneumonia Current Visit: Yes Status: Acute Qualifiers: Laterality: right Lung location: unspecified part of lung Qualified Code( s): J18.9 - Pneumonia, unspecified organism (3) Hypogammaglobulinemia Current Visit: Yes Status: Chronic 1. Nurse will help patient remove catheters from infusion yesterday 2. Will follow up IgG level . 3. Continue sepsis/pneumonia treatment per ID and pulmonary. 4. Will follow urine, sputum and blood cultures. 5. Will follow with primary team 6. Follow up as outpatient in 4 weeks. 7. Patient will need to her gammagard next the . Consult Discharge Plan - Plan Referrals: Joseph Johns DO [Primary Care Provider] -
--- NOTE | 2017-09-22 10:32 | Infectious Disease Progress No ---
Date of Encounter: 09/22/17 Time of Encounter: 10:30 - Assessment and Plan (1) Sepsis Current Visit: No Status: Resolved The patient had two SIRS criteria on admission. Likely secondary to PNA. Improved. Tachycardia resolved. Afebrile. WBC elevated this morning, but could be due to steroids. Blood cultures drawn 09/20/17 are NGTD x 2 sets. Qualifiers: Sepsis type: methicillin resistant Staphylococcus aureus Qualified Code(s) : A41.02 - Sepsis due to Methicillin resistant Staphylococcus aureus (2) Pneumonia Current Visit: Yes Status: Acute Causative organism unclear. Recurrent. Patient hospitalized 08/22-08/28 and treated with IV antibiotics for 7 days followed by PO doxycycline and levaquin. Patient reports multiple episodes over the past few years. CXR showed findings consistent with pulmonary vascular congestion, possible pulmonary edema. The patient reports a cough productive of yellow sputum and dyspnea with high O2 requirements. Pulmonology consulted and following. May need to consider bronchoscopy. Will discuss with the pulmonology team. Check S. pneumo and Legionella UAT.--> negative. Send sputum for culture if the patient is able to provide an adequate specimen. Get CT chest with IV contrast. --> Showed consolidation in the lower lobes consistent with recurrent/worsening pneumonia. Tree-in-bed opacities improved. Get RIP.--> negative. Check procalcitonin.--> pending. Continue Zosyn 3.375 grams IV Q8H. Continue Vancomycin IV. Pharmacy to dose. Goal trough ~15. Discontinue Levaquin. Duration of treatment depends on the clinical picture. Monitor renal function and for drug toxicity and dose-adjust antibiotics. Qualifiers: Pneumonia type: due to Klebsiella pneumoniae Laterality: right Lung location: unspecified part of lung Qualified Code(s): J15.0 - Pneumonia due to Klebsiella pneumoniae (3) Hypogammaglobulinemia Current Visit: Yes Status: Chronic Follows with Dr. Piper Smith for weekly immunoglobulin injections, but has not had them since the beginning of August due to hospitalizations and lovenox- induced bruising to the abdomen. Could be contributing to the patient's recurrent infections. Appreciate Allergy/Immunology recommendations. (4) COPD with exacerbation Current Visit: No Status: Acute Continue supportive care per the primary and pulmonary teams. (5) Acute on chronic respiratory failure with hypoxia and hypercapnia Current Visit: Yes Status: Acute Multifactorial: COPD + PNA + possible pulmonary edema. Resolved. (6) Pulmonary edema Current Visit: Yes Status: Acute CXR showed findings consistent with pulmonary edema. TTE showed EF of 60% with mild left ventricular diastolic dysfunction. BNP mildly elevated at 182. Clinically improved. Qualifiers: Chronicity: acute Qualified Code(s): J81.0 - Acute pulmonary edema (7) Coronary artery disease Current Visit: Yes Status: Chronic Qualifiers: Coronary Disease-Associated Artery/Lesion type: [place] artery [place] vs. transplanted heart: [place] heart Associated angina: without angina Qualified Code(s): I25.10 - Atherosclerotic heart disease of [place] coronary artery without angina pectoris (8) Diarrhea Current Visit: Yes Status: Acute Patient reports chronic alternating diarrhea and constipation. Reports several loose stools yesterday, but states they are not mucousy or watery. Continue to monitor closely. Start probiotics BID. Qualifiers: Diarrhea type: unspecified type Qualified Code(s): R19.7 - Diarrhea, unspecified - Subjective Interval history: Patient seen and examined. No acute events noted overnight. Patient states she had some chest pain overnight that she attributes to her Prinzmetal angina that was relieved with Procardia. She denies chest pain or cough overnight. She denies abdominal pain, but does endorse some intermittent nausea. She denies vomiting. She reports multiple loose stools yesterday that is normal for her. She denies oral thrush or any skin lesions. She states she ate some of her breakfast today. Larson catheter was discontinued and she is voiding without issue. Infect Dis PN-Objective Data - Labs CBC & Chem 7: 09/22/17 07:59 09/22/17 07:59 Labs: Laboratory Results - last 24 hr 09/21/17 09/21/17 09/22/17 17:00 17:17 06:57 WBC RBC Hgb Hct MCV MCH MCHC RDW Plt Count MPV Immature Gran % Seg Neutrophils % Lymphocytes % Monocytes % Eosinophils % Basophils % Neutrophils # Lymphocytes # Monocytes # Eosinophils # Basophils # Sodium Potassium Chloride Carbon Dioxide BUN Creatinine Est GFR ( Amer) Est GFR (Non-Af Amer) BUN/Creatinine Ratio Glucose Calculated Osmolality Calcium Vancomycin Trough 16 H Chlamy pneumoniae PCR Not Detected Adenovirus (PCR) Not Detected B. pertussis DNA (PCR) Not Detected B.parapertussis DNA PCR Not Detected Coronavirus OC43 (PCR) Not Detected Coronavirus HKU1 (PCR) Not Detected Coronavirus 229E (PCR) Not Detected Coronavirus NL63 (PCR) Not Detected Human Metapneumovir PCR Not Detected Influenza A (H1) PCR Not Detected Influ A (H1N1/09) PCR Not Detected Influenza A (H3) PCR Not Detected Influenza A Untype (PCR) Not Detected Influenza Type B (PCR) Not Detected M.pneumoniae DNA (PCR) Not Detected Parainfluenza 1 (PCR) Not Detected Parainfluenza 2 (PCR) Not Detected Parainfluenza 3 (PCR) Not Detected Parainfluenza 4 (PCR) Not Detected RSV (PCR) Not Detected Entero/Rhino (PCR) Not Detected Specimen Rejected Hemolyzed 09/22/17 09/22/17 07:59 07:59 WBC 16.8 H RBC 4.50 Hgb 13.8 D Hct 40.9 MCV 90.9 MCH 30.7 MCHC 33.7 RDW 13.4 Plt Count 291 MPV 10.5 Immature Gran % 0.5 Seg Neutrophils % 86.0 Lymphocytes % 7.9 Monocytes % 5.5 Eosinophils % 0.0 Basophils % 0.1 Neutrophils # 14.5 H Lymphocytes # 1.3 Monocytes # 0.9 Eosinophils # 0.0 Basophils # 0.0 Sodium 138 Potassium 4.1 Chloride 105 Carbon Dioxide 23 BUN 18 Creatinine 0.67 Est GFR ( Amer) > 60 Est GFR (Non-Af Amer) > 60 BUN/Creatinine Ratio 27 H Glucose 144 H Calculated Osmolality 290 Calcium 9.2 Vancomycin Trough Chlamy pneumoniae PCR Adenovirus (PCR) B. pertussis DNA (PCR) B.parapertussis DNA PCR Coronavirus OC43 (PCR) Coronavirus HKU1 (PCR) Coronavirus 229E (PCR) Coronavirus NL63 (PCR) Human Metapneumovir PCR Influenza A (H1) PCR Influ A (H1N1/09) PCR Influenza A (H3) PCR Influenza A Untype (PCR) Influenza Type B (PCR) M.pneumoniae DNA (PCR) Parainfluenza 1 (PCR) Parainfluenza 2 (PCR) Parainfluenza 3 (PCR) Parainfluenza 4 (PCR) RSV (PCR) Entero/Rhino (PCR) Specimen Rejected Cultures: Cultures 09/22/17 01:02 Legionella Antigen - Final Urine,Clean Catch Streptococcus pneumoniae Antigen (M - Final Serology 09/21/17 Range/Units 17:17 Chlamy pneumoniae PCR Not Detected (Not Detect) Adenovirus (PCR) Not Detected (Not Detect) B. pertussis DNA (PCR) Not Detected (Not Detect) B.parapertussis DNA PCR Not Detected (Not Detect) Coronavirus OC43 (PCR) Not Detected (Not Detect) Coronavirus HKU1 (PCR) Not Detected (Not Detect) Coronavirus 229E (PCR) Not Detected (Not Detect) Coronavirus NL63 (PCR) Not Detected (Not Detect) Human Metapneumovir PCR Not Detected (Not Detect) Influenza A (H1) PCR Not Detected (Not Detect) Influ A (H1N1/09) PCR Not Detected (Not Detect) Influenza A (H3) PCR Not Detected (Not Detect) Influenza A Untype (PCR) Not Detected (Not Detect) Influenza Type B (PCR) Not Detected (Not Detect) M.pneumoniae DNA (PCR) Not Detected (Not Detect) Parainfluenza 1 (PCR) Not Detected (Not Detect) Parainfluenza 2 (PCR) Not Detected (Not Detect) Parainfluenza 3 (PCR) Not Detected (Not Detect) Parainfluenza 4 (PCR) Not Detected (Not Detect) RSV (PCR) Not Detected (Not Detect) Entero/Rhino (PCR) Not Detected (Not Detect) - Impressions Impressions Chest CT 09/21/17 17:30 IMPRESSION: Increased consolidation in the lower lobes is suspicious for recurrent or worsening pneumonia, possibly due to aspiration. Diffuse tree-in-bud opacities have improved. D/ / Clayton Russell MD / Clayton Russell MD Interpreting Provider: Clayton Russell MD Exam - Constitutional Vitals: Temp Pulse Resp BP Pulse Ox 99.0 F 85 16 159/85 98 09/22/17 07:45 09/22/17 07:45 09/22/17 07:45 09/22/17 07:45 09/22/17 08:10 General appearance: average body habitus, cooperative, no acute distress - Head Head exam: Present: atraumatic, normal inspection, normocephalic - Eye Eye exam: Present: EOMI, normal appearance, PERRL Pupils: Present: normal accommodation - ENT ENT exam: Present: mucous membranes moist - Neck Neck exam: Present: normal inspection - Respiratory Respiratory exam: Present: CTAB. Absent: rales, respiratory distress, rhonchi, wheezes - Cardiovascular Cardiovascular exam: Present: RRR, +S1, +S2 - GI/Abdominal GI/Abdominal exam: Present: normal bowel sounds, soft. Absent: distended, tenderness - Extremities Exam Extremities exam: Present: normal inspection. Absent: joint swelling, pedal edema, tenderness - Neurological Exam Neurological exam: Present: alert, oriented X3, no focal deficits - Psychiatric Psychiatric exam: Present: normal affect, normal mood - Skin Skin exam: Present: dry, intact, normal color, warm Consult Discharge Plan - Plan Referrals: Joseph Johns DO [Primary Care Provider] - - Attending Attestation I examined this patient and my medical decision-making was reviewed with the Resident Physician. I agree with the documented findings, disposition and treatment plan as described except to the extent set forth below.
--- NOTE | 2017-09-22 11:24 | Internal Med Progress Note ---
Hospitalist Progress Note - Encounter Date of Encounter: 09/22/17 Time of Encounter: 11:24 - Subjective Interval History: 66-year-old female with hypogammaglobulinemia, recurrent pneumonias, COPD who was admitted to the hospital for acute hypoxic respiratory failure secondary to pneumonia as well as suspected CHF exacerbation. Hypoxia has resolved Patient is seen and examined at the bedside She has not required supplemental O2 or BiPAP since 09/21 She reports having had a rough night and having frequent loose stools We will resume her home doses of probiotic as well as fentanyl patch Stool is not watery, we will rule out C.diff if it becomes watery - Exam Vitals: Temp Pulse Resp BP Pulse Ox 99.0 F 85 16 159/85 98 09/22/17 07:45 09/22/17 07:45 09/22/17 07:45 09/22/17 07:45 09/22/17 08:10 Exam: VSS Gen: Not in any form of distress HEENT: Unremarkable, not pale Chest: No wheezing on exam today, no crackles, bronchial sounds on the upper lobes, no distinct rhonchi Heart: S1, S2 only, no m/g/r Abdomen: Soft, not tender Extremities: No pedal edema Neuro: AAOX3. No focal deficits Skin: No rash Psych: Normal affect - Assessment and Plan (1) Pneumonia Current Visit: Yes Status: Acute Assessment and Plan: Recurrent PNA in the setting of hypogammaglobulinemia in patient that has missed doses of her IvIGg We are treating as HCAP Hypoxia has improved and patient not requiring O2 at rest Continue vanco and Zosyn-Day 3 Continue Levaquin-Day 2 Pulm following ID eval following Blood culture prelim negative Urine legionella and Strep Ag negative RIP negative Continue current management (2) Acute on chronic respiratory failure with hypoxia and hypercapnia Current Visit: Yes Status: Acute Assessment and Plan: Multifactorial-patient has a history of baseline COPD with increasing oxygen requirements and her ABG shows hypercapnic respiratory failure he did she was briefly placed on BiPAP and now has been weaned off At home the patient uses 2-3 L on a when necessary basis and never consistently. Her chest x-ray that shows evidence of fluid overload but atelectasis CT scan done showed persistent infiltrates Continue O2 supplement as needed (3) Bipolar 1 disorder, depressed Current Visit: Yes Status: Chronic Assessment and Plan: continue home meds (4) COPD (chronic obstructive pulmonary disease) Current Visit: Yes Status: Chronic Assessment and Plan: With acute exacerbation Change solumedrol to prednisone Continue nebs (5) Coronary artery disease Current Visit: Yes Status: Chronic Assessment and Plan: continue home meds (6) DVT prophylaxis Current Visit: Yes Status: Acute Assessment and Plan: SQ heparin (7) Essential hypertension Current Visit: Yes Status: Chronic Assessment and Plan: Continue home medications and monitor vital signs closely. (8) Hypogammaglobulinemia Current Visit: Yes Status: Chronic Assessment and Plan: Seen by Dr. Smith Recommended one time dose of IvIGg 09/21 which the patient has administered by herself Continue to monitor (9) CHF (congestive heart failure) Current Visit: Yes Status: Acute Assessment and Plan: Patient who presented with hypoxia SPO2 70s on room air, resp distress, and CXR with fluid overload Improved promptly with BIPAP,, lasix, O2 Continue lasix ECHO done 09/21-noted for EF 60-65%, mild LVDD, no other significant findings Strict intake and output Fluid restriction Daily weights. - Time Spent with Patient Total time spent is greater than 50% in coordination of care (as documented) at patient's floor/unit and/or counseling patient: Plan of Care Discussed with: patient Internal Medicine: Result - Labs CBC & Chem 7: 09/22/17 07:59 09/22/17 07:59 Labs: Short CBC 09/22/17 Range/Units 07:59 WBC 16.8 H (4.3-11.1) K/mcL Hgb 13.8 D (11.5-15.4) g/dL Hct 40.9 (35.3-44.9) % Plt Count 291 (140-400) K/mcL Neutrophils # 14.5 H (1.6-8.9) K/mcL BMP 09/22/17 07:59 Sodium 138 Potassium 4.1 Chloride 105 Carbon Dioxide 23 BUN 18 Creatinine 0.67 Glucose 144 H Calcium 9.2 - ABG Interpretation ABG results: PT/INR, D-dimer PT 12.2 Seconds (9.4-12.1) H 09/20/17 05:17 - Impressions Impressions Chest CT 09/21/17 17:30 IMPRESSION: Increased consolidation in the lower lobes is suspicious for recurrent or worsening pneumonia, possibly due to aspiration. Diffuse tree-in-bud opacities have improved. D/ / Clayton Russell MD / Clayton Russell MD Interpreting Provider: Clayton Russell MD Consult Discharge Plan - Plan Referrals: Joseph Johns DO [Primary Care Provider] - (1) Pneumonia Qualifiers: Pneumonia type: due to Klebsiella pneumoniae Laterality: right Lung location : unspecified part of lung Qualified Code(s): J15.0 - Pneumonia due to Klebsiella pneumoniae (4) COPD (chronic obstructive pulmonary disease) Qualifiers: COPD type: chronic bronchitis Chronic bronchitis type: simple Qualified Code (s): J41.0 - Simple chronic bronchitis (5) Coronary artery disease Qualifiers: Coronary Disease-Associated Artery/Lesion type: [place] artery [place] vs. transplanted heart: [place] heart Associated angina: without angina Qualified Code(s): I25.10 - Atherosclerotic heart disease of [place] coronary artery without angina pectoris (9) CHF (congestive heart failure) Qualifiers: Heart failure type: diastolic Heart failure chronicity: acute Qualified Code (s): I50.31 - Acute diastolic (congestive) heart failure
[2017-09-22] MEDS: Lactobacillus 1 EACH CAP.SPRINK PO SCH ×2 (12:06→22:05)
[2017-09-22] MEDS: *HR* FentaNYL PATCH 12 MCG PATCH TD SCH (12:07)
[2017-09-22] MEDS ORDERED: predniSONE 20 MG TABLET PO SCH (16:00)
[2017-09-22] MEDS: ARIPiprazole 2 MG TABLET PO SCH (22:05)
[2017-09-23] MEDS: Piperacillin/Tazobactam 3.375 GM in 0.9 % Sodium Chloride Mini Bag 100 ML IVPB SCH ×3 (06:08→20:32)
[2017-09-23] MEDS: *HR* Enoxaparin 40 MG/0.4 ML SYRINGE SQ SCH (06:09)
[2017-09-23 06:14] LABS: Basophils % 0.1 %; Hematocrit 36.6 % (35.3-44.9); Hemoglobin 12.3 g/dL (11.5-15.4); Immature Granulocytes % 0.4 % (0-4); Lymphocytes # 1.8 K/mcL (0.6-4.6); Mean Corpuscular HGB Conc 33.6 g/dL (31.6-35.5); Mean Corpuscular Hemoglobin 30.6 pg (28.0-33.3); Mean Platelet Volume 9.6 fL (9.4-12.4); Monocytes # 1.2 K/mcL (0.0-1.3); Platelet Count 272 K/mcL (140-400); Red Blood Count 4.02 M/mcL (3.82-4.97); Red Cell Distribution Width 13.6 % (11.5-14.5); Segmented Neutrophils % 74.5 %
[2017-09-23 06:33] LABS: BUN/Creatinine Ratio 26 (6-26); Blood Urea Nitrogen 21 mg/dL (8-23); Calcium 8.9 mg/dL (8.6-10.3); Carbon Dioxide 29 mEq/L (23-29); Chloride 102 mEq/L (98-107); Glucose 106 mg/dL (70-105); Osmolality,Calculated 289 (280-300); Potassium 3.8 mEq/L (3.5-5.1); Sodium 138 mEq/L (136-145); eGFR For Non-African Americans > 60 (> 60)
[2017-09-23] MEDS: *HR* OxyCODONE Immed Rel 5 MG TABLET PO PRN ×3 (08:00→23:14)
[2017-09-23] MEDS: Aspirin 325 MG TABLET PO SCH (08:00)
[2017-09-23] MEDS: Lactobacillus 1 EACH CAP.SPRINK PO SCH ×2 (08:00→20:32)
[2017-09-23] MEDS: Furosemide 20 MG/2 ML VIAL IVP SCH (08:01)
--- NOTE | 2017-09-23 09:27 | Pulmonology Progress Note ---
<Gucci Cheek - Last Filed: 09/23/17 09:49> Date of Encounter: 09/23/17 Time of Encounter: 09:05 Assessment and Plan (1) Pneumonia Current Visit: Yes Status: Acute Recurrent pneumonia Patient has had recurrent admissions for pneumonia repeatedly Most recently, the patient has positive cultures for MDRO Klebsiella pneumonia but failed outpatient doxycycline She continues to present with high fevers and evidence of pneumonia on exam Chest x-ray shows increased interstitial markings with right middle to basilar consolidation which appears new Per ID, Patient continues on Zosyn and Vancomycin, discontinued levaquin Recommend bronchoscopy for evaluation of repeated incomplete resolution of pneumonia Patient has already eaten today, we will make her NPO tonight for bronch in the morning Patient aware of plan and agrees Qualifiers: Pneumonia type: due to Klebsiella pneumoniae Laterality: right Lung location: unspecified part of lung Qualified Code(s): J15.0 - Pneumonia due to Klebsiella pneumoniae Subjective Principal diagnosis: Pneumonia Interval history: The patient is resting comfortably in bed at time of examination. She says that she is feeling approximately same as last time I saw her, however she is not feeling particularly bad. She continues to have some cough, however this is her baseline. She has no acute complaints this morning. Objective PUL Vital signs: Last Vital Signs Temp 98.6 F 09/23/17 06:45 Pulse 71 09/23/17 06:45 Resp 18 09/23/17 06:45 BP 152/87 09/23/17 06:45 Pulse Ox 94 09/23/17 06:45 General appearance: no acute distress Eyes: nonicteric ENT: oropharynx moist Effort: normal Auscultation: bilateral: clear Cardiovascular: regular rate and rhythm Extremities: no cyanosis Results - Laboratory Findings CBC and BMP: 09/23/17 05:55 09/23/17 05:55 PT/INR, D-dimer PT 12.2 Seconds (9.4-12.1) H 09/20/17 05:17 Abnormal lab findings: Abnormal lab results WBC 12.0 K/mcL (4.3-11.1) H 09/23/17 05:55 Neutrophils # 9.0 K/mcL (1.6-8.9) H 09/23/17 05:55 PT 12.2 Seconds (9.4-12.1) H 09/20/17 05:17 VBG pH 7.27 pH Units (7.32-7.42) L 09/20/17 05:39 VBG pCO2 79 mmHg (41-51) H* 09/20/17 05:39 VBG HCO3 37 mEq/L (21-27) H 09/20/17 05:39 Glucose 106 mg/dL (70-105) H 09/23/17 05:55 Alkaline Phosphatase 129 Units/L (34-104) H 09/20/17 05:17 B-Natriuretic Peptide 182 pg/mL (Less than 100) H 09/21/17 06:19 Urine Color [place] (Yellow) A 09/20/17 05:57 Urine Nitrite Positive (Negative) A 09/20/17 05:57 Ur Culture Indicated? YES (NO) A 09/20/17 05:57 Vancomycin Trough 16 mcg/mL (5-10) H 09/21/17 17:00 - Microbiology Findings Microbiology Findings: Microbiology, Last 48 Hours 09/22/17 16:43 Sputum Culture - Final Sputum 09/22/17 01:02 Legionella Antigen - Final Urine,Clean Catch Streptococcus pneumoniae Antigen (M - Final - Clinical Findings Intake & Output: Intake & Output 09/22/17 09/23/17 09/23/17 23:59 07:59 15:59 Intake Total 710 / 710 100 / 100 Output Total 150 / 150 Balance 560 / 560 100 / 100 Weight 68 kg Consult Discharge Plan - Plan Referrals: Joseph Johns DO [Primary Care Provider] - <Lenny Jiménez M - Last Filed: 09/23/17 11:49> Date of Encounter: 09/23/17 Objective PUL Vital signs: Last Vital Signs Temp 98.1 F 09/23/17 10:58 Pulse 70 09/23/17 10:58 Resp 18 09/23/17 10:58 BP 128/84 09/23/17 10:58 Pulse Ox 93 09/23/17 10:58 Results - Laboratory Findings CBC and BMP: 09/23/17 05:55 09/23/17 05:55 PT/INR, D-dimer PT 12.2 Seconds (9.4-12.1) H 09/20/17 05:17 Abnormal lab findings: Abnormal lab results WBC 12.0 K/mcL (4.3-11.1) H 09/23/17 05:55 Neutrophils # 9.0 K/mcL (1.6-8.9) H 09/23/17 05:55 PT 12.2 Seconds (9.4-12.1) H 09/20/17 05:17 VBG pH 7.27 pH Units (7.32-7.42) L 09/20/17 05:39 VBG pCO2 79 mmHg (41-51) H* 09/20/17 05:39 VBG HCO3 37 mEq/L (21-27) H 09/20/17 05:39 Glucose 106 mg/dL (70-105) H 09/23/17 05:55 Alkaline Phosphatase 129 Units/L (34-104) H 09/20/17 05:17 B-Natriuretic Peptide 182 pg/mL (Less than 100) H 09/21/17 06:19 Urine Color [place] (Yellow) A 09/20/17 05:57 Urine Nitrite Positive (Negative) A 09/20/17 05:57 Ur Culture Indicated? YES (NO) A 09/20/17 05:57 Vancomycin Trough 16 mcg/mL (5-10) H 09/21/17 17:00 - Microbiology Findings Microbiology Findings: Microbiology, Last 48 Hours 09/22/17 16:43 Sputum Culture - Final Sputum 09/22/17 01:02 Legionella Antigen - Final Urine,Clean Catch Streptococcus pneumoniae Antigen (M - Final - Clinical Findings Intake & Output: Intake & Output 09/22/17 09/23/17 09/23/17 23:59 07:59 15:59 Intake Total 710 / 710 100 / 100 340 / 340 Output Total 150 / 150 Balance 560 / 560 100 / 100 340 / 340 Weight 68 kg - Attending Attestation I examined this patient and my medical decision-making was reviewed with the Resident Physician. I agree with the documented findings, disposition and treatment plan as described except to the extent set forth below. Patient seen and examined. Labs, radiology, chart personally reviewed. 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 Discussed with infectious disease and recommendation is to have arrange for bronchoscopy which hopefully will help for the treatment plan and she was on antibiotics. Discussed with the patient regarding bronchoscopy and she had it in the past. Will keep patient nothing by mouth postmidnight. A bronchoscopy is recommended. The procedure , risks, benefits, complications, and expected outcomes have been reviewed. Benefits of diagnosis, as well as risks to include bleeding, infection, pneumothorax which may require surgical intervention, and in a small population. The patient is aware that sometimes test is nondiagnostic. Discussed with patient and agrees to proceed. Cardiovascular: stable
[2017-09-23] MEDS: predniSONE 20 MG TABLET PO SCH (10:36)
--- NOTE | 2017-09-23 11:38 | Internal Med Progress Note ---
Hospitalist Progress Note - Encounter Date of Encounter: 09/23/17 Time of Encounter: 11:38 - Subjective Interval History: 66-year-old female with hypogammaglobulinemia, recurrent pneumonias, COPD who was admitted to the hospital for acute hypoxic respiratory failure secondary to pneumonia as well as suspected CHF exacerbation. Hypoxia has resolved Patient is seen and examined at the bedside She has not required supplemental O2 or BiPAP since 09/21 She is much more improevd this a.m Diarrhe/loose stools improved Pulm eval noted-for bronch a.m All cultures prelim negative - Exam Vitals: Temp Pulse Resp BP Pulse Ox 98.1 F 70 18 128/84 93 09/23/17 10:58 09/23/17 10:58 09/23/17 10:58 09/23/17 10:58 09/23/17 10:58 Exam: VSS Gen: Not in any form of distress HEENT: Unremarkable, not pale Chest: No wheezing on exam today, no crackles,no distinct rhonchi Heart: S1, S2 only, no m/g/r Abdomen: Soft, not tender Extremities: No pedal edema Neuro: AAOX3. No focal deficits Skin: No rash Psych: Normal affect - Assessment and Plan (1) Pneumonia Current Visit: Yes Status: Acute Assessment and Plan: Recurrent PNA in the setting of hypogammaglobulinemia in patient that has missed doses of her IvIGg We are treating as HCAP Hypoxia has improved and patient not requiring O2 at rest Continue vanco and Zosyn-Day 4 Levaquin discontinued Pulm following ID following Blood culture prelim negative Urine legionella and Strep Ag negative RIP negative Sputum culture negative For bronch a.m NPO from [place] Continue current management (2) Acute on chronic respiratory failure with hypoxia and hypercapnia Current Visit: Yes Status: Acute Assessment and Plan: Multifactorial-patient has a history of baseline COPD with increasing oxygen requirements and her ABG shows hypercapnic respiratory failure he did she was briefly placed on BiPAP and now has been weaned off At home the patient uses 2-3 L on a when necessary basis and never consistently. Her chest x-ray that shows evidence of fluid overload but atelectasis CT scan done showed persistent infiltrates Continue O2 supplement as needed (3) Bipolar 1 disorder, depressed Current Visit: Yes Status: Chronic Assessment and Plan: continue home meds (4) COPD (chronic obstructive pulmonary disease) Current Visit: Yes Status: Chronic Assessment and Plan: With acute exacerbation taper steroids Continue nebs (5) Coronary artery disease Current Visit: Yes Status: Chronic Assessment and Plan: continue home meds (6) DVT prophylaxis Current Visit: Yes Status: Acute Assessment and Plan: SQ heparin (7) Essential hypertension Current Visit: Yes Status: Chronic Assessment and Plan: Continue home medications and monitor vital signs closely. (8) Hypogammaglobulinemia Current Visit: Yes Status: Chronic Assessment and Plan: Seen by Dr. Smith Recommended one time dose of IvIGg 09/21 which the patient has administered by herself Continue to monitor (9) CHF (congestive heart failure) Current Visit: Yes Status: Acute Assessment and Plan: Patient who presented with hypoxia SPO2 70s on room air, resp distress, and CXR with fluid overload Improved promptly with BIPAP,, lasix, O2 Continue lasix ECHO done 09/21-noted for EF 60-65%, mild LVDD, no other significant findings Strict intake and output Fluid restriction Daily weights. - Time Spent with Patient Total time spent is greater than 50% in coordination of care (as documented) at patient's floor/unit and/or counseling patient: Plan of Care Discussed with: patient Internal Medicine: Result - Labs CBC & Chem 7: 09/23/17 05:55 09/23/17 05:55 Labs: Short CBC 09/23/17 Range/Units 05:55 WBC 12.0 H (4.3-11.1) K/mcL Hgb 12.3 D (11.5-15.4) g/dL Hct 36.6 (35.3-44.9) % Plt Count 272 (140-400) K/mcL Neutrophils # 9.0 H (1.6-8.9) K/mcL BMP 09/23/17 05:55 Sodium 138 Potassium 3.8 Chloride 102 Carbon Dioxide 29 BUN 21 Creatinine 0.82 Glucose 106 H Calcium 8.9 - ABG Interpretation ABG results: PT/INR, D-dimer PT 12.2 Seconds (9.4-12.1) H 09/20/17 05:17 Consult Discharge Plan - Plan Referrals: Joseph Johns DO [Primary Care Provider] - (1) Pneumonia Qualifiers: Pneumonia type: due to Klebsiella pneumoniae Laterality: right Lung location : unspecified part of lung Qualified Code(s): J15.0 - Pneumonia due to Klebsiella pneumoniae (4) COPD (chronic obstructive pulmonary disease) Qualifiers: COPD type: chronic bronchitis Chronic bronchitis type: simple Qualified Code (s): J41.0 - Simple chronic bronchitis (5) Coronary artery disease Qualifiers: Coronary Disease-Associated Artery/Lesion type: [place] artery [place] vs. transplanted heart: [place] heart Associated angina: without angina Qualified Code(s): I25.10 - Atherosclerotic heart disease of [place] coronary artery without angina pectoris (9) CHF (congestive heart failure) Qualifiers: Heart failure type: diastolic Heart failure chronicity: acute Qualified Code (s): I50.31 - Acute diastolic (congestive) heart failure
[2017-09-23] MEDS: ARIPiprazole 2 MG TABLET PO SCH (20:32)
[2017-09-24] MEDS: *HR* Enoxaparin 40 MG/0.4 ML SYRINGE SQ SCH (04:16)
[2017-09-24] MEDS: Piperacillin/Tazobactam 3.375 GM in 0.9 % Sodium Chloride Mini Bag 100 ML IVPB SCH ×3 (04:31→20:44)
[2017-09-24 04:37] LABS: BUN/Creatinine Ratio 20 (6-26); Blood Urea Nitrogen 17 mg/dL (8-23); Calcium 8.8 mg/dL (8.6-10.3); Carbon Dioxide 30 mEq/L (23-29); Chloride 102 mEq/L (98-107); Glucose 87 mg/dL (70-105); Osmolality,Calculated 289 (280-300); Potassium 3.7 mEq/L (3.5-5.1); Sodium 139 mEq/L (136-145); eGFR For Non-African Americans > 60 (> 60)
[2017-09-24] MEDS ORDERED: Acetaminophen 325 MG TABLET PO PRN (08:49)
[2017-09-24] MEDS ORDERED: Ondansetron 4 MG/2 ML VIAL IVP PRN (08:49)
[2017-09-24 09:25] LABS: Basophils % 0.2 %; Eosinophils # 0.1 K/mcL (0.0-0.6); Eosinophils % 0.7 %; Hematocrit 38.7 % (35.3-44.9); Hemoglobin 13.2 g/dL (11.5-15.4); Immature Granulocytes % 0.7 % (0-4); Lymphocytes # 2.7 K/mcL (0.6-4.6); Lymphocytes % 29.5 %; Mean Corpuscular HGB Conc 34.1 g/dL (31.6-35.5); Mean Corpuscular Hemoglobin 30.6 pg (28.0-33.3); Mean Corpuscular Volume 89.8 fL (83.0-100.0); Mean Platelet Volume 9.6 fL (9.4-12.4); Monocytes # 1.1 K/mcL (0.0-1.3); Monocytes % 12.2 %; Neutrophils # 5.2 K/mcL (1.6-8.9); Platelet Count 249 K/mcL (140-400); Red Blood Count 4.31 M/mcL (3.82-4.97); Red Cell Distribution Width 13.3 % (11.5-14.5); Segmented Neutrophils % 56.7 %
[2017-09-24] MEDS ORDERED: Lidocaine Viscous Oral Soln 15 ML SOLUTION MM ONE (09:30)
[2017-09-24] MEDS ORDERED: Tetracaine/Benzocaine/Butamben 200MG/SPRAY (100SPY/BOT) MM ONE (09:30)
[2017-09-24] MEDS ORDERED: Albuterol 2.5 MG/3 ML NEBULIZER IH ONE (09:30)
[2017-09-24] MEDS ORDERED: *HR* Midazolam HCl 5 MG/5 ML VIAL IVP ONE ×2 (09:30→09:40)
[2017-09-24] MEDS ORDERED: *HR* FentaNYL (PF) 100 MCG/2 ML VIAL IVP ONE (09:30)
[2017-09-24] MEDS ORDERED: *HR* EPINEPHrine 1 MG/10 ML SYRINGE INTRATRACH PRN (09:30)
[2017-09-24] MEDS ORDERED: 0.9 % Sodium Chloride 1,000 ML IVC SCH (09:30)
--- NOTE | 2017-09-24 09:30 | Pre-Sedation Evaluation ---
Pre-sedation evaluation - Pre-sedation checklist Date of procedure: 09/24/17 Procedure: Bronchoscopy Recent Vitals: Last Vital Signs Temp 98.8 F 09/24/17 07:02 Pulse 73 09/24/17 07:02 Resp 18 09/24/17 07:02 BP 148/93 09/24/17 07:02 Pulse Ox 94 09/24/17 09:00 H&P (including ROS) documented in medical record: Yes Previous reaction to sedatives/anesthetics: Unknown Dietary Status: NPO after Midnight Dentition: No loose teeth or bridges Possible difficult airway: No ASA Classification *see protocol: CLASS III-Severe systemic disease Plan of Care: Pt appropriate candidate for procedure/moderate/conscious sedation , Risks/benefits of procedure/sedation discussed w/ patient/family Cardiac Registry (Cardio Only) - Functional Capacity - Clincal Frailty Scale
--- NOTE | 2017-09-24 09:34 | Internal Med Progress Note ---
<SaulMohinder Tanvi - Last Filed: 09/24/17 10:43> Hospitalist Progress Note - Encounter Date of Encounter: 09/24/17 Time of Encounter: 09:31 - Subjective Interval History: 66-year-old female admitted with pneumonia. Patient resting in bed upon exam. She has a bronchoscopy scheduled for today. She reports a headache, some nausea , and mild diffuse abdominal pain. Reports her breathing is improving, not requiring supplemental O2. Denies fevers, chills, vomiting, change in bowels, hematochezia, melena, dysuria, or leg edema. - Exam Vitals: Temp Pulse Resp BP Pulse Ox 98.8 F 73 18 148/93 94 09/24/17 07:02 09/24/17 07:02 09/24/17 07:02 09/24/17 07:02 09/24/17 09:00 Exam: GEN: No acute distress, A&O3 HEAD: Atraumatic, normocephalic EYES: Pupils symmetric, sclera white, conjunctiva pink HEART: RRR, normal S1 and S2, no murmurs LUNGS: Diminished bilaterally, no wheezes, rhonchi, or crackles ABD: Soft, nontender, nondistended, bowel sounds present EXT: No edema noted, pulses 2/4 NEURO: No focal deficits, cooperative with exam - Assessment and Plan (1) Pneumonia Current Visit: Yes Status: Acute Assessment and Plan: Recurrent pneumonia - Klebsiella pneumonia MDRO last month Hypoxia improved, not requiring supplemental O2 CXR with fluid overload, CT with persistent infiltrates BCx 09/20/17 NGTD SCx 09/22/17 negative Urine Legionella and strep negative, Resp Inf Panel negative Continue Vancomycin and Zosyn - day #5 Pulmonary and ID following, appreciate recommendations - Bronchoscopy this morning (2) Acute on chronic respiratory failure with hypoxia and hypercapnia Current Visit: Yes Status: Acute Assessment and Plan: Secondary to pneumonia, COPD - initially requiring BiPAP and supplemental oxygen On home O2 2-3 L PRN Significantly improved Management as above (3) COPD with exacerbation Current Visit: No Status: Acute Assessment and Plan: Continue respiratory support. Taper steroids, down to 20 mg PO (4) CHF (congestive heart failure) Current Visit: Yes Status: Acute Assessment and Plan: TTE: EF 60-65% with mild left ventricular diastolic dysfunction Continue diuresis, strict I and O's, fluid restriction, daily weights (5) Hypogammaglobulinemia Current Visit: Yes Status: Chronic Assessment and Plan: Follows with Dr. Vasquez, one-time dose of IV IgG on 09/21 (6) Bipolar 1 disorder, depressed Current Visit: Yes Status: Chronic Assessment and Plan: Continue home meds (7) Essential hypertension Current Visit: Yes Status: Chronic Assessment and Plan: Continue home meds (8) Coronary artery disease Current Visit: Yes Status: Chronic Assessment and Plan: Continue home meds DVT Prophylaxis: Lovenox - Time Spent with Patient Total time spent is greater than 50% in coordination of care (as documented) at patient's floor/unit and/or counseling patient: Internal Medicine: Result - Labs CBC & Chem 7: 09/24/17 09:00 09/24/17 04:00 Labs: Short CBC 09/24/17 Range/Units 09:00 WBC 9.1 (4.3-11.1) K/mcL Hgb 13.2 (11.5-15.4) g/dL Hct 38.7 (35.3-44.9) % Plt Count 249 (140-400) K/mcL Neutrophils # 5.2 (1.6-8.9) K/mcL BMP 09/24/17 04:00 Sodium 139 Potassium 3.7 Chloride 102 Carbon Dioxide 30 H BUN 17 Creatinine 0.83 Glucose 87 Calcium 8.8 - ABG Interpretation ABG results: PT/INR, D-dimer PT 12.2 Seconds (9.4-12.1) H 09/20/17 05:17 Consult Discharge Plan - Plan Referrals: Joseph Johns DO [Primary Care Provider] - <Erica Cash - Last Filed: 09/24/17 15:54> Hospitalist Progress Note - Encounter Date of Encounter: 09/24/17 - Exam Vitals: Temp Pulse Resp BP Pulse Ox 98.6 F 89 16 143/85 94 09/24/17 10:31 09/24/17 10:41 09/24/17 10:41 09/24/17 10:41 09/24/17 10:41 - Assessment and Plan (1) Pneumonia Current Visit: Yes Status: Acute (2) Hypogammaglobulinemia Current Visit: Yes Status: Chronic (3) Acute on chronic respiratory failure with hypoxia and hypercapnia Current Visit: Yes Status: Acute (4) Essential hypertension Current Visit: Yes Status: Chronic (5) Coronary artery disease Current Visit: Yes Status: Chronic (6) COPD (chronic obstructive pulmonary disease) Current Visit: Yes Status: Chronic (7) Bipolar 1 disorder, depressed Current Visit: Yes Status: Chronic (8) DVT prophylaxis Current Visit: Yes Status: Acute (9) CHF (congestive heart failure) Current Visit: Yes Status: Acute - Time Spent with Patient Total time spent is greater than 50% in coordination of care (as documented) at patient's floor/unit and/or counseling patient: Internal Medicine: Result - Labs CBC & Chem 7: 09/24/17 09:00 09/24/17 04:00 Labs: Short CBC 09/24/17 Range/Units 09:00 WBC 9.1 (4.3-11.1) K/mcL Hgb 13.2 (11.5-15.4) g/dL Hct 38.7 (35.3-44.9) % Plt Count 249 (140-400) K/mcL Neutrophils # 5.2 (1.6-8.9) K/mcL BMP 09/24/17 04:00 Sodium 139 Potassium 3.7 Chloride 102 Carbon Dioxide 30 H BUN 17 Creatinine 0.83 Glucose 87 Calcium 8.8 - ABG Interpretation ABG results: PT/INR, D-dimer PT 12.2 Seconds (9.4-12.1) H 09/20/17 05:17 - Attending Attestation I have seen and examined this patient independently. I have discussed with resident physician Dr. Hughes regarding the management plan. Agree with the documentation. <Mohinder Hughes - Last Filed: 09/24/17 10:43> (1) Pneumonia Qualifiers: Pneumonia type: due to unspecified organism Laterality: right Lung location : unspecified part of lung Qualified Code(s): J18.9 - Pneumonia, unspecified organism (4) CHF (congestive heart failure) Qualifiers: Heart failure type: diastolic Heart failure chronicity: acute Qualified Code (s): I50.31 - Acute diastolic (congestive) heart failure (8) Coronary artery disease Qualifiers: Coronary Disease-Associated Artery/Lesion type: [place] artery [place] vs. transplanted heart: [place] heart Associated angina: without angina Qualified Code(s): I25.10 - Atherosclerotic heart disease of [place] coronary artery without angina pectoris <ShaileshErica - Last Filed: 09/24/17 15:54> (1) Pneumonia Qualifiers: Pneumonia type: due to unspecified organism Laterality: right Lung location : unspecified part of lung Qualified Code(s): J18.9 - Pneumonia, unspecified organism (5) Coronary artery disease Qualifiers: Coronary Disease-Associated Artery/Lesion type: [place] artery [place] vs. transplanted heart: [place] heart Associated angina: without angina Qualified Code(s): I25.10 - Atherosclerotic heart disease of [place] coronary artery without angina pectoris (6) COPD (chronic obstructive pulmonary disease) Qualifiers: COPD type: chronic bronchitis Chronic bronchitis type: simple Qualified Code (s): J41.0 - Simple chronic bronchitis (9) CHF (congestive heart failure) Qualifiers: Heart failure type: diastolic Heart failure chronicity: acute Qualified Code (s): I50.31 - Acute diastolic (congestive) heart failure
[2017-09-24] MEDS ORDERED: Lidocaine Viscous Oral Soln 15 ML SOLUTION ONE (09:39)
[2017-09-24] MEDS ORDERED: *HR* FentaNYL (PF) 100 MCG/2 ML VIAL ONE (09:40)
[2017-09-24] MEDS: predniSONE 20 MG TABLET PO SCH (11:32)
[2017-09-24] MEDS: Furosemide 20 MG/2 ML VIAL IVP SCH (11:32)
[2017-09-24] MEDS: Lactobacillus 1 EACH CAP.SPRINK PO SCH ×2 (11:32→20:44)
[2017-09-24] MEDS: Aspirin 325 MG TABLET PO SCH (11:32)
[2017-09-24] MEDS: NIFEdipine 10 MG CAPSULE PO PRN (19:23)
[2017-09-24] MEDS: ARIPiprazole 2 MG TABLET PO SCH (20:44)
[2017-09-24 20:50] LABS: Appearance of Body Fluid Slightly Hazy (Clear); Volume of Body Fluid 15 mL
[2017-09-24] MEDS: *HR* OxyCODONE Immed Rel 5 MG TABLET PO PRN (20:50)
[2017-09-24 21:04] LABS: Appearance of Body Fluid Hazy (Clear); Volume of Body Fluid 15 mL
[2017-09-24] MEDS ORDERED: *HR* LORazepam 2 MG/ML VIAL IVP ONE (21:17)
[2017-09-25] MEDS: Piperacillin/Tazobactam 3.375 GM in 0.9 % Sodium Chloride Mini Bag 100 ML IVPB SCH ×3 (03:51→21:44)
[2017-09-25 04:48] LABS: Basophils % 0.3 %; Eosinophils # 0.1 K/mcL (0.0-0.6); Eosinophils % 1.3 %; Hematocrit 40.6 % (35.3-44.9); Hemoglobin 13.6 g/dL (11.5-15.4); Immature Granulocytes % 0.8 % (0-4); Lymphocytes # 2.8 K/mcL (0.6-4.6); Lymphocytes % 26.4 %; Mean Corpuscular HGB Conc 33.5 g/dL (31.6-35.5); Mean Corpuscular Hemoglobin 29.5 pg (28.0-33.3); Mean Corpuscular Volume 88.1 fL (83.0-100.0); Mean Platelet Volume 9.8 fL (9.4-12.4); Monocytes % 9.2 %; Neutrophils # 6.5 K/mcL (1.6-8.9); Platelet Count 286 K/mcL (140-400); Red Blood Count 4.61 M/mcL (3.82-4.97); Red Cell Distribution Width 13.5 % (11.5-14.5)
[2017-09-25 05:06] LABS: BUN/Creatinine Ratio 20 (6-26); Blood Urea Nitrogen 15 mg/dL (8-23); Calcium 8.7 mg/dL (8.6-10.3); Carbon Dioxide 27 mEq/L (23-29); Chloride 102 mEq/L (98-107); Glucose 88 mg/dL (70-105); Osmolality,Calculated 284 (280-300); Potassium 3.4 mEq/L (3.5-5.1); Sodium 137 mEq/L (136-145); eGFR For Non-African Americans > 60 (> 60)
[2017-09-25] MEDS: *HR* Enoxaparin 40 MG/0.4 ML SYRINGE SQ SCH (06:03)
[2017-09-25] MEDS: predniSONE 20 MG TABLET PO SCH (08:34)
[2017-09-25] MEDS: Aspirin 325 MG TABLET PO SCH (08:34)
[2017-09-25] MEDS: *HR* OxyCODONE Immed Rel 5 MG TABLET PO PRN ×2 (08:34→21:45)
[2017-09-25] MEDS: Lactobacillus 1 EACH CAP.SPRINK PO SCH ×2 (08:34→21:45)
[2017-09-25] MEDS: Furosemide 20 MG/2 ML VIAL IVP SCH (08:34)
[2017-09-25] MEDS ORDERED: Fluconazole 100 MG TABLET PO ONE (09:31)
--- NOTE | 2017-09-25 10:50 | Pulmonology Progress Note ---
<JulianBonifacio C - Last Filed: 09/25/17 13:20> Date of Encounter: 09/25/17 Time of Encounter: 10:46 Assessment and Plan (1) Pneumonia Current Visit: Yes Status: Acute Patient with uncontrolled hypogammaglobulinemia, recent recurrent admissions for pneumonia Recently failed outpatient course of Doxycycline for MDRO Kelbsiella pneumonia Presented with fever and SOB, consolidations on CXR -Vanc/Zosyn continued per ID -bronchoscopy showed mucous plugging, specimen negative for bacteria -Legionella and strep antigens negative -Recommend continued Duonebs and BiPAP PRN -Recommend continuing current treatment plan as per ID and primary team Subjective Principal diagnosis: Pneumonia Interval history: Patient feels better today, saturating well on room air during examination. She does complain of mild continued shortness of breath, chronic chest pain due to [place] angina, and abdominal pain with associated diarrhea. Review of systems otherwise negative. Bronchoscopy samples from yesterday did not yield any bacterial cells. Objective PUL Vital signs: Last Vital Signs Temp 98.6 F 09/25/17 07:30 Pulse 75 09/25/17 07:30 Resp 17 09/25/17 07:30 BP 120/73 09/25/17 07:30 Pulse Ox 94 09/25/17 07:30 Patient in no acute distress, ventilating and oxygenating well on room air Alert and oriented x 3, good insight, follows commands Heart in regular rate and rhythm without murmur or gallop Lungs clear to auscultation throughout without rales, rhonchi, or diminished breath sounds Skin warm and dry Legs non edematous Results - Laboratory Findings CBC and BMP: 09/25/17 03:49 09/25/17 03:49 PT/INR, D-dimer PT 12.2 Seconds (9.4-12.1) H 09/20/17 05:17 Abnormal lab findings: Abnormal lab results PT 12.2 Seconds (9.4-12.1) H 09/20/17 05:17 VBG pH 7.27 pH Units (7.32-7.42) L 09/20/17 05:39 VBG pCO2 79 mmHg (41-51) H* 09/20/17 05:39 VBG HCO3 37 mEq/L (21-27) H 09/20/17 05:39 Potassium 3.4 mEq/L (3.5-5.1) L 09/25/17 03:49 Alkaline Phosphatase 129 Units/L (34-104) H 09/20/17 05:17 B-Natriuretic Peptide 182 pg/mL (Less than 100) H 09/21/17 06:19 Procalcitonin 1.82 ng/mL (<=0.07) H 09/21/17 15:45 Urine Color [place] (Yellow) A 09/20/17 05:57 Urine Nitrite Positive (Negative) A 09/20/17 05:57 Ur Culture Indicated? YES (NO) A 09/20/17 05:57 Fluid Appearance Hazy (Clear) A 09/24/17 19:00 Vancomycin Trough 24 mcg/mL (5-10) H 09/24/17 16:45 - Microbiology Findings Microbiology Findings: Microbiology, Last 48 Hours 09/24/17 19:00 Respiratory Culture - Preliminary Left Lower Lobe Lung 09/24/17 19:00 Respiratory Culture - Preliminary Right Lower Lobe Lung - Clinical Findings Intake & Output: Intake & Output 09/24/17 09/25/17 09/25/17 23:59 07:59 15:59 Intake Total 460 / 460 100 / 100 220 / 220 Output Total 700 / 700 Balance -240 / -240 100 / 100 220 / 220 Weight 66.4 kg Consult Discharge Plan - Plan Referrals: Joseph Johns DO [Primary Care Provider] - 10/11/17 3:00 pm (Please follow up as schedule...) <Art Choudhury - Last Filed: 09/25/17 20:10> Date of Encounter: 09/25/17 Objective PUL Vital signs: Last Vital Signs Temp 99.9 F H 09/25/17 15:37 Pulse 75 09/25/17 15:37 Resp 17 09/25/17 15:37 BP 112/70 09/25/17 15:37 Pulse Ox 93 09/25/17 15:37 Results - Laboratory Findings CBC and BMP: 09/25/17 03:49 09/25/17 03:49 PT/INR, D-dimer PT 12.2 Seconds (9.4-12.1) H 09/20/17 05:17 Abnormal lab findings: Abnormal lab results PT 12.2 Seconds (9.4-12.1) H 09/20/17 05:17 VBG pH 7.27 pH Units (7.32-7.42) L 09/20/17 05:39 VBG pCO2 79 mmHg (41-51) H* 09/20/17 05:39 VBG HCO3 37 mEq/L (21-27) H 09/20/17 05:39 Potassium 3.4 mEq/L (3.5-5.1) L 09/25/17 03:49 Alkaline Phosphatase 129 Units/L (34-104) H 09/20/17 05:17 B-Natriuretic Peptide 182 pg/mL (Less than 100) H 09/21/17 06:19 Procalcitonin 1.82 ng/mL (<=0.07) H 09/21/17 15:45 Urine Color [place] (Yellow) A 09/20/17 05:57 Urine Nitrite Positive (Negative) A 09/20/17 05:57 Ur Culture Indicated? YES (NO) A 09/20/17 05:57 Fluid Appearance Hazy (Clear) A 09/24/17 19:00 Vancomycin Trough 24 mcg/mL (5-10) H 09/24/17 16:45 - Microbiology Findings Microbiology Findings: Microbiology, Last 48 Hours 09/24/17 19:00 Respiratory Culture - Preliminary Left Lower Lobe Lung 09/24/17 19:00 Respiratory Culture - Preliminary Right Lower Lobe Lung - Clinical Findings Intake & Output: Intake & Output 09/25/17 09/25/17 09/25/17 07:59 15:59 23:59 Intake Total 100 / 100 220 / 220 240 / 240 Balance 100 / 100 220 / 220 240 / 240 - Attending Attestation I saw and evaluated this patient and my medical decision-making was reviewed with the Resident Physician. I agree with the documented findings, disposition and treatment plan as described except to the extent set forth below. We independently had [id number] contact with the patient Patient seen and examined at bedside Labs, radiology, chart personally reviewed. Management was reviewed during multidisciplinary critical care rounds. 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 Lines: All lines examined without evidence of infection : Dispo: BIPAP prn to continue Telemetry monitoring CODE: Full Code
--- NOTE | 2017-09-25 11:53 | Infectious Disease Progress No ---
Date of Encounter: 09/25/17 Time of Encounter: 11:51 - Assessment and Plan (1) Sepsis Current Visit: No Status: Resolved The patient had two SIRS criteria on admission. Likely secondary to PNA. Improved. Tachycardia resolved. Afebrile. WBC normalized. Blood cultures drawn 09/20/17 are NGTD x 2 sets. Qualifiers: Sepsis type: methicillin resistant Staphylococcus aureus Qualified Code(s) : A41.02 - Sepsis due to Methicillin resistant Staphylococcus aureus (2) Pneumonia Current Visit: Yes Status: Acute Causative organism unclear. Recurrent. Patient hospitalized 08/22-08/28 and treated with IV antibiotics for 7 days followed by PO doxycycline and levaquin. Patient reports multiple episodes over the past few years. CXR showed findings consistent with pulmonary vascular congestion, possible pulmonary edema. The patient reports a cough productive of yellow sputum and dyspnea with high O2 requirements. Pulmonology consulted and following. Status post bronchoscopy 09/24/17. Endo report reviewed and indicated mucous plugs throughout the tracheobronchial tree. BAL cultures are peliminarily negative. AFB and fungal are pending. Check S. pneumo and Legionella UAT.--> negative. Get CT chest with IV contrast. --> Showed consolidation in the lower lobes consistent with recurrent/worsening pneumonia. Tree-in-bed opacities improved. Get RIP.--> negative. Check procalcitonin.--> elevated at 1.82. Continue Zosyn 3.375 grams IV Q8H (day 6). Continue Vancomycin IV. Pharmacy to dose. Goal trough ~15 (day 6). Duration of treatment depends on the clinical picture. Monitor renal function and for drug toxicity and dose-adjust antibiotics. Qualifiers: Pneumonia type: due to unspecified organism Laterality: right Lung location: unspecified part of lung Qualified Code(s): J18.9 - Pneumonia, unspecified organism (3) Hypogammaglobulinemia Current Visit: Yes Status: Chronic Follows with Dr. Piper Smith for weekly immunoglobulin injections, but has not had them since the beginning of August due to hospitalizations and lovenox- induced bruising to the abdomen. Could be contributing to the patient's recurrent infections. Appreciate Allergy/Immunology recommendations. (4) COPD with exacerbation Current Visit: No Status: Acute Continue supportive care per the primary and pulmonary teams. (5) Acute on chronic respiratory failure with hypoxia and hypercapnia Current Visit: Yes Status: Acute Multifactorial: COPD + PNA + possible pulmonary edema. Resolved. (6) Pulmonary edema Current Visit: Yes Status: Acute CXR showed findings consistent with pulmonary edema. TTE showed EF of 60% with mild left ventricular diastolic dysfunction. BNP mildly elevated at 182. Clinically improved. Qualifiers: Chronicity: acute Qualified Code(s): J81.0 - Acute pulmonary edema (7) Coronary artery disease Current Visit: Yes Status: Chronic Qualifiers: Coronary Disease-Associated Artery/Lesion type: [place] artery [place] vs. transplanted heart: [place] heart Associated angina: without angina Qualified Code(s): I25.10 - Atherosclerotic heart disease of [place] coronary artery without angina pectoris (8) Diarrhea Current Visit: Yes Status: Chronic Patient reports chronic alternating diarrhea and constipation. Reports several loose stools yesterday, but states they are not mucousy or watery. Continue to monitor closely. Continue probiotics BID. Qualifiers: Diarrhea type: unspecified type Qualified Code(s): R19.7 - Diarrhea, unspecified - Subjective Interval history: Patient seen and examined. No acute events noted overnight. Patient states she had some shortness of breath and dizziness overnight that required the use of BIPAP. She denies chest pain. States she has a dry cough. She denies abdominal pain, but does endorse some intermittent nausea. She denies vomiting. She reports multiple loose stools daily that is normal for her. She denies oral thrush or any skin lesions. She states she ate some of her breakfast today. Larson catheter was discontinued and she is voiding without issue. Infect Dis PN-Objective Data - Labs CBC & Chem 7: 09/25/17 03:49 09/25/17 03:49 Labs: Laboratory Results - last 24 hr 09/21/17 09/21/17 09/24/17 15:45 15:45 16:45 WBC RBC Hgb Hct MCV MCH MCHC RDW Plt Count MPV Immature Gran % Seg Neutrophils % Lymphocytes % Monocytes % Eosinophils % Basophils % Neutrophils # Lymphocytes # Monocytes # Eosinophils # Basophils # Sodium Potassium Chloride Carbon Dioxide BUN Creatinine Est GFR ( Amer) Est GFR (Non-Af Amer) BUN/Creatinine Ratio Glucose Calculated Osmolality Calcium Procalcitonin 1.82 H Fluid Source Fluid Volume Fluid Appearance Fluid RBC Fld Tot Nucleated Cell Fluid Seg Neutrophil % Fluid Lymphocytes % Fluid Monocytes % Fluid Other Cells % Vancomycin Trough 24 H IgG 816 09/24/17 09/24/17 09/25/17 19:00 19:00 03:49 WBC 10.5 RBC 4.61 Hgb 13.6 Hct 40.6 MCV 88.1 MCH 29.5 MCHC 33.5 RDW 13.5 Plt Count 286 MPV 9.8 Immature Gran % 0.8 Seg Neutrophils % 62.0 Lymphocytes % 26.4 Monocytes % 9.2 Eosinophils % 1.3 Basophils % 0.3 Neutrophils # 6.5 Lymphocytes # 2.8 Monocytes # 1.0 Eosinophils # 0.1 Basophils # 0.0 Sodium Potassium Chloride Carbon Dioxide BUN Creatinine Est GFR ( Amer) Est GFR (Non-Af Amer) BUN/Creatinine Ratio Glucose Calculated Osmolality Calcium Procalcitonin Fluid Source Left Lower Lobe Lung Right Lower Lobe Court Fluid Volume 15 15 Fluid Appearance Slightly Hazy A Hazy A Fluid RBC TNP TNP Fld Tot Nucleated Cell TNP TNP Fluid Seg Neutrophil % 94.0 78.0 Fluid Lymphocytes % 4.0 7.0 Fluid Monocytes % 2.0 2.0 Fluid Other Cells % 13.0 Vancomycin Trough IgG 09/25/17 03:49 WBC RBC Hgb Hct MCV MCH MCHC RDW Plt Count MPV Immature Gran % Seg Neutrophils % Lymphocytes % Monocytes % Eosinophils % Basophils % Neutrophils # Lymphocytes # Monocytes # Eosinophils # Basophils # Sodium 137 Potassium 3.4 L Chloride 102 Carbon Dioxide 27 BUN 15 Creatinine 0.75 Est GFR ( Amer) > 60 Est GFR (Non-Af Amer) > 60 BUN/Creatinine Ratio 20 Glucose 88 Calculated Osmolality 284 Calcium 8.7 Procalcitonin Fluid Source Fluid Volume Fluid Appearance Fluid RBC Fld Tot Nucleated Cell Fluid Seg Neutrophil % Fluid Lymphocytes % Fluid Monocytes % Fluid Other Cells % Vancomycin Trough IgG Cultures: Cultures 09/24/17 19:00 Respiratory Culture - Preliminary Left Lower Lobe Lung 09/24/17 19:00 Respiratory Culture - Preliminary Right Lower Lobe Lung 09/22/17 16:43 Sputum Culture - Final Sputum 09/22/17 01:02 Legionella Antigen - Final Urine,Clean Catch Streptococcus pneumoniae Antigen (M - Final Serology 09/24/17 09/24/17 09/21/17 Range/Units 19:00 19:00 17:17 Fluid Source Right Lower Lobe Court Left Lower Lobe Lung Fluid Volume 15 15 mL Fluid Appearance Hazy A Slightly Hazy A (Clear) Fluid RBC TNP TNP Fld Tot Nucleated Cell TNP TNP Fluid Seg Neutrophil % 78.0 94.0 % Fluid Lymphocytes % 7.0 4.0 % Fluid Monocytes % 2.0 2.0 % Fluid Other Cells % 13.0 % Chlamy pneumoniae PCR Not Detected (Not Detect) Adenovirus (PCR) Not Detected (Not Detect) B. pertussis DNA (PCR) Not Detected (Not Detect) B.parapertussis DNA PCR Not Detected (Not Detect) Coronavirus OC43 (PCR) Not Detected (Not Detect) Coronavirus HKU1 (PCR) Not Detected (Not Detect) Coronavirus 229E (PCR) Not Detected (Not Detect) Coronavirus NL63 (PCR) Not Detected (Not Detect) Human Metapneumovir PCR Not Detected (Not Detect) Influenza A (H1) PCR Not Detected (Not Detect) Influ A (H1N1/09) PCR Not Detected (Not Detect) Influenza A (H3) PCR Not Detected (Not Detect) Influenza A Untype (PCR) Not Detected (Not Detect) Influenza Type B (PCR) Not Detected (Not Detect) M.pneumoniae DNA (PCR) Not Detected (Not Detect) Parainfluenza 1 (PCR) Not Detected (Not Detect) Parainfluenza 2 (PCR) Not Detected (Not Detect) Parainfluenza 3 (PCR) Not Detected (Not Detect) Parainfluenza 4 (PCR) Not Detected (Not Detect) RSV (PCR) Not Detected (Not Detect) Entero/Rhino (PCR) Not Detected (Not Detect) Exam - Constitutional Vitals: Temp Pulse Resp BP Pulse Ox 98.7 F 76 17 109/74 92 09/25/17 11:26 09/25/17 11:26 09/25/17 11:26 09/25/17 11:26 09/25/17 11:26 General appearance: average body habitus, cooperative, no acute distress - Head Head exam: Present: atraumatic, normal inspection, normocephalic - Eye Eye exam: Present: EOMI, normal appearance, PERRL Pupils: Present: normal accommodation - ENT ENT exam: Present: mucous membranes moist - Neck Neck exam: Present: normal inspection - Respiratory Respiratory exam: Present: CTAB. Absent: rales, respiratory distress, rhonchi, wheezes - Cardiovascular Cardiovascular exam: Present: RRR, +S1, +S2 - GI/Abdominal GI/Abdominal exam: Present: normal bowel sounds, soft. Absent: distended, tenderness - Extremities Exam Extremities exam: Present: normal inspection. Absent: joint swelling, pedal edema, tenderness - Neurological Exam Neurological exam: Present: alert, oriented X3, no focal deficits - Psychiatric Psychiatric exam: Present: normal affect, normal mood - Skin Skin exam: Present: dry, intact, normal color, warm Consult Discharge Plan - Plan Referrals: Joseph Johns DO [Primary Care Provider] - 10/11/17 3:00 pm (Please follow up as schedule...) - Attending Attestation I examined this patient and my medical decision-making was reviewed with the Cassie Varghese CNP. I agree with the documented findings, disposition and treatment plan as described except to the extent set forth below.
[2017-09-25] MEDS: *HR* FentaNYL PATCH 12 MCG PATCH TD SCH (11:57)
--- NOTE | 2017-09-25 13:18 | Internal Med Progress Note ---
<Mohinder Hughes R - Last Filed: 09/25/17 13:15> Hospitalist Progress Note - Encounter Date of Encounter: 09/25/17 Time of Encounter: 13:25 - Subjective Interval History: 66-year-old female admitted with pneumonia. Patient resting in bed upon exam. She reports some dyspnea last night and had to use BiPAP for a short time. She is not currently complaining of dyspnea. She has had some loose stools, but not liquid. Denies fevers, chills, vomiting, diarrhea, hematochezia, melena, dysuria, or leg edema. - Exam Vitals: Temp Pulse Resp BP Pulse Ox 98.7 F 76 17 109/74 92 09/25/17 11:26 09/25/17 11:26 09/25/17 11:26 09/25/17 11:26 09/25/17 11:26 Exam: GEN: No acute distress, A&O3 HEAD: Atraumatic, normocephalic EYES: Pupils symmetric, sclera white, conjunctiva pink HEART: RRR, normal S1 and S2, no murmurs LUNGS: Diminished bilaterally, no wheezes, rhonchi, or crackles ABD: Soft, nontender, nondistended, bowel sounds present EXT: No edema noted, pulses 2/4 NEURO: No focal deficits, cooperative with exam - Assessment and Plan (1) Pneumonia Current Visit: Yes Status: Acute Assessment and Plan: Recurrent pneumonia - Klebsiella pneumonia MDRO last month, no culture growth currently Hypoxia improved, not requiring supplemental O2 CXR with fluid overload, CT with persistent infiltrates BCx 09/20/17 NGTD SCx 09/22/17 negative Urine Legionella and strep negative, Resp Inf Panel negative On Vancomycin and Zosyn per ID - day #6 Pulmonary and ID following, appreciate recommendations - Bronchoscopy yesterday - mucus plugging and BAL (2) Acute on chronic respiratory failure with hypoxia and hypercapnia Current Visit: Yes Status: Acute Assessment and Plan: Secondary to pneumonia, COPD - initially requiring BiPAP and supplemental oxygen - she did use BiPAP some last night d/t dyspnea On home O2 2-3 L PRN Management as above (3) COPD with exacerbation Current Visit: No Status: Acute Assessment and Plan: Continue respiratory support. Stop steroids today (4) CHF (congestive heart failure) Current Visit: Yes Status: Acute Assessment and Plan: TTE: EF 60-65% with mild left ventricular diastolic dysfunction Continue diuresis, strict I and O's, fluid restriction, daily weights (5) Hypogammaglobulinemia Current Visit: Yes Status: Chronic Assessment and Plan: Follows with Dr. Vasquez, one-time dose of IV IgG on 09/21 (6) Bipolar 1 disorder, depressed Current Visit: Yes Status: Chronic Assessment and Plan: Continue home meds (7) Essential hypertension Current Visit: Yes Status: Chronic Assessment and Plan: Continue home meds (8) Coronary artery disease Current Visit: Yes Status: Chronic Assessment and Plan: Continue home meds DVT Prophylaxis: Lovenox - Time Spent with Patient Total time spent is greater than 50% in coordination of care (as documented) at patient's floor/unit and/or counseling patient: Internal Medicine: Result - Labs CBC & Chem 7: 09/25/17 03:49 09/25/17 03:49 Labs: Short CBC 09/25/17 Range/Units 03:49 WBC 10.5 (4.3-11.1) K/mcL Hgb 13.6 (11.5-15.4) g/dL Hct 40.6 (35.3-44.9) % Plt Count 286 (140-400) K/mcL Neutrophils # 6.5 (1.6-8.9) K/mcL BMP 09/25/17 03:49 Sodium 137 Potassium 3.4 L Chloride 102 Carbon Dioxide 27 BUN 15 Creatinine 0.75 Glucose 88 Calcium 8.7 - ABG Interpretation ABG results: PT/INR, D-dimer PT 12.2 Seconds (9.4-12.1) H 09/20/17 05:17 Consult Discharge Plan - Plan Referrals: Joseph Johns DO [Primary Care Provider] - 10/11/17 3:00 pm (Please follow up as schedule...) <Erica Cash - Last Filed: 09/25/17 17:14> Hospitalist Progress Note - Encounter Date of Encounter: 09/25/17 - Exam Vitals: Temp Pulse Resp BP Pulse Ox 99.9 F H 75 17 112/70 93 09/25/17 15:37 09/25/17 15:37 09/25/17 15:37 09/25/17 15:37 09/25/17 15:37 - Assessment and Plan (1) Pneumonia Current Visit: Yes Status: Acute (2) Hypogammaglobulinemia Current Visit: Yes Status: Chronic (3) Acute on chronic respiratory failure with hypoxia and hypercapnia Current Visit: Yes Status: Acute (4) Essential hypertension Current Visit: Yes Status: Chronic (5) Coronary artery disease Current Visit: Yes Status: Chronic (6) COPD (chronic obstructive pulmonary disease) Current Visit: Yes Status: Chronic (7) Bipolar 1 disorder, depressed Current Visit: Yes Status: Chronic (8) DVT prophylaxis Current Visit: Yes Status: Acute (9) CHF (congestive heart failure) Current Visit: Yes Status: Acute - Time Spent with Patient Total time spent is greater than 50% in coordination of care (as documented) at patient's floor/unit and/or counseling patient: Internal Medicine: Result - Labs CBC & Chem 7: 09/25/17 03:49 09/25/17 03:49 Labs: Short CBC 09/25/17 Range/Units 03:49 WBC 10.5 (4.3-11.1) K/mcL Hgb 13.6 (11.5-15.4) g/dL Hct 40.6 (35.3-44.9) % Plt Count 286 (140-400) K/mcL Neutrophils # 6.5 (1.6-8.9) K/mcL BMP 09/25/17 03:49 Sodium 137 Potassium 3.4 L Chloride 102 Carbon Dioxide 27 BUN 15 Creatinine 0.75 Glucose 88 Calcium 8.7 - ABG Interpretation ABG results: PT/INR, D-dimer PT 12.2 Seconds (9.4-12.1) H 09/20/17 05:17 - Attending Attestation I have seen and examined this patient independently. I have discussed with the resident physician Dr. Hughes regarding the management plan. Agree with the documentation. <Mohinder Hughes Tanvi - Last Filed: 09/25/17 13:15> (1) Pneumonia Qualifiers: Pneumonia type: due to unspecified organism Laterality: right Lung location : unspecified part of lung Qualified Code(s): J18.9 - Pneumonia, unspecified organism (4) CHF (congestive heart failure) Qualifiers: Heart failure type: diastolic Heart failure chronicity: acute Qualified Code (s): I50.31 - Acute diastolic (congestive) heart failure (8) Coronary artery disease Qualifiers: Coronary Disease-Associated Artery/Lesion type: [place] artery [place] vs. transplanted heart: [place] heart Associated angina: without angina Qualified Code(s): I25.10 - Atherosclerotic heart disease of [place] coronary artery without angina pectoris <Erica Cash - Last Filed: 09/25/17 17:14> (1) Pneumonia Qualifiers: Pneumonia type: due to unspecified organism Laterality: right Lung location : unspecified part of lung Qualified Code(s): J18.9 - Pneumonia, unspecified organism (5) Coronary artery disease Qualifiers: Coronary Disease-Associated Artery/Lesion type: [place] artery [place] vs. transplanted heart: [place] heart Associated angina: without angina Qualified Code(s): I25.10 - Atherosclerotic heart disease of [place] coronary artery without angina pectoris (6) COPD (chronic obstructive pulmonary disease) Qualifiers: COPD type: chronic bronchitis Chronic bronchitis type: simple Qualified Code (s): J41.0 - Simple chronic bronchitis (9) CHF (congestive heart failure) Qualifiers: Heart failure type: diastolic Heart failure chronicity: acute Qualified Code (s): I50.31 - Acute diastolic (congestive) heart failure
--- NOTE | 2017-09-25 15:26 | Allergy Progress Note ---
Date of Encounter: 09/25/17 Time of Encounter: 07:00 Subjective Narrative: Patient was sleeping during my visit. Objective Vital Signs - Last 8 Hours Temp Pulse Resp BP Pulse Ox 09/25/17 11:26 98.7 F 76 17 109/74 92 09/25/17 07:30 98.6 F 75 17 120/73 94 Intake and Output 09/24/17 09/25/17 09/25/17 23:59 07:59 15:59 Intake Total 460 / 460 100 / 100 220 / 220 Output Total 700 / 700 Balance -240 / -240 100 / 100 220 / 220 Intake: IV Fluids 100 / 100 100 / 100 100 / 100 Zosyn 3.375 GM In 0.9 % Sodium 100 / 100 100 / 100 100 / 100 Chloride (Mini-Bag +) 100 ML @ 25 mls/hr IVPB Q8H [facility] Rx#: [id number] Oral 360 / 360 120 / 120 Output: Urine 700 / 700 Other: Meal Lunch Percent of Meal Consumed 75% Weight 66.4 kg - General physical appearance no distress - ENT no congestion - Neck no lymphadectomy - Respiratory normal respiratory effort, clear to auscultation - Abdomen non tender - Integumentary other (bandages in place on abdomen) - Labs 09/25/17 03:49 09/25/17 03:49 Diabetes panel 09/25/17 Range/Units 03:49 Sodium 137 (136-145) mEq/L Potassium 3.4 L (3.5-5.1) mEq/L Chloride 102 (98-107) mEq/L Carbon Dioxide 27 (23-29) mEq/L BUN 15 (8-23) mg/dL Creatinine 0.75 (0.60-1.20) mg/dL Glucose 88 (70-105) mg/dL Calcium 8.7 (8.6-10.3) mg/dL Calcium panel 09/25/17 Range/Units 03:49 Calcium 8.7 (8.6-10.3) mg/dL Pituitary panel 09/25/17 Range/Units 03:49 Sodium 137 (136-145) mEq/L Potassium 3.4 L (3.5-5.1) mEq/L Chloride 102 (98-107) mEq/L Carbon Dioxide 27 (23-29) mEq/L BUN 15 (8-23) mg/dL Creatinine 0.75 (0.60-1.20) mg/dL Glucose 88 (70-105) mg/dL Calcium 8.7 (8.6-10.3) mg/dL Adrenal panel 09/25/17 Range/Units 03:49 Sodium 137 (136-145) mEq/L Potassium 3.4 L (3.5-5.1) mEq/L Chloride 102 (98-107) mEq/L Carbon Dioxide 27 (23-29) mEq/L BUN 15 (8-23) mg/dL Creatinine 0.75 (0.60-1.20) mg/dL Glucose 88 (70-105) mg/dL Calcium 8.7 (8.6-10.3) mg/dL - Assessment and Plan (1) CHF (congestive heart failure) Current Visit: Yes Status: Acute Qualifiers: Heart failure type: diastolic Heart failure chronicity: acute Qualified Code(s): I50.31 - Acute diastolic (congestive) heart failure (2) Community acquired pneumonia Current Visit: Yes Status: Acute Qualifiers: Laterality: right Lung location: unspecified part of lung Qualified Code( s): J18.9 - Pneumonia, unspecified organism (3) Hypogammaglobulinemia Current Visit: Yes Status: Chronic Patient appears to be improving slowly. She had bronchoscopy yesterday and cultures pending. She required biPAP last night and was comfortable on 2L NC this morning. 1. Bandages should be removed from abdomen. 2. Will follow up IgG level . 3. Continue sepsis/pneumonia treatment per ID and pulmonary. 4. Will follow urine, sputum and blood cultures. 5. Will follow with primary team 6. Follow up as outpatient in 4 weeks. 7. Patient will need to her gammagard next the . Consult Discharge Plan - Plan Referrals: Joseph Johns DO [Primary Care Provider] - 10/11/17 3:00 pm (Please follow up as schedule...)
[2017-09-25] MEDS ORDERED: Furosemide 20 MG TABLET PO PRN (15:34)
[2017-09-25] MEDS: ARIPiprazole 2 MG TABLET PO SCH (21:45)
[2017-09-26] MEDS: Piperacillin/Tazobactam 3.375 GM in 0.9 % Sodium Chloride Mini Bag 100 ML IVPB SCH ×2 (04:05→15:04)
[2017-09-26] MEDS: *HR* Enoxaparin 40 MG/0.4 ML SYRINGE SQ SCH (05:54)
--- NOTE | 2017-09-26 09:03 | Pulmonology Progress Note ---
<VeronicaGucci zamora Dev - Last Filed: 09/26/17 08:59> Date of Encounter: 09/26/17 Time of Encounter: 08:59 Assessment and Plan (1) Pneumonia Current Visit: Yes Status: Acute Patient appears to be clinically improving. Patient had temperature of 99.9 Fahrenheit yesterday evening but otherwise a been afebrile, leukocytosis is resolved. Patient is status post bronchoscopy with evidence of mucous plugging. Gram stain of BAL fluid reveals many white blood cells but no organisms. Awaiting culture results. Continue current antibiotic regimen, plan to switch to by mouth antibiotics at the discretion of infectious disease and hospitalist. We will order incentive spirometer. Pulmonary will sign off at this time, please call with any questions. Qualifiers: Pneumonia type: due to unspecified organism Laterality: right Lung location: unspecified part of lung Qualified Code(s): J18.9 - Pneumonia, unspecified organism Subjective Principal diagnosis: Pneumonia Interval history: Patient seen and examined at bedside. Patient states that she feels pretty good today. She feels like her breathing is improved. She has an occasional nonproductive cough. She denies fever, chills. Objective PUL Vital signs: Last Vital Signs Temp 97.7 F 09/26/17 07:58 Pulse 76 09/26/17 07:58 Resp 16 09/26/17 07:58 BP 106/76 09/26/17 07:58 Pulse Ox 94 09/26/17 07:58 General appearance: no acute distress ENT: oropharynx moist Effort: normal Auscultation: bilateral: diminished breath sounds Cardiovascular: regular rate and rhythm Gastrointestinal: normoactive bowel sounds Extremities: no cyanosis, no clubbing normal mental status, non-focal exam Results - Laboratory Findings CBC and BMP: 09/25/17 03:49 09/25/17 03:49 PT/INR, D-dimer PT 12.2 Seconds (9.4-12.1) H 09/20/17 05:17 Abnormal lab findings: Abnormal lab results PT 12.2 Seconds (9.4-12.1) H 09/20/17 05:17 VBG pH 7.27 pH Units (7.32-7.42) L 09/20/17 05:39 VBG pCO2 79 mmHg (41-51) H* 09/20/17 05:39 VBG HCO3 37 mEq/L (21-27) H 09/20/17 05:39 Potassium 3.4 mEq/L (3.5-5.1) L 09/25/17 03:49 Alkaline Phosphatase 129 Units/L (34-104) H 09/20/17 05:17 B-Natriuretic Peptide 182 pg/mL (Less than 100) H 09/21/17 06:19 Procalcitonin 1.82 ng/mL (<=0.07) H 09/21/17 15:45 Urine Color [place] (Yellow) A 09/20/17 05:57 Urine Nitrite Positive (Negative) A 09/20/17 05:57 Ur Culture Indicated? YES (NO) A 09/20/17 05:57 Fluid Appearance Hazy (Clear) A 09/24/17 19:00 Vancomycin Trough 24 mcg/mL (5-10) H 09/24/17 16:45 - Microbiology Findings Microbiology Findings: Microbiology, Last 48 Hours 09/24/17 19:00 Respiratory Culture - Preliminary Right Lower Lobe Lung 09/24/17 19:00 Respiratory Culture - Preliminary Left Lower Lobe Lung - Clinical Findings Intake & Output: Intake & Output 09/25/17 09/26/17 09/26/17 23:59 07:59 15:59 Intake Total 340 / 340 100 / 100 Output Total 700 / 700 Balance -360 / -360 100 / 100 Weight 67.7 kg Consult Discharge Plan - Plan Referrals: Joseph Johns DO [Primary Care Provider] - 10/11/17 3:00 pm (Please follow up as schedule...) <Art Choudhury - Last Filed: 09/26/17 15:03> Date of Encounter: 09/26/17 Objective PUL Vital signs: Last Vital Signs Temp 98.2 F 09/26/17 11:44 Pulse 67 09/26/17 11:44 Resp 17 09/26/17 11:44 BP 115/75 09/26/17 11:44 Pulse Ox 91 09/26/17 11:44 Results - Laboratory Findings CBC and BMP: 09/26/17 10:56 09/26/17 10:56 PT/INR, D-dimer PT 12.2 Seconds (9.4-12.1) H 09/20/17 05:17 Abnormal lab findings: Abnormal lab results WBC 14.2 K/mcL (4.3-11.1) H 09/26/17 10:56 PT 12.2 Seconds (9.4-12.1) H 09/20/17 05:17 VBG pH 7.27 pH Units (7.32-7.42) L 09/20/17 05:39 VBG pCO2 79 mmHg (41-51) H* 09/20/17 05:39 VBG HCO3 37 mEq/L (21-27) H 09/20/17 05:39 BUN 24 mg/dL (8-23) H 09/26/17 10:56 Creatinine 1.82 mg/dL (0.60-1.20) H 09/26/17 10:56 Est GFR ( Amer) 34 (> 60) L 09/26/17 10:56 Est GFR (Non-Af Amer) 28 (> 60) L 09/26/17 10:56 Alkaline Phosphatase 129 Units/L (34-104) H 09/20/17 05:17 B-Natriuretic Peptide 182 pg/mL (Less than 100) H 09/21/17 06:19 Procalcitonin 1.82 ng/mL (<=0.07) H 09/21/17 15:45 Urine Color [place] (Yellow) A 09/20/17 05:57 Urine Nitrite Positive (Negative) A 09/20/17 05:57 Ur Culture Indicated? YES (NO) A 09/20/17 05:57 Fluid Appearance Hazy (Clear) A 09/24/17 19:00 Vancomycin Trough 24 mcg/mL (5-10) H 09/24/17 16:45 - Microbiology Findings Microbiology Findings: Microbiology, Last 48 Hours 09/24/17 19:00 Acid Fast Stain - Final Right Lower Lobe Lung 09/24/17 19:00 Acid Fast Stain - Final Left Lower Lobe Lung 09/24/17 19:00 Respiratory Culture - Preliminary Right Lower Lobe Lung 09/24/17 19:00 Respiratory Culture - Preliminary Left Lower Lobe Lung - Clinical Findings Intake & Output: Intake & Output 09/25/17 09/26/17 09/26/17 23:59 07:59 15:59 Intake Total 340 / 340 100 / 100 240 / 240 Output Total 700 / 700 Balance -360 / -360 100 / 100 240 / 240 Weight 67.7 kg - Attending Attestation I saw and evaluated this patient and my medical decision-making was reviewed with the Resident Physician. I agree with the documented findings, disposition and treatment plan as described except to the extent set forth below. We independently had [id number] contact with the patient Patient seen and examined at bedside Labs, radiology, chart personally reviewed. 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 Pulm: Patient has recurrent pneumonia had a bronchoscopy with BAL which did not grow any organisms to date patient currently on antibiotics and she can be switched to by mouth antibiotics according to infectious disease patient can go home on incentive spirometry and flutter valve. Pulmonary will sign off please call with questions.
[2017-09-26] MEDS: Lactobacillus 1 EACH CAP.SPRINK PO SCH ×2 (10:03→21:57)
[2017-09-26] MEDS: *HR* OxyCODONE Immed Rel 5 MG TABLET PO PRN ×2 (10:03→21:57)
[2017-09-26] MEDS: Aspirin 325 MG TABLET PO SCH (10:03)
--- NOTE | 2017-09-26 10:21 | Infectious Disease Progress No ---
Date of Encounter: 09/26/17 Time of Encounter: 08:35 - Assessment and Plan (1) Sepsis Current Visit: No Status: Resolved The patient had two SIRS criteria on admission. Likely secondary to PNA. Improved. Tachycardia resolved. Afebrile. WBC back up today, but could be due to steroids. Blood cultures drawn 09/20/17 are negative x 2 sets. Qualifiers: Sepsis type: methicillin resistant Staphylococcus aureus Qualified Code(s) : A41.02 - Sepsis due to Methicillin resistant Staphylococcus aureus (2) Pneumonia Current Visit: Yes Status: Acute Causative organism unclear. Recurrent. Patient hospitalized 08/22-08/28 and treated with IV antibiotics for 7 days followed by PO doxycycline and levaquin. Patient reports multiple episodes over the past few years. CXR showed findings consistent with pulmonary vascular congestion, possible pulmonary edema. The patient reports a cough productive of yellow sputum and dyspnea with high O2 requirements. Pulmonology consulted and following. Status post bronchoscopy 09/24/17. Endo report reviewed and indicated mucous plugs throughout the tracheobronchial tree. BAL cultures are preliminarily negative. AFB and fungal are pending. Check S. pneumo and Legionella UAT.--> negative. Get CT chest with IV contrast. --> Showed consolidation in the lower lobes consistent with recurrent/worsening pneumonia. Tree-in-bud opacities improved. Get RIP.--> negative. Check procalcitonin.--> elevated at 1.82. Discontinue Vanc and Zosyn. Already received 7 days of each. Start doxycycline 100mg PO BID. Start Levaquin 750mg PO daily. Duration of treatment depends on the clinical picture, but likely a total of 14 days. Monitor renal function and for drug toxicity and dose-adjust antibiotics. Qualifiers: Pneumonia type: due to unspecified organism Laterality: right Lung location: unspecified part of lung Qualified Code(s): J18.9 - Pneumonia, unspecified organism (3) Acute kidney injury Current Visit: Yes Status: Acute Serum creatinine up to 1.82 today. Likely secondary to Vanc toxicity. Discontinue Vanc. Continue to trend. Dose-adjust antibiotics and other medications. Avoid nephrotoxins as able. (4) Hypogammaglobulinemia Current Visit: Yes Status: Chronic Follows with Dr. Piper Smith for weekly immunoglobulin injections, but has not had them since the beginning of August due to hospitalizations and lovenox- induced bruising to the abdomen. Could be contributing to the patient's recurrent infections. Appreciate Allergy/Immunology recommendations. (5) COPD with exacerbation Current Visit: No Status: Acute Continue supportive care per the primary and pulmonary teams. (6) Acute on chronic respiratory failure with hypoxia and hypercapnia Current Visit: Yes Status: Acute Multifactorial: COPD + PNA + possible pulmonary edema. Resolved. (7) Pulmonary edema Current Visit: Yes Status: Acute CXR showed findings consistent with pulmonary edema. TTE showed EF of 60% with mild left ventricular diastolic dysfunction. BNP mildly elevated at 182. Clinically improved. Qualifiers: Chronicity: acute Qualified Code(s): J81.0 - Acute pulmonary edema (8) Coronary artery disease Current Visit: Yes Status: Chronic Qualifiers: Coronary Disease-Associated Artery/Lesion type: [place] artery [place] vs. transplanted heart: [place] heart Associated angina: without angina Qualified Code(s): I25.10 - Atherosclerotic heart disease of [place] coronary artery without angina pectoris (9) Diarrhea Current Visit: Yes Status: Chronic Patient reports chronic alternating diarrhea and constipation. Reports several loose stools yesterday, but states they are not mucousy or watery. Continue to monitor closely. Continue probiotics BID. Qualifiers: Diarrhea type: unspecified type Qualified Code(s): R19.7 - Diarrhea, unspecified - Subjective Interval history: Patient seen and examined. No acute events noted overnight. Patient denies shortness of breath this morning. She denies chest pain. States she has a dry cough. She denies abdominal pain, but does endorse some intermittent nausea. She denies vomiting. She reports multiple loose stools daily that is normal for her. She denies oral thrush or any skin lesions. She states she ate some of her breakfast today. She is voiding without issue. Infect Dis PN-Objective Data - Labs CBC & Chem 7: 09/27/17 05:19 09/27/17 05:19 Cultures: Cultures 09/24/17 19:00 Respiratory Culture - Preliminary Right Lower Lobe Lung 09/24/17 19:00 Respiratory Culture - Preliminary Left Lower Lobe Lung 09/22/17 16:43 Sputum Culture - Final Sputum 09/22/17 01:02 Legionella Antigen - Final Urine,Clean Catch Streptococcus pneumoniae Antigen (M - Final Serology 09/24/17 09/24/17 09/21/17 Range/Units 19:00 19:00 17:17 Fluid Source Right Lower Lobe Coutr Left Lower Lobe Lung Fluid Volume 15 15 mL Fluid Appearance Hazy A Slightly Hazy A (Clear) Fluid RBC TNP TNP Fld Tot Nucleated Cell TNP TNP Fluid Seg Neutrophil % 78.0 94.0 % Fluid Lymphocytes % 7.0 4.0 % Fluid Monocytes % 2.0 2.0 % Fluid Other Cells % 13.0 % Chlamy pneumoniae PCR Not Detected (Not Detect) Adenovirus (PCR) Not Detected (Not Detect) B. pertussis DNA (PCR) Not Detected (Not Detect) B.parapertussis DNA PCR Not Detected (Not Detect) Coronavirus OC43 (PCR) Not Detected (Not Detect) Coronavirus HKU1 (PCR) Not Detected (Not Detect) Coronavirus 229E (PCR) Not Detected (Not Detect) Coronavirus NL63 (PCR) Not Detected (Not Detect) Human Metapneumovir PCR Not Detected (Not Detect) Influenza A (H1) PCR Not Detected (Not Detect) Influ A (H1N1/09) PCR Not Detected (Not Detect) Influenza A (H3) PCR Not Detected (Not Detect) Influenza A Untype (PCR) Not Detected (Not Detect) Influenza Type B (PCR) Not Detected (Not Detect) M.pneumoniae DNA (PCR) Not Detected (Not Detect) Parainfluenza 1 (PCR) Not Detected (Not Detect) Parainfluenza 2 (PCR) Not Detected (Not Detect) Parainfluenza 3 (PCR) Not Detected (Not Detect) Parainfluenza 4 (PCR) Not Detected (Not Detect) RSV (PCR) Not Detected (Not Detect) Entero/Rhino (PCR) Not Detected (Not Detect) Exam - Constitutional Vitals: Temp Pulse Resp BP Pulse Ox 97.7 F 76 16 106/76 94 09/26/17 07:58 09/26/17 07:58 09/26/17 07:58 09/26/17 07:58 09/26/17 07:58 General appearance: average body habitus, cooperative, no acute distress - Head Head exam: Present: atraumatic, normal inspection, normocephalic - Eye Eye exam: Present: EOMI, normal appearance, PERRL Pupils: Present: normal accommodation - ENT ENT exam: Present: mucous membranes moist - Neck Neck exam: Present: normal inspection - Respiratory Respiratory exam: Present: CTAB. Absent: rales, respiratory distress, rhonchi, wheezes - Cardiovascular Cardiovascular exam: Present: RRR, +S1, +S2 - GI/Abdominal GI/Abdominal exam: Present: normal bowel sounds, soft. Absent: distended, tenderness - Extremities Exam Extremities exam: Present: normal inspection. Absent: joint swelling, pedal edema, tenderness - Neurological Exam Neurological exam: Present: alert, oriented X3, no focal deficits - Psychiatric Psychiatric exam: Present: normal affect, normal mood - Skin Skin exam: Present: dry, intact, normal color, warm Consult Discharge Plan - Plan Referrals: Joseph Johns DO [Primary Care Provider] - 10/11/17 3:00 pm (Please follow up as schedule...) - Attending Attestation I examined this patient and my medical decision-making was reviewed with the Cassie Varghese CNP I agree with the documented findings, disposition and treatment plan as described except to the extent set forth below.
[2017-09-26 11:17] LABS: Hematocrit 39.7 % (35.3-44.9); Hemoglobin 13.7 g/dL (11.5-15.4); Mean Corpuscular HGB Conc 34.5 g/dL (31.6-35.5); Mean Corpuscular Hemoglobin 30.9 pg (28.0-33.3); Mean Corpuscular Volume 89.4 fL (83.0-100.0); Platelet Count 283 K/mcL (140-400); Red Blood Count 4.44 M/mcL (3.82-4.97); Red Cell Distribution Width 13.6 % (11.5-14.5)
[2017-09-26 11:26] LABS: Calcium 9.1 mg/dL (8.6-10.3); Potassium 4.5 mEq/L (3.5-5.1)
[2017-09-26] MEDS ORDERED: Aminoglycoside Consult 1 EACH MC ONE (14:13)
--- NOTE | 2017-09-26 14:14 | Internal Med Progress Note ---
Hospitalist Progress Note - Encounter Date of Encounter: 09/26/17 Time of Encounter: 14:16 - Subjective Interval History: Patient seen and examined at bedside. Patient had no overnight events. Patient has no complaints this morning. Patient denies any chest pain, shortness breath, nausea, vomiting, diarrhea. Patient has been afebrile. Patient denies any dysuria or change in urinary volume. Patient is currently on room air and is reportedly only using BiPAP for less than an hour at nighttime. - Exam Vitals: Temp Pulse Resp BP Pulse Ox 98.2 F 67 17 115/75 91 09/26/17 11:44 09/26/17 11:44 09/26/17 11:44 09/26/17 11:44 09/26/17 11:44 Exam: Constitutional: No acute distress, Alert Psych: AAO x 3 HEENT: NCAT, EOMI Neck: supple, no JVD Cardio: regular rate and rhythm, +s1s2, no murmurs/rubs/gallops, no JVD Resp: clear to ascultation bilaterally, no wheezes/rales/ronchi Abd: soft, non tender/non distended, positive bowel sounds, no gaurding/reboud/ ridgitity, notable bandages from gammagard injections Extremities: no clubbing/cyanosis/edema appreciated Neuro: no focal deficits appreciated - Assessment and Plan (1) Pneumonia Current Visit: Yes Status: Acute Assessment and Plan: Recurrent pneumonia - Klebsiella pneumonia MDRO last month, no culture growth currently -Hypoxia resolved, on room air -CXR with fluid overload, CT with persistent infiltrates -BCx 09/20/17 NGTD -SCx 09/22/17 negative -Bronchoscopy cultures currently negative -Urine Legionella and strep negative, Resp Inf Panel negative -On Vancomycin and Zosyn per ID - day #7 -Pulmonary and ID following, appreciate recommendations - Bronchoscopy - mucus plugging and BAL - Like to switch to oral antibiotics, patient states that she can only take by mouth Levaquin and doxycycline; ID recommends Bactrim and Levaquin however would like to avoid Bactrim in light of the patient's acute kidney injury today ; will discuss with ID -Continue Gammagard on 09/28/2017 and weekly per allergy (2) Acute kidney injury Current Visit: Yes Status: Acute Assessment and Plan: Acute renal failure -Patient's baseline serum creatinine appears to be around 0.80 -Patient serum creatinine today increased from 0.75 to 1.82 -Could be multifactorial secondary to elevated vancomycin trough on 09/24/2017; vancomycin dose was decreased in half and repeat trough will be drawn in a.m. ; patient was also receiving IV diuresis and is currently not volume overloaded today there could be a component of overdiuresis -Currently rechecking serum creatinine to ensure accuracy -If remains elevated will give very gentle IV fluids with 250 mL or 500 mL of normal saline at 50 mL an hour; will be very cautious with volume status -discontinue Lasix for now and hold potassium -Avoid nephrotoxic medications -Check urinalysis, urine protein to creatinine ratio, and fena -vanco trough in am -bmp in am (3) Acute on chronic respiratory failure with hypoxia and hypercapnia Current Visit: Yes Status: Acute Assessment and Plan: -Likely multifactorial secondary to pneumonia and COPD -Has intermittently required BiPAP but is currently on room air in no respiratory distress -Continue antibiotics for pneumonia; COPD is stable currently (4) Hypogammaglobulinemia Current Visit: Yes Status: Chronic Assessment and Plan: Seen by Dr. Smith Continue Gammagard weekly on 09/28/2017 per allergy (5) Essential hypertension Current Visit: Yes Status: Chronic Assessment and Plan: -Continue home medications -Monitor blood pressure (6) Coronary artery disease Current Visit: Yes Status: Chronic Assessment and Plan: -continue home meds (7) COPD (chronic obstructive pulmonary disease) Current Visit: Yes Status: Chronic Assessment and Plan: -Had acute exacerbation on admission, this is resolved -Off steroids -BiPAP when necessary this will likely be discontinued soon -Duo nebs as needed (8) Bipolar 1 disorder, depressed Current Visit: Yes Status: Chronic Assessment and Plan: continue home meds (9) DVT prophylaxis Current Visit: Yes Status: Acute Assessment and Plan: lovenox (10) CHF (congestive heart failure) Current Visit: Yes Status: Acute Assessment and Plan: -Patient who presented with hypoxia SPO2 70s on room air, resp distress, and CXR with fluid overload -CT scan did not reveal significant pulmonary edema -ECHO done 09/21-noted for EF 60-65%, mild LVDD, no other significant findings -Strict intake and output patient voiding on her own and likely not accurate -Daily weights. -pt has been getting IV Lasix daily -Serum creatinine increased today 0.75-1.82; this could be a component of the diuresis; the patient has no signs of volume overload currently -Currently rechecking serum creatinine to ensure accuracy if remains elevated will likely give small boluses of IV fluids and check renal function in a.m. -BiPAP remains in room if needed - Time Spent with Patient Total time spent is greater than 50% in coordination of care (as documented) at patient's floor/unit and/or counseling patient: Internal Medicine: Result - Labs CBC & Chem 7: 09/26/17 10:56 09/26/17 10:56 Labs: Short CBC 09/26/17 Range/Units 10:56 WBC 14.2 H (4.3-11.1) K/mcL Hgb 13.7 (11.5-15.4) g/dL Hct 39.7 (35.3-44.9) % Plt Count 283 (140-400) K/mcL BMP 09/26/17 10:56 Sodium 138 Potassium 4.5 Chloride 104 Carbon Dioxide 26 BUN 24 H Creatinine 1.82 H Glucose 100 Calcium 9.1 - ABG Interpretation ABG results: PT/INR, D-dimer PT 12.2 Seconds (9.4-12.1) H 09/20/17 05:17 Consult Discharge Plan - Plan Referrals: Joseph Johns DO [Primary Care Provider] - 10/11/17 3:00 pm (Please follow up as schedule...) (1) Pneumonia Qualifiers: Pneumonia type: due to unspecified organism Laterality: right Lung location : unspecified part of lung Qualified Code(s): J18.9 - Pneumonia, unspecified organism (6) Coronary artery disease Qualifiers: Coronary Disease-Associated Artery/Lesion type: [place] artery [place] vs. transplanted heart: [place] heart Associated angina: without angina Qualified Code(s): I25.10 - Atherosclerotic heart disease of [place] coronary artery without angina pectoris (7) COPD (chronic obstructive pulmonary disease) Qualifiers: COPD type: chronic bronchitis Chronic bronchitis type: simple Qualified Code (s): J41.0 - Simple chronic bronchitis (10) CHF (congestive heart failure) Qualifiers: Heart failure type: diastolic Heart failure chronicity: acute Qualified Code (s): I50.31 - Acute diastolic (congestive) heart failure
[2017-09-26 15:09] LABS: Blood Urea Nitrogen 24 mg/dL (8-23)
[2017-09-26] MEDS: levoFLOXacin 750 MG TABLET PO SCH (15:43)
[2017-09-26] MEDS ORDERED: 0.9 % Sodium Chloride 500 ML IVC SCH ×2 (15:45)
[2017-09-26 19:40] LABS: Bilirubin,Urine Negative (Negative); Blood,Urine Small (Negative); Clarity,Urine Clear (Clear); Color,Urine Yellow (Yellow); Glucose,Urine (UA) Normal (Normal); Ketones,Urine Negative (Negative); Leukocyte Esterase,Urine Negative (Negative); Nitrite,Urine Negative (Negative); Protein,Urine Negative (Neg-Trace); Specific Gravity,Urine 1.007 (1.010-1.025); Urobilinogen,Urine Normal (Normal)
[2017-09-26 19:42] LABS: Bacteria,Urine None Seen per hpf (None-Few); Hyaline Casts,Urine None Seen per lpf (None-Few); Squamous Epithelial Cell,Urine Many per lpf (None-Few); WBC,Urine 0-3 per hpf (0-3)
[2017-09-26 19:56] LABS: Protein/Creatinine Ratio,Urine 0.24 mg/mg (0.00-0.20); Sodium, Urine 60.2 mEq/L
[2017-09-26] MEDS: ARIPiprazole 2 MG TABLET PO SCH (21:56)
[2017-09-26] MEDS: Doxycycline 100 MG CAPSULE PO SCH (21:57)
[2017-09-27] MEDS: *HR* OxyCODONE Immed Rel 5 MG TABLET PO PRN ×3 (03:42→22:51)
[2017-09-27] MEDS: *HR* Enoxaparin 40 MG/0.4 ML SYRINGE SQ SCH (05:06)
[2017-09-27 05:43] LABS: Basophils # 0.1 K/mcL (0.0-0.2); Basophils % 0.6 %; Eosinophils # 0.2 K/mcL (0.0-0.6); Eosinophils % 1.7 %; Hematocrit 40.7 % (35.3-44.9); Hemoglobin 13.6 g/dL (11.5-15.4); Immature Granulocytes % 1.3 % (0-4); Lymphocytes # 2.5 K/mcL (0.6-4.6); Mean Corpuscular HGB Conc 33.4 g/dL (31.6-35.5); Mean Corpuscular Volume 89.6 fL (83.0-100.0); Mean Platelet Volume 9.8 fL (9.4-12.4); Monocytes # 1.4 K/mcL (0.0-1.3); Monocytes % 11.4 %; Neutrophils # 7.6 K/mcL (1.6-8.9); Platelet Count 284 K/mcL (140-400); Red Blood Count 4.54 M/mcL (3.82-4.97); Red Cell Distribution Width 13.8 % (11.5-14.5)
[2017-09-27 05:58] LABS: Calcium 9.2 mg/dL (8.6-10.3); Potassium 4.3 mEq/L (3.5-5.1); Uric Acid 3.7 mg/dL (2.3-7.6)
--- NOTE | 2017-09-27 07:31 | Internal Med Progress Note ---
Hospitalist Progress Note - Encounter Date of Encounter: 09/27/17 Time of Encounter: 07:28 - Subjective Interval History: Patient seen and examined at bedside. Patient had no overnight events. Patient again on BiPAP for approximately one hour however states she was never short of breath. Patient denies any chest pain, shortness of breath, cough, nausea, vomiting. Patient has been afebrile. Patient denies any dysuria, flank pain, voiding issues. She denies any blood in urine. - Exam Vitals: Temp Pulse Resp BP Pulse Ox 97.9 F 82 16 116/75 95 09/27/17 05:17 09/27/17 05:17 09/27/17 05:17 09/27/17 05:17 09/27/17 05:17 - Assessment and Plan (1) Pneumonia Current Visit: Yes Status: Acute Assessment and Plan: Recurrent pneumonia - Klebsiella pneumonia MDRO last month, no culture growth currently - Hypoxia resolved, on room air - CXR initially with volume overload - BCx 09/20/17 NGTD - SCx 09/22/17 negative - Bronchoscopy cultures currently negative - Urine Legionella and strep negative, Resp Inf Panel negative - Completed 7 days of IV Vancomycin and Zosyn - Pulmonary and ID following, appreciate recommendations - Bronchoscopy - mucus plugging and BAL - IV antibiotics discontinued yesterday now on by mouth Levaquin and doxycycline and will continue as an outpatient - May need to hold Gammagard on 09/28/2017 secondary to acute kidney injury; will discuss with nephro (2) Acute kidney injury Current Visit: Yes Status: Acute Assessment and Plan: Acute renal failure -Patient's baseline serum creatinine appears to be around 0.80 -Patient serum creatinine increased from 0.75 to 1.82 and up to 1.98 this am -Could be multifactorial secondary to atn from vanco toxicity; elevated trough on 09/24/2017 and elevated trough this am; vanco was discontinued yesterday; patient was also receiving IV diuresis and is currently not volume overloaded today there could be a component of overdiuresis although i do not beleive that is the only contributing factor; pt also on ivig weekly that was started last which could be contributing -FeNa 1.7 consistant with intrinsic etiology -retroperitoneal us unremarkable; uric acid and cpk wnl -ua with microscopic hematuria -gave 500cc of NS at 50/hr yesterday and Creatinine pleateaued; could likely tolerate more fluid but will await nephro eval and recs; would have to be cautious with volume status -continue to hold Lasix for now and potassium -Avoid nephrotoxic medications -nephro consulted -may need to hold sub q ivig tomorrow -bmp in am (3) Acute on chronic respiratory failure with hypoxia and hypercapnia Current Visit: Yes Status: Acute Assessment and Plan: -Likely multifactorial secondary to pneumonia and COPD - Has intermittently required BiPAP but is currently on room air in no respiratory distress -Continue po antibiotics for pneumonia; COPD is stable currently (4) Hypogammaglobulinemia Current Visit: Yes Status: Chronic Assessment and Plan: Seen by Dr. Smith May need to hold Gammagard on 09/28/2017 secondary to kidney injury (5) Essential hypertension Current Visit: Yes Status: Chronic Assessment and Plan: -Continue home medications -Monitor blood pressure (6) Coronary artery disease Current Visit: Yes Status: Chronic Assessment and Plan: -continue home meds (7) COPD (chronic obstructive pulmonary disease) Current Visit: Yes Status: Chronic Assessment and Plan: -Had acute exacerbation on admission, this is resolved -Off steroids -BiPAP when necessary this will likely be discontinued soon -Duo nebs as needed (8) Bipolar 1 disorder, depressed Current Visit: Yes Status: Chronic Assessment and Plan: continue home meds (9) DVT prophylaxis Current Visit: Yes Status: Acute Assessment and Plan: lovenox (10) CHF (congestive heart failure) Current Visit: Yes Status: Acute DVT Prophylaxis: lovenox - Time Spent with Patient Total time spent is greater than 50% in coordination of care (as documented) at patient's floor/unit and/or counseling patient: 25 - 35 minutes Plan of Care Discussed with: patient Internal Medicine: Result - Labs CBC & Chem 7: 09/27/17 05:19 09/27/17 05:19 Labs: Short CBC 09/26/17 09/27/17 Range/Units 10:56 05:19 WBC 14.2 H 11.9 H (4.3-11.1) K/mcL Hgb 13.7 13.6 (11.5-15.4) g/dL Hct 39.7 40.7 (35.3-44.9) % Plt Count 283 284 (140-400) K/mcL Neutrophils # 7.6 (1.6-8.9) K/mcL BMP 09/26/17 09/26/17 09/26/17 10:56 14:33 14:33 Sodium 138 Potassium 4.5 Chloride 104 Carbon Dioxide 26 BUN 24 H 24 H Creatinine 1.82 H 1.99 H Glucose 100 Calcium 9.1 09/27/17 05:19 Sodium 137 Potassium 4.3 Chloride 103 Carbon Dioxide 26 BUN 25 H Creatinine 1.98 H Glucose 100 Calcium 9.2 Urine 09/26/17 Range/Units 18:45 Urine Color Yellow (Yellow) Urine Clarity Clear (Clear) Urine pH 6.0 (5.0-8.0) pH Units Ur Specific [place] 1.007 L (1.010-1.025) Urine Protein Negative (Neg-Trace) mg/dL Urine Glucose (UA) Normal (Normal) mg/dL - ABG Interpretation ABG results: PT/INR, D-dimer PT 12.2 Seconds (9.4-12.1) H 09/20/17 05:17 - Impressions Impressions Retroperitoneum Ultrasound 09/26/17 15:34 IMPRESSION: Unremarkable ultrasound of the kidneys and urinary bladder. D/ / Viktor Carr / Viktor Carr Interpreting Provider: Viktor Carr Consult Discharge Plan - Plan Referrals: Joseph Johns DO [Primary Care Provider] - 10/11/17 3:00 pm (Please follow up as schedule...) (1) Pneumonia Qualifiers: Pneumonia type: due to unspecified organism Laterality: right Lung location : unspecified part of lung Qualified Code(s): J18.9 - Pneumonia, unspecified organism (6) Coronary artery disease Qualifiers: Coronary Disease-Associated Artery/Lesion type: [place] artery [place] vs. transplanted heart: [place] heart Associated angina: without angina Qualified Code(s): I25.10 - Atherosclerotic heart disease of [place] coronary artery without angina pectoris (7) COPD (chronic obstructive pulmonary disease) Qualifiers: COPD type: chronic bronchitis Chronic bronchitis type: simple Qualified Code (s): J41.0 - Simple chronic bronchitis (10) CHF (congestive heart failure) Qualifiers: Heart failure type: diastolic Heart failure chronicity: acute Qualified Code (s): I50.31 - Acute diastolic (congestive) heart failure
--- NOTE | 2017-09-27 09:09 | Nephrology Consult Note ---
Date of Encounter: 09/27/17 Time of Encounter: 09:00 Assessment and Plan (1) Acute kidney injury Current Visit: Yes Status: Acute 66-year-old female presents with acute kidney injury. Etiology currently unknown. Thank you for ordering CPK and retroperitoneal ultrasound. CPK is unremarkable. Retroperitoneal ultrasound was reviewed and is unremarkable. No evidence of hydronephrosis or intrarenal stones. On physical exam, patient is negative for pedal edema. She does appear to be dry. We will start her on IV fluids again at 75 mL/h max 1 L Patient has also been on multiple antibiotics and possible nephrotoxins this year. We will order urine eosinophils. Current medications reviewed and no nephrotoxins noted. Continue to hold IVIG in the setting of [place] History of Present Illness - Reason for Consult Consult date: 09/27/17 - Chief Complaint SOB - History of Present Illness 66-year-old female past medical history COPD, hypogammabulinemia, presented to the emergency room on 09/20/17 for worsening shortness of breath and fever. Her kidney function has progressively worsened since admission. Her baseline creatinine is 0.8. Current creatinine 1.98/1.99. 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 She was also started on vancomycin during this admission, last vancomycin dose was on . Patient reports that 15 years ago she had similar episode of worsening kidney function after she became septic due to root canal surgery. She also reports poor nutrition, diarrhea of one week duration. MAXIMUM TEMPERATURE 99.9 during this admission. Denies any nausea, vomiting, abdominal pain. Denies worsening fatigue or muscle pain. Able to tolerate by mouth intake. Voiding without difficulty. Denies any recent unplanned weight loss. Denies chest pain and shortness of breath has improved since admission. Past Med Surg Social Fam HX - Past Medical History Medical history: arthritis, COPD, coronary artery disease, fibromyalgia, GERD, hyperlipidemia, hypertension, kidney stones, osteoporosis, RA, thyroid disease, TIA, other Additional medical history: DDD. Hypogammaglobulinanemia. pericarditis. Printzmetal angina. Lupus. Raynauds Psychiatric history: bipolar, depression, previous psychiatric hospitalization - Past Surgical History Surgical History: appendectomy, breast surgery, cholecystectomy, herniorrhaphy, hip replacement, hysterectomy, JAYSON/BSO, other Additional surgical history: jaw implant, dental surgery, perineal cyst - Social History Smoking Status: Never smoker Smokeless Tobacco Status: No Alcohol use: none Drug use: none - Family History Father Hx Family Cardiac Disorders: No Hx Family Respiratory Disorders: No Hx Family Cancer: Yes (colon, kidney, bladder) Hx Family GI Disorders: No Hx Family Endocrine Disorder: No Hx Family Neuromuscular Disorders: No Hx Family Neurologic Disorders: No Hx Family HEENT Disorders: No Hx Family Autoimmune Disorders: No Mother Adopted: No Family Member Ethnicity: Non- Living Status: Hx Family Cardiac Disorders: No Hx Family Respiratory Disorders: No Hx Family Cancer: Yes Hx Family GI Disorders: No Hx Family Endocrine Disorder: No Hx Family Neuromuscular Disorders: No Hx Family Neurologic Disorders: No Hx Family HEENT Disorders: No Hx Family Autoimmune Disorders: Yes (ra) Medications and Allergies Albuterol Sulfate [Proair Hfa] 2 puff IH Q4H PRN 07/14/15 [History] Allopurinol [Zyloprim 300 MG] 300 mg PO DAILY 07/14/15 [History] Cyclobenzaprine [Flexeril] 10 mg PO TID 07/14/15 [History] Hydroxychloroquine [Plaquenuil] 400 mg PO DAILY 07/14/15 [History] Levothyroxine [Synthroid] 50 mcg PO QAM 07/14/15 [History] OxyCODONE Immed Rel [Roxicodone 10 MG] 10 mg PO Q6H PRN 07/14/15 [History] Furosemide [Lasix] 20 mg PO DAILY PRN 12/31/16 [History] Immune Globulin, Gamma(IGG) [Gammagard 10% 10 GM/100 mL] 10 ml IVC WE 05/09/17 [ History] Ipratropium/Albuterol Neb [Duoneb] 3 ml IH Q6H PRN 05/09/17 [History] Metoprolol Tartrate 100 mg PO DAILY 05/09/17 [History] NIFEdipine [Procardia] 10 mg PO DAILY PRN 05/09/17 [History] Pregabalin [Lyrica] 100 mg PO TID 05/09/17 [History] Lactobacillus Acidophilus [Acidophilus Probiotic] 1 mg PO DAILY 06/23/17 [ History] ARIPiprazole [Abilify] 2 mg PO HS #30 tablet 06/28/17 [Rx] DULoxetine [Cymbalta] 30 mg PO DAILY #30 capsule. 06/28/17 [Rx] Aspirin 325 mg PO DAILY 08/11/17 [History] Atorvastatin Calcium [Lipitor] 20 mg PO HS 08/11/17 [History] FentaNYL PATCH [Duragesic] 12 mcg TD Q72H 08/11/17 [History] Multivitamin [One Daily Multivitamin] 1 tab PO DAILY 08/11/17 [History] Potassium Chloride 20 meq PO BID #60 tab.er.prt 08/14/17 [Rx] Estradiol [Estrace] 1 appl TP DAILY 08/22/17 [History] Doxycycline 100 mg PO BID #14 capsule 08/28/17 [Rx] 3 Allergy/AdvReac Type Severity Reaction Status Date / Time No Known Allergies Allergy Verified 08/22/17 18:25 Review of Systems All Systems: reviewed and no additional remarkable complaints except as stated Constitutional: as per HPI Nose, mouth and throat: as per HPI Cardiovascular: as per HPI Respiratory: as per HPI Gastrointestinal: as per HPI Genitourinary Female: as per HPI Musculoskeletal: as per HPI Integumentary: as per HPI Neurological: as per HPI Endocrine: as per HPI Exam - Vital Signs Vital signs: Initial Vital Signs Temp Pulse Resp BP Pulse Ox 103.1 F H 115 20 160/97 87 09/20/17 04:49 09/20/17 04:49 09/20/17 04:49 09/20/17 04:49 09/20/17 04:49 Vital Signs - Last 8 Hours Temp Pulse Resp BP Pulse Ox 09/27/17 07:58 98.0 F 87 14 136/83 94 09/27/17 05:17 97.9 F 82 16 116/75 95 Intake and Output 09/26/17 09/27/17 09/27/17 23:59 07:59 15:59 Intake Total 1000 / 1000 Output Total 400 / 400 Balance 1000 / 1000 -400 / -400 Intake: Oral 1000 / 1000 Output: Urine 400 / 400 Other: Weight 67.7 kg Patient Weight 09/27/17 23:59 Weight 67.7 kg - General Appearance General appearance: well-developed, well-nourished, appears started age Neck: no JVD, no carotid bruit, supple Respiratory: clear Cardiology: no murmurs, no rub, no gallops, no edema, regular rate, regular rhythm, normal S1, normal S2 Gastrointestinal: normoactive bowel sounds, no tenderness, no guarding, no organomegaly Integumentary: no rash, warm and dry Neurologic: no focal deficit, no asterixis, alert and oriented x3, reflexes 2+ and symmetric, gait normal, strength 5/5 Musculoskeletal: no deformities, no erythema, no cyanosis, no clubbing Psychiatric: mood/affect appropriate, cooperative Results - Lab Results 09/27/17 05:19 09/27/17 05:19 Most recent lab results Calcium 9.2 mg/dL (8.6-10.3) 09/27/17 05:19 Phosphorus 3.3 mg/dL (2.7-4.5) 09/20/17 05:17 Magnesium 1.6 mg/dL (1.6-2.6) 09/20/17 05:17 Urine Creatinine 50 mg/dL 09/26/17 18:45 Urine Sodium 60.2 mEq/L 09/26/17 18:45 Urine Total Protein 12 mg/dL (1-14) 09/26/17 18:45 Consult Discharge Plan - Plan Referrals: Joseph Johns DO [Primary Care Provider] - 10/11/17 3:00 pm (Please follow up as schedule...)
[2017-09-27] MEDS: Lactobacillus 1 EACH CAP.SPRINK PO SCH ×2 (10:11→22:46)
[2017-09-27] MEDS: Doxycycline 100 MG CAPSULE PO SCH ×2 (10:12→22:46)
[2017-09-27] MEDS: Aspirin 325 MG TABLET PO SCH (10:12)
--- NOTE | 2017-09-27 11:26 | Infectious Disease Progress No ---
Date of Encounter: 09/27/17 Time of Encounter: 11:10 - Assessment and Plan (1) Sepsis Current Visit: No Status: Resolved The patient had two SIRS criteria on admission. Likely secondary to PNA. Improved. Tachycardia resolved. Afebrile. WBC back up, but trending down, but could be due to steroids. Blood cultures drawn 09/20/17 are negative x 2 sets. Qualifiers: Sepsis type: methicillin resistant Staphylococcus aureus Qualified Code(s) : A41.02 - Sepsis due to Methicillin resistant Staphylococcus aureus (2) Pneumonia Current Visit: Yes Status: Acute Causative organism unclear. Recurrent. Patient hospitalized 08/22-08/28 and treated with IV antibiotics for 7 days followed by PO doxycycline and levaquin. Patient reports multiple episodes over the past few years. CXR showed findings consistent with pulmonary vascular congestion, possible pulmonary edema. The patient reports a cough productive of yellow sputum and dyspnea with high O2 requirements. Pulmonology consulted and following. Status post bronchoscopy 09/24/17. Endo report reviewed and indicated mucous plugs throughout the tracheobronchial tree. BAL cultures are preliminarily negative. AFB and fungal are pending. Check S. pneumo and Legionella UAT.--> negative. Get CT chest with IV contrast. --> Showed consolidation in the lower lobes consistent with recurrent/worsening pneumonia. Tree-in-bud opacities improved. Get RIP.--> negative. Check procalcitonin.--> elevated at 1.82. Completed 7 days of Vanc and Zosyn. Continue doxycycline 100mg PO BID.(Day 8) Continue Levaquin 750mg PO daily. (Day 8) Duration of treatment depends on the clinical picture, but likely a total of 14 days. Monitor renal function and for drug toxicity and dose-adjust antibiotics. Qualifiers: Pneumonia type: due to unspecified organism Laterality: right Lung location: unspecified part of lung Qualified Code(s): J18.9 - Pneumonia, unspecified organism (3) Acute kidney injury Current Visit: Yes Status: Acute Serum creatinine up to 1.98 today. Likely secondary to Vanc toxicity. Vanc discontinued. Continue to trend. Dose-adjust antibiotics and other medications. Avoid nephrotoxins as able. Nephrology consulted. Await recommendations. (4) Hypogammaglobulinemia Current Visit: Yes Status: Chronic Follows with Dr. Piper Smith for weekly immunoglobulin injections, but has not had them since the beginning of August due to hospitalizations and lovenox- induced bruising to the abdomen. Could be contributing to the patient's recurrent infections. Appreciate Allergy/Immunology recommendations. (5) COPD with exacerbation Current Visit: No Status: Acute Continue supportive care per the primary and pulmonary teams. (6) Acute on chronic respiratory failure with hypoxia and hypercapnia Current Visit: Yes Status: Acute Multifactorial: COPD + PNA + possible pulmonary edema. Resolved. (7) Pulmonary edema Current Visit: Yes Status: Acute CXR showed findings consistent with pulmonary edema. TTE showed EF of 60% with mild left ventricular diastolic dysfunction. BNP mildly elevated at 182. Clinically improved. Qualifiers: Chronicity: acute Qualified Code(s): J81.0 - Acute pulmonary edema (8) Coronary artery disease Current Visit: Yes Status: Chronic Qualifiers: Coronary Disease-Associated Artery/Lesion type: [place] artery [place] vs. transplanted heart: [place] heart Associated angina: without angina Qualified Code(s): I25.10 - Atherosclerotic heart disease of [place] coronary artery without angina pectoris (9) Diarrhea Current Visit: Yes Status: Chronic Patient reports chronic alternating diarrhea and constipation. Reports several loose stools yesterday, but states they are not mucousy or watery. Continue to monitor closely. Continue probiotics BID. Qualifiers: Diarrhea type: unspecified type Qualified Code(s): R19.7 - Diarrhea, unspecified - Subjective Interval history: Patient seen and examined. No acute events noted overnight. Patient denies shortness of breath this morning. She denies chest pain. States she has a dry cough. She denies abdominal pain, but does endorse some intermittent nausea. She denies vomiting. She reports multiple loose stools daily that is normal for her. She denies oral thrush or any skin lesions. She states she ate some of her breakfast today. She is voiding without issue. Infect Dis PN-Objective Data - Labs CBC & Chem 7: 09/27/17 05:19 09/27/17 05:19 Labs: Laboratory Results - last 24 hr 09/26/17 09/26/17 09/26/17 10:56 14:33 14:33 WBC RBC Hgb Hct MCV MCH MCHC RDW Plt Count MPV Immature Gran % Seg Neutrophils % Lymphocytes % Monocytes % Eosinophils % Basophils % Neutrophils # Lymphocytes # Monocytes # Eosinophils # Basophils # Sodium 138 Potassium 4.5 Chloride 104 Carbon Dioxide 26 BUN 24 H 24 H Creatinine 1.82 H 1.99 H Est GFR ( Amer) 34 L 31 L Est GFR (Non-Af Amer) 28 L 25 L BUN/Creatinine Ratio 13 Glucose 100 Calculated Osmolality 290 Uric Acid Calcium 9.1 Creatine Kinase Urine Color Urine Clarity Urine pH Ur Specific [place] Urine Protein Urine Glucose (UA) Urine Ketones Urine Blood Urine Nitrite Urine Bilirubin Urine Urobilinogen Ur Leukocyte Esterase Urine Microscopic RBC Urine Microscopic WBC Ur Squamous Epith Cells Urine Bacteria Hyaline Casts Urine Creatinine Protein/Creatinin Ratio Urine Sodium Urine Total Protein Vancomycin Trough 09/26/17 09/26/17 09/27/17 18:45 18:45 05:19 WBC RBC Hgb Hct MCV MCH MCHC RDW Plt Count MPV Immature Gran % Seg Neutrophils % Lymphocytes % Monocytes % Eosinophils % Basophils % Neutrophils # Lymphocytes # Monocytes # Eosinophils # Basophils # Sodium Potassium Chloride Carbon Dioxide BUN Creatinine Est GFR ( Amer) Est GFR (Non-Af Amer) BUN/Creatinine Ratio Glucose Calculated Osmolality Uric Acid Calcium Creatine Kinase Urine Color Yellow Urine Clarity Clear Urine pH 6.0 Ur Specific [place] 1.007 L Urine Protein Negative Urine Glucose (UA) Normal Urine Ketones Negative Urine Blood Small H Urine Nitrite Negative Urine Bilirubin Negative Urine Urobilinogen Normal Ur Leukocyte Esterase Negative Urine Microscopic RBC 3-5 H Urine Microscopic WBC 0-3 Ur Squamous Epith Cells Many H Urine Bacteria None Seen Hyaline Casts None Seen Urine Creatinine 50 Protein/Creatinin Ratio 0.24 H Urine Sodium 60.2 Urine Total Protein 12 Vancomycin Trough 24 H 09/27/17 09/27/17 05:19 05:19 WBC 11.9 H RBC 4.54 Hgb 13.6 Hct 40.7 MCV 89.6 MCH 30.0 MCHC 33.4 RDW 13.8 Plt Count 284 MPV 9.8 Immature Gran % 1.3 Seg Neutrophils % 64.0 Lymphocytes % 21.0 Monocytes % 11.4 Eosinophils % 1.7 Basophils % 0.6 Neutrophils # 7.6 Lymphocytes # 2.5 Monocytes # 1.4 H Eosinophils # 0.2 Basophils # 0.1 Sodium 137 Potassium 4.3 Chloride 103 Carbon Dioxide 26 BUN 25 H Creatinine 1.98 H Est GFR ( Amer) 31 L Est GFR (Non-Af Amer) 25 L BUN/Creatinine Ratio 13 Glucose 100 Calculated Osmolality 288 Uric Acid 3.7 Calcium 9.2 Creatine Kinase 13 L Urine Color Urine Clarity Urine pH Ur Specific [place] Urine Protein Urine Glucose (UA) Urine Ketones Urine Blood Urine Nitrite Urine Bilirubin Urine Urobilinogen Ur Leukocyte Esterase Urine Microscopic RBC Urine Microscopic WBC Ur Squamous Epith Cells Urine Bacteria Hyaline Casts Urine Creatinine Protein/Creatinin Ratio Urine Sodium Urine Total Protein Vancomycin Trough Cultures: Cultures 09/24/17 19:00 Acid Fast Stain - Final Right Lower Lobe Lung 09/24/17 19:00 Acid Fast Stain - Final Left Lower Lobe Lung 09/24/17 19:00 Respiratory Culture - Preliminary Right Lower Lobe Lung 09/24/17 19:00 Respiratory Culture - Preliminary Left Lower Lobe Lung 09/22/17 16:43 Sputum Culture - Final Sputum 09/22/17 01:02 Legionella Antigen - Final Urine,Clean Catch Streptococcus pneumoniae Antigen (M - Final Serology 09/26/17 09/26/17 09/24/17 Range/Units 18:45 18:45 19:00 Urine Color Yellow (Yellow) Urine Clarity Clear (Clear) Urine pH 6.0 (5.0-8.0) pH Units Ur Specific [place] 1.007 L (1.010-1.025) Urine Protein Negative (Neg-Trace) mg/dL Urine Glucose (UA) Normal (Normal) mg/dL Urine Ketones Negative (Negative) mg/dL Urine Blood Small H (Negative) Urine Nitrite Negative (Negative) Urine Bilirubin Negative (Negative) Urine Urobilinogen Normal (Normal) mg/dL Ur Leukocyte Esterase Negative (Negative) Urine Microscopic RBC 3-5 H (0-3) per hpf Urine Microscopic WBC 0-3 (0-3) per hpf Ur Squamous Epith Cells Many H (None-Few) per lpf Urine Bacteria None Seen (None-Few) per hpf Hyaline Casts None Seen (None-Few) per lpf Urine Creatinine 50 mg/dL Protein/Creatinin Ratio 0.24 H (0.00-0.20) mg/mg Urine Sodium 60.2 mEq/L Urine Total Protein 12 (1-14) mg/dL Fluid Source Right Lower Lobe Court Fluid Volume 15 mL Fluid Appearance Hazy A (Clear) Fluid RBC TNP Fld Tot Nucleated Cell TNP Fluid Seg Neutrophil % 78.0 % Fluid Lymphocytes % 7.0 % Fluid Monocytes % 2.0 % Fluid Other Cells % 13.0 % Chlamy pneumoniae PCR (Not Detect) Adenovirus (PCR) (Not Detect) B. pertussis DNA (PCR) (Not Detect) B.parapertussis DNA PCR (Not Detect) Coronavirus OC43 (PCR) (Not Detect) Coronavirus HKU1 (PCR) (Not Detect) Coronavirus 229E (PCR) (Not Detect) Coronavirus NL63 (PCR) (Not Detect) Human Metapneumovir PCR (Not Detect) Influenza A (H1) PCR (Not Detect) Influ A (H1N1/09) PCR (Not Detect) Influenza A (H3) PCR (Not Detect) Influenza A Untype (PCR) (Not Detect) Influenza Type B (PCR) (Not Detect) M.pneumoniae DNA (PCR) (Not Detect) Parainfluenza 1 (PCR) (Not Detect) Parainfluenza 2 (PCR) (Not Detect) Parainfluenza 3 (PCR) (Not Detect) Parainfluenza 4 (PCR) (Not Detect) RSV (PCR) (Not Detect) Entero/Rhino (PCR) (Not Detect) 09/24/17 09/21/17 Range/Units 19:00 17:17 Urine Color (Yellow) Urine Clarity (Clear) Urine pH (5.0-8.0) pH Units Ur Specific [place] (1.010-1.025) Urine Protein (Neg-Trace) mg/dL Urine Glucose (UA) (Normal) mg/dL Urine Ketones (Negative) mg/dL Urine Blood (Negative) Urine Nitrite (Negative) Urine Bilirubin (Negative) Urine Urobilinogen (Normal) mg/dL Ur Leukocyte Esterase (Negative) Urine Microscopic RBC (0-3) per hpf Urine Microscopic WBC (0-3) per hpf Ur Squamous Epith Cells (None-Few) per lpf Urine Bacteria (None-Few) per hpf Hyaline Casts (None-Few) per lpf Urine Creatinine mg/dL Protein/Creatinin Ratio (0.00-0.20) mg/mg Urine Sodium mEq/L Urine Total Protein (1-14) mg/dL Fluid Source Left Lower Lobe Lung Fluid Volume 15 mL Fluid Appearance Slightly Hazy A (Clear) Fluid RBC TNP Fld Tot Nucleated Cell TNP Fluid Seg Neutrophil % 94.0 % Fluid Lymphocytes % 4.0 % Fluid Monocytes % 2.0 % Fluid Other Cells % % Chlamy pneumoniae PCR Not Detected (Not Detect) Adenovirus (PCR) Not Detected (Not Detect) B. pertussis DNA (PCR) Not Detected (Not Detect) B.parapertussis DNA PCR Not Detected (Not Detect) Coronavirus OC43 (PCR) Not Detected (Not Detect) Coronavirus HKU1 (PCR) Not Detected (Not Detect) Coronavirus 229E (PCR) Not Detected (Not Detect) Coronavirus NL63 (PCR) Not Detected (Not Detect) Human Metapneumovir PCR Not Detected (Not Detect) Influenza A (H1) PCR Not Detected (Not Detect) Influ A (H1N1/09) PCR Not Detected (Not Detect) Influenza A (H3) PCR Not Detected (Not Detect) Influenza A Untype (PCR) Not Detected (Not Detect) Influenza Type B (PCR) Not Detected (Not Detect) M.pneumoniae DNA (PCR) Not Detected (Not Detect) Parainfluenza 1 (PCR) Not Detected (Not Detect) Parainfluenza 2 (PCR) Not Detected (Not Detect) Parainfluenza 3 (PCR) Not Detected (Not Detect) Parainfluenza 4 (PCR) Not Detected (Not Detect) RSV (PCR) Not Detected (Not Detect) Entero/Rhino (PCR) Not Detected (Not Detect) - Impressions Impressions Retroperitoneum Ultrasound 09/26/17 15:34 IMPRESSION: Unremarkable ultrasound of the kidneys and urinary bladder. D/ / Viktor Carr / Viktor Carr Interpreting Provider: Viktor Carr Exam - Constitutional Vitals: Temp Pulse Resp BP Pulse Ox 98.0 F 87 14 136/83 94 09/27/17 07:58 09/27/17 07:58 09/27/17 07:58 09/27/17 07:58 09/27/17 07:58 General appearance: average body habitus, cooperative, no acute distress - Head Head exam: Present: atraumatic, normal inspection, normocephalic - Eye Eye exam: Present: EOMI, normal appearance, PERRL Pupils: Present: normal accommodation - ENT ENT exam: Present: mucous membranes moist - Neck Neck exam: Present: normal inspection - Respiratory Respiratory exam: Present: CTAB. Absent: rales, respiratory distress, rhonchi, wheezes - Cardiovascular Cardiovascular exam: Present: RRR, +S1, +S2 - GI/Abdominal GI/Abdominal exam: Present: normal bowel sounds, soft. Absent: distended, tenderness - Extremities Exam Extremities exam: Present: normal inspection. Absent: joint swelling, pedal edema, tenderness - Neurological Exam Neurological exam: Present: alert, oriented X3, no focal deficits - Psychiatric Psychiatric exam: Present: normal affect, normal mood - Skin Skin exam: Present: dry, intact, normal color, warm Consult Discharge Plan - Plan Referrals: Joseph Johns DO [Primary Care Provider] - 10/11/17 3:00 pm (Please follow up as schedule...) - Attending Attestation I examined this patient and my medical decision-making was reviewed with the Cassie Varghese CNP I agree with the documented findings, disposition and treatment plan as described except to the extent set forth below.
[2017-09-27] MEDS ORDERED: 0.9 % Sodium Chloride 1,000 ML IVC ONE (11:40)
[2017-09-27] MEDS: ARIPiprazole 2 MG TABLET PO SCH (22:45)
[2017-09-28 04:46] LABS: Hematocrit 43.1 % (35.3-44.9); Hemoglobin 14.3 g/dL (11.5-15.4); Mean Corpuscular HGB Conc 33.2 g/dL (31.6-35.5); Mean Corpuscular Hemoglobin 30.7 pg (28.0-33.3); Mean Corpuscular Volume 92.5 fL (83.0-100.0); Mean Platelet Volume 9.9 fL (9.4-12.4); Platelet Count 271 K/mcL (140-400); Red Blood Count 4.66 M/mcL (3.82-4.97); Red Cell Distribution Width 13.6 % (11.5-14.5)
[2017-09-28 05:11] LABS: Calcium 9.3 mg/dL (8.6-10.3); Phosphorous 4.6 mg/dL (2.7-4.5); Potassium 4.4 mEq/L (3.5-5.1)
[2017-09-28] MEDS: *HR* Enoxaparin 30 MG/0.3 ML SYRINGE SQ SCH (05:17)
[2017-09-28] MEDS: *HR* OxyCODONE Immed Rel 5 MG TABLET PO PRN ×3 (09:24→21:37)
[2017-09-28] MEDS: Lactobacillus 1 EACH CAP.SPRINK PO SCH ×2 (09:24→21:36)
[2017-09-28] MEDS: Doxycycline 100 MG CAPSULE PO SCH ×2 (09:24→21:36)
[2017-09-28] MEDS: Aspirin 325 MG TABLET PO SCH (09:25)
--- NOTE | 2017-09-28 11:17 | Internal Med Progress Note ---
Hospitalist Progress Note - Encounter Date of Encounter: 09/28/17 Time of Encounter: 10:54 - Subjective Interval History: Patient seen and examined at bedside. Patient had no overnight events. Patient states she has no complaints. Patient denies any chest pain, shortness of breath, nausea, vomiting, diarrhea. Patient denies any dysuria or change in urine volume. Patient has been afebrile. Patient's serum creatinine is unchanged from yesterday. - Exam Vitals: Temp Pulse Resp BP Pulse Ox 98.7 F 74 14 128/81 91 09/28/17 06:54 09/28/17 06:54 09/28/17 06:54 09/28/17 06:54 09/28/17 06:54 Exam: Constitutional: No acute distress, Alert, lying flat Psych: AAO x 3 Neck: supple Cardio: regular rate and rhythm, +s1s2 Resp: Crackles in left lower base unchanged from prior (pt states this is chronic); unlabored breaths Abd: soft, non tender/non distended, positive bowel sounds Extremities: no clubbing/cyanosis/edema appreciated Neuro: no focal deficits appreciated - Assessment and Plan (1) Pneumonia Current Visit: Yes Status: Acute Assessment and Plan: Recurrent pneumonia - Klebsiella pneumonia MDRO last month, no culture growth currently - Hypoxia resolved, on room air - CXR initially with volume overload - BCx 09/20/17 NGTD - SCx 09/22/17 negative - Bronchoscopy cultures currently negative - Urine Legionella and strep negative, Resp Inf Panel negative - Completed 7 days of IV Vancomycin and Zosyn - Pulmonary and ID following, appreciate recommendations - Bronchoscopy - mucus plugging and BAL - continue po Levaquin and doxycycline and will continue as an outpatient - hold Gammagard on 09/28/2017 secondary to acute kidney injury (2) Acute kidney injury Current Visit: Yes Status: Acute Assessment and Plan: Acute renal failure -Patient's baseline serum creatinine appears to be around 0.80 -Patient serum creatinine increased from 0.75 to 1.82 and up to 1.98 on 09/27; now 2.00 -Could be multifactorial secondary to atn from vanco toxicity; elevated trough on 09/24/2017 and elevated trough this am; vanco was discontinued yesterday; patient was also receiving IV diuresis and is currently not volume overloaded today there could be a component of overdiuresis although i do not beleive that is the only contributing factor; pt also on ivig weekly that was started last which could be contributing -FeNa 1.7 consistant with intrinsic etiology; however beleive partially due to prerenal eitology per nephro -retroperitoneal us unremarkable; uric acid and cpk wnl -ua with microscopic hematuria -Patient received IV fluids yesterday; currenlty discontinued now -continue to hold Lasix for now and potassium -Avoid nephrotoxic medications -nephro following; appreciate recs -hold sub q ivig -Urine eosinophil pending -bmp in am (3) Acute on chronic respiratory failure with hypoxia and hypercapnia Current Visit: Yes Status: Acute Assessment and Plan: -Likely multifactorial secondary to pneumonia and COPD - Has intermittently required BiPAP but is currently on room air in no respiratory distress -Continue po antibiotics for pneumonia; -COPD remains stable (4) Hypogammaglobulinemia Current Visit: Yes Status: Chronic Assessment and Plan: Seen by Dr. Luis hankins Gammagarapz on 09/28/2017 secondary to kidney injury (5) Essential hypertension Current Visit: Yes Status: Chronic Assessment and Plan: -Continue home medications -Monitor blood pressure (6) Coronary artery disease Current Visit: Yes Status: Chronic Assessment and Plan: -continue home meds (7) COPD (chronic obstructive pulmonary disease) Current Visit: Yes Status: Chronic Assessment and Plan: -Had acute exacerbation on admission, this is resolved -Off steroids -BiPAP when necessary this will likely be discontinued soon -Duo nebs as needed -not wheezing (8) Bipolar 1 disorder, depressed Current Visit: Yes Status: Chronic Assessment and Plan: continue home meds (9) DVT prophylaxis Current Visit: Yes Status: Acute Assessment and Plan: lovenox (10) CHF (congestive heart failure) Current Visit: Yes Status: Acute Assessment and Plan: -Patient who presented with hypoxia SPO2 70s on room air, resp distress, and CXR with fluid overload -CT scan did not reveal significant pulmonary edema -ECHO done 09/21-noted for EF 60-65%, mild LVDD, no other significant findings -Strict intake and output patient voiding on her own and likely not accurate -Daily weights. -pt has been getting IV Lasix daily; currently held -pt with ADAMS; recieved ivf last 2 days; the patient has no signs of volume overload currently -BiPAP remains in room if needed DVT Prophylaxis: lovenox - Time Spent with Patient Total time spent is greater than 50% in coordination of care (as documented) at patient's floor/unit and/or counseling patient: 25 - 35 minutes Plan of Care Discussed with: patient Internal Medicine: Result - Labs CBC & Chem 7: 09/28/17 04:17 09/28/17 04:17 Labs: Short CBC 09/28/17 Range/Units 04:17 WBC 9.2 (4.3-11.1) K/mcL Hgb 14.3 (11.5-15.4) g/dL Hct 43.1 (35.3-44.9) % Plt Count 271 (140-400) K/mcL BMP 09/28/17 04:17 Sodium 136 Potassium 4.4 Chloride 104 Carbon Dioxide 25 BUN 26 H Creatinine 2.00 H Glucose 93 Calcium 9.3 - ABG Interpretation ABG results: PT/INR, D-dimer PT 12.2 Seconds (9.4-12.1) H 09/20/17 05:17 Consult Discharge Plan - Plan Referrals: Joseph Johns DO [Primary Care Provider] - 10/11/17 3:00 pm (Please follow up as schedule...) (1) Pneumonia Qualifiers: Pneumonia type: due to unspecified organism Laterality: right Lung location : unspecified part of lung Qualified Code(s): J18.9 - Pneumonia, unspecified organism (6) Coronary artery disease Qualifiers: Coronary Disease-Associated Artery/Lesion type: [place] artery [place] vs. transplanted heart: [place] heart Associated angina: without angina Qualified Code(s): I25.10 - Atherosclerotic heart disease of [place] coronary artery without angina pectoris (7) COPD (chronic obstructive pulmonary disease) Qualifiers: COPD type: chronic bronchitis Chronic bronchitis type: simple Qualified Code (s): J41.0 - Simple chronic bronchitis (10) CHF (congestive heart failure) Qualifiers: Heart failure type: diastolic Heart failure chronicity: acute Qualified Code (s): I50.31 - Acute diastolic (congestive) heart failure
--- NOTE | 2017-09-28 12:23 | Nephrology Progress Note ---
Date of Encounter: 09/28/17 Time of Encounter: 09:00 - Assessment and Plan (1) Acute kidney injury Current Visit: Yes Status: Acute 66-year-old female presents with acute kidney injury, likely secondary to vancomycin toxicity. CPK and retroperitoneal ultrasound unremarkable. No evidence of hydronephrosis or intrarenal stones. On physical exam, patient is negative for pedal edema. She received 1L IV bolus yesterday without improvement of kidney function. We will start her on IV fluids again at 125ml/hr maintainance. IVIG can cause ADAMS due to dehydration. Dr. Jacob has spoken with Dr. Smith, and both agree to hold IVIG for 48 hours until kidney function improves. Pending urine eosinophils. Patient and patient's family is informed of unimproved kidney function despite fluids and avoidance of nephrotoxins. I recommended to keep patient inpatient until kidney function improves. originally is disagreeable, but after further explanation of risks, both patient and are agreeable to management plan. I spent 30 minutes speaking to family and answering questions at bedside and patient has no further questions. Subjective Principal diagnosis: Pneumonia Interval history: No overnight events. Patient reports improved SOB. Denies fever, chills, nausea , vomiting, diarrhea. She reports that she is able to tolerate PO intake and voiding w/o difficulty. Denies headaches, blurry vision, CP, abdominal pain. at bedside requests to be discharged in the setting of improvement. No further acute complaints. Objective - Vital Signs Vital signs: Vital Signs Temp Pulse Resp BP Pulse Ox 09/28/17 10:56 98.8 F 72 16 124/75 91 09/28/17 06:54 98.7 F 74 14 128/81 91 09/28/17 05:00 98.9 F 76 14 120/71 90 09/27/17 22:27 98.9 F 90 18 120/72 94 09/27/17 18:58 98.1 F 70 14 111/74 91 09/27/17 16:06 99.1 F 74 14 112/69 94 Intake and Output 09/27/17 09/28/17 09/28/17 23:59 07:59 15:59 Intake Total 120 / 120 1000 / 1000 360 / 360 Output Total 500 / 500 500 / 500 Balance -380 / -380 1000 / 1000 -140 / -140 Intake: IV Fluids 1000 / 1000 0.9 % Sodium Chloride 1,000 ML 1000 / 1000 @ 75 mls/hr IVC .[id number] ONE Rx #:[id number] Oral 120 / 120 360 / 360 Output: Urine 500 / 500 500 / 500 Other: Meal Dinner Breakfast Percent of Meal Consumed 25% 25% Weight 68.1 kg - General Appearance Exam: General appearance: well-developed, well-nourished, appears started age Neck: no JVD, no carotid bruit, supple Respiratory: clear Cardiology: no murmurs, no rub, no gallops, no edema, regular rate, regular rhythm, normal S1, normal S2 Gastrointestinal: normoactive bowel sounds, no tenderness, no guarding, no organomegaly Integumentary: no rash, warm and dry Neurologic: no focal deficit, no asterixis, alert and oriented x3, reflexes 2+ and symmetric, gait normal, strength 5/5 Musculoskeletal: no deformities, no erythema, no cyanosis, no clubbing Psychiatric: mood/affect appropriate, cooperative - Lab 09/28/17 04:17 09/28/17 04:17 Most recent lab results Calcium 9.3 mg/dL (8.6-10.3) 09/28/17 04:17 Phosphorus 4.6 mg/dL (2.7-4.5) H 09/28/17 04:17 Magnesium 1.6 mg/dL (1.6-2.6) 09/20/17 05:17 Urine Creatinine 50 mg/dL 09/26/17 18:45 Urine Sodium 60.2 mEq/L 09/26/17 18:45 Urine Total Protein 12 mg/dL (1-14) 09/26/17 18:45 Consult Discharge Plan - Plan Referrals: Joseph Johns DO [Primary Care Provider] - 10/11/17 3:00 pm (Please follow up as schedule...)
--- NOTE | 2017-09-28 12:26 | Infectious Disease Progress No ---
Date of Encounter: 09/28/17 Time of Encounter: 11:35 - Assessment and Plan (1) Sepsis Current Visit: No Status: Resolved The patient had two SIRS criteria on admission. Likely secondary to PNA. Improved. Tachycardia resolved. Afebrile. WBC normal. Blood cultures drawn 09/20/17 are negative x 2 sets. Qualifiers: Qualified Code(s): A41.02 - Sepsis due to Methicillin resistant Staphylococcus aureus (2) Pneumonia Current Visit: Yes Status: Acute Causative organism unclear. Recurrent. Patient hospitalized 08/22-08/28 and treated with IV antibiotics for 7 days followed by PO doxycycline and levaquin. Patient reports multiple episodes over the past few years. CXR showed findings consistent with pulmonary vascular congestion, possible pulmonary edema. The patient reports a cough productive of yellow sputum and dyspnea with high O2 requirements. Pulmonology consulted and following. Status post bronchoscopy 09/24/17. Endo report reviewed and indicated mucous plugs throughout the tracheobronchial tree. BAL cultures are preliminarily negative. AFB and fungal are pending. Check S. pneumo and Legionella UAT.--> negative. Get CT chest with IV contrast. --> Showed consolidation in the lower lobes consistent with recurrent/worsening pneumonia. Tree-in-bud opacities improved. Get RIP.--> negative. Check procalcitonin.--> elevated at 1.82. Completed 7 days of Vanc and Zosyn. Continue doxycycline 100mg PO BID.(Day 9) Continue Levaquin 750mg PO Q48H. (Day 9) Duration of treatment depends on the clinical picture, but likely a total of 14 days. Monitor renal function and for drug toxicity and dose-adjust antibiotics. Qualifiers: Qualified Code(s): J18.9 - Pneumonia, unspecified organism (3) Acute kidney injury Current Visit: Yes Status: Acute Serum creatinine up to 2 today. Likely secondary to Vanc toxicity. Vanc discontinued. Continue to trend. Dose-adjust antibiotics and other medications. Avoid nephrotoxins as able. Nephrology consulted. (4) Hypogammaglobulinemia Current Visit: Yes Status: Chronic Follows with Dr. Piper Smith for weekly immunoglobulin injections, but has not had them since the beginning of August due to hospitalizations and lovenox- induced bruising to the abdomen. Could be contributing to the patient's recurrent infections. Appreciate Allergy/Immunology recommendations. (5) COPD with exacerbation Current Visit: No Status: Acute Continue supportive care per the primary and pulmonary teams. (6) Acute on chronic respiratory failure with hypoxia and hypercapnia Current Visit: Yes Status: Acute Multifactorial: COPD + PNA + possible pulmonary edema. Resolved. (7) Pulmonary edema Current Visit: Yes Status: Acute CXR showed findings consistent with pulmonary edema. TTE showed EF of 60% with mild left ventricular diastolic dysfunction. BNP mildly elevated at 182. Clinically improved. Qualifiers: Qualified Code(s): J81.0 - Acute pulmonary edema (8) Coronary artery disease Current Visit: Yes Status: Chronic Qualifiers: Qualified Code(s): I25.10 - Atherosclerotic heart disease of [place] coronary artery without angina pectoris (9) Diarrhea Current Visit: Yes Status: Chronic Patient reports chronic alternating diarrhea and constipation. Reports several loose stools yesterday, but states they are not mucousy or watery. Continue to monitor closely. Continue probiotics BID. Qualifiers: Qualified Code(s): R19.7 - Diarrhea, unspecified - Subjective Interval history: Patient seen and examined. No acute events noted overnight. Patient denies shortness of breath this morning. She denies chest pain. She is off O2. States she has a dry cough. She denies abdominal pain, but does endorse some intermittent nausea. She denies vomiting. She reports multiple loose stools daily that is normal for her. She denies oral thrush or any skin lesions. She states she ate some of her breakfast today. She is voiding without issue. Infect Dis PN-Objective Data - Labs CBC & Chem 7: 09/28/17 04:17 09/28/17 04:17 Labs: Laboratory Results - last 24 hr 09/28/17 09/28/17 04:17 04:17 WBC 9.2 RBC 4.66 Hgb 14.3 Hct 43.1 MCV 92.5 MCH 30.7 MCHC 33.2 RDW 13.6 Plt Count 271 MPV 9.9 Sodium 136 Potassium 4.4 Chloride 104 Carbon Dioxide 25 BUN 26 H Creatinine 2.00 H Est GFR ( Amer) 30 L Est GFR (Non-Af Amer) 25 L BUN/Creatinine Ratio 13 Glucose 93 Calculated Osmolality 286 Calcium 9.3 Phosphorus 4.6 H Cultures: Cultures 09/24/17 19:00 Respiratory Culture - Final Left Lower Lobe Lung 09/24/17 19:00 Acid Fast Stain - Final Right Lower Lobe Lung 09/24/17 19:00 Acid Fast Stain - Final Left Lower Lobe Lung 09/24/17 19:00 Respiratory Culture - Preliminary Right Lower Lobe Lung 09/22/17 16:43 Sputum Culture - Final Sputum 09/22/17 01:02 Legionella Antigen - Final Urine,Clean Catch Streptococcus pneumoniae Antigen (M - Final Serology 09/26/17 09/26/17 09/24/17 Range/Units 18:45 18:45 19:00 Urine Color Yellow (Yellow) Urine Clarity Clear (Clear) Urine pH 6.0 (5.0-8.0) pH Units Ur Specific [place] 1.007 L (1.010-1.025) Urine Protein Negative (Neg-Trace) mg/dL Urine Glucose (UA) Normal (Normal) mg/dL Urine Ketones Negative (Negative) mg/dL Urine Blood Small H (Negative) Urine Nitrite Negative (Negative) Urine Bilirubin Negative (Negative) Urine Urobilinogen Normal (Normal) mg/dL Ur Leukocyte Esterase Negative (Negative) Urine Microscopic RBC 3-5 H (0-3) per hpf Urine Microscopic WBC 0-3 (0-3) per hpf Ur Squamous Epith Cells Many H (None-Few) per lpf Urine Bacteria None Seen (None-Few) per hpf Hyaline Casts None Seen (None-Few) per lpf Urine Creatinine 50 mg/dL Protein/Creatinin Ratio 0.24 H (0.00-0.20) mg/mg Urine Sodium 60.2 mEq/L Urine Total Protein 12 (1-14) mg/dL Fluid Source Right Lower Lobe Court Fluid Volume 15 mL Fluid Appearance Hazy A (Clear) Fluid RBC TNP Fld Tot Nucleated Cell TNP Fluid Seg Neutrophil % 78.0 % Fluid Lymphocytes % 7.0 % Fluid Monocytes % 2.0 % Fluid Other Cells % 13.0 % Chlamy pneumoniae PCR (Not Detect) Adenovirus (PCR) (Not Detect) B. pertussis DNA (PCR) (Not Detect) B.parapertussis DNA PCR (Not Detect) Coronavirus OC43 (PCR) (Not Detect) Coronavirus HKU1 (PCR) (Not Detect) Coronavirus 229E (PCR) (Not Detect) Coronavirus NL63 (PCR) (Not Detect) Human Metapneumovir PCR (Not Detect) Influenza A (H1) PCR (Not Detect) Influ A (H1N1/09) PCR (Not Detect) Influenza A (H3) PCR (Not Detect) Influenza A Untype (PCR) (Not Detect) Influenza Type B (PCR) (Not Detect) M.pneumoniae DNA (PCR) (Not Detect) Parainfluenza 1 (PCR) (Not Detect) Parainfluenza 2 (PCR) (Not Detect) Parainfluenza 3 (PCR) (Not Detect) Parainfluenza 4 (PCR) (Not Detect) RSV (PCR) (Not Detect) Entero/Rhino (PCR) (Not Detect) 09/24/17 09/21/17 Range/Units 19:00 17:17 Urine Color (Yellow) Urine Clarity (Clear) Urine pH (5.0-8.0) pH Units Ur Specific [place] (1.010-1.025) Urine Protein (Neg-Trace) mg/dL Urine Glucose (UA) (Normal) mg/dL Urine Ketones (Negative) mg/dL Urine Blood (Negative) Urine Nitrite (Negative) Urine Bilirubin (Negative) Urine Urobilinogen (Normal) mg/dL Ur Leukocyte Esterase (Negative) Urine Microscopic RBC (0-3) per hpf Urine Microscopic WBC (0-3) per hpf Ur Squamous Epith Cells (None-Few) per lpf Urine Bacteria (None-Few) per hpf Hyaline Casts (None-Few) per lpf Urine Creatinine mg/dL Protein/Creatinin Ratio (0.00-0.20) mg/mg Urine Sodium mEq/L Urine Total Protein (1-14) mg/dL Fluid Source Left Lower Lobe Lung Fluid Volume 15 mL Fluid Appearance Slightly Hazy A (Clear) Fluid RBC TNP Fld Tot Nucleated Cell TNP Fluid Seg Neutrophil % 94.0 % Fluid Lymphocytes % 4.0 % Fluid Monocytes % 2.0 % Fluid Other Cells % % Chlamy pneumoniae PCR Not Detected (Not Detect) Adenovirus (PCR) Not Detected (Not Detect) B. pertussis DNA (PCR) Not Detected (Not Detect) B.parapertussis DNA PCR Not Detected (Not Detect) Coronavirus OC43 (PCR) Not Detected (Not Detect) Coronavirus HKU1 (PCR) Not Detected (Not Detect) Coronavirus 229E (PCR) Not Detected (Not Detect) Coronavirus NL63 (PCR) Not Detected (Not Detect) Human Metapneumovir PCR Not Detected (Not Detect) Influenza A (H1) PCR Not Detected (Not Detect) Influ A (H1N1/09) PCR Not Detected (Not Detect) Influenza A (H3) PCR Not Detected (Not Detect) Influenza A Untype (PCR) Not Detected (Not Detect) Influenza Type B (PCR) Not Detected (Not Detect) M.pneumoniae DNA (PCR) Not Detected (Not Detect) Parainfluenza 1 (PCR) Not Detected (Not Detect) Parainfluenza 2 (PCR) Not Detected (Not Detect) Parainfluenza 3 (PCR) Not Detected (Not Detect) Parainfluenza 4 (PCR) Not Detected (Not Detect) RSV (PCR) Not Detected (Not Detect) Entero/Rhino (PCR) Not Detected (Not Detect) Exam - Constitutional Vitals: Temp Pulse Resp BP Pulse Ox 98.8 F 72 16 124/75 91 09/28/17 10:56 09/28/17 10:56 09/28/17 10:56 09/28/17 10:56 09/28/17 10:56 General appearance: average body habitus, cooperative, no acute distress - Head Head exam: Present: atraumatic, normal inspection, normocephalic - Eye Eye exam: Present: EOMI, normal appearance, PERRL Pupils: Present: normal accommodation - ENT ENT exam: Present: mucous membranes moist - Neck Neck exam: Present: normal inspection - Respiratory Respiratory exam: Present: CTAB. Absent: rales, respiratory distress, rhonchi, wheezes - Cardiovascular Cardiovascular exam: Present: RRR, +S1, +S2 - GI/Abdominal GI/Abdominal exam: Present: normal bowel sounds, soft. Absent: distended, tenderness - Extremities Exam Extremities exam: Present: normal inspection. Absent: joint swelling, pedal edema, tenderness - Neurological Exam Neurological exam: Present: alert, oriented X3, no focal deficits - Psychiatric Psychiatric exam: Present: normal affect, normal mood - Skin Skin exam: Present: dry, intact, normal color, warm Consult Discharge Plan - Plan Referrals: Joseph Johns DO [Primary Care Provider] - 10/11/17 3:00 pm (Please follow up as schedule...)
[2017-09-28] MEDS: *HR* FentaNYL PATCH 12 MCG PATCH TD SCH (13:30)
[2017-09-28] MEDS: 0.9 % Sodium Chloride 1,000 ML IVC SCH ×2 (13:30→21:38)
--- NOTE | 2017-09-28 14:04 | Allergy Progress Note ---
Date of Encounter: 09/28/17 Time of Encounter: 07:00 Subjective Patient reports: other (Patient is feeling much better and denies cough. She is concerned about her kidney function. ) Objective Vital Signs - Last 8 Hours Temp Pulse Resp BP Pulse Ox 09/28/17 10:56 98.8 F 72 16 124/75 91 09/28/17 06:54 98.7 F 74 14 128/81 91 Intake and Output 09/27/17 09/28/17 09/28/17 23:59 07:59 15:59 Intake Total 120 / 120 1000 / 1000 480 / 480 Output Total 500 / 500 500 / 500 Balance -380 / -380 1000 / 1000 -20 / -20 Intake: IV Fluids 1000 / 1000 0.9 % Sodium Chloride 1,000 ML 1000 / 1000 @ 75 mls/hr IVC .[id number] ONE Rx #:[id number] Oral 120 / 120 480 / 480 Output: Urine 500 / 500 500 / 500 Other: Meal Dinner Lunch Percent of Meal Consumed 25% 50% Weight 68.1 kg - General physical appearance no distress - ENT no congestion - Neck no lymphadectomy - Respiratory clear to auscultation - Abdomen non tender - Integumentary other (bruising on stomach) - Labs 09/28/17 04:17 09/28/17 04:17 Diabetes panel 09/28/17 Range/Units 04:17 Sodium 136 (136-145) mEq/L Potassium 4.4 (3.5-5.1) mEq/L Chloride 104 (98-107) mEq/L Carbon Dioxide 25 (23-29) mEq/L BUN 26 H (8-23) mg/dL Creatinine 2.00 H (0.60-1.20) mg/dL Glucose 93 (70-105) mg/dL Calcium 9.3 (8.6-10.3) mg/dL Calcium panel 09/28/17 Range/Units 04:17 Calcium 9.3 (8.6-10.3) mg/dL Phosphorus 4.6 H (2.7-4.5) mg/dL Pituitary panel 09/28/17 Range/Units 04:17 Sodium 136 (136-145) mEq/L Potassium 4.4 (3.5-5.1) mEq/L Chloride 104 (98-107) mEq/L Carbon Dioxide 25 (23-29) mEq/L BUN 26 H (8-23) mg/dL Creatinine 2.00 H (0.60-1.20) mg/dL Glucose 93 (70-105) mg/dL Calcium 9.3 (8.6-10.3) mg/dL Adrenal panel 09/28/17 Range/Units 04:17 Sodium 136 (136-145) mEq/L Potassium 4.4 (3.5-5.1) mEq/L Chloride 104 (98-107) mEq/L Carbon Dioxide 25 (23-29) mEq/L BUN 26 H (8-23) mg/dL Creatinine 2.00 H (0.60-1.20) mg/dL Glucose 93 (70-105) mg/dL Calcium 9.3 (8.6-10.3) mg/dL - Assessment and Plan (1) CHF (congestive heart failure) Current Visit: Yes Status: Acute Qualifiers: Heart failure type: diastolic Heart failure chronicity: acute Qualified Code(s): I50.31 - Acute diastolic (congestive) heart failure (2) Community acquired pneumonia Current Visit: Yes Status: Acute Qualifiers: Laterality: right Lung location: unspecified part of lung Qualified Code( s): J18.9 - Pneumonia, unspecified organism (3) Hypogammaglobulinemia Current Visit: Yes Status: Chronic Patient is looking much better today. Her kidney function does not appear improved today so we will hold off on her gammagard for a couple days. 1. Her IgG level was 816, however this was drawn shortly after her infusion so it is not a true trough level. I will check a trough level again in a few weeks. 2. Continue sepsis/pneumonia treatment per ID and pulmonary. 3. Will follow with primary team 4. Follow up as outpatient in 4 weeks. 5. Patient was due for gammagard on 09/28 but will wait for the okay from Dr. Jacob. Consult Discharge Plan - Plan Referrals: Joseph Johns DO [Primary Care Provider] - 10/11/17 3:00 pm (Please follow up as schedule...)
[2017-09-28] MEDS: levoFLOXacin 750 MG TABLET PO SCH (15:37)
[2017-09-28] MEDS: ARIPiprazole 2 MG TABLET PO SCH (21:37)
[2017-09-28] MEDS: NIFEdipine 10 MG CAPSULE PO PRN (23:54)
[2017-09-29] MEDS: *HR* OxyCODONE Immed Rel 5 MG TABLET PO PRN (05:34)
[2017-09-29] MEDS: *HR* Enoxaparin 30 MG/0.3 ML SYRINGE SQ SCH (05:36)
[2017-09-29] MEDS: 0.9 % Sodium Chloride 1,000 ML IVC SCH (05:37)
[2017-09-29 06:17] LABS: Basophils % 0.6 %; Eosinophils # 0.2 K/mcL (0.0-0.6); Eosinophils % 2.7 %; Hematocrit 41.6 % (35.3-44.9); Hemoglobin 13.8 g/dL (11.5-15.4); Lymphocytes # 1.9 K/mcL (0.6-4.6); Lymphocytes % 27.4 %; Mean Corpuscular HGB Conc 33.2 g/dL (31.6-35.5); Mean Corpuscular Hemoglobin 30.1 pg (28.0-33.3); Mean Corpuscular Volume 90.8 fL (83.0-100.0); Mean Platelet Volume 9.8 fL (9.4-12.4); Monocytes # 0.8 K/mcL (0.0-1.3); Monocytes % 11.1 %; Platelet Count 269 K/mcL (140-400); Red Blood Count 4.58 M/mcL (3.82-4.97); Red Cell Distribution Width 13.2 % (11.5-14.5); Segmented Neutrophils % 57.2 %
[2017-09-29 06:37] LABS: Calcium 9.3 mg/dL (8.6-10.3); Magnesium 1.9 mg/dL (1.6-2.6); Phosphorous 4.9 mg/dL (2.7-4.5)
[2017-09-29] MEDS: Aspirin 325 MG TABLET PO SCH (08:28)
[2017-09-29] MEDS: Lactobacillus 1 EACH CAP.SPRINK PO SCH (08:28)
[2017-09-29] MEDS: Doxycycline 100 MG CAPSULE PO SCH (08:28)
--- NOTE | 2017-09-29 09:39 | Infectious Disease Progress No ---
Date of Encounter: 09/29/17 Time of Encounter: 09:37 - Assessment and Plan (1) Sepsis Current Visit: No Status: Resolved The patient had two SIRS criteria on admission. Likely secondary to PNA. Improved. Tachycardia resolved. Afebrile. WBC normal. Blood cultures drawn 09/20/17 are negative x 2 sets. Qualifiers: Sepsis type: methicillin resistant Staphylococcus aureus Qualified Code(s) : A41.02 - Sepsis due to Methicillin resistant Staphylococcus aureus (2) Pneumonia Current Visit: Yes Status: Acute Causative organism unclear. Recurrent. Patient hospitalized 08/22-08/28 and treated with IV antibiotics for 7 days followed by PO doxycycline and levaquin. Patient reports multiple episodes over the past few years. CXR showed findings consistent with pulmonary vascular congestion, possible pulmonary edema. The patient reports a cough productive of yellow sputum and dyspnea with high O2 requirements. Pulmonology consulted and following. Status post bronchoscopy 09/24/17. Endo report reviewed and indicated mucous plugs throughout the tracheobronchial tree. BAL cultures are preliminarily negative. AFB and fungal are pending. Check S. pneumo and Legionella UAT.--> negative. Get CT chest with IV contrast. --> Showed consolidation in the lower lobes consistent with recurrent/worsening pneumonia. Tree-in-bud opacities improved. Get RIP.--> negative. Check procalcitonin.--> elevated at 1.82. Completed 7 days of Vanc and Zosyn. Continue doxycycline 100mg PO BID.(Day 10) Continue Levaquin 750mg PO Q48H. (Day 10) Duration of treatment depends on the clinical picture, but likely a total of 14 days. Monitor renal function and for drug toxicity and dose-adjust antibiotics. Qualifiers: Pneumonia type: due to unspecified organism Laterality: right Lung location: unspecified part of lung Qualified Code(s): J18.9 - Pneumonia, unspecified organism (3) Acute kidney injury Current Visit: Yes Status: Acute Serum creatinine stable at 2 today. Likely secondary to Vanc toxicity. Vanc discontinued. Continue to trend. Dose-adjust antibiotics and other medications. Avoid nephrotoxins as able. Nephrology consulted. (4) Hypogammaglobulinemia Current Visit: Yes Status: Chronic Follows with Dr. Piper Smith for weekly immunoglobulin injections, but has not had them since the beginning of August due to hospitalizations and lovenox- induced bruising to the abdomen. Could be contributing to the patient's recurrent infections. Appreciate Allergy/Immunology recommendations. (5) COPD with exacerbation Current Visit: No Status: Acute Continue supportive care per the primary and pulmonary teams. (6) Acute on chronic respiratory failure with hypoxia and hypercapnia Current Visit: Yes Status: Acute Multifactorial: COPD + PNA + possible pulmonary edema. Resolved. (7) Pulmonary edema Current Visit: Yes Status: Acute CXR showed findings consistent with pulmonary edema. TTE showed EF of 60% with mild left ventricular diastolic dysfunction. BNP mildly elevated at 182. Clinically improved. Qualifiers: Chronicity: acute Qualified Code(s): J81.0 - Acute pulmonary edema (8) Coronary artery disease Current Visit: Yes Status: Chronic Qualifiers: Coronary Disease-Associated Artery/Lesion type: [place] artery [place] vs. transplanted heart: [place] heart Associated angina: without angina Qualified Code(s): I25.10 - Atherosclerotic heart disease of [place] coronary artery without angina pectoris (9) Diarrhea Current Visit: Yes Status: Chronic Patient reports chronic alternating diarrhea and constipation. Reports several loose stools yesterday, but states they are not mucousy or watery. Continue to monitor closely. Continue probiotics BID. Qualifiers: Diarrhea type: unspecified type Qualified Code(s): R19.7 - Diarrhea, unspecified - Subjective Interval history: Patient seen and examined. No acute events noted overnight. Patient denies shortness of breath this morning. She denies chest pain. She is off O2. States she has a dry cough. She denies abdominal pain, but does endorse some intermittent nausea. She denies vomiting. She reports multiple loose stools daily that is normal for her. She denies oral thrush or any skin lesions. She states she ate some of her breakfast today. She is voiding without issue. Infect Dis PN-Objective Data - Labs CBC & Chem 7: 09/29/17 05:50 09/29/17 05:50 Labs: Laboratory Results - last 24 hr 09/28/17 09/29/17 09/29/17 20:20 05:50 05:50 WBC 7.0 RBC 4.58 Hgb 13.8 Hct 41.6 MCV 90.8 MCH 30.1 MCHC 33.2 RDW 13.2 Plt Count 269 MPV 9.8 Immature Gran % 1.0 Seg Neutrophils % 57.2 Lymphocytes % 27.4 Monocytes % 11.1 Eosinophils % 2.7 Basophils % 0.6 Neutrophils # 4.0 Lymphocytes # 1.9 Monocytes # 0.8 Eosinophils # 0.2 Basophils # 0.0 Sodium 139 Potassium 4.0 Chloride 106 Carbon Dioxide 21 L BUN 26 H Creatinine 2.01 H Est GFR ( Amer) 30 L Est GFR (Non-Af Amer) 25 L BUN/Creatinine Ratio 13 Glucose 91 Calculated Osmolality 292 Calcium 9.3 Phosphorus 4.9 H Magnesium 1.9 Ur Eosinophil Smear 0 Cultures: Cultures 09/24/17 19:00 Respiratory Culture - Final Right Lower Lobe Lung 09/24/17 19:00 Respiratory Culture - Final Left Lower Lobe Lung 09/24/17 19:00 Acid Fast Stain - Final Right Lower Lobe Lung 09/24/17 19:00 Acid Fast Stain - Final Left Lower Lobe Lung 09/22/17 16:43 Sputum Culture - Final Sputum 09/22/17 01:02 Legionella Antigen - Final Urine,Clean Catch Streptococcus pneumoniae Antigen (M - Final Serology 09/28/17 09/26/17 09/26/17 Range/Units 20:20 18:45 18:45 Urine Color Yellow (Yellow) Urine Clarity Clear (Clear) Urine pH 6.0 (5.0-8.0) pH Units Ur Specific [place] 1.007 L (1.010-1.025) Urine Protein Negative (Neg-Trace) mg/dL Urine Glucose (UA) Normal (Normal) mg/dL Urine Ketones Negative (Negative) mg/dL Urine Blood Small H (Negative) Urine Nitrite Negative (Negative) Urine Bilirubin Negative (Negative) Urine Urobilinogen Normal (Normal) mg/dL Ur Leukocyte Esterase Negative (Negative) Urine Microscopic RBC 3-5 H (0-3) per hpf Urine Microscopic WBC 0-3 (0-3) per hpf Ur Eosinophil Smear 0 (None Seen) % Ur Squamous Epith Cells Many H (None-Few) per lpf Urine Bacteria None Seen (None-Few) per hpf Hyaline Casts None Seen (None-Few) per lpf Urine Creatinine 50 mg/dL Protein/Creatinin Ratio 0.24 H (0.00-0.20) mg/mg Urine Sodium 60.2 mEq/L Urine Total Protein 12 (1-14) mg/dL Fluid Source Fluid Volume mL Fluid Appearance (Clear) Fluid RBC Fld Tot Nucleated Cell Fluid Seg Neutrophil % % Fluid Lymphocytes % % Fluid Monocytes % % Fluid Other Cells % % Chlamy pneumoniae PCR (Not Detect) Adenovirus (PCR) (Not Detect) B. pertussis DNA (PCR) (Not Detect) B.parapertussis DNA PCR (Not Detect) Coronavirus OC43 (PCR) (Not Detect) Coronavirus HKU1 (PCR) (Not Detect) Coronavirus 229E (PCR) (Not Detect) Coronavirus NL63 (PCR) (Not Detect) Human Metapneumovir PCR (Not Detect) Influenza A (H1) PCR (Not Detect) Influ A (H1N1/09) PCR (Not Detect) Influenza A (H3) PCR (Not Detect) Influenza A Untype (PCR) (Not Detect) Influenza Type B (PCR) (Not Detect) M.pneumoniae DNA (PCR) (Not Detect) Parainfluenza 1 (PCR) (Not Detect) Parainfluenza 2 (PCR) (Not Detect) Parainfluenza 3 (PCR) (Not Detect) Parainfluenza 4 (PCR) (Not Detect) RSV (PCR) (Not Detect) Entero/Rhino (PCR) (Not Detect) 09/24/17 09/24/17 09/21/17 Range/Units 19:00 19:00 17:17 Urine Color (Yellow) Urine Clarity (Clear) Urine pH (5.0-8.0) pH Units Ur Specific [place] (1.010-1.025) Urine Protein (Neg-Trace) mg/dL Urine Glucose (UA) (Normal) mg/dL Urine Ketones (Negative) mg/dL Urine Blood (Negative) Urine Nitrite (Negative) Urine Bilirubin (Negative) Urine Urobilinogen (Normal) mg/dL Ur Leukocyte Esterase (Negative) Urine Microscopic RBC (0-3) per hpf Urine Microscopic WBC (0-3) per hpf Ur Eosinophil Smear (None Seen) % Ur Squamous Epith Cells (None-Few) per lpf Urine Bacteria (None-Few) per hpf Hyaline Casts (None-Few) per lpf Urine Creatinine mg/dL Protein/Creatinin Ratio (0.00-0.20) mg/mg Urine Sodium mEq/L Urine Total Protein (1-14) mg/dL Fluid Source Right Lower Lobe Court Left Lower Lobe Lung Fluid Volume 15 15 mL Fluid Appearance Hazy A Slightly Hazy A (Clear) Fluid RBC TNP TNP Fld Tot Nucleated Cell TNP TNP Fluid Seg Neutrophil % 78.0 94.0 % Fluid Lymphocytes % 7.0 4.0 % Fluid Monocytes % 2.0 2.0 % Fluid Other Cells % 13.0 % Chlamy pneumoniae PCR Not Detected (Not Detect) Adenovirus (PCR) Not Detected (Not Detect) B. pertussis DNA (PCR) Not Detected (Not Detect) B.parapertussis DNA PCR Not Detected (Not Detect) Coronavirus OC43 (PCR) Not Detected (Not Detect) Coronavirus HKU1 (PCR) Not Detected (Not Detect) Coronavirus 229E (PCR) Not Detected (Not Detect) Coronavirus NL63 (PCR) Not Detected (Not Detect) Human Metapneumovir PCR Not Detected (Not Detect) Influenza A (H1) PCR Not Detected (Not Detect) Influ A (H1N1/09) PCR Not Detected (Not Detect) Influenza A (H3) PCR Not Detected (Not Detect) Influenza A Untype (PCR) Not Detected (Not Detect) Influenza Type B (PCR) Not Detected (Not Detect) M.pneumoniae DNA (PCR) Not Detected (Not Detect) Parainfluenza 1 (PCR) Not Detected (Not Detect) Parainfluenza 2 (PCR) Not Detected (Not Detect) Parainfluenza 3 (PCR) Not Detected (Not Detect) Parainfluenza 4 (PCR) Not Detected (Not Detect) RSV (PCR) Not Detected (Not Detect) Entero/Rhino (PCR) Not Detected (Not Detect) Exam - Constitutional Vitals: Temp Pulse Resp BP Pulse Ox 98.2 F 77 19 99/59 92 09/29/17 08:03 09/29/17 08:03 09/29/17 08:03 09/29/17 08:03 09/29/17 08:03 General appearance: average body habitus, cooperative, no acute distress - Head Head exam: Present: atraumatic, normal inspection, normocephalic - Eye Eye exam: Present: EOMI, normal appearance, PERRL Pupils: Present: normal accommodation - ENT ENT exam: Present: mucous membranes moist - Neck Neck exam: Present: normal inspection - Respiratory Respiratory exam: Present: CTAB. Absent: rales, respiratory distress, rhonchi, wheezes - Cardiovascular Cardiovascular exam: Present: RRR, +S1, +S2 - GI/Abdominal GI/Abdominal exam: Present: normal bowel sounds, soft. Absent: distended, tenderness - Extremities Exam Extremities exam: Present: normal inspection. Absent: joint swelling, pedal edema, tenderness - Neurological Exam Neurological exam: Present: alert, oriented X3, no focal deficits - Psychiatric Psychiatric exam: Present: normal affect, normal mood - Skin Skin exam: Present: dry, intact, normal color, warm Consult Discharge Plan - Plan Referrals: Joseph Johns DO [Primary Care Provider] - 10/11/17 3:00 pm (Please follow up as schedule...)
[2017-09-29 11:57] VITALS: BP 121/75
--- NOTE | 2017-09-29 12:50 | Discharge Summary ---
- NOTES TO OUTPATIENT PROVIDER Notes to Outpatient Provider: Patient will be discharged on 4 additional days of antibiotics with Levaquin and doxycycline for pneumonia. Patient will not resume IVIG until seen by nephrology and allergy as an outpatient due to kidney injury. Condition developed kidney injury and current creatinine plateaued at 2 ; patient has order for BMP to be done in 3-4 days and follow-up with primary care doctor and nephrology within 1 week. Orders not resulted at time of discharge: Pending orders 09/24/17 19:00 AFB Culture, Respiratory [TB] Routine AFB Culture, Respiratory [TB] Routine AFB Smear [TB] Routine AFB Smear [TB] Routine Fungal Culture [MYC] Routine Fungal Culture [MYC] Routine 09/29/17 08:23 UA w. reflex microscopic [Urinalysis reflex Microscopic] [URIN] Routine Date of Encounter: 09/29/17 Time of Encounter: 12:51 - Discharge Diagnosis (1) Pneumonia Priority: Primary Status: Acute Qualifiers: Pneumonia type: due to unspecified organism Laterality: right Lung location: unspecified part of lung Qualified Code(s): J18.9 - Pneumonia, unspecified organism (2) Acute kidney injury Priority: Secondary Status: Acute (3) Acute on chronic respiratory failure with hypoxia and hypercapnia Priority: Secondary Status: Acute (4) Hypogammaglobulinemia Priority: Secondary Status: Chronic (5) Essential hypertension Priority: Secondary Status: Chronic (6) Coronary artery disease Priority: Secondary Status: Chronic Qualifiers: Coronary Disease-Associated Artery/Lesion type: [place] artery [place] vs. transplanted heart: [place] heart Associated angina: without angina Qualified Code(s): I25.10 - Atherosclerotic heart disease of [place] coronary artery without angina pectoris (7) COPD (chronic obstructive pulmonary disease) Priority: Secondary Status: Chronic Qualifiers: COPD type: chronic bronchitis Chronic bronchitis type: simple Qualified Code(s): J41.0 - Simple chronic bronchitis (8) Bipolar 1 disorder, depressed Priority: Secondary Status: Chronic (9) DVT prophylaxis Priority: Secondary Status: Acute (10) CHF (congestive heart failure) Priority: Secondary Status: Acute Qualifiers: Heart failure type: diastolic Heart failure chronicity: acute Qualified Code(s): I50.31 - Acute diastolic (congestive) heart failure Hospital course: Ms. Mayes is a 66 year old female who presented to the hospital for worsening shortness of breath. The patient had a complicated course patient was admitted for pneumonia. Patient was seen by pulmonology and infectious disease patient was started on antibiotics. Patient had bronchoscopy with mucous plug removal and bronchioloalveolar lavage. All lavage blood and sputum cultures were negative. She was also seen by allergy we will continue the patient's IVIG; however the patient did develop acute kidney injury prior to discharge rather abruptly which plateaued with a serum creatinine around 2.0; patient was seen by nephrology who recommended IV fluids however this did not improve renal function; it is suspected that this is likely ATN due to vancomycin toxicity. The patient's respiratory status improved throughout her stay the patient did require BiPAP early on in her stay. The patient will be discharged with 4 additional days of antibiotics with Levaquin and doxycycline per infectious disease. The patient will follow-up with nephrology next week and will have an order for basic metabolic panel to be checked in 3-4 days to check on renal function. The patient will also follow-up with allergy and will not resume IVIG until the approval from nephrology and allergy is obtained. Patient says she will also make appointment to see primary care physician next week. Patient was instructed should she develop shortness of breath fever chest pain or notices substantial change in her voiding habits to return to the emergency room or primary care physician for evaluation. She states she understands and is agreeable to discharge. All questions answered. This is a brief summary of patient's hospitalization, for further details please see the complete medical record. Discharge discussed with: patient, nurse - Time Spent with Patient Total time spent providing and/or coordinating discharge services: Greater than 30 minutes - Discharge Medications Prescriptions: Doxycycline 100 mg PO BID 4 Days #4 capsule levoFLOXacin [Levaquin] 750 mg PO Q48H 4 Days #2 tablet Home Medications: Albuterol Sulfate [Proair Hfa] 2 puff IH Q4H PRN 07/14/15 [History] Allopurinol [Zyloprim 300 MG] 300 mg PO DAILY 07/14/15 [History] Cyclobenzaprine [Flexeril] 10 mg PO TID 07/14/15 [History] Hydroxychloroquine [Plaquenuil] 400 mg PO DAILY 07/14/15 [History] Levothyroxine [Synthroid] 50 mcg PO QAM 05/24/16 [History] OxyCODONE Immed Rel [Roxicodone 10 MG] 10 mg PO Q6H PRN 07/14/15 [History] Ipratropium/Albuterol Neb [Duoneb] 3 ml IH Q6H PRN 05/09/17 [History] Metoprolol Tartrate 100 mg PO DAILY 05/09/17 [History] NIFEdipine [Procardia] 10 mg PO DAILY PRN 05/09/17 [History] Pregabalin [Lyrica] 100 mg PO TID 05/09/17 [History] Lactobacillus Acidophilus [Acidophilus Probiotic] 1 mg PO DAILY 06/23/17 [ History] ARIPiprazole [Abilify] 2 mg PO HS #30 tablet 06/28/17 [Rx] DULoxetine [Cymbalta] 30 mg PO DAILY #30 capsule. 06/28/17 [Rx] Aspirin 325 mg PO DAILY 08/11/17 [History] Atorvastatin Calcium [Lipitor] 20 mg PO HS 08/11/17 [History] FentaNYL PATCH [Duragesic] 12 mcg TD Q72H 08/11/17 [History] Multivitamin [One Daily Multivitamin] 1 tab PO DAILY 08/11/17 [History] Estradiol [Estrace] 1 appl TP DAILY 08/22/17 [History] Doxycycline 100 mg PO BID 4 Days #4 capsule 09/29/17 [Rx] levoFLOXacin [Levaquin] 750 mg PO Q48H 4 Days #2 tablet 09/29/17 [Rx] Allergies/Adverse Reactions: 3 Allergy/AdvReac Type Severity Reaction Status Date / Time No Known Allergies Allergy Verified 08/22/17 18:25 Date of admission: 09/20/17 09:47 Primary care physician: Arturo Johns DO Consults: 09/20/17 09:51 Consult to Allergy/Immunology [CONS] Routine Consulting Provider: Allergy Susan Reason for Consult: Hypogammaglobulinemia/ Unable to take Subcut IG for 4 weeks Time Notified: 09:52 Call Completed: Yes 09/20/17 09:55 Consult to Pulmonology [CONS] Routine Consulting Provider: Pulm Crit Care & Sleep Susan Reason for Consult: Recurrent Pneumonia/ COPD/ Hypogammaglobulinemia Time Notified: 09:56 Call Completed: Yes 09/21/17 07:50 Consult to Infectious Diseases [CONS] Routine Consulting Provider: Infectious Disease Mel[place] Reason for Consult: Recurrent PNA, hx of MDRO Klebsiella PNA Call Completed: No 09/21/17 12:51 Consult to Nutrition [CONS] Routine Comment: Consulting Provider: NUTRITION Reason for Dietary Consult: PO Supplementation 09/27/17 07:18 Consult to Nephrology [CONS] Routine Consulting Provider: Kidney Susan/MARIA E/JOEY/MAURA Reason for Consult: ADAMS; hx lupus, was on vanco, on gammagard, has microscopic hematuria Call Completed: Yes - Constitutional Vitals: Temp Pulse Resp BP Pulse Ox 98.7 F 86 19 121/75 82 09/29/17 11:56 09/29/17 11:56 09/29/17 11:56 09/29/17 11:56 09/29/17 11:56 Exam: Constitutional: No acute distress, Alert, patient lying comfortably in bed Psych: AAO x 3 Cardio: regular rate and rhythm, +s1s2 Resp: Crackles in left lower base unchanged from prior which the patient states is chronic this, unlabored breathing on room air Abd: soft, non tender/non distended, positive bowel sounds Extremities: no clubbing/cyanosis/edema appreciated Neuro: no focal deficits appreciated - Patient Status Disposition: Home, Self-Care Condition: Good Functional capacity at discharge: independent ambulation Overall status at discharge: patient is progressing back to baseline - Discharge Instructions Follow Up With: Joseph Johns DO [Primary Care Provider] - 10/11/17 3:00 pm (Please follow up as schedule...) - Diet and Activity Activity: increase activity as tolerated Diet: advance to your usual diet
--- NOTE | 2017-09-29 13:47 | Nephrology Progress Note ---
Date of Encounter: 09/29/17 Time of Encounter: 08:45 - Assessment and Plan (1) Acute kidney injury Current Visit: Yes Status: Acute 66-year-old female presents with acute kidney injury, likely secondary to ATN/ vancomycin toxicity. CPK and retroperitoneal ultrasound unremarkable. No evidence of hydronephrosis or intrarenal stones. On physical exam, patient is negative for pedal edema. Maintainable fluid has not improved kidney function; fluids to be discontinued today. IVIG can cause ADAMS worsening her kidney function. After speaking with Dr. Smith , we will continue to hold IVIG for 1 week until kidney function improves. Urine eosinophil smear is negative. We will repeat UA for presence of proteinuria. Will consider GN work-up as appropriate tomorrow. Patient and patient's family is informed of unimproved kidney function despite fluids and avoidance of nephrotoxins, but insist of leaving for home. Phosphorus marginally elevated at 4.9, and magnesium WNL. Kidney function is stable and not worsening; it will take several days for kidney function to return to baseline. If repeat UA is unremarkable, patient can be discharged on nephrology's point of view and follow-up outpatient with electronic prepress operator and iron pourer, and repeat BMP next week. I explained extensive the risks of early discharge with presence of ADAMS and patient insists on leaving home. She demonstrates understanding of condition and agrees to follow-up outpatient. I spent 30 minutes speaking to family and answering questions at bedside and patient has no further questions. Subjective Principal diagnosis: Pneumonia Interval history: No overnight events. Patient reports improved SOB. Denies fever, chills, nausea , vomiting, diarrhea. She reports that she is able to tolerate PO intake and voiding w/o difficulty. Denies headaches, blurry vision, CP, abdominal pain, hematuria, dysuria. at bedside continues to request to be discharged in the setting of improvement. No further acute complaints. Objective - Vital Signs Vital signs: Vital Signs Temp Pulse Resp BP Pulse Ox 09/29/17 11:56 98.7 F 86 19 121/75 82 09/29/17 08:03 98.2 F 77 19 99/59 92 09/29/17 03:54 98.9 F 82 15 108/65 93 09/28/17 23:36 99.4 F 77 15 132/85 92 09/28/17 20:42 99.8 F H 83 16 125/83 94 09/28/17 15:21 98.5 F 75 18 125/82 92 Intake and Output 09/28/17 09/29/17 09/29/17 23:59 07:59 15:59 Intake Total 1000 / 1000 1000 / 1000 480 / 480 Output Total 500 / 500 1100 / 1100 1000 / 1000 Balance 500 / 500 -100 / -100 -520 / -520 Intake: IV Fluids 1000 / 1000 1000 / 1000 0.9 % Sodium Chloride 1,000 ML 1000 / 1000 1000 / 1000 @ 125 mls/hr IVC .Q8H [facility] Rx#: [id number] Oral 480 / 480 Output: Urine 500 / 500 1100 / 1100 1000 / 1000 Other: Meal Lunch Percent of Meal Consumed 40% Weight 67.222 kg - General Appearance Exam: General appearance: well-developed, well-nourished, appears started age Neck: no JVD, no carotid bruit, supple Respiratory: clear Cardiology: no murmurs, no rub, no gallops, no edema, regular rate, regular rhythm, normal S1, normal S2 Gastrointestinal: normoactive bowel sounds, no tenderness, no guarding, no organomegaly Integumentary: no rash, warm and dry Neurologic: no focal deficit, no asterixis, alert and oriented x3, reflexes 2+ and symmetric, gait normal, strength 5/5 Musculoskeletal: no deformities, no erythema, no cyanosis, no clubbing Psychiatric: mood/affect appropriate, cooperative - Lab 09/29/17 05:50 09/29/17 05:50 Most recent lab results Calcium 9.3 mg/dL (8.6-10.3) 09/29/17 05:50 Phosphorus 4.9 mg/dL (2.7-4.5) H 09/29/17 05:50 Magnesium 1.9 mg/dL (1.6-2.6) 09/29/17 05:50 Urine Creatinine 50 mg/dL 09/26/17 18:45 Urine Sodium 60.2 mEq/L 09/26/17 18:45 Urine Total Protein 12 mg/dL (1-14) 09/26/17 18:45 Consult Discharge Plan - Plan Referrals: Joseph Johns DO [Primary Care Provider] - 10/11/17 3:00 pm (Please follow up as schedule...) Drew Jacob DO [Partnered Physician] - 10/16/17 10:30 am (Follow up as scheduled.) Prescriptions: Doxycycline 100 mg PO BID 4 Days #4 capsule levoFLOXacin [Levaquin] 750 mg PO Q48H 4 Days #2 tablet
== END 2017-09-29 14:14 | disposition home or self-care (01) | DRG 853 ==
LOC: EMEROO 04:47 → 2ANU 04:47 → SUATTDRO 09:47
PROVIDERS: ADMIT Internal Medicine; ATTEND Internal Medicine

== ENCOUNTER 2018-07-28 18:59 | Observation (INO) ==
--- NOTE | 2018-07-28 20:19 | Emergency Department Note ---
Disposition Clinical Impression: Elevated d-dimer Chest pain Qualifiers: Chest pain type: unspecified Qualified Code(s): R07.9 - Disposition: Admitted As Inpatient Condition: Undetermined Time of Disposition: 00:46 General Adult HPI - General Chief complaint: ED Arrhythmia/Palpitations Stated complaint: irregular hr Time Seen by Provider: 07/28/18 19:01 Source: patient, EMS Limitations: no limitations - History of Present Illness Pain Scale: 5 - Related Data Home Medications Medication Instructions Recorded Confirmed Albuterol Sulfate [Proair Hfa] 2 puff IH Q4H PRN 07/14/15 07/28/18 Allopurinol [Zyloprim 300 MG] 300 mg PO DAILY 07/14/15 07/28/18 Cyclobenzaprine [Flexeril] 10 mg PO TID PRN 07/14/15 07/28/18 Hydroxychloroquine [Plaquenuil] 400 mg PO DAILY 07/14/15 07/28/18 Levothyroxine [Synthroid] 50 mcg PO DAILY 07/14/15 07/28/18 OxyCODONE Immed Rel [Roxicodone 10 10 mg PO Q6H PRN 07/14/15 07/28/18 MG] Ipratropium/Albuterol Neb [Duoneb] 3 ml IH Q6H PRN 05/09/17 07/28/18 NIFEdipine [Procardia] 10 mg PO DAILY PRN 05/09/17 07/28/18 Pregabalin [Lyrica] 100 mg PO BID 05/09/17 07/28/18 Aspirin 325 mg PO DAILY 08/11/17 07/28/18 Atorvastatin Calcium [Lipitor] 20 mg PO DAILY 08/11/17 07/28/18 FentaNYL PATCH [Duragesic] 12 mcg TD Q72H 08/11/17 07/28/18 Multivitamin [One Daily 1 tab PO DAILY 08/11/17 07/28/18 Multivitamin] ARIPiprazole [Abilify] 5 mg PO DAILY 03/15/18 07/28/18 Chlorhexidine Rinse 15 ml PO 2-3XD PRN 03/15/18 07/28/18 Furosemide [Lasix] 20 mg PO DAILY PRN 03/15/18 07/28/18 Lactobacillus Acidophilus 1 cap PO HS 03/15/18 07/28/18 [Acidophilus] Lactulose [Enulose] 10 gm PO DAILY PRN 03/15/18 07/28/18 Lidocaine Patch [Lidoderm 5% patch] 4 patch TP DAILY PRN 03/15/18 07/28/18 Previous Rx's Medication Instructions Recorded DULoxetine [Cymbalta] 30 mg PO DAILY #30 capsule. 06/28/17 Allergies Allergy/AdvReac Type Severity Reaction Status Date / Time morphine AdvReac Hallucinati Verified 07/28/18 19:37 ng Past Medical History - Past Medical History Medical history: Reports: arthritis, COPD, coronary artery disease, fibromya lgia, GERD, hyperlipidemia, hypertension, kidney stones, myocardial infarction, osteoporosis, thyroid disease, TIA, other Surgical history: Reports: appendectomy, breast surgery, cholecystectomy, herniorrhaphy, hip replacement, hysterectomy, JAYSON/BSO, other Psychiatric history: Reports: bipolar, depression, previous psychiatric hospitalization ELOCUTION TEACHER history: Reports: no ELOCUTION TEACHER history - Social History Smoking Status: Never smoker Smokeless Tobacco Status: No Alcohol use: Reports: none Drug use: Reports: none Physical Exam - General Limitations: no limitations General appearance: alert, in no apparent distress Course Vital Signs Temperature 99.1 F 07/28/18 19:01 Pulse Rate 103 07/28/18 19:01 Respiratory Rate 18 07/28/18 19:01 Blood Pressure 152/89 07/28/18 19:01 O2 Sat by Pulse Oximetry 96 07/28/18 19:01 Temperature 98.5 F 07/29/18 00:01 Pulse Rate 90 07/29/18 00:01 Respiratory Rate 16 07/29/18 00:01 Blood Pressure 159/89 07/29/18 00:01 O2 Sat by Pulse Oximetry 93 07/29/18 00:01 Oxygen Delivery Oxygen Delivery Room Air Medical Decision Making - Lab Data Result diagrams: 07/28/18 20:24 07/28/18 19:04 Lab Results 07/28/18 07/28/18 07/28/18 Range/Units 19:04 20:00 20:00 WBC 8.8 (4.3-11.1) K/mcL RBC 4.38 (3.82-4.97) M/mcL Hgb 13.1 (11.5-15.4) g/dL Hct 39.9 (35.3-44.9) % MCV 91.1 (83.0-100.0) fL MCH 29.9 (28.0-33.3) pg MCHC 32.8 (31.6-35.5) g/dL RDW 14.3 (11.5-14.5) % Plt Count 441 H (140-400) K/mcL MPV 10.2 (9.4-12.4) fL Immature Gran % (0-4) % Seg Neutrophils % % Lymphocytes % % Monocytes % % Eosinophils % % Basophils % % Neutrophils # (1.6-8.9) K/mcL Lymphocytes # (0.6-4.6) K/mcL Monocytes # (0.0-1.3) K/mcL Eosinophils # (0.0-0.6) K/mcL Basophils # (0.0-0.2) K/mcL PT (9.4-12.1) Seconds INR D-Dimer (0-500) ng/mLFEU Heparin Anti-Xa, Unfract 0.03 L (0.30-0.70) IU/mL Sodium 137 (136-145) mEq/L Potassium 3.0 L (3.5-5.1) mEq/L Chloride 98 (98-107) mEq/L Carbon Dioxide 30 H (23-29) mEq/L BUN 14 (8-23) mg/dL Creatinine 0.99 (0.60-1.20) mg/dL Est GFR ( Amer) > 60 (> 60) Est GFR (Non-Af Amer) 56 L (> 60) BUN/Creatinine Ratio 14 (6-26) Glucose 96 (70-105) mg/dL Calculated Osmolality 284 (280-300) Calcium 9.3 (8.6-10.3) mg/dL Total Bilirubin 0.3 (0.3-1.0) mg/dL AST 24 (13-39) Units/L ALT 6 L (7-52) Units/L Alkaline Phosphatase 161 H (34-104) Units/L Troponin I < 0.03 (< 0.04) ng/mL Serum Total Protein 7.1 (6.4-8.9) g/dL Albumin 3.9 (3.5-5.7) g/dL Globulin 3.2 (2.4-3.5) g/dL Albumin/Globulin Ratio 1.2 (1.1-2.2) 07/28/18 07/28/18 Range/Units 20:24 20:24 WBC 9.0 (4.3-11.1) K/mcL RBC 4.45 (3.82-4.97) M/mcL Hgb 13.2 (11.5-15.4) g/dL Hct 40.3 (35.3-44.9) % MCV 90.6 (83.0-100.0) fL MCH 29.7 (28.0-33.3) pg MCHC 32.8 (31.6-35.5) g/dL RDW 14.2 (11.5-14.5) % Plt Count 445 H (140-400) K/mcL MPV 10.2 (9.4-12.4) fL Immature Gran % 0.2 (0-4) % Seg Neutrophils % 54.4 % Lymphocytes % 30.1 % Monocytes % 12.8 % Eosinophils % 1.7 % Basophils % 0.8 % Neutrophils # 4.9 (1.6-8.9) K/mcL Lymphocytes # 2.7 (0.6-4.6) K/mcL Monocytes # 1.2 (0.0-1.3) K/mcL Eosinophils # 0.2 (0.0-0.6) K/mcL Basophils # 0.1 (0.0-0.2) K/mcL PT 11.6 (9.4-12.1) Seconds INR 1.0 D-Dimer 1330 H (0-500) ng/mLFEU Heparin Anti-Xa, Unfract (0.30-0.70) IU/mL Sodium (136-145) mEq/L Potassium (3.5-5.1) mEq/L Chloride (98-107) mEq/L Carbon Dioxide (23-29) mEq/L BUN (8-23) mg/dL Creatinine (0.60-1.20) mg/dL Est GFR ( Amer) (> 60) Est GFR (Non-Af Amer) (> 60) BUN/Creatinine Ratio (6-26) Glucose (70-105) mg/dL Calculated Osmolality (280-300) Calcium (8.6-10.3) mg/dL Total Bilirubin (0.3-1.0) mg/dL AST (13-39) Units/L ALT (7-52) Units/L Alkaline Phosphatase (34-104) Units/L Troponin I (< 0.04) ng/mL Serum Total Protein (6.4-8.9) g/dL Albumin (3.5-5.7) g/dL Globulin (2.4-3.5) g/dL Albumin/Globulin Ratio (1.1-2.2) Critical Care Time Critical Care Time: Yes Total Critical Care Time: 30 Attestation: The high probability of a clinically significant, sudden or life threatening deterioration of the [] system(s) required my full and direct attention, intervention and personal management. The aggregate critical care time was [] minutes. This time is in addition to time spent performing reported procedures but includes the following: [] Data Review and interpretation [] Patient assessment and monitoring of vital signs [] Documentation [] Medication orders and management Attestation Statement - Attestation Attestation: I reviewed the residents documentation and agree with the residents assessment and plan of care. I have personally had face to face time with the patient. (Brief History, Brief Exam, and MDM) I personally supervised and was present for the shafer/critical portions of the following procedures completed by the resident: (add procedures performed here). [id number] time provided I attest to supervising the resident physician's interpretation of the ECG Patient presents to the emergency department with chest discomfort and palpitations. She appears in no acute distress on exam. ECG reviewed by me 21:00: Nursing staff unable to place a peripheral IV. Laboratory specimens un able to be collected. I placed a left-sided 20-gauge external jugular line on first attempt. The patient has an elevated d-dimer. We cannot perform a CTA due to current IV access. We will heparinize and discuss this case with the admitting hospitalist team. The patient may require a VQ scan after admission
[2018-07-28 20:41] LABS: Basophils # 0.1 K/mcL (0.0-0.2); Basophils % 0.8 %; Eosinophils # 0.2 K/mcL (0.0-0.6); Eosinophils % 1.7 %; Hematocrit 40.3 % (35.3-44.9); Hemoglobin 13.2 g/dL (11.5-15.4); Immature Granulocytes % 0.2 % (0-4); Lymphocytes # 2.7 K/mcL (0.6-4.6); Lymphocytes % 30.1 %; Mean Corpuscular HGB Conc 32.8 g/dL (31.6-35.5); Mean Corpuscular Hemoglobin 29.7 pg (28.0-33.3); Mean Corpuscular Volume 90.6 fL (83.0-100.0); Mean Platelet Volume 10.2 fL (9.4-12.4); Monocytes # 1.2 K/mcL (0.0-1.3); Monocytes % 12.8 %; Neutrophils # 4.9 K/mcL (1.6-8.9); Platelet Count 445 K/mcL (140-400); Red Blood Count 4.45 M/mcL (3.82-4.97); Red Cell Distribution Width 14.2 % (11.5-14.5); Segmented Neutrophils % 54.4 %
[2018-07-28 20:51] LABS: Prothrombin Time 11.6 Seconds (9.4-12.1)
[2018-07-28 21:01] LABS: BUN/Creatinine Ratio 14 (6-26); Blood Urea Nitrogen 14 mg/dL (8-23); Calcium 9.3 mg/dL (8.6-10.3); Carbon Dioxide 30 mEq/L (23-29); Chloride 98 mEq/L (98-107); Glucose 96 mg/dL (70-105); Osmolality,Calculated 284 (280-300); Sodium 137 mEq/L (136-145); Troponin I < 0.03 ng/mL (< 0.04); eGFR For African Americans > 60 (> 60); eGFR For Non-African Americans 56 (> 60)
[2018-07-28] MEDS: Nitroglycerin 0.4 MG TAB.SUBL SL PRN ×3 (21:10→21:21)
[2018-07-28] MEDS ORDERED: *HR* FentaNYL (PF) 100 MCG/2 ML VIAL IVP ONE (21:15)
[2018-07-28 21:22] LABS: Alanine Aminotransferase 6 Units/L (7-52); Albumin 3.9 g/dL (3.5-5.7); Albumin/Globulin Ratio 1.2 (1.1-2.2); Alkaline Phosphatase 161 Units/L (34-104); Aspartate Amino Transferase 24 Units/L (13-39); Bilirubin,Total 0.3 mg/dL (0.3-1.0); Globulin 3.2 g/dL (2.4-3.5); Total Protein 7.1 g/dL (6.4-8.9)
[2018-07-28] MEDS ORDERED: Potassium Chloride Elixir 20 MEQ/15 ML UDC PO ONE ×2 (21:27→22:58)
--- NOTE | 2018-07-28 21:30 | Emergency Department Note ---
Disposition Clinical Impression: Elevated d-dimer Chest pain Qualifiers: Chest pain type: unspecified Qualified Code(s): R07.9 - Disposition: Admitted As Inpatient Condition: Undetermined Time of Disposition: 00:10 General Adult HPI - General Chief complaint: ED Arrhythmia/Palpitations Stated complaint: irregular hr Time Seen by Provider: 07/28/18 19:01 Source: patient, EMS Mode of arrival: ambulatory Limitations: no limitations Nursing Notes Reviewed: Yes Vital Signs Reviewed: Yes - History of Present Illness HPI Narrative: Patient is a 67-year-old female with past medical history of coronary artery d isease, Prinzmetal angina, COPD, HTN presents to the [facility] for evaluation of chest pain that has been going on for the past 3 days intermittently. She denies any exacerbating or alleviating factors describes as substernal with radiation into the left neck aching-like pain currently a 04/29. She states that today she felt her heart beating fast and she checked it with her home pulse oximeter and it was in the 140s. States she checked it prior to arrival and it was in the 110s. This prompted her to come in for evaluation. States that she has had a history of PR in the past which she describes as her Ifeanyi metal angina. States she has never had cardiac stents before or open heart surgery. She has had recent course of orthopedic surgery involving her right upper extremity in which she had multiple fractures of that arm. No history of blood clots. Denies any active bleeding at this time. The patient took a full dose of aspirin prior to arrival. Pain Scale: 0 - Related Data Home Medications Medication Instructions Recorded Confirmed Albuterol Sulfate [Proair Hfa] 2 puff IH Q4H PRN 07/14/15 07/28/18 Allopurinol [Zyloprim 300 MG] 300 mg PO DAILY 07/14/15 07/28/18 Cyclobenzaprine [Flexeril] 10 mg PO TID PRN 07/14/15 07/28/18 Hydroxychloroquine [Plaquenuil] 400 mg PO DAILY 07/14/15 07/28/18 Levothyroxine [Synthroid] 50 mcg PO DAILY 07/14/15 07/28/18 OxyCODONE Immed Rel [Roxicodone 10 10 mg PO Q6H PRN 05/24/16 06/08/19 MG] Ipratropium/Albuterol Neb [Duoneb] 3 ml IH Q6H PRN 05/09/17 07/28/18 NIFEdipine [Procardia] 10 mg PO DAILY PRN 05/09/17 07/28/18 Pregabalin [Lyrica] 100 mg PO BID 05/09/17 07/28/18 Aspirin 325 mg PO DAILY 08/11/17 07/28/18 Atorvastatin Calcium [Lipitor] 20 mg PO DAILY 08/11/17 07/28/18 FentaNYL PATCH [Duragesic] 12 mcg TD Q72H 08/11/17 07/28/18 Multivitamin [One Daily 1 tab PO DAILY 08/11/17 07/28/18 Multivitamin] ARIPiprazole [Abilify] 5 mg PO DAILY 03/15/18 07/28/18 Chlorhexidine Rinse 15 ml PO 2-3XD PRN 03/15/18 07/28/18 Furosemide [Lasix] 20 mg PO DAILY PRN 03/15/18 07/28/18 Lactobacillus Acidophilus 1 cap PO HS 03/15/18 07/28/18 [Acidophilus] Lactulose [Enulose] 10 gm PO DAILY PRN 03/15/18 07/28/18 Lidocaine Patch [Lidoderm 5% patch] 4 patch TP DAILY PRN 03/15/18 07/28/18 Previous Rx's Medication Instructions Recorded DULoxetine [Cymbalta] 30 mg PO DAILY #30 capsule. 06/28/17 Allergies Allergy/AdvReac Type Severity Reaction Status Date / Time morphine AdvReac Hallucinati Verified 07/28/18 19:37 ng All systems ED: reviewed and negative except as stated. Review of Systems: As Per HPI Constitutional: Denies: fever, chills Cardiovascular: Reports: chest pain, dyspnea on exertion. Denies: palpitations, edema, syncope, paroxysmal nocturnal dyspnea Respiratory: Reports: dyspnea. Denies: cough, wheezes, sputum production Gastrointestinal: Denies: abdominal pain, nausea, vomiting, diarrhea Past Medical History - Past Medical History Attestation: Yes The following information was validated with the patient. Medical history: Reports: arthritis, COPD, coronary artery disease, fibromyalgia, GERD, hyperlipidemia, hypertension, kidney stones, myocardial infarction, osteoporosis, thyroid disease, TIA, other Surgical history: Reports: appendectomy, breast surgery, cholecystectomy, herniorrhaphy, hip replacement, hysterectomy, JAYSON/BSO, other Psychiatric history: Reports: bipolar, depression, previous psychiatric hospitalization [employer] history: Reports: no [employer] history - Social History Smoking Status: Never smoker Smokeless Tobacco Status: No Alcohol use: Reports: none Drug use: Reports: none Physical Exam CONSTITUTIONAL: Well-appearing; well-nourished; A&O X 3, in no apparent distress. Tachycardic. HEAD: Normocephalic; atraumatic EYES: PERRL, no scleral icterus NOSE: The nose is normal in appearance without rhinorrhea NECK: No JVD or distended neck veins RESP: Normal chest excursion with respiration; breath sounds clear and equal bilaterally; no wheezes, rhonchi, or rales CARD: Regular rhythm, without murmurs, rub or gallop ABD: Non-distended; non-tender, soft, without rigidity, rebound or guarding,no pulsatile mass CHEST: No pain with palpation SKIN: Normal for age and race; warm and dry without diaphoresis ; no apparent lesions EXTREMITIES: Pulses are 2 plus and equal times 4 extremities, no peripheral edema or calf muscle pain - General Limitations: no limitations General appearance: alert, in no apparent distress Course Course Narrative: Patient underwent evaluation for chest pain. Her cardiac workup was essentially unremarkable except for an elevated d-dimer. Her EKG was nonischemic. She underwent nitroglycerin trial in which her chest pain completely resolved. Given that she was a difficult IV stick she required an EJ IV. Given that she cannot place a large-bore IV the patient was unable to go CTA of the chest to evaluate for a pulmonary embolism. Given her risk factors which include recent surgery and her dyspnea the patient was started on heparin standard dose to treat for PE until she can have proper placement of an IV and evaluation with imaging tomorrow. I discussed the risk and benefits with the patient and she agreed with the current plan. She is admitted to the hospitalist. Vital Signs Temperature 99.1 F 07/28/18 19:01 Pulse Rate 103 07/28/18 19:01 Respiratory Rate 18 07/28/18 19:01 Blood Pressure 152/89 07/28/18 19:01 O2 Sat by Pulse Oximetry 96 07/28/18 19:01 Temperature 98.5 F 07/29/18 00:01 Pulse Rate 90 07/29/18 00:01 Respiratory Rate 16 07/29/18 00:01 Blood Pressure 159/89 07/29/18 00:01 O2 Sat by Pulse Oximetry 93 07/29/18 00:01 Oxygen Delivery Oxygen Delivery Room Air Medical Decision Making - Medical Records Medical records reviewed: Yes I reviewed the patient's medical records. - Lab Data Lab results reviewed: Yes I reviewed the patient's lab results. Result diagrams: 07/28/18 20:24 07/28/18 19:04 Lab Results 07/28/18 07/28/18 07/28/18 Range/Units 19:04 20:00 20:00 WBC 8.8 (4.3-11.1) K/mcL RBC 4.38 (3.82-4.97) M/mcL Hgb 13.1 (11.5-15.4) g/dL Hct 39.9 (35.3-44.9) % MCV 91.1 (83.0-100.0) fL MCH 29.9 (28.0-33.3) pg MCHC 32.8 (31.6-35.5) g/dL RDW 14.3 (11.5-14.5) % Plt Count 441 H (140-400) K/mcL MPV 10.2 (9.4-12.4) fL Immature Gran % (0-4) % Seg Neutrophils % % Lymphocytes % % Monocytes % % Eosinophils % % Basophils % % Neutrophils # (1.6-8.9) K/mcL Lymphocytes # (0.6-4.6) K/mcL Monocytes # (0.0-1.3) K/mcL Eosinophils # (0.0-0.6) K/mcL Basophils # (0.0-0.2) K/mcL PT (9.4-12.1) Seconds INR D-Dimer (0-500) ng/mLFEU Heparin Anti-Xa, Unfract 0.03 L (0.30-0.70) IU/mL Sodium 137 (136-145) mEq/L Potassium 3.0 L (3.5-5.1) mEq/L Chloride 98 (98-107) mEq/L Carbon Dioxide 30 H (23-29) mEq/L BUN 14 (8-23) mg/dL Creatinine 0.99 (0.60-1.20) mg/dL Est GFR ( Amer) > 60 (> 60) Est GFR (Non-Af Amer) 56 L (> 60) BUN/Creatinine Ratio 14 (6-26) Glucose 96 (70-105) mg/dL Calculated Osmolality 284 (280-300) Calcium 9.3 (8.6-10.3) mg/dL Total Bilirubin 0.3 (0.3-1.0) mg/dL AST 24 (13-39) Units/L ALT 6 L (7-52) Units/L Alkaline Phosphatase 161 H (34-104) Units/L Troponin I < 0.03 (< 0.04) ng/mL Serum Total Protein 7.1 (6.4-8.9) g/dL Albumin 3.9 (3.5-5.7) g/dL Globulin 3.2 (2.4-3.5) g/dL Albumin/Globulin Ratio 1.2 (1.1-2.2) 07/28/18 07/28/18 Range/Units 20:24 20:24 WBC 9.0 (4.3-11.1) K/mcL RBC 4.45 (3.82-4.97) M/mcL Hgb 13.2 (11.5-15.4) g/dL Hct 40.3 (35.3-44.9) % MCV 90.6 (83.0-100.0) fL MCH 29.7 (28.0-33.3) pg MCHC 32.8 (31.6-35.5) g/dL RDW 14.2 (11.5-14.5) % Plt Count 445 H (140-400) K/mcL MPV 10.2 (9.4-12.4) fL Immature Gran % 0.2 (0-4) % Seg Neutrophils % 54.4 % Lymphocytes % 30.1 % Monocytes % 12.8 % Eosinophils % 1.7 % Basophils % 0.8 % Neutrophils # 4.9 (1.6-8.9) K/mcL Lymphocytes # 2.7 (0.6-4.6) K/mcL Monocytes # 1.2 (0.0-1.3) K/mcL Eosinophils # 0.2 (0.0-0.6) K/mcL Basophils # 0.1 (0.0-0.2) K/mcL PT 11.6 (9.4-12.1) Seconds INR 1.0 D-Dimer 1330 H (0-500) ng/mLFEU Heparin Anti-Xa, Unfract (0.30-0.70) IU/mL Sodium (136-145) mEq/L Potassium (3.5-5.1) mEq/L Chloride (98-107) mEq/L Carbon Dioxide (23-29) mEq/L BUN (8-23) mg/dL Creatinine (0.60-1.20) mg/dL Est GFR ( Amer) (> 60) Est GFR (Non-Af Amer) (> 60) BUN/Creatinine Ratio (6-26) Glucose (70-105) mg/dL Calculated Osmolality (280-300) Calcium (8.6-10.3) mg/dL Total Bilirubin (0.3-1.0) mg/dL AST (13-39) Units/L ALT (7-52) Units/L Alkaline Phosphatase (34-104) Units/L Troponin I (< 0.04) ng/mL Serum Total Protein (6.4-8.9) g/dL Albumin (3.5-5.7) g/dL Globulin (2.4-3.5) g/dL Albumin/Globulin Ratio (1.1-2.2) - Radiology Data Radiology results reviewed: Yes I reviewed the patient's radiology results. Chest X-Ray 07/28/18 19:04 IMPRESSION: No acute abnormality. D/ / Clayton Russell MD / Clayton Russell MD Interpreting Provider: Clayton Russell MD - EKG Data EKG #1 EKG attestation: Yes I reviewed and interpreted this EKG. EKG shows normal: sinus rhythm Rate: normal, tachycardia Rhythm: NSR
[2018-07-28] MEDS ORDERED: *HR* Heparin 5,000 UNIT/ML VIAL IVP ONE (21:47)
[2018-07-28] MEDS ORDERED: *HR* Heparin 5,000 UNIT/ML VIAL IVP PRN ×2 (21:47)
--- NOTE | 2018-07-28 22:17 | Internal Med History&Physical ---
<Kaleb Lala S - Last Filed: 07/28/18 23:09> Date of Encounter: 07/28/18 Time of Encounter: 22:58 Internal Medicine - H&P: HPI Chief complaint: i think i have a blood clot Admitted From: Home Plans for Post Hospital Care: Home History of present illness: Ms. Mayes is a 67 year old female arthritis, COPD, Prinzmetal's angina coronary artery disease, fibromyalgia, GERD, hyperlipidemia, hypertension, kidney stones, myocardial infarction, osteoporosis, thyroid disease, and TIA. She is presenting with a 2-3 day history of chest pain that has been on and off. She finally decided to come to the hospital because she states that her heart rate when really high up into the 140s. She was monitoring her HR at home and it kept going up, then abruptly going down, and she felt like she had a lot of palpiltat ions as well in her chest. She does note that she has a hx of Prinzmetal's angina diagnosed many years ago but that this doesn't quite feel the way her Prinzmetal's does. She has also had a past of NV but she is unsure of when it was, however, has never had a cardiac stent. She denies any history of blood clots or family history of blood clot. She did however have a recent surgery and has been more immobile than usual. She does also have a hx of falls and last fell on Mother's day, which shattered her elbow. In the ER she was found to be tacycardic and tacypnic. She had an elevated platelet count and an elevated d-dimer. Staff were unable to insert an adequate IV site and were only able to insert an EJ, so contrast wasn't able to be delivered. CT of her chest unable to be obtained to r/o PE so she was started on a heparin drip. She will be admitted for PE rule out. Past Med Surg Social Fam HX - Past Medical History Medical history: arthritis, COPD, coronary artery disease, fibromyalgia, GERD, hyperlipidemia, hypertension, kidney stones, myocardial infarction, osteoporosis, thyroid disease, TIA, other Additional medical history: DDD. Hypogammaglobulinanemia. pericarditis. Printzmetal angina. Lupus. Raynauds Psychiatric history: bipolar, depression, previous psychiatric hospitalization - Past Surgical History Surgical History: appendectomy, breast surgery, cholecystectomy, herniorrhaphy, hip replacement, hysterectomy, JAYSON/BSO, other Additional surgical history: jaw implant, dental surgery, perineal cyst x3. - Social History Smoking Status: Never smoker Smokeless Tobacco Status: No Alcohol use: none Drug use: none - Family History Father Living Status: Hx Family Cardiac Disorders: No Hx Family Respiratory Disorders: No Hx Family Cancer: Yes (Kidney and bladder) Hx Family GI Disorders: No Hx Family Endocrine Disorder: No Hx Family Neuromuscular Disorders: No Hx Family Neurologic Disorders: No Hx Family HEENT Disorders: No Hx Family Autoimmune Disorders: No Mother Adopted: No Family Member Ethnicity: Non- Living Status: Hx Family Cardiac Disorders: No Hx Family Respiratory Disorders: No Hx Family Cancer: Yes (Lung) Hx Family GI Disorders: No Hx Family Endocrine Disorder: No Hx Family Neuromuscular Disorders: No Hx Family Neurologic Disorders: No Hx Family HEENT Disorders: No Hx Family Autoimmune Disorders: Yes (ra) Internal Medicine - H&P: Meds Albuterol Sulfate [Proair Hfa] 2 puff IH Q4H PRN 07/14/15 [History] Allopurinol [Zyloprim 300 MG] 300 mg PO DAILY 07/14/15 [History] Cyclobenzaprine [Flexeril] 10 mg PO TID PRN 07/14/15 [History] Hydroxychloroquine [Plaquenuil] 400 mg PO DAILY 07/14/15 [History] Levothyroxine [Synthroid] 50 mcg PO DAILY 07/14/15 [History] OxyCODONE Immed Rel [Roxicodone 10 MG] 10 mg PO Q6H PRN 07/14/15 [History] Ipratropium/Albuterol Neb [Duoneb] 3 ml IH Q6H PRN 05/09/17 [History] NIFEdipine [Procardia] 10 mg PO DAILY PRN 05/09/17 [History] Pregabalin [Lyrica] 100 mg PO BID 05/09/17 [History] DULoxetine [Cymbalta] 30 mg PO DAILY #30 capsule. 06/28/17 [Rx] Aspirin 325 mg PO DAILY 08/11/17 [History] Atorvastatin Calcium [Lipitor] 20 mg PO DAILY 08/11/17 [History] FentaNYL PATCH [Duragesic] 12 mcg TD Q72H 08/11/17 [History] Multivitamin [One Daily Multivitamin] 1 tab PO DAILY 08/11/17 [History] ARIPiprazole [Abilify] 5 mg PO DAILY 03/15/18 [History] Chlorhexidine Rinse 15 ml PO 2-3XD PRN 03/15/18 [History] Furosemide [Lasix] 20 mg PO DAILY PRN 03/15/18 [History] Lactobacillus Acidophilus [Acidophilus] 1 cap PO HS 03/15/18 [History] Lactulose [Enulose] 10 gm PO DAILY PRN 03/15/18 [History] Lidocaine Patch [Lidoderm 5% patch] 4 patch TP DAILY PRN 03/15/18 [History] Allergy/AdvReac Type Severity Reaction Status Date / Time morphine AdvReac Hallucinati Verified 07/28/18 19:37 ng All Systems PM: A 10-system review of systems was performed and is negative for pertinent findings except as documented above in the HPI. - Constitutional Constitutional: lethargy, malaise, weakness, no chills, no fever(s) - EENT Eyes: no blurry vision, no change in vision Nose, mouth and throat: no bleeding gums, no epistaxis - Cardiovascular Cardiovascular ROS IM: chest pain, irregular heart rhythm, palpitations, no dyspnea, no dyspnea on exertion - Respiratory Respiratory: cough, no hemoptysis - Gastrointestinal Gastrointestinal: no abdominal pain, no diarrhea, no nausea, no vomiting - Genitourinary Genitourinary: no dysuria, no hematuria - Musculoskeletal Musculoskeletal ROS IM: back pain, neck pain - Integumentary Integumentary IM: no erythema, no unusual bruising - Neurological Neurological ROS: frequent falls, weakness - Psychiatric Psychiatric: anxiety, depression - Endocrine Endocrine IM: fatigue - Hematologic/Lymphatic Hematologic/Lymphatic: no easy bleeding, no easy bruising - Constitutional Vitals: Temp Pulse Resp BP Pulse Ox 99.1 F 105 20 141/86 92 07/28/18 19:01 07/28/18 21:25 07/28/18 21:25 07/28/18 21:25 07/28/18 21:25 Exam: general - aox3, nad, laying in bed and able to speak in full sentences heent - ncat, no scleral icterus, MMM neck - no jvd, neck supple, trachea midline cardio - tacycardia, s1s2 cta no mrg lungs - ctab no wheeze/rhonhi/rales, not in respiratory distress abd - soft, ntnd, no peritoneal signs, no rebound or guarding midline scar from hysterectomy extremities - able to move all extremities equally and w/o difficulty, strength 5/5 UE & LE neuro - no fnd, cn2-12 grossly intact psych - appropriate mood/affect skin - warm,dry,intact Internal Med - H&P Results - Labs CBC & Chem 7: 07/28/18 20:24 07/28/18 19:04 Labs: Short CBC 07/28/18 Range/Units 20:24 WBC 9.0 (4.3-11.1) K/mcL Hgb 13.2 (11.5-15.4) g/dL Hct 40.3 (35.3-44.9) % Plt Count 445 H (140-400) K/mcL Neutrophils # 4.9 (1.6-8.9) K/mcL BMP 07/28/18 19:04 Sodium 137 Potassium 3.0 L Chloride 98 Carbon Dioxide 30 H BUN 14 Creatinine 0.99 Glucose 96 Calcium 9.3 Cardiac Enzymes 07/28/18 Range/Units 19:04 Troponin I < 0.03 (< 0.04) ng/mL Liver Function 07/28/18 Range/Units 19:04 Total Bilirubin 0.3 (0.3-1.0) mg/dL AST 24 (13-39) Units/L ALT 6 L (7-52) Units/L Alkaline Phosphatase 161 H (34-104) Units/L Albumin 3.9 (3.5-5.7) g/dL - Impressions ITS Impressions Chest X-Ray 07/28/18 19:04 IMPRESSION: No acute abnormality. D/ / Clayton Russell MD / Clayton Russell MD Interpreting Provider: Clayton Russell MD - Assessment and Plan (1) Pulmonary embolism Current Visit: Yes Status: Suspected Assessment and plan: Suspected PE. Pt with concerning hx for PE - recent surgery, immobilization, decreased activity - pt c/o chest pain, some SOB, palpiltations Troponin negative x1 in the ER CXR negative for acute process EKG showed sinus tacycardia without ST segment changes D-dimer elevated at 1330 Tacycardic and tacypnic in the ER Pt continues to have blood pressure Unable to insert an appropriate site for administering of contrast, therefore, unable to obtain CT imaging of the chest - will continue to have access placed overnight and if able to, will obtain CT scan of the chest Plan: - attempt to obtain adequate access to administer contrast, as of now pt only has EJ placement - VQ scan pending for tomorrow AM - continue heparin drip - ECHO pending to r/o right heart stain - morning labs at 04:00 - continue telemetry monitoring - FEN: cardiac diet - dvt prophylaxis: on heparin drip - dispo: PE r/o Qualifiers: Pulmonary embolism type: unspecified Chronicity: acute Acute cor pulmonale presence: without acute cor pulmonale Qualified Code(s): I26.99 - Other pulmonary embolism without acute cor pulmonale (2) Hypothyroidism Current Visit: No Status: Chronic Assessment and plan: con't home synthroid. Qualifiers: Hypothyroidism type: unspecified Qualified Code(s): E03.9 - Hypothyroidism, unspecified (3) Gout Current Visit: No Status: Chronic Assessment and plan: con't home allopurinal, chronic. Qualifiers: Gout site: unspecified site Gout etiology: unspecified cause Chronicity: chronic Presence of tophus: without tophus Qualified Code(s): M1A.9XX0 - Chronic gout, unspecified, without tophus (tophi) (4) COPD (chronic obstructive pulmonary disease) Current Visit: No Status: Chronic Assessment and plan: Con't home nebs. NOT in acute exacerbation. Qualifiers: COPD type: unspecified COPD Qualified Code(s): J44.9 - Chronic obstructive pulmonary disease, unspecified (5) Hypoxia Current Visit: Yes Status: Acute Assessment and plan: Pt noted to be hypoxic upon arrival to the ER. Currently maintaining appropriate saturations on RA. (6) Hypogammaglobulinemia Current Visit: No Status: Chronic Assessment and plan: Chronic. Gammaglob shots one time weekly with Dr. Moore. (7) Anxiety Current Visit: No Status: Chronic Assessment and plan: con't home rx. (8) Tachycardia Current Visit: Yes Status: Acute Assessment and plan: See above for PE. (9) Coronary artery disease Current Visit: No Status: Chronic Assessment and plan: Chronic. Con't home rx. Prevous ECHO from 2018 showed a LVEF 60-65%, mild LV diastolic dysfxn. Qualifiers: Coronary Disease-Associated Artery/Lesion type: [place] artery [place] vs. transplanted heart: [place] heart Associated angina: without angina Qualified Code(s): I25.10 - Atherosclerotic heart disease of [place] coronary artery without angina pectoris (10) Hypokalemia Current Visit: Yes Status: Acute Assessment and plan: Potassium 3.0 on admission. Replaced. Re-check in AM. (11) Chest pain Current Visit: Yes Status: Acute Assessment and plan: See plan above for PE. Qualifiers: Chest pain type: unspecified Qualified Code(s): R07.9 - Chest pain, unspecified (12) DVT prophylaxis Current Visit: No Status: Acute Assessment and plan: heparin drip. (13) CHF (congestive heart failure) Current Visit: No Status: Chronic Assessment and plan: Not in acute exacerbation. Previous ECHO from 2018 showing LVEF 60-65%. Mild left ventricular diastolic dysfunction. Repeat ECHO pending. Cardiac diet. Qualifiers: Heart failure type: diastolic Heart failure chronicity: acute Qualified Code(s): I50.31 - Acute diastolic (congestive) heart failure (14) Hypertension Current Visit: No Status: Chronic Assessment and plan: chronic. con't home rx when reconciled. Qualifiers: Hypertension type: essential hypertension Qualified Code(s): I10 - Essential (primary) hypertension (15) Thrombocytosis Current Visit: Yes Status: Acute Assessment and plan: Pt noted to have a platelet count of 441, likely reactive in the setting of recent surgery. (16) Prinzmetal angina Current Visit: No Status: Chronic Assessment and plan: chronic. - Time Spent With Patient Total time spent is greater than 50% in coordination of care (as documented) at patient's floor/unit and/or counseling patient: 25 - 35 minutes <Neftali Brumfield - Last Filed: 07/29/18 06:43> Date of Encounter: 07/28/18 Internal Medicine - H&P: HPI History of present illness: Ms. Mayse is a 67 year old female All Systems PM: A 10-system review of systems was performed and is negative for pertinent findings except as documented above in the HPI. - Constitutional Vitals: Temp Pulse Resp BP Pulse Ox 98.4 F 88 16 115/75 95 07/29/18 02:37 07/29/18 05:39 07/29/18 05:39 07/29/18 05:39 07/29/18 02:37 Internal Med - H&P Results - Labs CBC & Chem 7: 07/28/18 20:24 07/28/18 19:04 Labs: Short CBC 07/28/18 07/28/18 Range/Units 20:00 20:24 WBC 8.8 9.0 (4.3-11.1) K/mcL Hgb 13.1 13.2 (11.5-15.4) g/dL Hct 39.9 40.3 (35.3-44.9) % Plt Count 441 H 445 H (140-400) K/mcL Neutrophils # 4.9 (1.6-8.9) K/mcL BMP 07/28/18 19:04 Sodium 137 Potassium 3.0 L Chloride 98 Carbon Dioxide 30 H BUN 14 Creatinine 0.99 Glucose 96 Calcium 9.3 Cardiac Enzymes 07/28/18 Range/Units 19:04 Troponin I < 0.03 (< 0.04) ng/mL Liver Function 07/28/18 Range/Units 19:04 Total Bilirubin 0.3 (0.3-1.0) mg/dL AST 24 (13-39) Units/L ALT 6 L (7-52) Units/L Alkaline Phosphatase 161 H (34-104) Units/L Albumin 3.9 (3.5-5.7) g/dL - Impressions ITS Impressions Chest X-Ray 07/28/18 19:04 IMPRESSION: No acute abnormality. D/ / Clayton Russell MD / Clayton Russell MD Interpreting Provider: Clayton Russell MD - Time Spent With Patient Total time spent is greater than 50% in coordination of care (as documented) at patient's floor/unit and/or counseling patient: - Attending Attestation I performed a History and physical examination of the patient and discussed her management with the resident. I reviewed the resident's note and agree with the plan of care. Patient is a 67 year old female arthritis, COPD, Prinzmetal's angina coronary artery disease, fibromyalgia, GERD, hyperlipidemia, hypertension, kidney stones, myocardial infarction who presented to the ED for evaluation of chest pain and SOB that has been going on for the past 3 days intermittently. Pain appears to be pleuritic associated with palpatations. She has had recent surgery involving her right upper extremity in which she had multiple fractures of that arm. She currently wheres a brace on the right arm. Approximately 3 days ago she noted increased swelling of the entire extremity. She went to bed that night and the swelling subsided by the morning noting that the brace had fallen off. She reports symptoms of her chest pain began after that and at one point noted her HR to be in the 140's. Cardiac workup was essentially unremarkable except for an elevated d-dimer of 1330. EKG was nonischemic. Was given nitroglycerin trial in which her chest pain completely resolved. Staff had difficultly establishing IV access and ultimately an EJ IV line was placed. However, contrast can not be given via her EJ and CTA of the chest to evaluate for a pulmonary embolism could not be performed. Given her risk factors which include recent surgery, dyspnea and tachycardia, the patient was started on heparin standard dose to treat for PE until she can have proper placement of an IV and evaluation with imaging tomorrow. We will continue heparin drip. Will obtain echocardiogram in the morning to assess for any RV strain. Potassium repleted.
[2018-07-28] MEDS ORDERED: Naloxone 0.4 MG/ML INJ IVP PRN (22:18)
[2018-07-28] MEDS: Heparin 25,000 UNIT/250 ML D5W 25,000 UNIT/250 ML IV.SOLN IVC SCH (22:30)
[2018-07-28 22:42] LABS: Hematocrit 39.9 % (35.3-44.9); Hemoglobin 13.1 g/dL (11.5-15.4); Mean Corpuscular HGB Conc 32.8 g/dL (31.6-35.5); Mean Corpuscular Hemoglobin 29.9 pg (28.0-33.3); Mean Corpuscular Volume 91.1 fL (83.0-100.0); Mean Platelet Volume 10.2 fL (9.4-12.4); Platelet Count 441 K/mcL (140-400); Red Blood Count 4.38 M/mcL (3.82-4.97); Red Cell Distribution Width 14.3 % (11.5-14.5); White Blood Count 8.8 K/mcL (4.3-11.1)
[2018-07-28] MEDS ORDERED: Ipratropium/Albuterol Neb 3 ML IH PRN (23:23)
[2018-07-28] MEDS ORDERED: NIFEdipine 10 MG CAPSULE PO PRN (23:23)
[2018-07-28] MEDS ORDERED: Lactulose Oral Soln 20 GM/30 ML UDC PO PRN (23:23)
[2018-07-28] MEDS ORDERED: Furosemide 20 MG TABLET PO PRN (23:23)
[2018-07-29] MEDS: *HR* OxyCODONE Immed Rel 5 MG TABLET PO PRN ×3 (02:38→19:29)
[2018-07-29 06:25] LABS: Hematocrit 39.4 % (35.3-44.9); Hemoglobin 12.7 g/dL (11.5-15.4); Mean Corpuscular HGB Conc 32.2 g/dL (31.6-35.5); Mean Corpuscular Hemoglobin 29.9 pg (28.0-33.3); Mean Corpuscular Volume 92.7 fL (83.0-100.0); Mean Platelet Volume 10.5 fL (9.4-12.4); Platelet Count 411 K/mcL (140-400); Red Blood Count 4.25 M/mcL (3.82-4.97); Red Cell Distribution Width 14.3 % (11.5-14.5); White Blood Count 8.1 K/mcL (4.3-11.1)
[2018-07-29 06:43] LABS: BUN/Creatinine Ratio 25 (6-26); Blood Urea Nitrogen 18 mg/dL (8-23); Calcium 9.3 mg/dL (8.6-10.3); Carbon Dioxide 31 mEq/L (23-29); Chloride 101 mEq/L (98-107); Glucose 115 mg/dL (70-105); Osmolality,Calculated 295 (280-300); Potassium 3.7 mEq/L (3.5-5.1); Sodium 141 mEq/L (136-145); eGFR For African Americans > 60 (> 60); eGFR For Non-African Americans > 60 (> 60)
[2018-07-29] MEDS ORDERED: Perflutren Lipid Microsphere 1.3 ML in 0.9 % Sodium Chloride 8.7 ML IVP ONE (09:20)
--- NOTE | 2018-07-29 10:55 | Internal Med Progress Note ---
Hospitalist Progress Note - Encounter Date of Encounter: 07/29/18 Time of Encounter: 10:55 - Subjective Interval History: Patient was seen and examined at bedside currently denies any shortness of breath states that pain is tender from where she completed the echo. No other chest pain voiced. Diagnostic testing pending at this time - Exam Vitals: Temp Pulse Resp BP Pulse Ox 98.6 F 94 15 145/87 92 07/29/18 06:40 07/29/18 06:40 07/29/18 06:40 07/29/18 06:40 07/29/18 06:40 Exam: general - aox3, nad, laying in bed and able to speak in full sentences heent - ncat, no scleral icterus, MMM neck - no jvd, neck supple, trachea midline cardio - tacycardia, s1s2 cta no mrg lungs - ctab no wheeze/rhonhi/rales, not in respiratory distress abd - soft, ntnd, no peritoneal signs, no rebound or guarding midline scar from hysterectomy extremities - able to move all extremities equally and w/o difficulty, strength 5/5 UE & LE neuro - no fnd, cn2-12 grossly intact psych - appropriate mood/affect skin - warm,dry,intact - Assessment and Plan (1) Chest pain Current Visit: Yes Status: Acute Assessment and Plan: Currently only complains of pain on palpation where she had her echo completed today and initial troponins were negative Waiting for the CT scan results as well as echo troponin negative second troponin pending-continue cardiac monitoring (2) Elevated d-dimer Current Visit: Yes Status: Acute Assessment and Plan: Presented with elevated d-dimer high risk for PE secondary to recent surgical procedure and immobility we will obtain VQ scan due to patient unable to receive contrast dye secondary to IV site (3) Hypokalemia Current Visit: Yes Status: Acute Assessment and Plan: Replace and monitor (4) Tachycardia Current Visit: Yes Status: Acute Assessment and Plan: This appears to have resolved (5) Pulmonary embolism Current Visit: Yes Status: Suspected Assessment and Plan: Troponin negative will repeat chest x-ray today for any acute process EKG with sinus tachycardia with no ST changes Will recheck EKG d-dimer elevated tachycardic to The ER Underwent VQ scan which is pending at this time Continue with heparin drip Obtain cardiac echo rule out possible right heart strain Continuous cardiac monitoring (6) DVT prophylaxis Current Visit: No Status: Acute Assessment and Plan: Raj on heparin drip (7) Hypoxemia Current Visit: No Status: Acute Assessment and Plan: Patient presented with hypoxia suspect possible PE see workup above (8) Anxiety Current Visit: No Status: Chronic Assessment and Plan: Continue with home medications (9) COPD (chronic obstructive pulmonary disease) Current Visit: No Status: Chronic Assessment and Plan: Does not appear to be in exacerbation at this time continue with bronchodilators and oxygen as needed (10) Coronary artery disease Current Visit: No Status: Chronic Assessment and Plan: Continue with aspirin and statin had cardiac echo in 2018 which did show LVEF of 60-65% mild LV diastolic dysfunction. Continue with cardiac monitoring-we will recheck cardiac echo (11) H/O Prinzmetal angina Current Visit: No Status: Chronic Assessment and Plan: Chronic (12) Hypogammaglobulinemia Current Visit: No Status: Chronic Assessment and Plan: Chronic gammaglobulin shots [address] Moore (13) Hypothyroidism Current Visit: No Status: Chronic Assessment and Plan: Continue home Synthroid check TSH - Time Spent with Patient Total time spent is greater than 50% in coordination of care (as documented) at patient's floor/unit and/or counseling patient: Internal Medicine: Result - Labs CBC & Chem 7: 07/29/18 05:45 07/29/18 05:45 Labs: Short CBC 07/28/18 07/28/18 07/29/18 Range/Units 20:00 20:24 05:45 WBC 8.8 9.0 8.1 (4.3-11.1) K/mcL Hgb 13.1 13.2 12.7 (11.5-15.4) g/dL Hct 39.9 40.3 39.4 (35.3-44.9) % Plt Count 441 H 445 H 411 H (140-400) K/mcL Neutrophils # 4.9 (1.6-8.9) K/mcL BMP 07/28/18 07/29/18 19:04 05:45 Sodium 137 141 Potassium 3.0 L 3.7 Chloride 98 101 Carbon Dioxide 30 H 31 H BUN 14 18 Creatinine 0.99 0.71 Glucose 96 115 H Calcium 9.3 9.3 Cardiac Enzymes 07/28/18 Range/Units 19:04 Troponin I < 0.03 (< 0.04) ng/mL Liver Function 07/28/18 Range/Units 19:04 Total Bilirubin 0.3 (0.3-1.0) mg/dL AST 24 (13-39) Units/L ALT 6 L (7-52) Units/L Alkaline Phosphatase 161 H (34-104) Units/L Albumin 3.9 (3.5-5.7) g/dL - ABG Interpretation ABG results: PT/INR, D-dimer PT 11.6 Seconds (9.4-12.1) 07/28/18 20:24 1330 ng/mLFEU (0-500) H 07/28/18 20:24 - Impressions Impressions Chest X-Ray 07/28/18 19:04 IMPRESSION: No acute abnormality. D/ / Clayton Russell MD / Clayton Russell MD Interpreting Provider: Clayton Russell MD Consult Discharge Plan - Plan Referrals: Joseph Johns DO [Primary Care Provider] - (1) Chest pain Qualifiers: Chest pain type: unspecified Qualified Code(s): R07.9 - Chest pain, uns pecified (5) Pulmonary embolism Qualifiers: Pulmonary embolism type: unspecified Chronicity: acute Acute cor pulmonale presence: without acute cor pulmonale Qualified Code(s): I26.99 - Other pulmonary embolism without acute cor pulmonale (9) COPD (chronic obstructive pulmonary disease) Qualifiers: COPD type: chronic bronchitis Chronic bronchitis type: simple Qualified Code(s): J41.0 - Simple chronic bronchitis (10) Coronary artery disease Qualifiers: Coronary Disease-Associated Artery/Lesion type: [place] artery [place] vs. transplanted heart: [place] heart Associated angina: without angina Qualified Code(s): I25.10 - Atherosclerotic heart disease of [place] coronary artery without angina pectoris (13) Hypothyroidism Qualifiers: Hypothyroidism type: acquired Qualified Code(s): E03.9 - Hypothyroidism, unspecified
[2018-07-29] MEDS ORDERED: 0.9 % Sodium Chloride 500 ML ONE (11:01)
[2018-07-29] MEDS: ARIPiprazole 5 MG TABLET PO SCH (11:18)
[2018-07-29] MEDS: Aspirin 325 MG TABLET PO SCH (11:19)
[2018-07-29] MEDS: Pregabalin 50 MG CAPSULE PO SCH ×2 (13:13→21:37)
[2018-07-29] MEDS ORDERED: Pregabalin 50 MG CAPSULE PO SCH (21:00)
[2018-07-30] MEDS: Heparin 25,000 UNIT/250 ML D5W 25,000 UNIT/250 ML IV.SOLN IVC SCH (03:11)
[2018-07-30] MEDS: *HR* OxyCODONE Immed Rel 5 MG TABLET PO PRN (03:17)
[2018-07-30 06:51] VITALS: BP 114/40
[2018-07-30 08:16] LABS: BUN/Creatinine Ratio 19 (6-26); Blood Urea Nitrogen 15 mg/dL (8-23); Calcium 9.3 mg/dL (8.6-10.3); Carbon Dioxide 30 mEq/L (23-29); Chloride 102 mEq/L (98-107); Glucose 113 mg/dL (70-105); Osmolality,Calculated 296 (280-300); Potassium 3.4 mEq/L (3.5-5.1); Sodium 142 mEq/L (136-145); eGFR For African Americans > 60 (> 60); eGFR For Non-African Americans > 60 (> 60)
[2018-07-30] MEDS: ARIPiprazole 5 MG TABLET PO SCH (09:30)
[2018-07-30] MEDS: Pregabalin 50 MG CAPSULE PO SCH (09:31)
[2018-07-30] MEDS: Aspirin 325 MG TABLET PO SCH (09:31)
--- NOTE | 2018-07-30 10:18 | Discharge Summary ---
- NOTES TO OUTPATIENT PROVIDER Notes to Outpatient Provider: Patient presented with chest pain 2-3 days on and off high heart rate and palpitations was tachycardic into With elevated platelet d-dimer. Underwent VQ scan which was negative-venous duplex was negative for any DVT-troponins were negative cardiac echo with EF of 60-65% mild left ventricular diastolic dysfunction-right ventricle was not well visualized. EKG with no ischemic changes. Continue with home oxygen Orders not resulted at time of discharge: Pending orders 07/30/18 MRSA Surveillance Screen [MOLMIC] Routine Date of Encounter: 07/30/18 Time of Encounter: 10:15 - Discharge Diagnosis (1) Chest pain Priority: Primary Status: Acute Qualifiers: Chest pain type: unspecified Qualified Code(s): R07.9 - Chest pain, unspecified (2) Elevated d-dimer Priority: Secondary Status: Acute (3) Hypokalemia Priority: Secondary Status: Acute (4) Tachycardia Priority: Secondary Status: Acute (5) Pulmonary embolism Priority: Secondary Status: Suspected Qualifiers: Pulmonary embolism type: unspecified Chronicity: acute Acute cor pulmonale presence: without acute cor pulmonale Qualified Code(s): I26.99 - Other pulmonary embolism without acute cor pulmonale (6) Hypoxemia Priority: Secondary Status: Acute (7) Anxiety Priority: Secondary Status: Chronic (8) COPD (chronic obstructive pulmonary disease) Priority: Secondary Status: Chronic Qualifiers: COPD type: chronic bronchitis Chronic bronchitis type: simple Qualified Code(s): J41.0 - Simple chronic bronchitis (9) Coronary artery disease Priority: Secondary Status: Chronic Qualifiers: Coronary Disease-Associated Artery/Lesion type: [place] artery [place] vs. transplanted heart: [place] heart Associated angina: without angina Qualified Code(s): I25.10 - Atherosclerotic heart disease of [place] coronary artery without angina pectoris (10) H/O Prinzmetal angina Priority: Secondary Status: Chronic (11) Hypogammaglobulinemia Priority: Secondary Status: Chronic (12) Hypothyroidism Priority: Secondary Status: Chronic Qualifiers: Hypothyroidism type: acquired Qualified Code(s): E03.9 - Hypothyroidism, unspecified Hospital course: Ms. Mayes is a 67 year old female past medical history of arthritis COPD presents mentals angina coronary artery disease fibromyalgia GERD hyperlipidemia hypertension kidney stones myocardial infarction osteoporosis thyroid disease and TIA. Presented with 2-3 day history of chest pain present off and on patient states that she woke and found her heart rate elevated up to the 140s. She continue to monitor at home during this episode she did feel palpitations. She did not feel that the symptoms were consistent with her past history of Prinzmetal angina. On presentation in the ER she was found to be tachycardic and ticket neck with elevated platelets and elevated d-dimer. Adequate IV access was not obtainable an IV was placed in her left EJ she was unable to receive contrast for CT of chest so she was placed on heparin drip and underwent VQ scan to which was negative for PE. She is at risk for blood clots for recent surgery and has been immobile at home. History of falls last fall was on Mother's Day which is when she shattered her elbow and underwent surgery. Venous duplex was negative for any DVT- troponin was negative x2 cardiac echo with EF of 60-65% with mild diastolic dysfunction chest x-ray with no acute abnormality EKG with no ischemic changes.No changes on telemetry overnight sinus rhythm with rate 70-90. No more chest pain during this admission no shortness of breath. Oxygen saturations are 96-93% on room air patient does have oxygen at home we will advise her to use it. Patient did have a cardiac stress test approximately one year ago which was negative for any ischemia or infarct. Temperature past been discontinued advised patient to follow-up with primary care provider. We will give her prescription for Symbicort inhaler and advised patient to use oxygen. Encouraged patient to ambulate continue with daily aspirin. Patient has return back to baseline and she is ready for discharge. - Time Spent with Patient Total time spent providing and/or coordinating discharge services: - Discharge Medications Prescriptions: New Budesonide/Formoterol 80/4.5 [Symbicort 80/4.5] 1 puff IH BID #1 hfa.aer.ad Continued Hydroxychloroquine [Plaquenuil] 400 mg PO DAILY Levothyroxine [Synthroid] 50 mcg PO DAILY Allopurinol [Zyloprim 300 MG] 300 mg PO DAILY Cyclobenzaprine [Flexeril] 10 mg PO TID PRN PRN Reason: Muscle Spasm OxyCODONE Immed Rel [Roxicodone 10 MG] 10 mg PO Q6H PRN PRN Reason: Pain Albuterol Sulfate [Proair Hfa] 2 puff IH Q4H PRN PRN Reason: Shortness Of Breath NIFEdipine [Procardia] 10 mg PO DAILY PRN PRN Reason: Angina Pregabalin [Lyrica] 100 mg PO BID Ipratropium/Albuterol Neb [Duoneb] 3 ml IH Q6H PRN PRN Reason: Shortness Of Breath/Wheezing DULoxetine [Cymbalta] 30 mg PO DAILY #30 capsule. Aspirin 325 mg PO DAILY Atorvastatin Calcium [Lipitor] 20 mg PO DAILY FentaNYL PATCH [Duragesic] 12 mcg TD Q72H Multivitamin [One Daily Multivitamin] 1 tab PO DAILY ARIPiprazole [Abilify] 5 mg PO DAILY Chlorhexidine Rinse 15 ml PO 2-3XD PRN PRN Reason: INFECTION Furosemide [Lasix] 20 mg PO DAILY PRN PRN Reason: EDEMA/COPD Lactobacillus Acidophilus [Acidophilus] 1 cap PO HS Lactulose [Enulose] 10 gm PO DAILY PRN PRN Reason: Constipation Lidocaine Patch [Lidoderm 5% patch] 4 patch TP DAILY PRN PRN Reason: Pain Home Medications: Albuterol Sulfate [Proair Hfa] 2 puff IH Q4H PRN 07/14/15 [History] Allopurinol [Zyloprim 300 MG] 300 mg PO DAILY 07/14/15 [History] Cyclobenzaprine [Flexeril] 10 mg PO TID PRN 07/14/15 [History] Hydroxychloroquine [Plaquenuil] 400 mg PO DAILY 07/14/15 [History] Levothyroxine [Synthroid] 50 mcg PO DAILY 07/14/15 [History] OxyCODONE Immed Rel [Roxicodone 10 MG] 10 mg PO Q6H PRN 07/14/15 [History] Ipratropium/Albuterol Neb [Duoneb] 3 ml IH Q6H PRN 05/09/17 [History] NIFEdipine [Procardia] 10 mg PO DAILY PRN 05/09/17 [History] Pregabalin [Lyrica] 100 mg PO BID 05/09/17 [History] DULoxetine [Cymbalta] 30 mg PO DAILY #30 capsule. 06/28/17 [Rx] Aspirin 325 mg PO DAILY 08/11/17 [History] Atorvastatin Calcium [Lipitor] 20 mg PO DAILY 08/11/17 [History] FentaNYL PATCH [Duragesic] 12 mcg TD Q72H 08/11/17 [History] Multivitamin [One Daily Multivitamin] 1 tab PO DAILY 08/11/17 [History] ARIPiprazole [Abilify] 5 mg PO DAILY 03/15/18 [History] Chlorhexidine Rinse 15 ml PO 2-3XD PRN 03/15/18 [History] Furosemide [Lasix] 20 mg PO DAILY PRN 03/15/18 [History] Lactobacillus Acidophilus [Acidophilus] 1 cap PO HS 03/15/18 [History] Lactulose [Enulose] 10 gm PO DAILY PRN 03/15/18 [History] Lidocaine Patch [Lidoderm 5% patch] 4 patch TP DAILY PRN 03/15/18 [History] Allergies/Adverse Reactions: Allergy/AdvReac Type Severity Reaction Status Date / Time morphine AdvReac Hallucinati Verified 07/28/18 19:37 ng Date of admission: 07/28/18 22:36 Primary care physician: Arturo Johns DO Discharging clinician: Ayse Avina Anticipated date of discharge: 07/30/18 - Constitutional Vitals: Temp Pulse Resp BP Pulse Ox 98.3 F 96 16 114/40 93 07/30/18 06:50 07/30/18 06:50 07/30/18 06:50 07/30/18 06:50 07/30/18 06:50 Exam: Skin: Free of rash and discoloration. Eyes: Sclera is white. There is no discharge from eyes. ENMT: Oral/pharyngeal mucosa is normal in appearance. There is no discharge from nose or ears. Respiratory: Normal breath sounds with no crackles and wheezes bilaterally. CV: Heart is regular with no gallop or murmur. GI: Abdomen is flat and soft with no palpable mass or visceromegaly. : There is no tenderness in patient's flanks bilaterally. Neuro exam: He has good strength in upper and lower extremities. He has normal eye movements. Psychiatric: He has normal affect. His thought process is appropriate to the situation. - Patient Status Disposition: Home, Self-Care Condition: Undetermined Functional capacity at discharge: independent ambulation - Discharge Instructions Instructions: Chest Pain (DC) Follow Up With: Joseph Johns DO [Primary Care Provider] - Additional Instructions: Wear oxygen as needed - Diet and Activity Activity: other Diet: advance to your usual diet
[2018-07-30] MEDS ORDERED: *HR* FentaNYL PATCH 12 MCG PATCH TD SCH (10:45)
--- NOTE | 2018-07-30 21:00 | Electrocardiograph Report ---
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
[2018-07-30] MEDS ORDERED: Budesonide/Formoterol 80/4.5 MDI IH SCH (22:00)
--- NOTE | 2018-07-31 15:48 | Electrocardiograph Report ---
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
== END 2018-07-30 12:55 | disposition home or self-care (01) ==
LOC: 3BNU 18:59 → EMEROOARM 18:59 → 3BNU 23:42
PROVIDERS: ADMIT Internal Medicine; ATTEND Internal Medicine

== ENCOUNTER 2019-06-27 14:59 | Inpatient (IN) ==
[2019-06-27 16:26] LABS: BUN/Creatinine Ratio 29 (6-26); Blood Urea Nitrogen 28 mg/dL (8-23); Calcium 9.4 mg/dL (8.6-10.3); Carbon Dioxide 27 mEq/L (23-29); Chloride 101 mEq/L (98-107); Glucose 97 mg/dL (70-105); Osmolality,Calculated 279 (280-300); Potassium 4.2 mEq/L (3.5-5.1); Sodium 132 mEq/L (136-145); eGFR For African Americans > 60 (> 60); eGFR For Non-African Americans 58 (> 60)
[2019-06-27 16:27] LABS: Troponin I < 0.03 ng/mL (< 0.04)
[2019-06-27 17:06] LABS: Basophils # 0.1 K/mcL (0.0-0.2); Basophils % 0.8 %; Eosinophils # 0.2 K/mcL (0.0-0.6); Eosinophils % 2.9 %; Hematocrit 43.8 % (35.3-44.9); Hemoglobin 14.5 g/dL (11.5-15.4); Immature Granulocytes % 0.1 % (0-4); Lymphocytes # 2.8 K/mcL (0.6-4.6); Lymphocytes % 35.2 %; Mean Corpuscular HGB Conc 33.1 g/dL (31.6-35.5); Mean Corpuscular Hemoglobin 30.1 pg (28.0-33.3); Mean Corpuscular Volume 90.9 fL (83.0-100.0); Mean Platelet Volume 9.7 fL (9.4-12.4); Monocytes # 0.9 K/mcL (0.0-1.3); Monocytes % 11.8 %; Neutrophils # 3.9 K/mcL (1.6-8.9); Platelet Count 393 K/mcL (140-400); Red Blood Count 4.82 M/mcL (3.82-4.97); Red Cell Distribution Width 14.2 % (11.5-14.5); Segmented Neutrophils % 49.2 %; White Blood Count 7.9 K/mcL (4.3-11.1)
[2019-06-27] MEDS ORDERED: Ondansetron 4 MG/2 ML VIAL IVP PRN (18:35)
[2019-06-27] MEDS ORDERED: Naloxone 0.4 MG/ML INJ IVP PRN (18:35)
[2019-06-27] MEDS ORDERED: Furosemide 20 MG TABLET PO PRN (18:40)
[2019-06-27] MEDS ORDERED: *HR* FentaNYL PATCH 12 MCG PATCH TD SCH (19:00)
[2019-06-27] MEDS: *HR* Heparin 5,000 UNIT/ML VIAL SQ SCH (20:23)
[2019-06-28 05:19] LABS: Basophils # 0.1 K/mcL (0.0-0.2); Basophils % 0.8 %; Eosinophils # 0.2 K/mcL (0.0-0.6); Eosinophils % 2.8 %; Hematocrit 45.2 % (35.3-44.9); Hemoglobin 14.9 g/dL (11.5-15.4); Immature Granulocytes % 0.4 % (0-4); Lymphocytes # 2.1 K/mcL (0.6-4.6); Lymphocytes % 27.9 %; Mean Corpuscular Hemoglobin 30.2 pg (28.0-33.3); Mean Corpuscular Volume 91.7 fL (83.0-100.0); Mean Platelet Volume 10.1 fL (9.4-12.4); Monocytes # 0.7 K/mcL (0.0-1.3); Monocytes % 8.9 %; Neutrophils # 4.4 K/mcL (1.6-8.9); Platelet Count 349 K/mcL (140-400); Red Blood Count 4.93 M/mcL (3.82-4.97); Red Cell Distribution Width 14.4 % (11.5-14.5); Segmented Neutrophils % 59.2 %; White Blood Count 7.4 K/mcL (4.3-11.1)
[2019-06-28] MEDS: *HR* Heparin 5,000 UNIT/ML VIAL SQ SCH ×3 (05:19→22:01)
[2019-06-28 05:44] LABS: BUN/Creatinine Ratio 32 (6-26); Blood Urea Nitrogen 24 mg/dL (8-23); Calcium 9.5 mg/dL (8.6-10.3); Carbon Dioxide 26 mEq/L (23-29); Chloride 101 mEq/L (98-107); Cholesterol 140 mg/dL (< 200); Glucose 105 mg/dL (70-105); HDL Cholesterol 47 mg/dL (40-59); LDL Cholesterol,Calculated 67 mg/dL (0-99); Osmolality,Calculated 292 (280-300); Potassium 4.2 mEq/L (3.5-5.1); Sodium 139 mEq/L (136-145); Triglycerides 132 mg/dL (< 150); Troponin I < 0.03 ng/mL (< 0.04); eGFR For African Americans > 60 (> 60); eGFR For Non-African Americans > 60 (> 60)
[2019-06-28] MEDS: ARIPiprazole 5 MG TABLET PO SCH (09:03)
[2019-06-28] MEDS: Aspirin 325 MG TABLET PO SCH (09:03)
[2019-06-28] MEDS: amLODIPine 5 MG TABLET PO SCH (09:04)
[2019-06-28] MEDS: allopurinoL 300 MG TABLET PO SCH (09:04)
[2019-06-28] MEDS ORDERED: Regadenoson 0.4 MG/5 ML SYRINGE IVP ONE (11:56)
[2019-06-28] MEDS ORDERED: Ipratropium/Albuterol Neb 3 ML IH PRN (13:55)
[2019-06-28] MEDS: *HR* OxyCODONE Immed Rel 5 MG TABLET PO PRN (14:16)
[2019-06-28] MEDS: Pregabalin 50 MG CAPSULE PO SCH ×2 (14:16→20:16)
[2019-06-29] MEDS: *HR* Heparin 5,000 UNIT/ML VIAL SQ SCH (06:22)
[2019-06-29 07:38] VITALS: BP 124/86
[2019-06-29] MEDS ORDERED: Metoprolol 100 MG TABLET PO SCH (09:00)
[2019-06-29] MEDS: Pregabalin 50 MG CAPSULE PO SCH (09:34)
[2019-06-29] MEDS: amLODIPine 5 MG TABLET PO SCH (09:34)
[2019-06-29] MEDS: Aspirin 325 MG TABLET PO SCH (09:35)
[2019-06-29] MEDS: *HR* OxyCODONE Immed Rel 5 MG TABLET PO PRN (09:35)
[2019-06-29] MEDS: allopurinoL 300 MG TABLET PO SCH (09:35)
[2019-06-29] MEDS: ARIPiprazole 5 MG TABLET PO SCH (09:35)
== END 2019-06-29 13:37 | disposition home or self-care (01) | DRG 303 ==
LOC: EMEROOARM 14:59 → 3BNU 14:59 → SUATTDRO 06-28 13:55
PROVIDERS: ADMIT Family Medicine; ATTEND Internal Medicine